=== PATIENT | female | born 1935 | race Caucasian/White ===

== ENCOUNTER 2017-07-19 12:58 | Outpatient (CLI) | payer MEDICARE, OTHER ==
[~2017-07-19 12:58] MED LIST: Iopamidol 370 76% 100 ML VIAL ONE
== END 2017-07-19 12:59 | disposition home or self-care (01) ==
LOC: BICCT 12:58
PROVIDERS: ATTEND Obstetrics & Gynecology
DX: R10.31 Right lower quadrant pain (principal)
CPT/HCPCS: 74177

== ENCOUNTER 2017-07-27 02:14 | Emergency (ER) | payer MEDICARE, OTHER ==
[2017-07-27 03:37] LABS: #Lymphocytes 0.8 thou/uL (1.20-3.40); #Monocytes 0.5 thou/uL (0.11-0.59); #Neutrophils 4.1 thou/uL (1.40-6.50); %Basophils 0.2 % (0.0-1.0); %Eosinophils 0.8 % (0.0-10.0); %Monocytes 9.5 % (0.0-10.0); Hematocrit 37.6 % (36.0-47.0); Mean Platelet Volume 6.9 fL (7.4-10.4); Red Blood Cell (RBC) Count 3.86 mill/uL (4.20-5.40); White Blood Cell (WBC) Count 5.5 thou/uL (4.8-10.8)
[2017-07-27 03:51] LABS: PTT 26.6 SEC (22.9-36.1); Prothrombin Time 12.8 SEC (12.0-14.7)
[2017-07-27 03:52] LABS: ALT (SGPT) 15 U/L (8-55); AST (SGOT) 19 U/L (5-34); Alkaline Phosphatase 65 U/L (40-150); Anion Gap 11 mmol/L (10-20); BUN (Urea Nitrogen) 13 mg/dL (9.8-20.1); Bilirubin, Total 0.3 mg/dL (0.2-1.2); Calc. Creatinine Clearance 0 mL/min (70-130); Calcium 10.4 mg/dL (7.8-10.44); Carbon Dioxide 28 mmol/L (23-31); Chloride 105 mmol/L (98-107); Estimated GFR-MDRD 63; Globulin 3.2 g/dL (2.4-3.5); Protein, Total 7.2 g/dL (6.0-8.3)
== END 2017-07-27 04:55 | disposition home or self-care (01) ==
LOC: ERS 02:14
DX: R23.3 Spontaneous ecchymoses (principal); E03.9 Hypothyroidism, unspecified; Z79.899 Other long term (current) drug therapy
CPT/HCPCS: 36415; 80053; 85025; 85610; 85652; 85730; 86140; 99283

== ENCOUNTER 2017-09-02 12:32 | Outpatient (CLI) | payer MEDICARE, OTHER ==
--- NOTE | 2017-09-02 21:48 | MRI ---
THORACIC SPINE MRI NONCONTRAST 09/02/17 INDICATION: Radicular pain, right sided. FINDINGS: No evidence of acute compression fracture or subluxation within the thoracic spine. No acute disc spa ce inflammation. The thoracic spinal cord maintains appropriate contour and caliber. No definite intr insic cord signal abnormality is identified. There are no significant disc bulges of the thoracic spi ne. No high grade central canal or neural foraminal stenosis. IMPRESSION: No significant cord compromise of the thoracic spine is demonstrated. POS: [facility]
--- NOTE | 2017-09-02 23:38 | MRI ---
LUMBAR SPINE MRI WITHOUT CONTRAST 09/02/17 CLINICAL HISTORY: Radicular pain. FINDINGS: There is mild multilevel end plate degenerative change at the lumbar spine including multiple Schmorl 's node formation without evidence of acute compression deformity. There is mild retrolisthesis of L2 on 3 and slight spondylosis of L4 on 5. There is a small right renal cyst. L5-S1: There is a left subarticular through foraminal disc protrusion which produces mild narrowing o f the left subarticular zone and mild narrowing of the left aspect of the thecal sac. No high grade f oraminal stenosis. L4-5: Disc bulge is present with mild narrowing of the central canal. No high grade foraminal stenosi s. L3-4: There is mild central canal stenosis on the basis of broad based disc bulge. There is mild narr owing of each neural foramen. L2-3: Mild central canal stenosis. There is moderate narrowing in the right subarticular zone on the basis of disc osteophyte complex and superimposed disc protrusion. Moderate right and mild left neura l foraminal narrowing present. L1-2: No high grade central canal or neural foraminal stenosis. 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 The conus medullaris is appropriate in morphology, terminating at L1. IMPRESSION: Multilevel degenerative change throughout the lumbar spine as outlined above. POS: [facility]
== END 2017-09-02 12:33 | disposition home or self-care (01) ==
LOC: MRI 12:32
PROVIDERS: ATTEND Specialist
DX: M54.10 Radiculopathy, site unspecified (principal); M47.896 Other spondylosis, lumbar region
CPT/HCPCS: 72146; 72148

== ENCOUNTER 2017-11-19 19:07 | Emergency (ER) | payer MEDICARE ==
[2017-11-19 19:38] LABS: Mean Corpuscular HGB CONC 34.6 g/dL (32.0-36.0); Mean Corpuscular Hemoglobin 32.7 pg (27.0-31.0); Mean Corpuscular Volume 94.6 fl (81.0-99.0); Mean Platelet Volume 6.6 fL (7.4-10.4); Platelet Count 275 thou/uL (130-400); RBC Distribution Width 12.1 % (11.5-14.5); Red Blood Cell (RBC) Count 3.97 mill/uL (4.20-5.40); White Blood Cell (WBC) Count 4.4 thou/uL (4.8-10.8)
[2017-11-19 19:53] LABS: Band 11 % (5-11); Eosinophils 2 % (0-10); Lymphocytes 22 % (21-51); MDiff Complete? YES; Monocytes 14 % (0-10); Neutrophil 45 % (42-75); Ovalocytes SLIGHT = 2-5 cells (100X) (0-1/hpf); PLT Morphology Comment Appears Adequate; Polychromasia SLIGHT = 2-3 cells (100X) (0-2/hpf); Reactive Lymphocytes 6 % (0-10)
[2017-11-19 20:00] LABS: ALT (SGPT) 13 U/L (8-55); AST (SGOT) 20 U/L (5-34); Alkaline Phosphatase 66 U/L (40-150); Anion Gap 14 mmol/L (10-20); BUN (Urea Nitrogen) 10 mg/dL (9.8-20.1); Bilirubin, Total 0.3 mg/dL (0.2-1.2); Calc. Creatinine Clearance 0 mL/min (70-130); Calcium 9.9 mg/dL (7.8-10.44); Carbon Dioxide 25 mmol/L (23-31); Chloride 102 mmol/L (98-107); Estimated GFR-MDRD 52; Globulin 3.1 g/dL (2.4-3.5); Glucose 106 mg/dL (83-110); Potassium 3.9 mmol/L (3.5-5.1); Protein, Total 7.1 g/dL (6.0-8.3); Sodium 137 mmol/L (136-145)
[2017-11-19 20:02] LABS: Bilirubin Negative (Negative); Blood, Urine Negative (Negative); Clarity CLEAR (Clear); Glucose, Urine (Dipstick) Negative (Negative); Leukocyte Negative (Negative); Nitrite Negative (Negative); Protein, Urine (Dipstick) Negative (Neg-Trace); Specific Gravity, Urine 1.005 (1.002-1.036); Urobilinogen 0.2 mg/dL (0.2-1.0); pH, Urine 7.5 (5.0-9.0)
[2017-11-19] MEDS ORDERED: Ketorolac Tromethamine 30 MG/ML VIAL ONE (20:48)
--- NOTE | 2017-11-19 23:27 | CT ---
CT ABDOMEN AND PELVIS WITH IV CONTRAST 11/19/17 HISTORY: Right lower quadrant abdominal pain. COMPARISON: None available. FINDINGS: There are mild chronic interstitial lung changes at each lung base. There is a hiatal hernia noted. Vascular calcifications are seen in the abdominal aorta and involving the iliac arteries. The liver, spleen, pancreas, bilateral adrenal glands, left kidney and distended urinary bladder demo nstrate a normal CT appearance. A subcentimeter too small to characterize hypodense lesion is seen in the right kidney. There is evidence of hysterectomy. There is colonic diverticulosis without CT evidence of diverticuli tis. The appendix is visualized and normal in caliber. No periappendiceal inflammatory changes are se en and there is no cecal apical thickening. The opacified bowel is normal in caliber There is no free fluid, fluid collection, or lymphadenopathy seen in the abdomen or pelvis. IMPRESSION: 1. No acute findings are seen in the abdomen or pelvis. There are no CT findings to suggest appe ndicitis. 2. Hysterectomy. 3. Atherosclerotic vascular calcifications. 4. Colonic diverticulosis. 5. Subcentimeter to small to characterize hypodense lesion right kidney. 6. Small hiatal hernia with contrast in distal esophagus probably related to gastroesophageal re flux. POS: [facility]
== END 2017-11-19 23:53 | disposition home or self-care (01) ==
LOC: ERS 19:07
DX: R10.31 Right lower quadrant pain (principal); E03.9 Hypothyroidism, unspecified; I10 Essential (primary) hypertension; Z79.899 Other long term (current) drug therapy; Z79.82 Long term (current) use of aspirin
CPT/HCPCS: 36415; 74177; 80053; 81003; 85025; 96361; 96374; J1885

== ENCOUNTER 2017-12-16 20:03 | Emergency (ER) | payer MEDICARE ==
[2017-12-16] MEDS ORDERED: Morphine 5 MG/ML SYRINGE ONE (20:44)
[2017-12-16 20:50] LABS: #Basophils 0.1 thou/uL (0.0-0.2); #Eosinphils 0.1 thou/uL (0.0-0.7); #Lymphocytes 1.7 thou/uL (1.20-3.40); #Monocytes 0.7 thou/uL (0.11-0.59); #Neutrophils 1.9 thou/uL (1.40-6.50); %Basophils 1.5 % (0.0-1.0); %Eosinophils 2.6 % (0.0-10.0); %Lymphocytes 38.1 % (21.0-51.0); %Monocytes 14.5 % (0.0-10.0); %Neutrophils 43.4 % (42.0-75.0); Hemoglobin 14.1 g/dL (12.0-16.0); Mean Corpuscular HGB CONC 35.3 g/dL (32.0-36.0); Mean Corpuscular Hemoglobin 32.4 pg (27.0-31.0); Mean Corpuscular Volume 91.8 fl (81.0-99.0); Mean Platelet Volume 7.5 fL (7.4-10.4); Platelet Count 259 thou/uL (130-400); Red Blood Cell (RBC) Count 4.36 mill/uL (4.20-5.40); White Blood Cell (WBC) Count 4.5 thou/uL (4.8-10.8)
[2017-12-16 20:53] LABS: Bilirubin Negative (Negative); Blood, Urine Negative (Negative); Glucose, Urine (Dipstick) Negative (Negative); Leukocyte Moderate (Negative); Nitrite Negative (Negative); Protein, Urine (Dipstick) Negative (Neg-Trace); Urobilinogen 0.2 mg/dL (0.2-1.0); pH, Urine 8.5 (5.0-9.0)
[2017-12-16 20:54] LABS: Clarity Hazy (Clear)
[2017-12-16 21:00] LABS: ALT (SGPT) 14 U/L (8-55); AST (SGOT) 23 U/L (5-34); Albumin 4.3 g/dL (3.4-4.8); Alkaline Phosphatase 71 U/L (40-150); Anion Gap 17 mmol/L (10-20); BUN (Urea Nitrogen) 9 mg/dL (9.8-20.1); Bilirubin, Total 0.4 mg/dL (0.2-1.2); Calc. Creatinine Clearance 0 mL/min (70-130); Calcium 10.3 mg/dL (7.8-10.44); Carbon Dioxide 23 mmol/L (23-31); Chloride 105 mmol/L (98-107); Estimated GFR-MDRD 58; Globulin 3.6 g/dL (2.4-3.5); Glucose 86 mg/dL (83-110); Lipase 90 U/L (8-78); Potassium 3.9 mmol/L (3.5-5.1); Protein, Total 7.9 g/dL (6.0-8.3); Sodium 141 mmol/L (136-145)
[2017-12-16 21:01] LABS: Bacteria/HPF 2+ HPF (None Seen); RBC/HPF None Seen HPF (0-3)
--- NOTE | 2017-12-16 21:46 | CT ---
CT OF THE ABDOMEN AND PELVIS 12/16/17 COMPARISON: 11/19/17 HISTORY: Right lower quadrant pain. TECHNIQUE: Serial axial CT imaging is obtained at 5 mm intervals from lung bases through pubic symphysis with IV contrast. Coronal reformatted imaging obtained. FINDINGS: The lack of oral contrast limits assessment of the bowel. Coarse stable peripheral linear interstitia l density noted in both lung bases. There is a stable small sliding hiatal hernia. No free intraperitoneal air or fluid is evident. The liver, spleen, gallbladder, pancreas, adrenal glands, and kidneys are unremarkable. There is no evidence for bowel inflammatory change or obstruction. The appendix is unremarkable. Ther e is moderate distention of the urinary bladder. There is atherosclerotic calcification of the abdominal aorta and its pelvic branches. No pelvic, ret roperitoneal or mesenteric lymphadenopathy. The osseous structures demonstrate degenerative scoliotic curvature of the lumbar spine with apex to the left. There is bilateral hip degenerative change and degenerative change at the level of the pubi c symphysis, bilateral sacroiliac joints, and the facet joints of the lower lumbar spine. IMPRESSION: No evidence for bowel inflammatory change or obstruction. Numerous incidental findings as described a joy. Appendix appears normal. POS: [facility]
== END 2017-12-16 22:02 | disposition home or self-care (01) ==
LOC: SCSER 20:03
DX: R10.31 Right lower quadrant pain (principal); I10 Essential (primary) hypertension; E03.9 Hypothyroidism, unspecified; Z85.3 Personal history of malignant neoplasm of breast; Z79.82 Long term (current) use of aspirin; Z79.899 Other long term (current) drug therapy
CPT/HCPCS: 74177; 80053; 81003; 81015; 83690; 85025; 87086; 96374; J2270

== ENCOUNTER 2018-01-07 20:47 | Emergency (ER) | payer MEDICARE ==
[2018-01-07] MEDS ORDERED: Fentanyl 100 MCG/2 ML VIAL ONE (22:43)
== END 2018-01-07 23:06 | disposition home or self-care (01) ==
LOC: ERS 20:47
DX: R10.31 Right lower quadrant pain (principal); I10 Essential (primary) hypertension
CPT/HCPCS: 96372; J3010

== ENCOUNTER 2018-04-06 20:00 | Emergency (ER) | payer MEDICARE ==
--- NOTE | 2018-04-06 21:11 | RAD ---
RIGHT HIP TWO VIEWS: 04/06/18 HISTORY: Chronic pain. COMPARISON: None. FINDINGS: Contour of the femoral head is maintained. Hip joint space is mildly narrowed. No fracture. IMPRESSION: Mild degenerative change. POS: [facility]
[2018-04-06] MEDS ORDERED: Dexamethasone 4 mg/ml Vial ONE (21:15)
== END 2018-04-06 21:43 | disposition home or self-care (01) ==
LOC: ERS 20:00
DX: G89.29 Other chronic pain (principal); M25.551 Pain in right hip; I10 Essential (primary) hypertension; E03.9 Hypothyroidism, unspecified; Z79.899 Other long term (current) drug therapy; Z79.82 Long term (current) use of aspirin
CPT/HCPCS: 96372; J1100

== ENCOUNTER 2018-05-27 18:57 | Emergency (ER) | payer MEDICARE ==
[2018-05-27] MEDS ORDERED: Dexamethasone 10 MG/ML VIAL ONE (22:35)
== END 2018-05-27 23:00 | disposition home or self-care (01) ==
LOC: ERS 18:57
DX: G89.29 Other chronic pain (principal); M25.551 Pain in right hip; E03.9 Hypothyroidism, unspecified; I10 Essential (primary) hypertension; F41.9 Anxiety disorder, unspecified
CPT/HCPCS: J1100; J2270

== ENCOUNTER 2018-05-29 19:24 | Inpatient (IN) | payer MEDICARE ==
[2018-05-29 20:05] LABS: Hemoglobin 12.1 g/dL (12.0-16.0); Mean Corpuscular HGB CONC 34.1 g/dL (32.0-36.0); Mean Corpuscular Hemoglobin 32.3 pg (27.0-31.0); Mean Corpuscular Volume 94.9 fL (78.0-98.0); Mean Platelet Volume 7.2 fL (7.4-10.4); Platelet Count 303 thou/uL (130-400); RBC Distribution Width 12.3 % (11.5-14.5); Red Blood Cell (RBC) Count 3.73 mill/uL (4.20-5.40); White Blood Cell (WBC) Count 4.2 thou/uL (4.8-10.8)
[2018-05-29 20:22] LABS: Bilirubin Negative (Negative); Blood, Urine Negative (Negative); Clarity CLEAR (Clear); Glucose, Urine (Dipstick) Negative (Negative); Leukocyte Small (Negative); Nitrite Positive (Negative); Protein, Urine (Dipstick) Negative (Neg-Trace); Specific Gravity, Urine 1.009 (1.002-1.036); Urobilinogen 0.2 mg/dL (0.2-1.0)
[2018-05-29 20:24] LABS: Bacteria/HPF 4+ HPF (None Seen); Hyaline Casts/LPF 0-3 HYALINE CAST LPF (0-3 Hyaline); RBC/HPF 0-3 HPF (0-3); Squamous Epithelial None Seen HPF (0-3); WBC/HPF 0-3 HPF (0-3)
[2018-05-29 20:24] LABS: Band 5 % (5-11); Elliptocytes SLIGHT = 2-5 cells (100X) (0-1/hpf); Lymphocytes 39 % (21-51); MDiff Complete? YES; Monocytes 5 % (0-10); Neutrophil 51 % (42-75); PLT Morphology Comment Appears Adequate
[2018-05-29 20:25] LABS: ALT (SGPT) 12 U/L (8-55); AST (SGOT) 21 U/L (5-34); Albumin 4.1 g/dL (3.4-4.8); Alkaline Phosphatase 64 U/L (40-150); Anion Gap 14 mmol/L (10-20); BUN (Urea Nitrogen) 14 mg/dL (9.8-20.1); Bilirubin, Total 0.6 mg/dL (0.2-1.2); CK (CPK) 31 U/L (29-168); Calc. Creatinine Clearance 0 mL/min (70-130); Calcium 10.6 mg/dL (7.8-10.44); Carbon Dioxide 21 mmol/L (23-31); Chloride 95 mmol/L (98-107); Estimated GFR-MDRD 62; Globulin 2.9 g/dL (2.4-3.5); Glucose 94 mg/dL (83-110); Potassium 3.8 mmol/L (3.5-5.1); Sodium 126 mmol/L (136-145)
[2018-05-29 20:29] LABS: CKMB 1.1 ng/mL (0-6.6); Troponin I Less than 0.010 ng/mL (< 0.028)
--- NOTE | 2018-05-29 21:21 | RAD ---
PORTABLE CHEST: History: Weakness. Right sided pain. Comparison: 12-05-16 FINDINGS: Heart size appears slightly enlarged. Chronic lung changes are seen. There are atherosclerotic change s of the aorta. Surgical clips are seen in the left axilla and over the left breast. IMPRESSION: Cardiomegaly with chronic lung change. Stable exam. POS: [facility]
[2018-05-30 00:21] VITALS: BMI 19.5
[2018-05-30] MEDS ORDERED: Ondansetron ODT 4 MG TAB SL PRN (00:24)
[2018-05-30] MEDS ORDERED: Ondansetron HCl/PF 4 MG/2 ML Vial IVP PRN (00:24)
[2018-05-30] MEDS ORDERED: Sodium Chloride 0.9% 1,000 ML IV SCH (00:24)
[2018-05-30] MEDS ORDERED: cefTRIAXone\\ROCEPHIN 1 GM in Sodium Chloride 0.9% 100 ML IVPB SCH (01:00)
--- NOTE | 2018-05-30 08:43 | HP ---
CHIEF COMPLAINT: Extreme fatigue, anorexia and right flank pain associated with UTI. HISTORY OF PRESENT ILLNESS: The patient is an 82-year-old female who states that at the beginning of September she lost her appetite. She began to have right-sided flank pain that would go from around the front all the way back to her spine. She denies the appearance of any rash or skin sensitivity. She has been to the ER as recently as last week for this pain. X-rays were taken with no diagnosis made. She continues to get weaker and weaker. She has no appetite. She is now unable to get out of bed, so she came to the emergency room for further evaluation. In the ER, she was noted to be hypon atremic and to have a urinary tract infection such that she has been put in the hospital for further evaluation. PAST MEDICAL HISTORY: Significant for hypertension, hypothyroidism. PAST SURGICAL HISTORY: Hysterectomy, lumpectomy on the left breast in 2013, rectocele repair in 2005 with pelvic mesh patient. PSYCHIATRIC HISTORY: Includes depression. SOCIAL HISTORY: Denies alcohol use, smoking or illicit drug use. ALLERGIES: She has an unknown reaction to BENADRYL, IODIDES AND SULFIDES react with her as well. MEDICATIONS: On admission include: 1. Lisinopril/hydrochlorothiazide 10/12.5 one p.o. q.a.m. 2. Celecoxib 200 mg daily. 3. Levothyroxine 75 mcg every day. REVIEW OF SYSTEMS: GENERAL: The patient reports extreme fatigue and weakness, but denies fever or chills. HEENT: Denies drainage from her eyes or sores in ears, nose or throat as well as any pain or voice c hanges. CHEST: Denies shortness of breath or coughing. CARDIOVASCULAR: Denies palpitations or chest pain. ABDOMEN: Denies nausea, vomiting, diarrhea. : Denies painful urination or blood in urine or stool. MUSCULOSKELETAL: States that she has chronic right-sided back pain, now radiating around to her fron t pelvis, but she denies any fall or injury. She has arthritic inflammations of her joints as well. SKIN: No acute rashes or lesions. NEUROLOGIC: She has dizziness and weakness, but denies any paralysis or headaches. HEME/LYMPHATIC: Denies any abnormal bruising, blood clotting or swelling. PHYSICAL EXAMINATION: At the time of admission: VITAL SIGNS: Blood pressure 123/65, pulse 78, respirations 24. Pain scale 0/10. O2 sat 100% on cesia m air. GENERAL: This is an elderly female, alert, oriented, and cooperative. HEENT: Normocephalic and atraumatic. Pupils equal, round, and reactive to light. TMs, nares, and p harynx are clear. NECK: Supple, trachea midline. CHEST: Clear to auscultation. BREAST: Deferred. HEART: Regular rate and rhythm, no murmur. ABDOMEN: Scaphoid without hepatosplenomegaly. Nontender. : Deferred. EXTREMITIES: With symmetrical muscular wasting in upper and lower extremities with normal range of m otion. SKIN: Without acute rashes or lesions with poor turgor. NEUROLOGIC: Cranial nerves are intact. Mental status is clear. Gait and cerebellar function untest ed. Sensory exam is grossly intact. LABORATORY: The lab work thus far shows WBC 4.2, hemoglobin 12.1, hematocrit is 35.4, platelets at 3 03. Sodium is 126, potassium 3.8, CO2 95, BUN 14, creatinine 0.8, calcium 10.6. Liver functions nor mal. Cardiac enzymes negative. BNP slightly elevated at 121.0, TSH, indicating overmedication at 0. 1551. Urinalysis significant for positive nitrites, small leukocyte esterase. ASSESSMENT: 1. Hyponatremia. 2. Urinary tract infection. 3. 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 4. Back pain with radiation to the front in a radicular L2 type pattern. PLAN: 1. The plan will be bone scan to look for occult vertebral fracture as well as any metastatic proces s and inflammation. 2. Pulmonary function tests to assess for any occult chronic obstructive pulmonary disease. 3. Echocardiogram to see if this is a cardiac cachexia. 4. Appetite stimulant with Megace and serial reevaluation, pending results. 5. We will also replace her sodium and begin her on antibiotics for her urinary tract infection. Th e culture is pending.
[2018-05-30 09:24] LABS: Anion Gap 9 mmol/L (10-20); BUN (Urea Nitrogen) 11 mg/dL (9.8-20.1); Calc. Creatinine Clearance 47 mL/min (70-130); Calcium 9.5 mg/dL (7.8-10.44); Carbon Dioxide 21 mmol/L (23-31); Chloride 103 mmol/L (98-107); Estimated GFR-MDRD 75; Glucose 94 mg/dL (83-110); Potassium 3.5 mmol/L (3.5-5.1); Sodium 129 mmol/L (136-145)
[2018-05-30] MEDS: Acetaminophen 325 MG TAB PO SCH ×2 (11:37→18:00)
[2018-05-30] MEDS: Sodium Chloride 0.9% 1,000 ML IV SCH (11:39)
--- NOTE | 2018-05-30 15:16 | NM ---
BONE SCAN: HISTORY: An 82-year-old with a history of breast cancer in 2010, abdominal pain. DOSE: 31.2 mCi of Technetium 99m-MDP. FINDINGS: Anterior and posterior whole body delayed images obtained. Images demonstrate some mild levoscoliosis centered at the L1-2 level. There is an area of increased activity in the right L1-2 vertebral region, possibly involving the lateral aspect of the vertebral bodies on the right articulating facets. These may represent degenerative changes; however, I cannot exclude the possibility of lumbar spine metastatic disease. Correlation with pre- and postcontrast- enhanced MRI images may be of use. No other obvious bony lesion seen. No evidence of other osseous lesion is seen to suggest metastatic disease. IMPRESSION: Right L1-2 aspect area of increased vertebral activity. This may represent degenerative change, alth ough metastatic disease could not be excluded. POS: [facility]
[2018-05-30] MEDS: Megestrol Acetate 800 MG/20 ML UDCUP PO SCH (20:04)
[2018-05-31] MEDS: cefTRIAXone\\ROCEPHIN 1 GM in Sodium Chloride 0.9% 100 ML IVPB SCH (00:16)
[2018-05-31] MEDS: Acetaminophen 325 MG TAB PO SCH ×5 (00:16→23:25)
[2018-05-31 05:31] LABS: Anion Gap 10 mmol/L (10-20); BUN (Urea Nitrogen) 7 mg/dL (9.8-20.1); Calc. Creatinine Clearance 51 mL/min (70-130); Calcium 9.9 mg/dL (7.8-10.44); Carbon Dioxide 20 mmol/L (23-31); Chloride 104 mmol/L (98-107); Estimated GFR-MDRD 83; Glucose 101 mg/dL (83-110); Potassium 3.6 mmol/L (3.5-5.1); Sodium 130 mmol/L (136-145)
[2018-05-31] MEDS: Levothyroxine Sodium 50 MCG TAB PO SCH (05:31)
[2018-05-31] MEDS: Megestrol Acetate 800 MG/20 ML UDCUP PO SCH ×2 (09:52→19:53)
[2018-05-31] MEDS: Losartan 25 MG TAB PO SCH (09:52)
--- NOTE | 2018-05-31 11:09 | MRI ---
MRI LUMBAR SPINE WITH AND WITHOUT CONTRAST: COMPARISON: 09/02/2017 CORRELATION: CT abdomen and pelvis from 12/16/2017. Bone scan from 05/30/2018. TECHNIQUE: MRI lumbar spine is performed with and without intravenous Gadolinium administration. Multisequentia l, multiplanar imaging is performed. FINDINGS: Overall, there is appropriate T1 marrow signal intensity of the lumbar vertebrae. There is T1 marrow signal hypointensity with associated T2 and STIR hyperintensity, as well as enhancement involving th e inferior endplate of L2 and the superior endplate of L3, predominantly along the right aspect of th e endplate. Correlate made with CT from December 2017 demonstrates degenerative change secondary to leftw fernandez scoliosis centered at the L2-L3 level. There is no MR evidence of a metastatic lesion. No signi ficant edema involving the left or right pedicles at L2 or L3. Appropriate signal intensity of the psoas muscles. Redemonstration of a T2 hyperintensity in the rig ht renal cortex, measuring 1 cm. The conus medullaris terminates at the mid to lower aspect of L1. On the post contrast images, no pathologic enhancement of the vertebral bodies. There is enhancement associated with the endplate changes at L2-L3. There is no abnormal enhancement in the thecal sac, including the cauda equina and the conus medullaris. There is abnormal fluid in the right facet joint, at L3-L4 and at L4-L5. There is enhancement involv ing the inferior right facet at L3. A small amount of enhancement in the right L3-L4 and L4-L5 facet joints. Additionally, there is mild enhancement involving the right facet joint at L2-L3. Enhancem ent is felt to be due to facet arthropathy. There is 3.5 mm of retrolisthesis of L2 upon L3. The conus medullaris terminates at the upper aspect of L1. T12-L1: Adequate disk hydration. No significant central canal stenosis or foraminal narrowing. L1-L2: Adequate disk hydration. No significant central canal stenosis. Mild right and left foramin al narrowing. L2-L3: Desiccation with mild loss of disk space height. Broad-based disk bulge, ligamentum flavum t hickening, and facet hypertrophy result in mild central canal stenosis. Narrowing of the right subar ticular zone with disk material abutting but not obscuring the traversing right L3 nerve root. The o verall degree of central canal stenosis has progressed when compared to the prior examination. Sever e right and moderate to severe left foraminal narrowing. The degree of foraminal stenosis has also p rogressed since the previous examination. L3-L4: Desiccation with mild loss of disk space height. Generalized disk bulge, ligamentum flavum t hickening, and facet hypertrophy result in mild central canal stenosis. There is progression in the overall degree of central canal stenosis. Disk material abuts but does not obscure the traversing le ft L3 nerve root. Moderate right and left foraminal narrowing. L4-L5: Desiccation without significant loss of disk space height. No significant central canal sten osis. Mild right and moderate left foraminal narrowing. L5-S1: Desiccation with mild loss of disk space height. There is a central/left subarticular disk p rotrusion. The degree of mass effect upon the traversing left S1 nerve root has not significantly ch anged. There is no significant central canal stenosis. Mild bilateral foraminal narrowing. Stable Tarlov cysts in the sacrum. IMPRESSION: 1. Worsening degenerative changes involving the L2-L3 level. There is endplate irregularity, edema, and enhancement along the right aspect of the disk space, involving the adjacent endplates. Finding s are presumed to be due to degenerative change. There is no magnetic resonance evidence of intraoss eous metastasis. 2. Fluid and abnormal enhancement involving the right facet joints, from L2-L3 through L4-L5. Enhan cement and fluid are presumed to be due to arthropathy. 3. Worsening degenerative changes at L2-L3. POS: [facility]
[2018-05-31] MEDS ORDERED: Gadobenate Dimeglumine 529 MG/1 ML (20ML VIAL) ONE (16:02)
[2018-06-01] MEDS: cefTRIAXone\\ROCEPHIN 1 GM in Sodium Chloride 0.9% 100 ML IVPB SCH (00:58)
[2018-06-01 04:43] LABS: Anion Gap 11 mmol/L (10-20); BUN (Urea Nitrogen) 13 mg/dL (9.8-20.1); Calc. Creatinine Clearance 48 mL/min (70-130); Carbon Dioxide 20 mmol/L (23-31); Chloride 106 mmol/L (98-107); Estimated GFR-MDRD 76; Glucose 105 mg/dL (83-110); Potassium 3.9 mmol/L (3.5-5.1); Sodium 133 mmol/L (136-145)
[2018-06-01] MEDS: Acetaminophen 325 MG TAB PO SCH ×4 (04:59→23:29)
[2018-06-01] MEDS: Levothyroxine Sodium 50 MCG TAB PO SCH (04:59)
[2018-06-01] MEDS: Sodium Chloride 0.9% 1,000 ML IV SCH (06:34)
[2018-06-01] MEDS: CeleCOXIB 100 MG CAP PO SCH (08:05)
[2018-06-01] MEDS: Losartan 25 MG TAB PO SCH (08:06)
[2018-06-01] MEDS: Megestrol Acetate 800 MG/20 ML UDCUP PO SCH ×2 (08:08→19:45)
[2018-06-02] MEDS: cefTRIAXone\\ROCEPHIN 1 GM in Sodium Chloride 0.9% 100 ML IVPB SCH (00:03)
[2018-06-02 04:26] LABS: Anion Gap 7 mmol/L (10-20); BUN (Urea Nitrogen) 9 mg/dL (9.8-20.1); Calc. Creatinine Clearance 48 mL/min (70-130); Calcium 9.9 mg/dL (7.8-10.44); Carbon Dioxide 22 mmol/L (23-31); Chloride 108 mmol/L (98-107); Estimated GFR-MDRD 76; Glucose 98 mg/dL (83-110); Potassium 4.3 mmol/L (3.5-5.1); Sodium 133 mmol/L (136-145)
[2018-06-02] MEDS: Levothyroxine Sodium 50 MCG TAB PO SCH (05:55)
[2018-06-02] MEDS: Acetaminophen 325 MG TAB PO SCH (05:55)
[2018-06-02 08:10] VITALS: BP 130/70; TEMP 97.4
[2018-06-02] MEDS: CeleCOXIB 100 MG CAP PO SCH (08:10)
[2018-06-02] MEDS: Losartan 25 MG TAB PO SCH (08:11)
[2018-06-02] MEDS: Megestrol Acetate 800 MG/20 ML UDCUP PO SCH (08:12)
--- NOTE | 2018-06-02 10:00 | PRG ---
DATE OF SERVICE: 06/02/2018 This is a 30 minutes initial hospital visit note in which 30 minutes were spent in review of the imag ing record, evaluation and examination of the patient, and formulation of a plan. Greater than 50% o f the time was spent in counseling on Mr. Maggy Kathleen. CHIEF COMPLAINT: Low back pain with multilevel lumbar spondylosis. HISTORY OF PRESENT ILLNESS: Ms. Kathleen is an 82-year-old woman. She takes aspirin and has been admi tted for generalized weakness. She endorses abdominal pain as well. On laboratory evaluation, she w as found to have no leukocytosis, but was hyponatremic and had evidence of urinary tract infection. She has been put on Rocephin. She endorses again low back pain that her daughter states has worsened over the last 6 months. Review of an MRI of the lumbar spine demonstrates multilevel spondylitic ch anges. The patient does endorse on occasion which appears to be right flank pain and perhaps it goes into the right hip. She denies any radicular pain into the lower extremities, otherwise. She does have right L2-L3 severe stenosis related to facet arthropathy and osteophytic disk at L2-L3 eccentric to the right. As such, this may be compressing the traversing right L3 nerve root; however, again i t is difficult to know. Her daughter tells me that she has undergone injections with Dr. Cisneros, it is unclear to me what segments were targeted or if these were general facetogenic injections versus epidural steroid. PHYSICAL EXAMINATION: GENERAL: She is alert. She is in no distress. As I discussed with her, she states she overall just feels weak. EXTREMITIES: She moves her lower extremities to command with no apparent deficits. IMPRESSION AND PLAN: I would recommend on this patient obviously continued metabolic improvements re garding her hyponatremia and treatment of urinary tract infection. I think that having the pain serv ice see the patient for focused right L3 transforaminal epidural steroid injection to see if that hel ps the pain that she describes into her flank, which may be going into her right hip. If that provid es benefit, that may indicate an active radiculopathy at the right L3 segment and that may be amenabl e to surgical decompression via a right L2-L3 hemilaminotomy, foraminotomy, and possible diskectomy. The problem is the patient really just endorses back pain, weakness, and again abdominal pain which obviously the back pain would be triggered by her multilevel spondylitic changes given her age. Ther e is certainly nothing that would warrant emergent neurosurgical intervention and again I am not conv inced that pain management has been maximized here frankly. I would recommend inpatient pain consult for targeted right L3 transforaminal epidural steroid injection. If this provides no relief to the patient, then again I do not think it would be beneficial to discuss any surgical intervention. DIAGNOSES: 1. Low back pain. 2. Generalized weakness. 3. Hyponatremia. 4. Urinary tract infection.
== END 2018-06-02 10:57 | disposition home or self-care (01) | DRG 644 ==
LOC: ERS 19:24 → T4-A 20:45
PROVIDERS: ADMIT Specialist; ATTEND Specialist
DX: E22.2 Syndrome of inappropriate secretion of antidiuretic hormone (principal); N39.0 Urinary tract infection, site not specified; M48.061 Spinal stenosis, lumbar region without neurogenic claudication; I10 Essential (primary) hypertension; E03.9 Hypothyroidism, unspecified; Z88.2 Allergy status to sulfonamides; R53.82 Chronic fatigue, unspecified; M47.9 Spondylosis, unspecified; Z79.82 Long term (current) use of aspirin; R63.0 Anorexia; M51.26 Other intervertebral disc displacement, lumbar region
CPT/HCPCS: 36415; 36416; 71045; 72158; 78306; 80048; 80053; 81003; 81015; 82553; 83880; 84443; 84484; 85025; 85652; 87086; 93005; 93306; 94010; 94727; 96372; A9503; A9579; J0696; J1100; J2270; J7050

== ENCOUNTER 2018-06-06 22:54 | Emergency (ER) | payer MEDICARE ==
[2018-06-07] MEDS ORDERED: Lidocaine 5% Patch TD SCH (00:15)
[2018-06-07] MEDS ORDERED: Acetaminophen 500 MG TAB ONE (00:25)
--- NOTE | 2018-06-07 08:58 | RAD ---
TWO VIEWS RIGHT HIP: History: Right hip pain. Date: 06-07-18 FINDINGS: AP and frogleg views of the right hip demonstrate no evidence of right hip fractures, subluxation, or bony lesions. No acute or chronic bony abnormalities seen. IMPRESSION: Normal two views right hip. POS: [facility]
--- NOTE | 2018-06-07 09:05 | RAD ---
LUMBAR SPINE 3 VIEWS: Date: 06/07/18 HISTORY: 82-year-old female with history of low back pain and right-sided hip pain. FINDINGS: Moderate levoscoliosis with disc osteophytosis and facet arthrosis, and some heterogeneous bony demin eralization. No evidence for acute compression fracture. IMPRESSION: Levoscoliosis with fairly extensive spondylosis, with marked narrowing, particularly at L2-L3 without acute fracture. POS: [facility]
== END 2018-06-07 01:50 | disposition home or self-care (01) ==
LOC: ERS 22:54
DX: M54.16 Radiculopathy, lumbar region (principal); E03.9 Hypothyroidism, unspecified; F32.9 Major depressive disorder, single episode, unspecified; I10 Essential (primary) hypertension; W19.XXXA Unspecified fall, initial encounter
CPT/HCPCS: 72100

== ENCOUNTER 2018-07-07 21:21 | Observation (INO) | payer MEDICARE ==
[~2018-07-07 21:21] MED LIST changes: +ISOVUE-370 76%-LOCM 1 ML ONE; -Iopamidol 370 76% 100 ML VIAL ONE; +Iopamidol 370 76% 50 ML VIAL FS ONE
[2018-07-07 22:05] LABS: Hemoglobin 12.7 g/dL (12.0-16.0); Mean Corpuscular HGB CONC 32.9 g/dL (32.0-36.0); Mean Corpuscular Hemoglobin 32.7 pg (27.0-31.0); Mean Corpuscular Volume 99.3 fL (78.0-98.0); Mean Platelet Volume 6.7 fL (7.4-10.4); Platelet Count 336 thou/uL (130-400); RBC Distribution Width 14.3 % (11.5-14.5); Red Blood Cell (RBC) Count 3.89 mill/uL (4.20-5.40); White Blood Cell (WBC) Count 3.9 thou/uL (4.8-10.8)
[2018-07-07] MEDS ORDERED: diphenhydrAMINE 50 MG/ML VIAL ONE ×2 (22:13→23:21)
[2018-07-07] MEDS ORDERED: Famotidine/PF 20 mg/2ml Vial ONE ×2 (22:13→23:21)
[2018-07-07] MEDS ORDERED: Water For Inject, Bacteriostat 0 ML ONE (22:13)
[2018-07-07] MEDS ORDERED: methylPREDNISolone Sod Succ/PF 125 MG/2 ML VIAL ONE ×2 (22:13→23:21)
[2018-07-07 22:19] LABS: ALT (SGPT) 12 U/L (8-55); AST (SGOT) 22 U/L (5-34); Alkaline Phosphatase 75 U/L (40-150); Anion Gap 14 mmol/L (10-20); BUN (Urea Nitrogen) 17 mg/dL (9.8-20.1); Bilirubin, Total 0.6 mg/dL (0.2-1.2); Calc. Creatinine Clearance 0 mL/min (70-130); Calcium 10.5 mg/dL (7.8-10.44); Carbon Dioxide 20 mmol/L (23-31); Chloride 106 mmol/L (98-107); Estimated GFR-MDRD 61; Globulin 3.1 g/dL (2.4-3.5); Glucose 107 mg/dL (83-110); Lipase 128 U/L (8-78); Magnesium 2.8 mg/dL (1.6-2.6); Protein, Total 7.1 g/dL (6.0-8.3); Sodium 135 mmol/L (136-145)
[2018-07-07 22:22] LABS: Band 1 % (5-11); Lymphocytes 22 % (21-51); MDiff Complete? YES; Monocytes 14 % (0-10); Neutrophil 61 % (42-75); Reactive Lymphocytes 2 % (0-10)
[2018-07-07] MEDS ORDERED: Water For Inject, Bacteriostat 30 ML ONE (23:21)
[2018-07-07 23:39] LABS: Bilirubin Negative (Negative); Blood, Urine Trace (Negative); Clarity CLOUDY (Clear); Glucose, Urine (Dipstick) Negative (Negative); Leukocyte Trace (Negative); Nitrite Negative (Negative); Protein, Urine (Dipstick) Negative (Neg-Trace); Specific Gravity, Urine 1.006 (1.002-1.036)
[2018-07-07 23:40] LABS: Bacteria/HPF None Seen HPF (None Seen); Squamous Epithelial None Seen HPF (0-3); WBC/HPF None Seen HPF (0-3)
[2018-07-07 23:41] LABS: Yeast-AUWi Flag 37.6 (0-25.0)
[2018-07-07 23:47] LABS: Hyaline Casts/LPF NONE SEEN LPF (0-3 Hyaline); RBC/HPF 0-3 HPF (0-3)
[2018-07-07 23:48] LABS: Crystals/HPF 1+ AMORPH PHOS HPF (Negative); Yeast-All Forms None Seen HPF (None Seen)
[2018-07-08] MEDS ORDERED: Acetaminophen 1,000 MG in Premix Bag 1 BAG IVPB SCH (01:15)
[2018-07-08] MEDS ORDERED: Acetaminophen 325 MG TAB PO PRN (03:59)
[2018-07-08] MEDS ORDERED: Ondansetron ODT 4 MG TAB SL PRN (03:59)
[2018-07-08] MEDS ORDERED: Ondansetron PF 4 MG/2 ML Vial IVP PRN (03:59)
[2018-07-08] MEDS ORDERED: Sodium Chloride 0.45% 1,000 ML IV SCH (04:00)
[2018-07-08 04:37] VITALS: BMI 18.8
--- NOTE | 2018-07-08 07:22 | CT ---
ABDOMEN CT WITH CONTRAST EPLVIC CT WITH CONTRAST: HISTORY: Abdominal pain. Rectal pain. Fecal impaction. COMPARISON: 12/16/2017. FINDINGS: ABDOMEN CT: Dependent atelectatic changes and chronic changes in the visualized lung parenchyma. Patchy ground-g lass opacities may be due to edema. Heart is enlarged. No significant pericardial fluid. Descending thoracic aorta and the abdominal aorta have a normal caliber. No periaortic fat stranding. Portal vein is patent. Liver, spleen, pancreas, and adrenal glands have appropriate enhancement. Symmetric enhancement of the kidneys. No obstructive uropathy. A 6 mm hypodensity in the right kidn ey is too small to characterize. Nose is made of a hiatal hernia. Gastric mucosa, duodenum, and multiple normal-caliber small bowel l oops are noted. Ileocecal junction is normal. Normal-caliber appendix. Cecum, ascending colon, tra nsverse colon, and the proximal and mid descending colon are unremarkable. The distal descending col on, sigmoid colon, and rectum have a copious amount of fecal material. There is thinning of the dist al sigmoid colon and rectal wall with peripheral fat stranding and fluid. There is also stranding an d fluid I the presacral space. There appears to be soft issue fullness at the level of the rectum. PELVIC CT: The urinary bladder is unremarkable. No pelvic mass, lymphadenopathy, free air, or free fluid. No lytic or blastic lesions in the osseous structures. IMPRESSION: 1. Copious amount of fecal material in the left hemicolon, with worrisome for fecal impaction/consti pation. There is soft tissue prominence of the rectum, incompletely evaluated. Physical examination is recommended. 2. Thinning of the wall and adjacent fat stranding involving the sigmoid colon and rectum, worrisome for stercoral colitis. Results of the study discussed with nurse practitioner Igor 07/07/2018 at 12:08 a.m. CODE CR POS: [facility]
[2018-07-08] MEDS ORDERED: Ondansetron PF 4 MG/2 ML Vial SLOW IVP PRN (10:55)
[2018-07-08] MEDS: Sodium Chloride 0.45% 1,000 ML IV SCH ×3 (11:15→20:51)
[2018-07-08] MEDS ORDERED: cloNIDine 0.1mg/24 Hour PATCH TD SCH (11:30)
[2018-07-08] MEDS: Ketorolac Tromethamine 30 MG/ML VIAL IVP SCH ×2 (12:21→17:56)
[2018-07-08] MEDS: Fleet Enema 133 ML BOT PR SCH ×2 (12:22→12:55)
--- NOTE | 2018-07-08 13:39 | HP ---
DATE OF ADMISSION: 07/08/2018 CHIEF COMPLAINT ON ADMISSION: Abdominal pain with fecal impaction and possible stroke, stercoral colitis. HISTORY OF PRESENT ILLNESS: The patient is an 82-year-old female who has been having right lower quadrant pain for quite some time. It was felt to be due to nerve impingement coming from her back. While we are waiting to get that dealt with, she has been on pain medication to help her deal with this pain has been mainly Tylenol No. 3. In the last several days, she has developed severe constipation. Dr. Cope's office was called on the day prior to ER arrival requesting suggestions as to what can be done and several suggestions such as Dulcolax suppositories, Fleet's enemas and ultimately a bottle of magnesium citrate were recommended. The patient apparently has tried all of these things prior to coming to the emergency room with abdominal pain. She actually had seen a GI specialist on the day prior to arrival as well and she was told that she had a fecal impaction, but despite use of these outpatient over the counter therapy, she is not able to get relief and comes in severe pain to the ER. During her workup, a CAT scan was performed and confirmed with a severe fecal impaction to such a degree that it will require propofol sedation and disimpaction in the operating room. She had such an impaction back in 2009 when she was battling breast cancer and required pain medicine for them as well. She denies any fever, nausea, vomiting. She has had significant weight loss that she has been dealing with this chronic pain dropping from 120 to 107 and now recently, she is up to 110 due of beginning of megestrol to stimulate her appetite. In the ER, she rates her pain at 10/10. PAST MEDICAL HISTORY: As mentioned above, a history of breast cancer, hypertension, hypothyroidism, radicular back pain with right lower quadrant pain , anorexia due to chronic pain, arthritis, vitamin D deficiency, depression. PAST SURGICAL HISTORY: Includes hysterectomy, lumpectomy on the left breast in 2013, rectocele 2005 with pelvic mesh placement. PAST PSYCHIATRIC HISTORY: Includes the aforementioned depression. SOCIAL HISTORY: Denies alcohol use, smoking or illicit drug use. ALLERGIES: She is allergic reactions to BENADRYL, IODINE, SULFA. MEDICATIONS: On admission include Zoloft 50 mg daily, Tylenol No. 3 q.4 hours p.r.n. pain, aspirin 81 mg daily, celecoxib 200 mg daily, vitamin E 1000 international units every day, megestrol 400 mg b.i.d., losartan 50 mg daily and levothyroxine 50 mcg daily. REVIEW OF SYSTEMS: At the time of admission reports weakness, chills with severe rectal pain, fatigue and anorexia. HEENT: Denies any sores or drainage from her eyes, ears, nose or throat. Chest: Negative for cough or shortness of breath. Cardiovascular: Negative for palpitations or chest pain. Abdomen: Significant for chronic right lower quadrant pain which is now also proceeded by left lower abdominal pain and constipation. Musculoskeletal: Has back pain and mild arthritis, but no acute erythema or heat in the joints or muscles. Skin: She has recently fallen and has residual bruising to the right side of her face, but that is improved. Neurologic: Denies any headaches or confusion , although there are notable memory lapses at this time. Endocrine: Denies being cold or swelling or fatigue. Psychiatrist: Significant for chronic ongoing depression and then of course, the other review of systems are positive in the history of present illness. PHYSICAL EXAMINATION: At the time of admission, VITAL SIGNS: Blood pressure 138/75, pulse is 74, temperature 99, respiratory rate at 18, O2 sat 96%. She weighs 110 pounds 1 ounce. GENERAL: This is an elderly, alert, responsive, but mildly confused female. HEENT: Normocephalic, evidence of trauma with bruising to the right cheek that is resolving. Pupils are equal, round, and reactive to light, diminished reactivity overall, at 2-3 mm. Arcus senilis bilaterally. TMs, nares, pharynx are clear. NECK: Supple, trachea midline, no bruits bilaterally. CHEST: Clear to auscultation. BREAST: Deferred. HEART: Regular rate and rhythm. ABDOMEN: Mildly tender periumbilically. No hepatosplenomegaly, no guarding or rebound. GENITOURINARY: Deferred. EXTREMITIES: Without clubbing, cyanosis, or edema. SKIN: Without rashes or lesions. NEUROLOGICAL: Cranial nerves are intact. Sensory exam is grossly intact. Mental status Significant for memory loss. She is not able to recognize the examiner or where she is. so she is oriented x1. Gait and cerebellar function untested. LABORATORY WORK ON ADMISSION: WBCs are 3.9, hemoglobin 12.7, hematocrit 38.7 with platelets of 336. Sodium 135, potassium 5.0, chloride 106, CO2 is 20, BUN 17, creatinine 0.88, glucose 107, calcium 10.5, magnesium elevated at 2.8. Liver functions normal. Lipase mildly elevated at 128. UA unremarkable. IMAGING: CT of the abdomen is significant; in that, it reveals copious amount of fecal material in the left hemicolon significant for fecal impaction, soft tissue prominence of the rectum. Thinning of the wall with fat stranding in the sigmoid and rectal area, worrisome for stercoral colitis. ASSESSMENT: 1. Severe fecal impaction/constipation as cause of abdominal pain. 2. Possible stercoral colitis. PLAN: 1. GI consultation and hopefully disimpaction. 2. Pain management. 3. Maintenance fluids, continuing of maintenance IV fluids rather and serial reevaluation. MTDD
--- NOTE | 2018-07-08 18:06 | CON ---
DATE OF CONSULTATION: 07/08/2018 REASON FOR CONSULTATION: Fecal impaction, abdominal pain. CONSULTING PHYSICIAN: Sanket Baker DO HISTORY OF PRESENT ILLNESS: The patient is an 82-year-old female with a past medical history of jeanine st cancer, hypertension, hypothyroidism, osteoarthritis, vitamin D deficiency, depression, and anorex ia due to chronic pain, presenting with complaints of abdominal pain and constipation. Upon speaking with the patient during the course of the interview, the patient was a poor historian and could not remember specific dates of colonoscopy or hospital admissions, whether or not she had a fecal impacti on before, or her medications that were being used as an outpatient, with a lot of the information ob tained via chart review. Per the patient and chart review, she had been struggling with chronic lowe r back pain for quite some time, for which she was prescribed Tylenol 3 and developed increased const ipation while on this regimen. She adds that she had been constipated all her life, but had worsenin g of this constipation while on the medication; however, she could not recall how frequent she was rodriguez ving bowel movements, nor could she remember the stool consistency when she did actually have a bowel movement or any special procedures that she would do (example straining, pressure to the abdomen, or manual disimpaction) in order to facilitate defecation. However, per chart review, she was seen by Dr. Cope' office and given recommendations for Dulcolax suppositories, Fleet enemas, and ultimately a bottle of magnesium citrate, which she states did not help with her abdominal pain nor her constip ation issues. With lack of relief in her abdominal pain, it ultimately prompted her to come to the E R for further evaluation. While in the ER, she had a CAT scan, which showed a large amount of fecal material, especially within the left colon, as well as colonic wall thickening in the rectum and sigm oid colon concerning for stercoral colitis. At the time of my interview, when the patient was tod yusuf admitted to the hospital, she was currently sitting on the bedside commode having a large soft s olid bowel movement that did require some increased straining in order to facilitate defecation. How ever, she states that her abdominal pain had gotten better since admission to the hospital, and she h ad now been able to have a bowel movement helping with this pain as well. While in the ER, she did n ot have any interventions performed including manual disimpaction, Fleet enemas, or administration of oral laxatives. Currently, she denies any nausea, vomiting, fevers, chills, abdominal pain, odynoph agia, dysphagia, weight loss, diarrhea, or GI bleeding. Upon reviewing the chart, there was some mention that she had a fecal impaction back in 2009 when she was battling breast cancer that required increased narcotic administration at that time. It ultimat kyara required her to be admitted to the hospital, where she underwent propofol sedation and disimpacti on within the operating room. REVIEW OF SYSTEMS: A 10-category review of systems was obtained with all the responses negative exce pt for the pertinent positives as listed in HPI. PAST MEDICAL HISTORY: As per HPI. PAST SURGICAL HISTORY: Hysterectomy, lumpectomy of the left breast, rectocele repair in 2005. FAMILY HISTORY: Denies any GI malignancies. SOCIAL HISTORY: Denies any alcohol, tobacco, or illicit drug use. OUTPATIENT MEDICATIONS: Reviewed. ALLERGIES: BENADRYL, IODINE, and SULFA. PHYSICAL EXAMINATION: VITAL SIGNS: Temperature 97.3, pulse 73, blood pressure 153/77, respiratory rate 16, saturating 98% on room air. GENERAL: The patient was sitting at the bedside commode in no acute distress. Alert and oriented x4 , albeit a poor historian. NECK: Supple. No JVD noted. CARDIOVASCULAR: Regular rate and rhythm with no discernible murmurs, gallops, or rubs. RESPIRATORY: Clear to auscultation bilaterally with no discernible wheezes or rales. ABDOMEN: Hypoactive bowel sounds. Soft, nondistended. Mild tenderness to palpation in the suprapub ic and right lower quadrants. EXTREMITIES: No cyanosis, clubbing, or edema. LABORATORY DATA: CBC with a white blood cell count of 3.9, hemoglobin 12.7, hematocrit 38.7, platele ts 336. Chemistry with a sodium of 135, potassium 5, chloride 106, CO2 of 20, BUN 17, creatinine 0.8 8, glucose 107, AST 22, ALT 12, alkaline phosphatase 75, total bilirubin 0.6, lipase 128. IMAGING DATA: CT of the abdomen and pelvis was obtained on 07/07/2018, which showed normal caliber/d iameter of the stomach, duodenum, and small bowel. The cecum, ascending colon, transverse colon, and the proximal mid descending colon were unremarkable; however, the distal descending colon, sigmoid c olon, and rectum did have a large amount of fecal material with thinning of the distal sigmoid colon and rectal wall with peripheral fat stranding and fluid concerning for stercoral colitis. ASSESSMENT AND PLAN: The patient is an 82-year-old female with a past medical history of breast canc er, hypertension, hypothyroidism, chronic lower back pain, anorexia due to her chronic pain syndrome, osteoarthritis, vitamin D deficiency and depression presenting with constipation and resolving impac tion. 1. Constipation. The patient is presenting with a history of constipation that has been present "al l my life." More recently, she was having increased chronic lower back pain for which she was ultima tely prescribed Tylenol #3 and worsening of her constipation afterwards. She could not quantify nor qualify her stool habits, but did have some straining associated with defecation. With her increased constipation, it generated increased abdominal pain that ultimately prompted her to seek healthcare assistance at the [facility] ER. While in the ER, she was noted to have a CT scan showing a signif icant amount of fecal material within the left colon as well as inflammatory stranding in the rectum and sigmoid colon concerning for stercoral colitis. However, upon admission to the hospital, she has now had a bowel movement upon direct observation by myself, and has been having improvement of her a bdominal pain with passage of stool. With the patient now having adequate bowel movement, she may st ill need some assistance, especially given recent administration of narcotic medications. So, I woul d recommend enemas and oral laxatives in order to facilitate softening her stool to eliminate the lar ge stool burden within the left colon that may be contributing to increased inflammation due to press ure on the colonic mucosa resulting in stercoral colitis. RECOMMENDATIONS: 1. I would administer 2 Fleet enemas today with instructions given to the patient to hold onto the f luid as long as possible in order to soften the fecal material within the left colon. 2. I would start the patient on MiraLax 17 grams b.i.d. in order to provide a laxative effect from a joy her fecal impaction. 3. Manual disimpaction is not indicated at this time, but I will continue to monitor the patient and would do so under anesthesia support if deemed appropriate. 4. We would continue clear liquid diet for now given her significant constipation and advance diet a s tolerated with increasing frequency of bowel movements. We will continue to follow. Please call with any questions.
[2018-07-08] MEDS: Polyethylene Glycol 3350 17 GM Packet PO SCH (21:00)
[2018-07-09] MEDS: Sodium Chloride 0.45% 1,000 ML IV SCH ×2 (01:22→12:04)
[2018-07-09] MEDS: Ketorolac Tromethamine 30 MG/ML VIAL IVP SCH ×3 (01:23→12:04)
[2018-07-09 05:26] LABS: Anion Gap 11 mmol/L (10-20); BUN (Urea Nitrogen) 15 mg/dL (9.8-20.1); Calc. Creatinine Clearance 43 mL/min (70-130); Calcium 9.9 mg/dL (7.8-10.44); Carbon Dioxide 21 mmol/L (23-31); Chloride 107 mmol/L (98-107); Estimated GFR-MDRD 70; Glucose 90 mg/dL (83-110); Lipase 32 U/L (8-78); Potassium 3.9 mmol/L (3.5-5.1); Sodium 135 mmol/L (136-145)
[2018-07-09 06:11] LABS: Band 3 % (5-11); Hemoglobin 11.3 g/dL (12.0-16.0); Lymphocytes 23 % (21-51); MDiff Complete? YES; Mean Corpuscular Hemoglobin 33.2 pg (27.0-31.0); Mean Corpuscular Volume 97.9 fL (78.0-98.0); Monocytes 19 % (0-10); Neutrophil 52 % (42-75); PLT Morphology Comment Appears Adequate; Platelet Count 306 thou/uL (130-400); Reactive Lymphocytes 3 % (0-10); White Blood Cell (WBC) Count 3.4 thou/uL (4.8-10.8)
[2018-07-09] MEDS: Polyethylene Glycol 3350 17 GM Packet PO SCH (09:21)
[2018-07-09 11:56] VITALS: BP 129/67; TEMP 98.1
== END 2018-07-09 14:40 | disposition home or self-care (01) ==
LOC: ERS 21:21 → T4-A 07-08 00:45
PROVIDERS: ADMIT Specialist; ATTEND Specialist
DX: K59.00 Constipation, unspecified (principal); E03.9 Hypothyroidism, unspecified; E55.9 Vitamin D deficiency, unspecified; F32.9 Major depressive disorder, single episode, unspecified; I10 Essential (primary) hypertension; M19.90 Unspecified osteoarthritis, unspecified site; G89.29 Other chronic pain; M54.5 Low back pain; R63.0 Anorexia; Z68.1 Body mass index [BMI] 19.9 or less, adult; Z79.82 Long term (current) use of aspirin; Z79.899 Other long term (current) drug therapy; Z88.8 Allergy status to other drugs, medicaments and biological substances; Z91.041 Radiographic dye allergy status
CPT/HCPCS: 74177; 80048; 80053; 83690 ×2; 83735; 85025 ×2; 90662; 96361 ×3; 96365; 96375 ×2; 96376; 99285; G0008; G0378 ×2; 36415; 81003; 81015; 90471; J0131; J1200; J1885; J2930; S0028

== ENCOUNTER 2018-08-04 11:24 | Inpatient (IN) | payer MEDICARE ==
[2018-08-03 12:15] VITALS: BMI 23.8
--- NOTE | 2018-08-04 09:47 | HP ---
HISTORY OF PRESENT ILLNESS: Ms. Kathleen is an 82-year-old woman, who since October had been severe right lower extremity L2 pain that has significantly limited her activity level and appetite, and she started to lose weight precipitously from that point. She has an MRI from [place] that reveals severe right-sided foraminal stenosis at L2 that matches her symptoms well. She has attempted chiropractic therapy and injections with little to no relief. She is here to seek additional options. PAST MEDICAL HISTORY: Significant for chronic pain syndrome, kidney disease, cataracts, hypothyroidism, hypertension, seasonal allergies, anxiety, breast cancer, and depression. PAST SURGICAL HISTORY: Total hysterectomy, mastectomy, and rectocele repair. CURRENT MEDICATIONS: 1. Celebrex. 2. Megestrol. 3. Aspirin. 4. Losartan. 5. Potassium. 6. Sertraline. 7. Levothyroxine. PHYSICAL EXAMINATION: GENERAL: The patient is alert and oriented x3. EXTREMITIES: Gait is severely slowed and antalgic. She has a negative Se test bilaterally. Positive femoral stretch. ASSESSMENT: Lumbar radiculopathy. PLAN: Dr. Jackson met with the patient, reviewed imaging, advocated for right L2 decompression. He explained to the patient the risks, benefits, and alternatives to the procedure. The patient expressed understanding and elected to move forward with surgery as discussed. I do believe that the patient is mentally competent and capable of making medical decisions for herself and we will move forward with the surgery as planned. Job ID: [id number]
[2018-08-04 12:49] LABS: Hemoglobin 12.5 g/dL (12.0-16.0); Mean Corpuscular HGB CONC 33.3 g/dL (32.0-36.0); Mean Corpuscular Hemoglobin 33.2 pg (27.0-31.0); Mean Corpuscular Volume 99.7 fL (78.0-98.0); Mean Platelet Volume 6.1 fL (7.4-10.4); Platelet Count 334 thou/uL (130-400); RBC Distribution Width 14.8 % (11.5-14.5); Red Blood Cell (RBC) Count 3.76 mill/uL (4.20-5.40)
[2018-08-04 12:52] LABS: PTT 26.8 SEC (22.9-36.1); Prothrombin Time 13.6 SEC (12.0-14.7)
[2018-08-04 13:05] LABS: Anion Gap 14 mmol/L (10-20); BUN (Urea Nitrogen) 18 mg/dL (9.8-20.1); Calc. Creatinine Clearance 40 mL/min (70-130); Calcium 10.7 mg/dL (7.8-10.44); Carbon Dioxide 21 mmol/L (23-31); Chloride 109 mmol/L (98-107); Estimated GFR-MDRD 53; Glucose 90 mg/dL (83-110); Potassium 3.9 mmol/L (3.5-5.1); Sodium 140 mmol/L (136-145)
[2018-08-04] MEDS ORDERED: CEFAZOLIN 2 GM/50 ML BAG ONE (13:44)
[2018-08-04 13:45] LABS: Anisocytosis SLIGHT = 6-15 cells (100X) (0-5/hpf); Band 1 % (5-11); Lymphocytes 1 % (21-51); MDiff Complete? YES; Monocytes 3 % (0-10); Neutrophil 95 % (42-75); Ovalocytes SLIGHT = 2-5 cells (100X) (0-1/hpf); PLT Morphology Comment Appears Adequate
[2018-08-04] MEDS ORDERED: Bupivacaine HCl 0.5%/Epinephrine 1:200,000/PF 30 ml Vial ONE (13:51)
[2018-08-04] MEDS ORDERED: Thrombin 5000 UNITS/5 ML VIAL ONE (13:51)
[2018-08-04] MEDS ORDERED: Fentanyl 100 MCG/2 ML VIAL ONE (14:10)
[2018-08-04] MEDS ORDERED: Morphine 4 MG/ML VIAL SLOW IVP PRN ×2 (16:09→16:33)
[2018-08-04] MEDS ORDERED: Ondansetron PF 4 MG/2 ML Vial IVP PRN ×2 (16:09→16:34)
[2018-08-04] MEDS ORDERED: Mag-Al 1200 mg/1200 mg/30 ML UDCUP PO PRN (16:09)
[2018-08-04] MEDS ORDERED: tiZANidine HCl 4 MG TAB PO PRN (16:09)
[2018-08-04] MEDS ORDERED: Bisacodyl 10 MG SUPP PR PRN (16:09)
[2018-08-04] MEDS ORDERED: PROPOFOL 200 MG/20 ML VIAL ONE (16:33)
[2018-08-04] MEDS ORDERED: Lidocaine 1% PF 5 ML VIAL ONE (16:33)
[2018-08-04] MEDS ORDERED: Ondansetron PF 4 MG/2 ML Vial ONE (16:33)
[2018-08-04] MEDS ORDERED: Acetaminophen 650 MG Suppository PR PRN (16:33)
--- NOTE | 2018-08-04 17:45 | OP ---
DATE OF PROCEDURE: 08/04/2018 POWER ELECTRONICS ENGINEER: Tremaine Rodriguez PA-C INDICATION: Pain. DIAGNOSIS: Lumbar radiculopathy. PROCEDURE: Right L2 facetectomy. ANESTHESIA: General. DESCRIPTION OF PROCEDURE: The patient was brought into the operating room and placed under general anesthesia. She was flipped from the supine to prone position on the operating room table. A linear incision was planned over the L2 segment. After prepping and draping and after preoperative pause, an incision was created. The soft tissues were swept away from midline. A self-retaining retractor was placed in the wound for optimal exposure. After confirming the appropriate level with C-arm fluoroscopy, high-speed cutting drill bit as well as 2, 3, and 4 mm Kerrisons were used to perform a hemilaminectomy and medial facetectomy at the L2-L3 segment on the right. The purpose of this was to decompress the exiting L2 nerve root. The L3 and L2 pedicles could be palpated. At the completion of the procedure, the foramen through which the L2 nerve root passed was found to be decompressed. The wound was irrigated. Hemostasis was maintained throughout. The wound was then closed in anatomic layers and a pressure dressing was applied. There were no known procedural complications. Job ID: [id number]
[2018-08-04] MEDS: Sodium Chloride 0.9% 1,000 ML IV SCH (20:39)
[2018-08-04] MEDS: Megestrol Acetate 800 MG/20 ML UDCUP PO SCH (20:47)
[2018-08-04] MEDS: Acetaminophen 325 MG TAB PO PRN (20:48)
[2018-08-04] MEDS: Polyethylene Glycol 3350 17 GM Packet PO SCH (20:49)
[2018-08-04] MEDS: Losartan 25 MG TAB PO SCH (20:49)
[2018-08-04] MEDS: CEFAZOLIN 2 GM/50 ML BAG IVPB SCH (22:21)
[2018-08-05] MEDS: tiZANidine HCl 4 MG TAB PO PRN ×3 (01:05→21:15)
[2018-08-05] MEDS: Levothyroxine Sodium 50 MCG TAB PO SCH (05:42)
[2018-08-05] MEDS: CEFAZOLIN 2 GM/50 ML BAG IVPB SCH (05:44)
[2018-08-05] MEDS: Sodium Chloride 0.9% 1,000 ML IV SCH ×2 (06:07→20:00)
[2018-08-05] MEDS: Acetaminophen/Codeine 30-300mg Tablet PO PRN ×2 (08:33→18:33)
[2018-08-05] MEDS: Megestrol Acetate 800 MG/20 ML UDCUP PO SCH ×3 (08:33→21:15)
[2018-08-05] MEDS: Acetaminophen 500 MG TAB PO SCH ×2 (08:34→19:37)
--- NOTE | 2018-08-05 08:56 | RAD ---
INTRAOPERATIVE FLUOROSCOPY: EXPOSURE: 6.04 mGy. TIME: 14 seconds. FINDINGS: Three fluoroscopic views demonstrate surgical hardware projecting over the lumbar spine at approximat kyara the L3 level. IMPRESSION: Intraoperative fluoroscopy as above. POS: WALE
[2018-08-05] MEDS: Polyethylene Glycol 3350 17 GM Packet PO SCH ×2 (10:56→21:17)
[2018-08-05] MEDS: Dexamethasone 4 MG TAB PO ONE (14:31)
[2018-08-05] MEDS: Losartan 25 MG TAB PO SCH (21:16)
[2018-08-05] MEDS: Acetaminophen 325 MG TAB PO PRN (21:16)
[2018-08-06] MEDS: Acetaminophen 325 MG TAB PO PRN ×2 (05:34→20:03)
[2018-08-06] MEDS: Levothyroxine Sodium 50 MCG TAB PO SCH (05:34)
[2018-08-06] MEDS: tiZANidine HCl 4 MG TAB PO PRN ×2 (05:34→20:03)
[2018-08-06] MEDS: Sodium Chloride 0.9% 1,000 ML IV SCH ×2 (07:25→20:17)
[2018-08-06] MEDS: Acetaminophen 500 MG TAB PO SCH ×2 (09:38→11:15)
--- NOTE | 2018-08-06 10:58 | PRG ---
DATE OF SERVICE: 08/06/2018 Ms. Kathleen is now postoperative day 2 following lumbar decompression. Her pains have continued to improve. She has done well out of the bed yesterday from a pain perspective, but unfortunately had a significantly unsteady gait even with the use of a walker according to the nursing staff. The family has decision and would like to pursue inpatient rehab, so we will queue up all consultations and continue down that pathway. Job ID: [id number]
[2018-08-06] MEDS: Dexamethasone 4 MG TAB PO ONE (11:13)
[2018-08-06] MEDS: Megestrol Acetate 800 MG/20 ML UDCUP PO SCH ×2 (11:15→20:04)
[2018-08-06] MEDS: Polyethylene Glycol 3350 17 GM Packet PO SCH ×2 (11:16→20:04)
--- NOTE | 2018-08-06 12:24 | PRG ---
DATE OF SERVICE: 08/06/2018 Ms. Kathleen is an 82-year-old female, who underwent facetectomy two days ago. She is recovering as expected, in her room. She is extremely deconditioned and has not been mobilizing much for the past couple of months. She will need inpatient rehab. We are awaiting final word from insurance as well as Physical Therapy. If she is approved, she can be transferred to the inpatient rehab setting at anytime. Job ID: [id number]
[2018-08-06] MEDS: Losartan 25 MG TAB PO SCH (20:03)
[2018-08-07] MEDS: Acetaminophen/Codeine 30-300mg Tablet PO PRN (00:41)
[2018-08-07] MEDS: Levothyroxine Sodium 50 MCG TAB PO SCH (05:37)
[2018-08-07] MEDS: tiZANidine HCl 4 MG TAB PO PRN ×2 (05:37→22:48)
[2018-08-07] MEDS: Acetaminophen 500 MG TAB PO SCH ×2 (08:10→17:39)
[2018-08-07] MEDS: Megestrol Acetate 800 MG/20 ML UDCUP PO SCH ×2 (08:10→20:12)
[2018-08-07] MEDS: Polyethylene Glycol 3350 17 GM Packet PO SCH ×2 (08:12→20:19)
--- NOTE | 2018-08-07 09:58 | ULT ---
BETO JAIN LOWER EXTREMITY VENOUS DOPPLER ULTRASOUND: Date: 08/07/18 HISTORY: Immobility. TECHNIQUE: Ogden scale ultrasound with color flow and spectral Doppler imaging of the deep venous systems of the lower extremities was performed bilaterally. FINDINGS: There is good flow, compression, and augmentation noted in the common femoral, femoral, deep femoral, popliteal, posterior tibial, and greater saphenous veins on the left. There is absence of compression and flow in the right peroneal vein due to intraluminal thrombus. The remainder of the deep venous system of the right lower extremity is otherwise patent. IMPRESSION: Deep venous thrombosis in the right peroneal vein. The patient's nurse, Valeria Potter, was notified of the findings by the fluid jet cutter operator at the time of the ex amination. CODE CR. POS: SJSamir
--- NOTE | 2018-08-07 11:35 | PRG ---
DATE OF SERVICE: 08/07/2018 Ms. Kathleen is postop day 3 following lumbar decompression. We are still awaiting approval for the rehab or SNF. From a pain perspective, she continues to improve and she ambulated somewhat better yesterday. that was performed this morning shows a small clot in the right peroneal vein. We will consult the Hospitalist Service for medical management and we will defer to their recommendations in terms of anticoagulation. Job ID: [id number]
--- NOTE | 2018-08-07 12:09 | PRG ---
DATE OF SERVICE: 08/07/2018 Ms. Kathleen seems to have recovered from lumbar spine surgery. We are awaiting disposition towards inpatient rehab. I did perform a lower extremity ultrasound, as she has been relatively immobile at home for the past few months. It does reveal presence of DVT. We will have our Hospitalist Service evaluate her for appropriate management. In the meanwhile, we will continue to have her work with Physical Therapy and work towards final disposition and planning. She reports some little pain today as compared to yesterday. Job ID: [id number]
--- NOTE | 2018-08-07 13:37 | PDOC.EVN ---
Event Note - Event Note Event Note: Internal Medicine consultation dictated #[id number] eliquis 5mg po BID for DVT hold all BP meds if SBP < 120mmHg
--- NOTE | 2018-08-07 14:41 | CON ---
DATE OF CONSULTATION: REASON FOR CONSULTATION: DVT. CHIEF COMPLAINT: This is a patient status post surgery. HISTORY OF PRESENT ILLNESS: This is an 82-year-old female, who is currently being seen by the Internal Medicine Team found a DVT on venogram in the right peroneal vein. The patient had a right-sided L2 facetectomy, diagnosed with lumbar radiculopathy. The patient currently is postop day 3 and had a venogram done yesterday and was noted to have found a DVT in the right peroneal vein. The patient currently is oriented, however, not fully able to provide proper history. History obtained through chart review. PAST MEDICAL HISTORY: Per past medical history, the patient has pertinent positive for hypertension, hypothyroidism, mild depression as well as vitamin deficiency. ALLERGIES: TO IODINE, SULFA, AND DIPHENHYDRAMINE. PAST SURGICAL HISTORY: Unavailable. FAMILY HISTORY: Unremarkable. SOCIAL HISTORY: Denies any smoking or drinking. REVIEW OF SYSTEMS: 12-point review of systems was performed. Pertinent positives in HPI, otherwise negative. MEDICATIONS: See MAR. PHYSICAL EXAMINATION: VITAL SIGNS: Blood pressure 112/65, heart rate of 71, saturations 95 on room air, respiratory rate of 18, temperature of 98.6. HEENT: Normocephalic and atraumatic. Surgical site is clean, dry, and intact. Oral cavity moist and pink. Extraocular muscles intact. Pupils are equal, round, and reactive to light and accommodation. NECK: Supple, mobile. Nontender thyroid noted. LUNGS: Clear to auscultation bilaterally. No respiratory distress. CARDIOVASCULAR: Regular rate and rhythm. S1 and S2. No murmurs, rubs, or gallops appreciated. ABDOMEN: Positive bowel sounds. Soft and nontender. EXTREMITIES: 2+ peripheral pulses noted. Trace edema in bilateral lower extremities noted. NEUROLOGIC: Cranial nerves 2 through 12 intact. Answering all questions. Following all commands. LABORATORY DATA: CBC within normal limits. Basic metabolic panel within normal limits. Venogram shows right peroneal DVT. ASSESSMENT: 1. Deep venous thrombosis. 2. Hypothyroidism. 3. Hypertension. 4. Status post spinal surgery. PLAN: At this point in time, we will start the patient on Eliquis 5 mg p.o. daily, to be taken for at least 6 months. likely provoked DVT secondary to surgery, very commonly occurring in postsurgical patients and difficult to prevent. The patient will need to do hypercoagulable workup as outpatient upon discharge. Currently, can continue Eliquis p.o. b.i.d. for now. Continue all home medications for blood pressure management as well as hypothyroidism with target blood pressure of systolic [address] MD to nurse evaluation to hold all blood pressure medications as the systolic blood pressure is less than 120. At this point in time, the patient otherwise is being appropriately managed by the Primary Care Team. We will continue to follow along closely with you. Case and plan discussed with the patient at length. She understands and agrees with this plan. Job ID: [id number]
[2018-08-07] MEDS: Sodium Chloride 0.9% 1,000 ML IV SCH (17:39)
[2018-08-07] MEDS: Apixaban 5 MG TAB PO SCH (20:11)
[2018-08-07] MEDS: Acetaminophen 325 MG TAB PO PRN (20:11)
[2018-08-07] MEDS: Losartan 25 MG TAB PO SCH (20:25)
[2018-08-07] MEDS: traMADol HCl 50 MG TAB PO PRN (22:28)
[2018-08-08] MEDS: Sodium Chloride 0.9% 1,000 ML IV SCH ×2 (01:19→15:05)
[2018-08-08] MEDS: Levothyroxine Sodium 50 MCG TAB PO SCH (06:07)
[2018-08-08] MEDS: Acetaminophen 500 MG TAB PO SCH ×2 (08:31→11:52)
[2018-08-08] MEDS: Apixaban 5 MG TAB PO SCH ×2 (08:31→21:50)
[2018-08-08] MEDS: Megestrol Acetate 800 MG/20 ML UDCUP PO SCH ×2 (08:32→21:49)
[2018-08-08] MEDS: Polyethylene Glycol 3350 17 GM Packet PO SCH ×2 (08:32→22:00)
[2018-08-08] MEDS: Acetaminophen 325 MG TAB PO PRN (11:51)
--- NOTE | 2018-08-08 11:57 | PRG ---
DATE OF SERVICE: 08/08/2018 SUBJECTIVE: Ms. Kathleen continues to recover from her lumbar spine surgery. We are awaiting on a word for disposition to inpatient rehab as to whether her insurance company will approve it. In the meanwhile, I would like to keep her mobilizing as much as possible using a four point rolling walker. She reports dramatic overall improvement in her pain today as compared to the last few days even as compared to her preoperative state. Should the family decide to take her home instead of rehab, we can arrange home health and/or outpatient physical therapy. Job ID: [id number]
--- NOTE | 2018-08-08 12:47 | PDOC.PN ---
- Subjective Encounter Start Date: 08/08/18 Encounter Start Time: 12:46 Patient lying in bed, she reports doing well today. Pain well controlled. She denies any events over night. Denies chest pain, shortness of breath or abdominal pain. She continues on Eliquis for DVT, no signs of bleeding. - Objective MAR Reviewed: Yes Vital Signs & Weight: Vital Signs (12 hours) Temp Pulse Resp BP Pulse Ox 08/08/18 07:48 98 F 72 20 128/67 95 08/08/18 04:41 98.4 F 67 20 128/68 94 L Weight Weight 130 lb 1.164 oz I&O: 08/07/18 08/08/18 08/09/18 06:59 06:59 06:59 Intake Total 1460 1030 Balance 1460 1030 Result Diagrams: 08/04/18 12:40 08/04/18 12:40 Radiology Reviewed by me: Yes Phys Exam - Physical Examination Constitutional: NAD HEENT: PERRLA, moist MMs, oral pharynx no lesions, 2+ tonsils Neck: no nodes, no JVD, supple Respiratory: no wheezing, no rales, no rhonchi, clear to auscultation bilateral Cardiovascular: RRR, no significant murmur, no rub Gastrointestinal: soft, non-tender, no distention, positive bowel sounds Musculoskeletal: no edema, pulses present Neurological: non-focal, normal sensation, moves all 4 limbs Lymphatic: no nodes Psychiatric: normal affect, A&O x 3 Skin: no rash, normal turgor, cap refill <2 seconds Dx/Plan (1) DVT (deep venous thrombosis) Code(s): I82.409 - ACUTE EMBOLISM AND THOMBOS UNSP DEEP VN UNSP LOWER EXTREMITY Status: Acute (2) Hypothyroidism Code(s): E03.9 - HYPOTHYROIDISM, UNSPECIFIED Status: Acute (3) S/P lumbar laminectomy Code(s): Z98.890 - OTHER SPECIFIED POSTPROCEDURAL STATES Status: Acute - Plan cont current plan of care, PT/OT * Continue on eliquis for anticoagulation for tx of DVT * Continue PT/OT * Await placement for rehab * Continue other home medications
[2018-08-08 13:09] LABS: Anion Gap 10 mmol/L (10-20); BUN (Urea Nitrogen) 21 mg/dL (9.8-20.1); Calc. Creatinine Clearance 47 mL/min (70-130); Calcium 10.1 mg/dL (7.8-10.44); Carbon Dioxide 24 mmol/L (23-31); Chloride 105 mmol/L (98-107); Estimated GFR-MDRD 65; Glucose 97 mg/dL (83-110); Potassium 4.1 mmol/L (3.5-5.1); Sodium 135 mmol/L (136-145)
[2018-08-08 13:23] LABS: Anisocytosis SLIGHT = 6-15 cells (100X) (0-5/hpf); Band 4 % (5-11); Elliptocytes SLIGHT = 2-5 cells (100X) (0-1/hpf); Hemoglobin 10.5 g/dL (12.0-16.0); Lymphocytes 15 % (21-51); MDiff Complete? YES; Mean Corpuscular HGB CONC 33.1 g/dL (32.0-36.0); Mean Corpuscular Hemoglobin 33.3 pg (27.0-31.0); Mean Platelet Volume 6.4 fL (7.4-10.4); Monocytes 5 % (0-10); Neutrophil 76 % (42-75); PLT Morphology Comment Appears Adequate; Platelet Count 248 thou/uL (130-400); RBC Distribution Width 14.7 % (11.5-14.5); Red Blood Cell (RBC) Count 3.15 mill/uL (4.20-5.40); White Blood Cell (WBC) Count 3.7 thou/uL (4.8-10.8)
--- NOTE | 2018-08-08 13:47 | PRG ---
DATE OF SERVICE: 08/08/2018 Ms. Kathleen is now postop day 4 following the facetectomy and for the first time appears to actually have significant improvement in her pain symptoms since her admission. She would like to see her, at least get up in the chair today and walker. She is open to this. As her pain is improved, her mobility improved, I think it is entirely possible that she may be able to tolerate going home as opposed to rehab, but will still continue to work towards placement. Job ID: [id number]
[2018-08-08] MEDS: Losartan 25 MG TAB PO SCH (21:49)
[2018-08-08] MEDS: Acetaminophen/Codeine 30-300mg Tablet PO PRN (21:49)
[2018-08-09] MEDS: Sodium Chloride 0.9% 1,000 ML IV SCH ×2 (01:16→19:21)
[2018-08-09] MEDS: Levothyroxine Sodium 50 MCG TAB PO SCH (04:49)
[2018-08-09] MEDS: Acetaminophen/Codeine 30-300mg Tablet PO PRN (04:49)
[2018-08-09 06:08] LABS: Anion Gap 11 mmol/L (10-20); BUN (Urea Nitrogen) 20 mg/dL (9.8-20.1); Calc. Creatinine Clearance 49 mL/min (70-130); Calcium 10.1 mg/dL (7.8-10.44); Carbon Dioxide 22 mmol/L (23-31); Chloride 106 mmol/L (98-107); Estimated GFR-MDRD 69; Glucose 91 mg/dL (83-110); Potassium 4.2 mmol/L (3.5-5.1); Sodium 135 mmol/L (136-145)
[2018-08-09 06:21] LABS: Band 7 % (5-11); Eosinophils 3 % (0-10); Hemoglobin 10.8 g/dL (12.0-16.0); Lymphocytes 39 % (21-51); MDiff Complete? YES; Mean Corpuscular Hemoglobin 34.1 pg (27.0-31.0); Mean Platelet Volume 6.5 fL (7.4-10.4); Monocytes 3 % (0-10); Neutrophil 48 % (42-75); Platelet Count 265 thou/uL (130-400); RBC Distribution Width 14.7 % (11.5-14.5); Red Blood Cell (RBC) Count 3.17 mill/uL (4.20-5.40); White Blood Cell (WBC) Count 3.8 thou/uL (4.8-10.8)
--- NOTE | 2018-08-09 07:18 | PRG ---
DATE OF SERVICE: 08/09/2018 SUBJECTIVE: Ms. Kathleen this morning is resting well in bed. She just had some pain medication and is somewhat drowsy. She was up with Therapy yesterday and was up with a nursing staff in addition. She could tolerate this fairly well, though she was, according to the physical therapist, still unsteady and did not take verbal cues to improve her posture or gait very well. She will need aggressive physical therapy and ambulation again today to help push her as she continues to be deconditioned. Job ID: [id number]
[2018-08-09] MEDS: Apixaban 5 MG TAB PO SCH ×2 (08:46→20:49)
[2018-08-09] MEDS: Megestrol Acetate 800 MG/20 ML UDCUP PO SCH ×2 (08:46→20:50)
[2018-08-09] MEDS: Polyethylene Glycol 3350 17 GM Packet PO SCH ×2 (08:46→20:55)
[2018-08-09] MEDS: Acetaminophen 500 MG TAB PO SCH ×2 (08:46→11:49)
--- NOTE | 2018-08-09 14:55 | PDOC.PN ---
- Subjective Encounter Start Date: 08/09/18 Encounter Start Time: 14:54 Patient lying in bed with at bedside. She denies any events over night. Reports pain is improved today. Worked with therapy yesterday and tolerated well. She denies chest pain, shortness of breath or abdominal pain. - Objective MAR Reviewed: Yes Vital Signs & Weight: Vital Signs (12 hours) Temp Pulse Resp BP BP Pulse Ox 08/09/18 12:02 98.8 F 81 14 119/66 95 08/09/18 08:16 98.6 F 72 16 114/73 94 L 08/09/18 03:40 98.9 F 70 12 109/70 97 Weight Weight 130 lb 1.164 oz I&O: 08/08/18 08/09/18 08/10/18 06:59 06:59 06:59 Intake Total 1030 1150 Balance 1030 1150 Result Diagrams: 08/09/18 05:23 08/09/18 05:23 Radiology Reviewed by me: Yes Phys Exam - Physical Examination Constitutional: NAD HEENT: PERRLA, moist MMs, oral pharynx no lesions Neck: no nodes, no JVD, supple Respiratory: no wheezing, no rhonchi, clear to auscultation bilateral Cardiovascular: RRR, no significant murmur, no rub Gastrointestinal: soft, non-tender, positive bowel sounds Musculoskeletal: pulses present 1+ nonpitting edema right LE Neurological: non-focal, normal sensation, moves all 4 limbs Lymphatic: no nodes Psychiatric: normal affect, A&O x 3 Skin: no rash, normal turgor, cap refill <2 seconds Dx/Plan (1) DVT (deep venous thrombosis) Code(s): I82.409 - ACUTE EMBOLISM AND THOMBOS UNSP DEEP VN UNSP LOWER EXTREMITY Status: Acute (2) Hypothyroidism Code(s): E03.9 - HYPOTHYROIDISM, UNSPECIFIED Status: Acute (3) S/P lumbar laminectomy Code(s): Z98.890 - OTHER SPECIFIED POSTPROCEDURAL STATES Status: Acute - Plan cont current plan of care, plan discussed w/ family, PT/OT * Continue eliquis for DVT * PT/OT * hopeful for d/c to rehab once bed available. * Continue home medications
[2018-08-09] MEDS: Losartan 25 MG TAB PO SCH (20:49)
[2018-08-09] MEDS: Acetaminophen 325 MG TAB PO PRN (20:50)
[2018-08-09] MEDS: tiZANidine HCl 4 MG TAB PO PRN (22:06)
[2018-08-09] MEDS: traMADol HCl 50 MG TAB PO PRN (22:35)
[2018-08-10] MEDS: Levothyroxine Sodium 50 MCG TAB PO SCH (05:05)
[2018-08-10] MEDS: Sodium Chloride 0.9% 1,000 ML IV SCH ×2 (05:05→19:47)
[2018-08-10] MEDS: Polyethylene Glycol 3350 17 GM Packet PO SCH ×2 (07:58→21:29)
[2018-08-10] MEDS: Acetaminophen 500 MG TAB PO SCH ×2 (07:59→11:51)
[2018-08-10] MEDS: Megestrol Acetate 800 MG/20 ML UDCUP PO SCH ×2 (08:00→21:29)
[2018-08-10] MEDS: Apixaban 5 MG TAB PO SCH ×2 (08:00→21:31)
--- NOTE | 2018-08-10 10:38 | PRG ---
DATE OF SERVICE: 08/10/2018 SUBJECTIVE: Ms. Kathleen is postop day 6 following lumbar facetectomy and her pain although continues to improve. She mobilized minimally yesterday. I spoke with the nurse this morning and I would like to see her up in the chair and ambulating the halls frequently today as we work to try to determine where best disposition her. We will also need case management's help in getting her prepared for discharge, particularly if she is still going to get a rehab. Job ID: [id number]
[2018-08-10] MEDS: Acetaminophen 325 MG TAB PO PRN ×2 (11:47→11:50)
[2018-08-10] MEDS: Acetaminophen/Codeine 30-300mg Tablet PO PRN (17:40)
[2018-08-10] MEDS: Losartan 25 MG TAB PO SCH (21:28)
--- NOTE | 2018-08-10 22:16 | PDOC.PN ---
- Subjective Encounter Start Date: 08/10/18 Encounter Start Time: 10:30 Subjective: pt up in chair no complains - Objective Vital Signs & Weight: Vital Signs (12 hours) Temp Pulse Resp BP Pulse Ox 08/10/18 20:15 97.7 F 74 18 109/67 96 08/10/18 15:10 98.7 F 76 16 106/70 93 L 08/10/18 10:33 98.3 F 66 14 102/66 97 Weight Weight 130 lb 1.164 oz I&O: 08/09/18 08/10/18 08/11/18 06:59 06:59 06:59 Intake Total 1150 1675 550 Output Total 500 Balance 1150 1175 550 Result Diagrams: 08/09/18 05:23 08/09/18 05:23 Phys Exam - Physical Examination Neck: no nodes, no JVD, supple, full ROM Respiratory: no wheezing, no rales, no rhonchi, wheezing present, clear to auscultation bilateral Cardiovascular: RRR, no significant murmur, no rub, gallop, irregular Gastrointestinal: soft, non-tender, no distention, positive bowel sounds Dx/Plan (1) DVT (deep venous thrombosis) Code(s): I82.409 - ACUTE EMBOLISM AND THOMBOS UNSP DEEP VN UNSP LOWER EXTREMITY Status: Acute (2) S/P lumbar laminectomy Code(s): Z98.890 - OTHER SPECIFIED POSTPROCEDURAL STATES Status: Acute (3) Hypothyroidism Code(s): E03.9 - HYPOTHYROIDISM, UNSPECIFIED Status: Acute - Plan pt started on eliquis for dvt -: awaiting rehab admission -: pt's pcp is Dr Cope, [facility] secretary called and will transfer pt to -: Dr Cope service. * . Review of Systems - Review of Systems Respiratory: negative: Cough, Dry, Shortness of Breath, Hemoptysis, SOB with Excertion, Pleuritic Pain, Sputum, Wheezing Cardiovascular: negative: chest pain, palpitations, orthopnea, paroxysmal nocturnal dyspnea, edema, light headedness, other Gastrointestinal: negative: Nausea, Vomiting, Abdominal Pain, Diarrhea, Constipation, Melena, Hematochezia, Other Genitourinary: negative: Dysuria, Frequency, Incontinence, Hematuria, Retention , Other - Medications/Allergies Allergies/Adverse Reactions: Allergies Allergy/AdvReac Type Severity Reaction Status Date / Time Iodine and Iodide Containing Allergy Verified 08/03/18 12:10 Produc Sulfa (Sulfonamide Allergy Verified 08/03/18 12:10 Antibiotics) diphenhydramine AdvReac Verified 08/03/18 12:10 [From Benadryl] Medications: Current Medications Acetaminophen (Tylenol) 1,000 mg PO 0800,1200 [facility] Last Admin: 08/10/18 11:51 Dose: 1,000 mg Acetaminophen (Tylenol) 650 mg PO Q4H PRN PRN Reason: Headache/Fever or Pain(1-3) Last Admin: 08/09/18 20:50 Dose: 650 mg Acetaminophen (Tylenol) 650 mg ND Q4H PRN PRN Reason: Headache/Fever or Pain(1-3) Acetaminophen/Codeine Phosphate (Tylenol #3) 1 tab PO Q3H PRN PRN Reason: PAIN (1-3) Last Admin: 08/08/18 21:49 Dose: 1 tab Acetaminophen/Codeine Phosphate (Tylenol #3) 2 tab PO Q3H PRN PRN Reason: PAIN (4-6) Last Admin: 08/10/18 17:40 Dose: 2 tab Al Hydroxide/Mg Hydroxide (Maalox) 30 ml PO Q4H PRN PRN Reason: Indigestion Apixaban (Eliquis) 5 mg PO BID [facility] Last Admin: 08/10/18 21:31 Dose: 5 mg Bisacodyl (Dulcolax) 10 mg ND Q12H PRN PRN Reason: Constipation Cholecalciferol (Vitamin D3) 1,000 units PO [facility] Last Admin: 08/10/18 21:28 Dose: 1,000 units Sodium Chloride (Normal Saline 0.9%) 1,000 mls @ 75 mls/hr IV .[id number] [facility] Last Admin: 08/10/18 19:47 Dose: Not Given Levothyroxine Sodium (Synthroid) 50 mcg PO 0600 [facility] Last Admin: 08/10/18 05:05 Dose: 50 mcg Losartan Potassium (Cozaar) 50 mg PO HS [facility] Last Admin: 08/10/18 21:28 Dose: 50 mg Megestrol Acetate (Megace) 400 mg PO BID [facility] Last Admin: 08/10/18 21:29 Dose: 400 mg Morphine Sulfate (Morphine) 1 mg SLOW IVP Q1H PRN PRN Reason: Moderate Breakthrough Pain Last Admin: 08/05/18 01:05 Dose: 1 mg Morphine Sulfate (Morphine) 2 mg SLOW IVP Q1H PRN PRN Reason: Moderate Breakthrough Pain Morphine Sulfate (Morphine) 4 mg SLOW IVP Q1H PRN PRN Reason: SEVERE BREAKTHROUGH PAIN Ondansetron HCl (Zofran) 4 mg IVP Q6H PRN PRN Reason: Nausea/Vomiting Ondansetron HCl (Zofran) 4 mg IVP Q6H PRN PRN Reason: Nausea/Vomiting Polyethylene Glycol (Miralax) 17 gm PO BID [facility] Last Admin: 08/10/18 21:29 Dose: Not Given Sertraline HCl (Zoloft) 50 mg PO [facility] Last Admin: 08/10/18 21:28 Dose: 50 mg Sodium Chloride (Flush - Normal Saline) 10 ml IVF PRN PRN PRN Reason: Saline Flush Tizanidine HCl (Zanaflex) 2 mg PO Q6H PRN PRN Reason: Muscle Spasm Last Admin: 08/09/18 22:06 Dose: 2 mg Tramadol HCl (Ultram) 50 mg PO Q6H PRN PRN Reason: Mild Pain (1-3) Last Admin: 08/09/18 22:35 Dose: 50 mg Vitamin E (Vitamin E) 1,000 units PO [facility] Last Admin: 08/10/18 21:29 Dose: 1,000 units
[2018-08-11] MEDS: Acetaminophen/Codeine 30-300mg Tablet PO PRN ×2 (02:42→20:26)
[2018-08-11] MEDS: tiZANidine HCl 4 MG TAB PO PRN ×2 (04:05→20:25)
[2018-08-11] MEDS: Levothyroxine Sodium 50 MCG TAB PO SCH (05:18)
--- NOTE | 2018-08-11 07:46 | CON ---
DATE OF CONSULTATION: 08/10/2018 CHIEF COMPLAINT: Laminectomy and now with right peroneal DVT. HISTORY OF PRESENT ILLNESS: The patient is an 82-year-old female, who has been suffering from severe calf back pain with radiculopathy radiating around to the front groin since [facility]. It has been very debilitating, preventing her from any type of exercise, her significant life without pain. She finally has had a laminectomy, but in the postop course of that has developed a DVT in her right peroneal vein. She has also become severely deconditioned and is awaiting insurance acceptance, so that she may go [facility] and undergo outpatient physical therapy and rehabilitation. PAST MEDICAL HISTORY: Significant for the aforementioned back pain, kidney disease, cataracts, hypothyroidism, hypertension, allergies, anxiety, breast cancer, depression, and vitamin D deficiency. PAST SURGICAL HISTORY: Includes hysterectomy, mastectomy, rectocele repair, and now most recently laminectomy to her back. CURRENT MEDICATIONS: Her current medications include; 1. Celebrex 200 per day. 2. Megestrol suspension 1 teaspoon b.i.d. 3. Aspirin 81 mg b.i.d. 4. Losartan 50 mg daily. 5. Levothyroxine 50 mcg p.o. daily. 6. Zoloft 50 mg daily. 7. Regular stool softeners. 8. Zanaflex 2 mg q.6 hours p.r.n. muscle spasm. 9. Tramadol every 6 hours p.r.n. mild pain. 10. She has most recently been started on Eliquis 5 mg p.o. b.i.d. and she also takes vitamin D supplementation. PHYSICAL EXAMINATION: VITAL SIGNS: Temperature 98.6, pulse 60, respirations 20, O2 saturation 96% on room air, and blood pressure 125/72. GENERAL: This is a weak, mildly-cachectic female, lying in bed with diminished responsiveness, but is appropriately responsive to questions. Her mentation seems slow and depressed. HEENT: Normocephalic, atraumatic. Pupils with diminished reactivity to light. Arcus senilis bilaterally. TMs, nares, and pharynx clear. NECK: Supple. Trachea midline. CHEST: Clear to auscultation. BREASTS: Deferred. HEART: Regular rate and rhythm without murmur. ABDOMEN: Soft and nontender without organomegaly. : Deferred. EXTREMITIES: Without clubbing, cyanosis, or edema, other than slight swelling to the right lower extremity is slightly more cool to touch. Negative Homans' sign. LABORATORY DATA: The most recent lab work shows WBCs 3.8, hemoglobin 10.8, hematocrit 31.7 with platelets at 265. Sodium 135, potassium 4.2, chloride 106, CO2 of 22, BUN is 10, creatinine is 0.79 with a GFR of 69, and calcium of 10.1. The venogram showed peroneal DVT. ASSESSMENT/PRIMARY DIAGNOSES: 1. Right peroneal deep vein thrombosis. 2. Status post laminectomy, postoperative day #7. 3. Generalized anxiety. 4. Hypothyroidism. 5. Postoperative deconditioning. PLAN: Awaiting insurance approval for rehabilitation and transfer to [facility], which is already accepted and is awaiting insurance approval. She will require significant rehabilitation to alleviate the deconditioning brought on by the prolonged back pain. She will continue her Eliquis for 6 months. She will follow up with Dr. Cope when she is discharged in his office. Job ID: [id number]
[2018-08-11] MEDS: Acetaminophen 500 MG TAB PO SCH ×2 (08:20→14:01)
[2018-08-11] MEDS: Sodium Chloride 0.9% 1,000 ML IV SCH ×2 (08:20→23:07)
[2018-08-11] MEDS: Apixaban 5 MG TAB PO SCH ×2 (08:20→20:27)
[2018-08-11] MEDS: Polyethylene Glycol 3350 17 GM Packet PO SCH ×2 (08:20→23:06)
[2018-08-11] MEDS: Megestrol Acetate 800 MG/20 ML UDCUP PO SCH ×2 (08:20→20:27)
[2018-08-11] MEDS: Acetaminophen 325 MG TAB PO PRN (16:13)
[2018-08-11] MEDS: Losartan 25 MG TAB PO SCH (20:26)
[2018-08-11] MEDS: traMADol HCl 50 MG TAB PO PRN (23:09)
[2018-08-12] MEDS: Levothyroxine Sodium 50 MCG TAB PO SCH (05:28)
[2018-08-12] MEDS: Polyethylene Glycol 3350 17 GM Packet PO SCH (09:43)
[2018-08-12] MEDS: Sodium Chloride 0.9% 1,000 ML IV SCH (09:43)
[2018-08-12] MEDS: Acetaminophen 500 MG TAB PO SCH (10:07)
[2018-08-12] MEDS: Apixaban 5 MG TAB PO SCH (10:07)
[2018-08-12] MEDS: Megestrol Acetate 800 MG/20 ML UDCUP PO SCH (10:07)
--- NOTE | 2018-08-12 10:07 | PRG ---
DATE OF SERVICE: 08/12/2018 Ms. Kathleen is an 83-year-old female, status post facetectomy. She has been in the hospital over the past week awaiting disposition ideally toward rehab. This was not approved by insurance, but they have approved placement toward prison facility. We are now waiting on final determination for placement for prison facility. Ms. Kathleen is extremity deconditioned and has not been mobile for a few months. That is the reason for her need for an advanced level of care beyond her home. She also has a small DVT, which is being treated and managed by the hospitalist service. From a neurosurgical perspective, she is safe to discharge from the hospital once the SNF facility has been determined. We will make appropriate outpatient followup arrangements for her. Job ID: [id number]
--- NOTE | 2018-08-12 10:36 | PRG ---
DATE OF SERVICE: 08/12/2018 SUBJECTIVE: Ms. Kathleen is now postop day 8 following a medical session. We have been awaiting approval for disposition. She initially was for inpatient rehab, but was approved [facility] yesterday. Everything was submitted by Case Management to go to there today. She is resting comfortably in the room this morning, I did not disturb her. It seems that her symptoms of back pain and leg pain had been improving and her ambulation has improved ever since slightly. She is still rather unsteady and certainly very well deconditioned, so she will need time to continue to recuperate. We will follow up in the outpatient setting. Job ID: [id number]
[2018-08-12 12:06] VITALS: BP 123/72; TEMP 98.1
== END 2018-08-12 15:13 | DRG 989 ==
LOC: SDC 11:24 → OBSVTOIN 16:09 → SJJU 16:09
PROVIDERS: ADMIT Neurological Surgery; ATTEND Neurological Surgery
PROC: 01NB0ZZ Release Lumbar Nerve, Open Approach (ICD-10-PCS; principal; 2018-08-04)
DX: I82.491 Acute embolism and thrombosis of other specified deep vein of right lower extremity (principal); M54.16 Radiculopathy, lumbar region; G89.4 Chronic pain syndrome; E03.9 Hypothyroidism, unspecified; I10 Essential (primary) hypertension; F41.9 Anxiety disorder, unspecified; F32.9 Major depressive disorder, single episode, unspecified; E55.9 Vitamin D deficiency, unspecified; Z90.10 Acquired absence of unspecified breast and nipple; Z79.82 Long term (current) use of aspirin; Z88.2 Allergy status to sulfonamides; Z85.3 Personal history of malignant neoplasm of breast
CPT/HCPCS: 36415; 76001; 80048; 85025; 85610; 85730; 93005; 93010; 93970; G8978-GP-CL; G8979-GP-CJ; G8987-GO-CL; G8988-GO-CJ; J0670; J2001; J2270; J2405; J2704; J3010; J8540

== ENCOUNTER 2018-08-13 13:30 | Emergency (ER) | payer MEDICARE, OTHER ==
[2018-08-13] MEDS ORDERED: Bisacodyl 10 MG SUPP ONE (14:20)
[2018-08-13 15:47] LABS: ALT (SGPT) 8 U/L (8-55); AST (SGOT) 13 U/L (5-34); Albumin 3.4 g/dL (3.4-4.8); Alkaline Phosphatase 64 U/L (40-150); Anion Gap 10 mmol/L (10-20); BUN (Urea Nitrogen) 18 mg/dL (9.8-20.1); Bilirubin, Total 0.7 mg/dL (0.2-1.2); Calc. Creatinine Clearance 0 mL/min (70-130); Calcium 10.3 mg/dL (7.8-10.44); Carbon Dioxide 23 mmol/L (23-31); Chloride 103 mmol/L (98-107); Estimated GFR-MDRD 59; Globulin 2.7 g/dL (2.4-3.5); Glucose 92 mg/dL (83-110); Potassium 4.4 mmol/L (3.5-5.1); Protein, Total 6.1 g/dL (6.0-8.3); Sodium 132 mmol/L (136-145)
== END 2018-08-13 15:37 ==
LOC: ERS 13:30
DX: K59.00 Constipation, unspecified (principal); E03.9 Hypothyroidism, unspecified; F32.9 Major depressive disorder, single episode, unspecified; I10 Essential (primary) hypertension; Z79.899 Other long term (current) drug therapy; Z87.891 Personal history of nicotine dependence; Z79.82 Long term (current) use of aspirin
CPT/HCPCS: 36415; 80053; 99283

== ENCOUNTER 2018-08-14 02:10 | Emergency (ER) | payer MEDICARE, OTHER ==
[2018-08-14] MEDS ORDERED: Fleet Enema 133 ML BOT FS SCH (03:45)
== END 2018-08-14 04:43 | disposition home or self-care (01) ==
LOC: ERS 02:10
DX: K59.00 Constipation, unspecified (principal); E03.9 Hypothyroidism, unspecified; F32.9 Major depressive disorder, single episode, unspecified; I10 Essential (primary) hypertension; Z79.891 Long term (current) use of opiate analgesic; Z79.899 Other long term (current) drug therapy; Z79.82 Long term (current) use of aspirin
CPT/HCPCS: 99284

== ENCOUNTER 2018-08-15 04:59 | Emergency (ER) | payer MEDICARE, OTHER ==
--- NOTE | 2018-08-15 09:10 | CT ---
PRELIMINARY REPORT/[facility]/EMERGENTY AFTER-HOURS PROCEDURE CT Head Without Contrast EXAM DATE/TIME: 08/15/2018 5:18 AM CLINICAL HISTORY: 83 years old, female; Injury or trauma; Fall; Initial encounter; Abrasion; Forehead; Patient HX: Fall while trying to go to restroom. Hematoma to left forehead TECHNIQUE: Axial computed tomography images of the head/brain without contrast. COMPARISON: No relevant prior studies available. FINDINGS: Brain: There are confluent areas of hypoattenuation within the periventricular and subcortical white matter compatible with moderate chronic microvascular ischemic change. Ventricles: Normal. No ventriculomegaly. Bones/joints: Normal. No acute fracture. Sinuses: Normal as visualized. No acute sinusitis. Mastoid air cells: Normal as visualized. No mastoid effusion. Soft tissues: There is a LEFT forehead 4 x 1 cm scalp hematoma. IMPRESSION: 1. No acute intracranial hemorrhage. 2. There is a LEFT forehead 4 x 1 cm scalp hematoma. Thank you for allowing us to participate in the care of your patient. Dictated and Authenticated by: Rui Joyce MD 08/15/2018 5:46 AM Central Time ([place] & [place]) FINAL REPORT HEAD CT WITHOUT CONTRAST: HISTORY: The patient fell while trying to go into the rest room. Forehead hematoma. FINDINGS: This report is in agreement with the preliminary report by [facility]. There is a left frontal scalp hemato ma. No intracranial posttraumatic sequelae. POS: [facility]
--- NOTE | 2018-08-15 09:12 | CT ---
PRELIMINARY REPORT/[facility]/EMERGENTY AFTER-HOURS PROCEDURE CT Cervical Spine Without Contrast EXAM DATE/TIME: 08/15/2018 5:16 AM CLINICAL HISTORY: 83 years old, female; Injury or trauma; Fall; Initial encounter; Abrasion; Patient HX: Fall while try ing to go to restroom. Hematoma to left forehead TECHNIQUE: Axial computed tomography images of the cervical spine without intravenous contrast. Coronal and sagi ttal reformatted images were created and reviewed. COMPARISON: No relevant prior studies available. FINDINGS: Vertebrae: The facet joints demonstrate moderate degenerative narrowing and sclerosis. No acute cervi bisi spine fracture is demonstrated. The vertebral foramen are grossly intact. Discs/Spinal canal/Neural foramina: There is multilevel cervical spine disc space narrowing and spond ylosis resulting in multilevel posterior osteophytosis causing mild spinal canal stenosis. Soft tissues: Unremarkable. Lungs: Lung apices are normal. IMPRESSION: No acute cervical spine fracture is demonstrated. Thank you for allowing us to participate in the care of your patient. Dictated and Authenticated by: Rui Joyce MD 08/15/2018 5:43 AM Central Time ([place] & [place]) FINAL REPORT CT CERVICAL SPINE WITHOUT CONTRAST: HISTORY: The patient fell. Posttraumatic pain and hematoma. COMPARISON: None. FINDINGS: This report is in agreement with the preliminary report by [facility]. No acute cervical spine fracture. T here is multilevel degenerative change of the cervical spine as described in the preliminary report nikunj [facility]. POS: [facility]
== END 2018-08-15 06:27 | disposition home or self-care (01) ==
LOC: ERS 04:59
DX: S00.03XA Contusion of scalp, initial encounter (principal); S80.212A Abrasion, left knee, initial encounter; I10 Essential (primary) hypertension; E03.9 Hypothyroidism, unspecified; F32.9 Major depressive disorder, single episode, unspecified; W19.XXXA Unspecified fall, initial encounter
CPT/HCPCS: 70450; 72125

== ENCOUNTER 2018-09-13 16:24 | Inpatient (IN) | payer MEDICARE, OTHER ==
[2018-09-13 17:10] LABS: #Lymphocytes 0.9 thou/uL (1.20-3.40); #Monocytes 0.5 thou/uL (0.11-0.59); #Neutrophils 2.4 thou/uL (1.40-6.50); %Eosinophils 0.6 % (0.0-10.0); %Lymphocytes 23.9 % (21.0-51.0); %Monocytes 12.8 % (0.0-10.0); %Neutrophils 62.6 % (42.0-75.0); Hemoglobin 4.7 g/dL (12.0-16.0); Mean Corpuscular HGB CONC 30.5 g/dL (32.0-36.0); Mean Corpuscular Hemoglobin 30.4 pg (27.0-31.0); Mean Corpuscular Volume 99.6 fL (78.0-98.0); Mean Platelet Volume 7.4 fL (7.4-10.4); Platelet Count 344 thou/uL (130-400); RBC Distribution Width 16.4 % (11.5-14.5); Red Blood Cell (RBC) Count 1.53 mill/uL (4.20-5.40); White Blood Cell (WBC) Count 3.9 thou/uL (4.8-10.8)
[2018-09-13 17:30] LABS: ALT (SGPT) 14 U/L (8-55); AST (SGOT) 12 U/L (5-34); Albumin 4.1 g/dL (3.4-4.8); Alkaline Phosphatase 49 U/L (40-150); Anion Gap 11 mmol/L (10-20); BUN (Urea Nitrogen) 30 mg/dL (9.8-20.1); Bilirubin, Total 0.4 mg/dL (0.2-1.2); CK (CPK) 20 U/L (29-168); Calc. Creatinine Clearance 0 mL/min (70-130); Calcium 10.1 mg/dL (7.8-10.44); Carbon Dioxide 19 mmol/L (23-31); Chloride 114 mmol/L (98-107); Estimated GFR-MDRD 38; Globulin 2.8 g/dL (2.4-3.5); Glucose 112 mg/dL (83-110); Lipase 106 U/L (8-78); Protein, Total 6.9 g/dL (6.0-8.3); Sodium 140 mmol/L (136-145)
[2018-09-13 17:41] LABS: Bilirubin Negative (Negative); Blood, Urine Negative (Negative); Clarity CLOUDY (Clear); Glucose, Urine (Dipstick) Negative (Negative); Leukocyte Moderate (Negative); Nitrite Negative (Negative); Protein, Urine (Dipstick) Negative (Neg-Trace); Specific Gravity, Urine 1.016 (1.002-1.036); pH, Urine 6.5 (5.0-9.0)
[2018-09-13 17:47] LABS: Bacteria/HPF Rare-Few HPF (None Seen); Hyaline Casts/LPF 0-3 HYALINE CAST LPF (0-3 Hyaline); RBC/HPF None Seen HPF (0-3); Squamous Epithelial None Seen HPF (0-3); WBC/HPF 21-50 HPF (0-3)
[2018-09-13] MEDS ORDERED: Pantoprazole 40 MG VIAL ONE (18:59)
[2018-09-13] MEDS ORDERED: cefTRIAXone\\ROCEPHIN 1 GM VIAL ONE (19:25)
--- NOTE | 2018-09-13 19:36 | CT ---
HEAD CT WITHOUT CONTRAST: Date: 09/13/18 COMPARISON: 08/15/18. HISTORY: Altered mental status. Lethargy. Weakness. FINDINGS: No parenchymal hemorrhage. No extra-axial hematoma. No midline shift. Basilar cisterns are patent. Ag e-appropriate atrophy. Cortical maravilla-white matter differentiation preserved. No evidence of hydrocephalus Stable white matter hypodensities due to chronic small vessel ischemic c hange. Calvarium is intact. Expected evolutionary changes with overall decrease in size of a left scalp nanette barbie. Adequate aeration of the sinuses and mastoid air cells. IMPRESSION: No intracranial post-traumatic sequelae. POS: [facility]
--- NOTE | 2018-09-13 19:50 | RAD ---
FRONTAL VIEW CHEST: Date: 09/13/18 INDICATION: Altered mental status. COMPARISON: 05/29/18. FINDINGS: There is stable linear density at the lateral left mid chest. Interstitial prominence of each lung is seen. The cardiac silhouette is stable. There is prominence of the pulmonary vasculature. IMPRESSION: 1. Stable chest. 2. There remains density of the lateral left mid lung adjacent to the left heart border. 3. Findings indicate CHF. POS: [facility]
[2018-09-13 20:20] VITALS: BMI 21.2
[2018-09-13] MEDS ORDERED: Acetaminophen 325 MG TAB PO PRN (21:12)
[2018-09-13] MEDS ORDERED: Ondansetron ODT 4 MG TAB SL PRN (21:12)
[2018-09-13] MEDS ORDERED: Ondansetron PF 4 MG/2 ML Vial IVP PRN (21:12)
[2018-09-13 21:14] LABS: Lactic Acid 1.8 mmol/L (0.5-2.2)
[2018-09-13] MEDS ORDERED: Sodium Chloride 0.9% 1,000 ML IV SCH (21:15)
[2018-09-13] MEDS: Sodium Chloride 0.9% 1,000 ML IV SCH (22:48)
[2018-09-14 04:04] LABS: #Lymphocytes 0.8 thou/uL (1.20-3.40); #Monocytes 0.5 thou/uL (0.11-0.59); #Neutrophils 1.9 thou/uL (1.40-6.50); %Basophils 1.3 % (0.0-1.0); %Eosinophils 1.1 % (0.0-10.0); %Lymphocytes 23.6 % (21.0-51.0); %Monocytes 14.3 % (0.0-10.0); %Neutrophils 59.7 % (42.0-75.0); Hemoglobin 6.8 g/dL (12.0-16.0); Mean Corpuscular HGB CONC 32.9 g/dL (32.0-36.0); Mean Corpuscular Hemoglobin 30.3 pg (27.0-31.0); Mean Corpuscular Volume 92.2 fL (78.0-98.0); Mean Platelet Volume 7.3 fL (7.4-10.4); Platelet Count 202 thou/uL (130-400); RBC Distribution Width 15.5 % (11.5-14.5); Red Blood Cell (RBC) Count 2.24 mill/uL (4.20-5.40); White Blood Cell (WBC) Count 3.3 thou/uL (4.8-10.8)
--- NOTE | 2018-09-14 04:11 | HP ---
CHIEF COMPLAINT ON ADMISSION: GI bleed with anemia and UTI. HISTORY OF PRESENT ILLNESS: The patient is an 83-year-old jail patient who has been recovering from a DVT she obtained after having surgery at [facility]. Over the last several days, her family has noted that she has had increasing lethargy and weakness has progressed to the point where her responsiveness now is minimal such that they took her to the emergency room for further evaluation. In the ER, her hemoglobin was noted to be 4 and her hematocrit 15.3. Rectal exam at that time was grossly positive for blood. The patient has been on Eliquis for treatment of her DVT. PAST MEDICAL HISTORY: Significant for hypothyroidism, aforementioned DVT, an old NC, breast cancer, anxiety, hypertension, kidney disease, severe back pain. She has also had depression and vitamin D deficiency. PAST SURGICAL HISTORY: Includes hysterectomy, mastectomy, rectocele repair, and most recently laminectomy on her back by Dr. Jackson in July. CURRENT MEDICATIONS: Include, 1. Celebrex 200 daily. 2. Megestrol suspension 1 teaspoon b.i.d. 3. Aspirin 81 mg daily. 4. Losartan 50 mg daily. 5. Levothyroxine 50 mcg daily. 6. Zoloft 50 mg daily. 7. Stool softeners. 8. Zanaflex 2 mg q.6 p.r.n. muscle spasms. 9. Tramadol q.6 p.r.n. pain. 10. Eliquis 5 mg b.i.d., I think her ongoing dosage is just 2.5 mg b.i.d. ALLERGIES: SHE HAS ALLERGIES TO BENADRYL, IODINE, AND SULFA. REVIEW OF SYSTEMS: Not obtainable from the patient. From her ; GENERAL: She has been weak and lethargic. Denies fever. HEENT: She has evidence of trauma on both sides of her face from previous falls where she has fallen repeatedly since hospitalization. Apparently, she gets up without waiting for help and she is too weak to stand on her own. HEENT: Also negative for drainage or sores. CHEST: Denies shortness of breath or coughing. CARDIOVASCULAR: Negative for chest pain or palpitations. GI: Negative for nausea, vomiting, or diarrhea. : Negative for painful urination. They have not noticed any blood in urine or stool, but apparently, there has been a history per the family of black tarry stools. SKIN: With diffuse bruising from multiple falls. Musculoskeletal: Wasting in all major muscle groups and arthritic pain in the major joints. NEUROLOGICAL: She has altered mental status with decreased responsiveness and confusion. PHYSICAL EXAMINATION: VITAL SIGNS: Blood pressure 124/82, respirations 20, temperature 97.3. GENERAL: She denies any pain at this time. HEENT: Normocephalic, but evidence of repeated falls and trauma to the head with blackened eyes, old and new on both sides. TMs, nares are clear. Pupils are equal, round, and reactive to light with arcus senilis bilaterally. Pharynx is dry. NECK: Nontender. No masses. CHEST: Clear to auscultation. BREASTS: Deferred. HEART: Regular rate and rhythm. ABDOMEN: Soft without hepatosplenomegaly. Scaphoid. : Not examined at this time. RECTAL: Per ER physician, rectal exam reveals melenic stool. EXTREMITIES: With muscular wasting in upper and lower extremities. Normal range of motion is present. SKIN: Tenting diffusely with poor turgor and evidence of bruising, old and new in upper and lower extremities. NEUROLOGIC: Mental status is confused, but responsive at this time. Pupils with diminished reactivity to light at 1 to 2 mm bilaterally. Cranial nerves grossly intact. Sensory exam grossly intact, unable to test gait and cerebellar function at this time. LABORATORY DATA: On admission, WBCs 3.9, hemoglobin 4.7, hematocrit 15.3 with platelets at 344. Sodium 140, potassium 4.0, chloride 114, BUN 30, CO2 is 19, creatinine 1.32, glucose 112. UA shows moderate leukocyte esterase with 21 to 50 wbcs, Hemoccult positive. Chest x-ray shows a density in the lateral left mid lung field adjacent to the left heart border, findings indicate CHF. CT of the head reveals no intracranial posttraumatic sequela. ASSESSMENT: 1. Gastrointestinal bleed. 2. Severe anemia secondary to gastrointestinal bleed. 3. Urinary tract infection. 4. Recent deep venous thrombosis. 5. Recent laminectomy. 6. Failure to thrive. 7. Dementia. PLAN: Clear liquids. GI consultation, probable endoscopy. We will hold her Eliquis and serially re-evaluate her. She will also be hydrated with normal saline at a maintenance rate. Job ID: [id number]
[2018-09-14 04:17] LABS: Anion Gap 12 mmol/L (10-20); BUN (Urea Nitrogen) 29 mg/dL (9.8-20.1); Calc. Creatinine Clearance 35 mL/min (70-130); Calcium 8.7 mg/dL (7.8-10.44); Carbon Dioxide 15 mmol/L (23-31); Chloride 117 mmol/L (98-107); Estimated GFR-MDRD 49; Glucose 119 mg/dL (83-110); Sodium 140 mmol/L (136-145)
[2018-09-14] MEDS: Sodium Chloride 0.9% 1,000 ML IV SCH ×3 (05:50→20:37)
[2018-09-14] MEDS: Pantoprazole 40 MG VIAL IVP SCH ×2 (10:15→20:36)
--- NOTE | 2018-09-14 17:14 | CON ---
DATE OF CONSULTATION: 09/14/2018 REASON FOR CONSULTATION: Symptomatic anemia. HISTORY: Ms. Kathleen is an 83-year-old female, who is well known to me. She had a recent laminectomy in July and subsequently developed a DVT and was placed on Eliquis. She went to [facility] and subsequently to home; however, she has been off the Eliquis since mid August. During that time, the daughter has noted intermittent black tarry stool. She denies having abdominal pain or discomfort. There is no nausea or vomiting. Her appetite has improved with Megace, however, over the last several weeks, she was noted to have more weakness and lethargy and unable to get out of bed. She was brought to the ER, where she was noted to have a hemoglobin of 4. Since then, she has blood transfusion with appropriate rise in her blood count. CT of the brain did not show any acute findings. Last week, she was seen in my office for a history of constipation and fecal impaction. In September of 2017, she did have an outpatient colonoscopy that showed two benign polyps that were removed. Otherwise, no other significant findings were seen. PAST MEDICAL HISTORY: 1. Recent DVT. 2. History of breast cancer. 3. Hypertension. 4. Chronic kidney disease. 5. Hypothyroidism. 6. Status post recent laminectomy a month ago. 7. Status post hysterectomy. 8. Mastectomy. 9. Rectocele repair. ALLERGIES: INCLUDE BENADRYL, IODINE, AND SULFA. MEDICATIONS: At home include; 1. Sertraline 50 mg daily. 2. Melatonin 5 mg at bedtime. 3. Megestrol 400 mg b.i.d. 4. Losartan 50 mg daily. 5. Synthroid 50 mcg daily. 6. Celebrex 200 mg daily. 7. Aspirin 81 mg daily. 8. Eliquis 5 mg p.o. b.i.d., which she has been off for the last two weeks. SOCIAL HISTORY: She is cared for by her daughter at home. No tobacco or alcohol usage. FAMILY HISTORY: Negative for any known GI problem, liver disease, or GI malignancy. PHYSICAL EXAMINATION: VITAL SIGNS: Temperature is 98.2, blood pressure 108/63, pulse of 74. GENERAL: She is alert and conversant. No distress. HEENT: Shows anicteric sclerae. There is ecchymosis around her left eye. NECK: Supple. CV: Shows normal S1 and S2. Regular rate and rhythm. CHEST: Shows normal breath sound. ABDOMEN: Soft. No tenderness. No distention. She has active bowel sounds. No organomegaly. EXTREMITIES: Show no edema. LABORATORY DATA: Initial hemoglobin yesterday was 12.7, this morning was 6.8 after 2 units of RBC. WBCs 3.3, platelet count of 202. Electrolytes within normal range. Creatinine 1.06. Lipase 106. LFTs are normal. ASSESSMENT: 1. Acute normocytic anemia, likely from recent GI blood loss. She has evidence of perhaps upper GI bleeding with reported black tarry stool at home. Of note, she did have a negative colonoscopy one year ago with two benign polyps removed. 2. Recent deep venous thrombosis following her laminectomy on Eliquis, not on medication for the last two weeks. 3. Other medical problems stable. RECOMMENDATIONS: 1. Diagnostic upper endoscopy tomorrow, no need for colonoscopy as she had it last year that did not show any remarkable findings. 2. Continue pantoprazole 40 mg q.12 for now. 3. Further recommendations to follow depending on above findings. Job ID: [id number]
[2018-09-14] MEDS: cefTRIAXone\\ROCEPHIN 1 GM in Sodium Chloride 0.9% 100 ML IVPB SCH (21:36)
[2018-09-14] MEDS: Acetaminophen 325 MG TAB PO PRN (21:41)
[2018-09-15] MEDS ORDERED: Zolpidem Tartrate 5 MG TAB PO PRN (00:01)
[2018-09-15 07:13] LABS: Hemoglobin 6.9 g/dL (12.0-16.0); Mean Corpuscular HGB CONC 32.4 g/dL (32.0-36.0); Mean Corpuscular Hemoglobin 30.4 pg (27.0-31.0); Mean Corpuscular Volume 93.8 fL (78.0-98.0); Mean Platelet Volume 7.2 fL (7.4-10.4); Platelet Count 216 thou/uL (130-400); RBC Distribution Width 15.7 % (11.5-14.5); Red Blood Cell (RBC) Count 2.26 mill/uL (4.20-5.40); White Blood Cell (WBC) Count 3.1 thou/uL (4.8-10.8)
[2018-09-15 07:25] LABS: Anion Gap 12 mmol/L (10-20); BUN (Urea Nitrogen) 17 mg/dL (9.8-20.1); Calc. Creatinine Clearance 44 mL/min (70-130); Calcium 8.5 mg/dL (7.8-10.44); Carbon Dioxide 15 mmol/L (23-31); Chloride 118 mmol/L (98-107); Estimated GFR-MDRD 65; Glucose 89 mg/dL (83-110); Potassium 3.7 mmol/L (3.5-5.1); Sodium 141 mmol/L (136-145)
[2018-09-15] MEDS: Pantoprazole 40 MG VIAL IVP SCH ×2 (09:09→20:11)
[2018-09-15 09:49] LABS: Band 6 % (5-11); Burr Cells SLIGHT = 2-5 cells (100X) (0-1/hpf); Eosinophils 1 % (0-10); Lymphocytes 32 % (21-51); MDiff Complete? YES; Monocytes 10 % (0-10); Neutrophil 51 % (42-75); Platelet Morphology Comment Appears Adequate; Polychromasia MODERATE = 3-4 cells (100X) (0-2/hpf)
--- NOTE | 2018-09-15 13:05 | PQF ---
Date: 09-15-18 ATTN: DR. SAMANTHA CORNELL Please exercise your independent, professional judgment in responding to the clarification form. Clinical indicators are provided on the bottom of this form for your review Please check appropriate box(s): [ x ] Protein Calorie Malnutrition: [ ] Mild [ x ] Moderate [ ] Severe [ ] Other Malnutrition (please specify) __ [ ] Cachexia [ ] Other diagnosis [ ] Unable to determine In addition, please specify: Present on Admission (POA): [ x ] Yes [ ] No [ ] Unable to determine CLINICAL INDICATORS - SIGNS / SYMPTOMS / LABS BMI of 21.2 PROCESS ARTIST CONSULT 09-14-18: BLANCHABLE REDNESS @[facility], Patient caregivers report of poor PO intake and weight loss and current clear liquid diet order. severe abdominal pains and poor appetite H&P: INCREASING LETHARGY AND WEAKNESS, TRAUMA TO HER FACE FROM PREVIOUS FALLS SHE GETS UP W/O WAITING FOR HELP AND SHE IS TO WEAK TO STAND ON HER OWN, WASTING IN ALL MAJOR MUSCLE GROUPS, WITH MUSCULAR WASTING IN UPPER AND LOWER EXTREMITIES, TENTING DIFFUSELY WITH POOR TURGOR, FAILURE TO THRIVE CONSULT DR. PRATHER 09-14-18: HER APPETITE HAS IMPROVED WITH MEGACE, HOWEVER, OVER THE LAST SEVERAL WEEKS, SHE WAS NOTED TO HAVE MORE WEAKNESS AND LETHARGY AND UNABLE TO GET OUT OF BED RISK FACTORS: PROCESS ARTIST CONSULT 09-14-18: BLANCHABLE REDNESS @[facility], Patient caregivers report of poor PO intake and weight loss and current TREATMENT: PROCESS ARTIST CONSULT 09-14-18: 1.) Recommend continuation of clear liquid diet pending colonoscopy. 2.) Recommend Ensure Clear TID while on clear liquid diet. 3.) ADAT when medically advisable to a heart healthy diet to best meet her needs and prevent further weight loss. 4.) Monitor PO intake and kidney function. 5.) Bowel regimen PRN. Moderate Malnutrition (in acute illness) Energy Intake: <75% of estimated energy requirement for > 7 days Weight Loss: 1-2%/1 week; 5%/ 1 month; 7.5%/3 months Other: mild body fat loss; mild muscle mass loss; mild fluid accumulation; Severe Malnutrition (in acute illness) Energy Intake: < 50% of estimated energy requirement for > 5 days Weight Loss: >1-2%/1 week; >5%/1 month; >7.5%/3 months Other: moderate body fat loss; moderate muscle mass loss; moderate- severe fluid accumulation; measurably reduced material cutter strength Moderate Malnutrition (in chronic illness) Energy Intake: <75% of estimated energy requirement for >1 month Weight Loss: 5%/1 month; 7.5%/3 months; 10%/6 months; 20%/1 year Other: mild body fat loss; mild muscle mass loss; mild fluid accumulation Severe Malnutrition (in chronic illness) Energy Intake: <75% of estimated energy requirement for >1 month Weight Loss: >5%/1 month; >7.5%/3 months; >10%/6 months; >20%/1 year Other: severe body fat loss; severe muscle mass loss; severe fluid accumulation ; measurably reduced material cutter strength (This form is maintained as a part of the permanent medical record) 2014 [employer] All Rights Reserved [email or web address] [email or web address] Office: [phone] [facility]
--- NOTE | 2018-09-15 13:49 | PQF ---
DATE: 09-15-18 ATTN: DR. ELVA CORNELL Please exercise your independent, professional judgment in responding to the clarification form. Clinical indicators are provided on the bottom of this form for your review Please check appropriate box(s): [ ] Acute Renal Failure (ARF) / Acute Kidney Injury (LEX) [ x ] Acute on Chronic Renal Failure please specify Stage of CKD __II (see below) [ ] CKD without ARF/LEX please specify Stage of CKD [ ] Other diagnosis [ ] Unable to determine In addition, please specify: Present on Admission (POA): [ ] Yes [ ] No [ ] Unable to determine National Kidney Foundation Guidelines for CKD Staging Stage I Kidney damage with normal or increased GFR GFR > 90 Stage II Kidney damage with mildly decreased GFR GFR 60-89 Stage III Kidney damage with moderately decreased GFR GFR 30-59 Stage IV Kidney damage with severely decreased GFR GFR 16-29 Stage V Kidney failure GFR<15 ESRD End Stage Renal Disease On dialysis Acute Renal Failure/Acute Kidney Failure defined as: Increases in SCr by (>) 0.3 mg/dl within 48 hours OR- Increases in SCr by (>) 1.5 times baseline, known or presumed to have occurred within the prior 7 days OR- Urine volume < 0.5 ml/kg/hour for 6 hours (KDIGO supplement 2012 for RIFLE/RUDY criteria) For continuity of documentation, please document condition throughout progress notes and discharge summary. Thank You. CLINICAL INDICATORS - SIGNS / SYMPTOMS / LABS GFR: 09-13-18: 38 09-14-18: 49 09-15-18: 65 CREATININE: 09-13-18: 1.32 09-14-18: 1.06 09-15-18: 0.84 BUN: 09-13-18: 30 09-14-18: 29 09-15-18: 17 H&P: HX: OLD ID, KIDNEY DISEASE, HTN RISK FACTORS: H&P: HOME MEDS: CELEBREX, ASA, ZANAFLEX, MEGESTROL, TRAMADOL , ELIQUIS H&P: HX: OLD ID, KIDNEY DISEASE, HTN TREATMENTS: MAR: IVF ER: NS IVF (This form is maintained as a part of the permanent medical record) 2014 [employer]. All Rights Reserved [email or web address] [email or web address] Office: [phone] [facility]
--- NOTE | 2018-09-15 14:11 | PQF ---
DATE: 09-15-2018 ATTN: DR. ELVA CORNELL Please exercise your independent, professional judgment in responding to the clarification form. Clinical indicators are provided on the bottom of this form for your review Please check appropriate box(s): [ ] Encephalopathy: Type: [ ] Acute [ ] Subacute [ ] Chronic Etiology: [ ] Metabolic [ ] Toxic [ ] Other (please specify) [ ] Transient Alteration of Awareness [ x ] Other diagnosis ___dementia [ ] Unable to determine In addition, please specify: Present on Admission (POA): [ ] Yes [ ] No [ ] Unable to determine For continuity of documentation, please document condition throughout progress notes and discharge summary. Thank You. CLINICAL INDICATORS - SIGNS / SYMPTOMS / LABS ER: EVAL FOR LETHARGY AND WEAKNESS, PT IS LESS RESPONSIVE THAN USUAL. PT IS BEDRIDDEN, BUT TALKS REGULARLY, PT IS NOT TALKING TO THEM. H&P: WEAK AND LETHARGIC, EVIDENCE OF TRAUMA FROM PREVIOUS FALLS WHERE SHE HAS FALLEN REPEATEDLY SINCE HOSPITALIZATION. APPARENTLY SHE GETS UP W/O WAITING FOR HELP AND SHE IS TOO WEAK TO STAND ON HER OWN H&P: SHE HAS ALTERED MENTAL STATUS WITH DECREASED RESPONSIVENESS AND CONFUSION RISK FACTORS: H&P: GI BLEED, UTI, FTT, DEMENTIA TREATMENTS: ER/PRESENT: CEFTRIAXONE IV, NS IVF (This form is maintained as a part of the permanent medical record) 2014 [employer]. All Rights Reserved [email or web address] [email or web address] Office: [phone] [facility]
[2018-09-15] MEDS ORDERED: Promethazine HCl 25 MG/ML VIAL IM PRN (15:45)
[2018-09-15] MEDS ORDERED: Promethazine HCl 25 MG/ML VIAL SLOW IVP PRN (15:45)
[2018-09-15] MEDS ORDERED: Ondansetron HCl/PF 4 MG/2 ML Vial IVP PRN (15:45)
--- NOTE | 2018-09-15 16:05 | PRG ---
DATE OF SERVICE: 09/15/2018 SUBJECTIVE: Ms. Kathleen recently had endoscopy. There was a small erosion in her stomach. It is unclear if this accounts for her abrupt drop in hemoglobin from 10.8 on 08/09 to 4.7 on 09/13 as well as one small erosion in the stomach. Concerning is the fact that she recently had a DVT, diagnosed on 08/07 in the right leg after a surgery. RECOMMENDATIONS: I think that She is going to need anticoagulation sooner or later; although, she has a significant risk. It is unclear what actually bled. She does have a small erosion in the stomach, which in the phase of Eliquis or the blood thinners may have bled more than it appears. She is on PPI now. One option would be to place her back on Eliquis now and if she bled, then stop it, transfuse, place a filter more urgent. She needs some protection from pulmonary embolus DVT and she is not moving around much. Job ID: [id number]
[2018-09-15] MEDS: Sodium Chloride 0.9% 1,000 ML IV SCH (16:49)
[2018-09-15] MEDS ORDERED: Lidocaine 1% PF 5 ML VIAL ONE (17:10)
[2018-09-15] MEDS ORDERED: PROPOFOL 200 MG/20 ML VIAL ONE (17:10)
[2018-09-15] MEDS ORDERED: Promethazine 25 MG TAB PO SCH (20:00)
[2018-09-15] MEDS: cefTRIAXone\\ROCEPHIN 1 GM in Sodium Chloride 0.9% 100 ML IVPB SCH (20:11)
[2018-09-15] MEDS ORDERED: Promethazine 25 MG TAB PO PRN (22:28)
[2018-09-16] MEDS ORDERED: Lorazepam 2 MG/ML VIAL SLOW IVP SCH (02:00)
[2018-09-16] MEDS: Sodium Chloride 0.9% 1,000 ML IV SCH ×2 (06:30→08:10)
[2018-09-16] MEDS ORDERED: Lorazepam 2 MG/ML VIAL SLOW IVP PRN (08:01)
[2018-09-16] MEDS: Pantoprazole 40 MG VIAL IVP SCH (08:05)
[2018-09-16 08:28] LABS: Hemoglobin 7.8 g/dL (12.0-16.0); Mean Corpuscular HGB CONC 31.2 g/dL (32.0-36.0); Mean Corpuscular Hemoglobin 29.4 pg (27.0-31.0); Mean Corpuscular Volume 94.1 fL (78.0-98.0); Mean Platelet Volume 7.9 fL (7.4-10.4); Platelet Count 229 thou/uL (130-400); RBC Distribution Width 16.2 % (11.5-14.5); Red Blood Cell (RBC) Count 2.64 mill/uL (4.20-5.40); White Blood Cell (WBC) Count 2.8 thou/uL (4.8-10.8)
--- NOTE | 2018-09-16 09:20 | OP ---
DATE OF PROCEDURE: 09/15/2018 PROCEDURE PERFORMED: EGD. PREPROCEDURE DIAGNOSES: 1. Anemia. 2. History of black stool. 3. Heme positive. POSTPROCEDURE DIAGNOSES: 1. Small erosion of the linear antrum with slight fresh blood on it. This was cauterized with [place] heater probe. 2. Otherwise normal EGD. 3. Rectal examination reveals some dark greenish to brown stool but no marilou melena. RECOMMENDATIONS: 1. Proton pump inhibitor. 2. If there is further drop in hemoglobin, consider colonoscopy to evaluate for possible lower GI source of bleeding. ANESTHESIA: TIVA. PROCEDURE IN DETAIL: The patient was informed of the risks, benefits, and possible complications of endoscopy including perforation, reaction to medication and aspiration. Informed consent was obtained. The patient was brought to the Endoscopy Suite where she was sedated in a gradual fashion. Once she was comfortable, a bite block was placed into her oropharynx. The endoscope was advanced to the esophagus, stomach, and the second and third portion of the duodenum and slowly removed. There was good visualized of the mucosa. The esophagus was normal. The stomach in the proximal aspect in forward and retroflexed views normal. In the antrum, there was a little bit of blood noted. Once we distended the stomach, there was a small linear ulcer may be 0.3 mm wide and a cm to a cm half long. There was little blood here, but no large amounts, no clot, no large visible vessel. We tried to irrigate that away, it would not move and we went ahead and cauterized . There seemed to be a small visible vessel there, but there was no active bleeding at the time and there was no bleeding after the procedure was concluded. The incisura was inspected closely and negative. The duodenal bulb and pyloric channel were inspected multiple times as well as the duodenum and third portion. No other lesions were seen. Ultimately, the scope was removed. Rectal examination was performed while the patient was asleep and there was no gross melena. It was more dark greenish stool. It was not hemoccult, but again this had been done on the floor already. RECOMMENDATIONS: Avoid NSAIDs. Continue PPI. We will talk with family about issues with colonoscopy as this was not a good definitive study by any means. In terms of findings that would account for all her anemia, other considerations still need to include bone marrow dysfunction if she has a component of leukopenia dating back several years as well. Job ID: [id number]
[2018-09-16 09:39] LABS: Band 3 % (5-11); Eosinophils 1 % (0-10); Hypochromia SLIGHT = 6-15 cells (100X) (0-5/hpf); Lymphocytes 27 % (21-51); MDiff Complete? YES; Monocytes 12 % (0-10); Neutrophil 57 % (42-75); Ovalocytes SLIGHT = 2-5 cells (100X) (0-1/hpf); Platelet Morphology Comment Appears Adequate; Polychromasia SLIGHT = 2-3 cells (100X) (0-2/hpf)
--- NOTE | 2018-09-16 12:41 | ULT ---
VENOUS DUPLEX SONOGRAM BILATERAL LOWER EXTREMITY: HISTORY: Bilateral leg pain and edema. FINDINGS: Each common femoral vein and greater saphenous junction were evaluated along with each femoral, deep femoral, popliteal, and posterior tibial vein. There is good color and spectral Doppler flow, compre ssion, and augmentation. Lobular fluid collection at the popliteal fossa measures up to 4.3 cm lengt h. IMPRESSION: 1. No sonographic evidence of deep vein thrombosis within either lower extremity. 2. Miranda's cyst left popliteal fossa. POS: [facility]
--- NOTE | 2018-09-16 12:43 | CON ---
DATE OF CONSULTATION: 09/16/2018 CHIEF COMPLAINT: Bloody stool, lethargy, and anemia. HISTORY OF PRESENT ILLNESS: The patient is an 83-year-old woman, who underwent right L2 facetectomy shortly before [place] this past year, while I was not able to find direct documentation about it. An ultrasound done perioperatively nominally due to the patient's immobility showed thrombus in the right peroneal vein 3 days later. She was started on Eliquis and she has been convalescing in a [facility] since discharge. She was admitted through the emergency room on September 13 with lethargy, bloody stools, and had a hemoglobin of 4.7. Her Eliquis was stopped. She was transfused and EGD yesterday demonstrated an antral erosion with adherent blood. I was consulted about the possibility of placement of a vena cava filter. PAST MEDICAL HISTORY: The patient's past medical history significant for hypothyroidism, coronary artery disease, hypertension, and a distant history of breast cancer. MEDICATIONS: Her home medications include; 1. Celebrex. 2. Megace. 3. Baby aspirin. 4. Losartan. 5. Synthroid. 6. Zoloft. 7. Zanaflex. 8. Tramadol. 9. Eliquis 5 mg b.i.d. ALLERGIES: SHE IS LISTED BEING ALLERGIC TO BENADRYL, IODINE, AND SULFA. REVIEW OF SYSTEMS: Review of systems is unobtainable except what her was able to detail about having too much agitation and anxiety during the night in order to be able to sleep and being thoroughly sedated since receiving a mg of IV Ativan about 2 o'clock this morning. PHYSICAL EXAMINATION: GENERAL: She is quite lethargic. VITAL SIGNS: Heart rate 78, blood pressure 161/74, and room air saturations were 97%. EXTREMITIES: She had no lower extremity swelling or tenderness. LABORATORY DATA: Laboratory exam showed a hemoglobin of 4.7 on admission to 7.8 today. BUN was 30 and creatinine 1.32 and on admission yesterday morning, they were 17 and 0.84 respectively. Review of her venous Doppler from July showed only thrombus in the right peroneal vein and review of the chart and the x-rays suggests at least that there has never been any suspicion that she might have had a pulmonary embolism. Venous Doppler that I ordered for today shows no obvious evidence of DVT. IMPRESSION AND RECOMMENDATIONS: I would simply stop this lady's anticoagulation, which has already been done. Rather than placing a filter to guard against pulmonary embolism, should she redevelop a DVT. She clearly has contraindications to anticoagulation at least at the Eliquis dosage that she apparently was receiving, but she does not have a clear indication for vena cava filter placement. Job ID: [id number]
--- NOTE | 2018-09-16 17:40 | PRG ---
DATE OF SERVICE: 09/16/2018 SUBJECTIVE: Ms. Kathleen feels well. She has been sleeping today. She has been eating okay. She ate regular food. OBJECTIVE: VITAL SIGNS: Temperature 97, pulse 73, blood pressure 117/72. ABDOMEN: Soft and nontender. LABORATORY DATA: White count 2.8, hemoglobin 7.8, platelet count 229. BUN and creatinine are 17 and 0.8. IMAGING DATA: She had venogram today with regard to questionable DVT in the past. There is no evidence of DVT on either leg at this time. PLAN: Continue PPI therapy. At this time, there are no signs of acute GI bleeding. She did present with symptomatic anemia. She had a normal colonoscopy one year ago. She was on Eliquis recently, but she is not on this now. RECOMMENDATIONS: Continue Protonix orally. I think if she has no signs of bleeding in the next 24 hours, she can be discharged home. She is not going to be on anticoagulant as she has no DVT. If I can be of any further assistance in this patient's care, please do not hesitate to contact me. I will be available over the weekend. Job ID: [id number]
[2018-09-16] MEDS: Ondansetron ODT 4 MG TAB PO PRN (20:54)
[2018-09-16] MEDS: cefTRIAXone\\ROCEPHIN 1 GM in Sodium Chloride 0.9% 100 ML IVPB SCH (20:55)
[2018-09-16] MEDS ORDERED: Promethazine 25 MG TAB PO PRN (22:00)
[2018-09-17] MEDS: Ziprasidone 20 MG CAP PO SCH ×2 (00:17→20:31)
[2018-09-17] MEDS: Sodium Chloride 0.9% 1,000 ML IV SCH ×2 (03:19→17:14)
[2018-09-17 08:23] LABS: Anisocytosis SLIGHT = 6-15 cells (100X) (0-5/hpf); Band 5 % (5-11); Eosinophils 2 % (0-10); Hemoglobin 6.7 g/dL (12.0-16.0); Lymphocytes 37 % (21-51); MDiff Complete? YES; Mean Corpuscular HGB CONC 32.3 g/dL (32.0-36.0); Mean Corpuscular Hemoglobin 30.4 pg (27.0-31.0); Mean Corpuscular Volume 94.1 fL (78.0-98.0); Mean Platelet Volume 7.5 fL (7.4-10.4); Metamyelocyte 2 % (0-0); Monocytes 5 % (0-10); Neutrophil 49 % (42-75); Platelet Count 226 thou/uL (130-400); Polychromasia SLIGHT = 2-3 cells (100X) (0-2/hpf); RBC Distribution Width 16.3 % (11.5-14.5); Red Blood Cell (RBC) Count 2.21 mill/uL (4.20-5.40); White Blood Cell (WBC) Count 2.6 thou/uL (4.8-10.8)
[2018-09-17] MEDS ORDERED: Lorazepam 2 MG/ML VIAL SLOW IVP PRN (09:00)
[2018-09-17] MEDS ORDERED: Ziprasidone 20 MG CAP PO SCH (20:00)
[2018-09-18] MEDS ORDERED: rOPINIRole HCl 0.5 MG TAB PO SCH (20:00)
[2018-09-18] MEDS ORDERED: Ziprasidone 20 MG CAP PO SCH (20:00)
[2018-09-18] MEDS ORDERED: Ziprasidone 60 MG CAP PO SCH (20:00)
[2018-09-18] MEDS: Lorazepam 1 MG TAB PO SCH (21:28)
[2018-09-19] MEDS: Acetaminophen 325 MG TAB PO PRN (01:02)
[2018-09-19 07:16] LABS: Hemoglobin 6.9 g/dL (12.0-16.0); Mean Corpuscular HGB CONC 32.6 g/dL (32.0-36.0); Platelet Count 220 thou/uL (130-400); RBC Distribution Width 16.1 % (11.5-14.5); Red Blood Cell (RBC) Count 2.21 mill/uL (4.20-5.40); White Blood Cell (WBC) Count 2.9 thou/uL (4.8-10.8)
[2018-09-19 08:20] LABS: Band 5 % (5-11); Eosinophils 3 % (0-10); Hypochromia SLIGHT = 6-15 cells (100X) (0-5/hpf); Lymphocytes 32 % (21-51); MDiff Complete? YES; Monocytes 9 % (0-10); Neutrophil 51 % (42-75); Platelet Morphology Comment Appears Adequate; Polychromasia MODERATE = 3-4 cells (100X) (0-2/hpf)
[2018-09-19] MEDS: rOPINIRole HCl 1 MG TAB PO SCH (20:38)
[2018-09-19] MEDS: Lorazepam 1 MG TAB PO SCH (21:20)
[2018-09-20 06:41] LABS: #Eosinphils 0.1 thou/uL (0.0-0.7); #Lymphocytes 1.2 thou/uL (1.20-3.40); #Monocytes 0.5 thou/uL (0.11-0.59); #Neutrophils 1.8 thou/uL (1.40-6.50); %Basophils 0.2 % (0.0-1.0); %Eosinophils 1.6 % (0.0-10.0); %Lymphocytes 33.8 % (21.0-51.0); %Monocytes 13.7 % (0.0-10.0); %Neutrophils 50.6 % (42.0-75.0); Mean Corpuscular HGB CONC 31.5 g/dL (32.0-36.0); Mean Corpuscular Hemoglobin 29.8 pg (27.0-31.0); Mean Corpuscular Volume 94.6 fL (78.0-98.0); Mean Platelet Volume 7.2 fL (7.4-10.4); Platelet Count 232 thou/uL (130-400); RBC Distribution Width 15.8 % (11.5-14.5); Red Blood Cell (RBC) Count 2.33 mill/uL (4.20-5.40); White Blood Cell (WBC) Count 3.6 thou/uL (4.8-10.8)
[2018-09-20] MEDS ORDERED: Lorazepam 2 MG/ML VIAL SLOW IVP PRN (09:18)
[2018-09-20] MEDS: Ondansetron ODT 4 MG TAB PO PRN (15:21)
[2018-09-20] MEDS: rOPINIRole HCl 1 MG TAB PO SCH (20:11)
[2018-09-20] MEDS: Acetaminophen 325 MG TAB PO PRN (20:12)
[2018-09-20] MEDS: Lorazepam 1 MG TAB PO SCH (21:20)
[2018-09-21 07:30] LABS: Hemoglobin 6.9 g/dL (12.0-16.0); Mean Corpuscular HGB CONC 31.3 g/dL (32.0-36.0); Mean Corpuscular Hemoglobin 29.4 pg (27.0-31.0); Mean Corpuscular Volume 93.8 fL (78.0-98.0); Mean Platelet Volume 7.4 fL (7.4-10.4); Platelet Count 238 thou/uL (130-400); RBC Distribution Width 15.8 % (11.5-14.5); Red Blood Cell (RBC) Count 2.36 mill/uL (4.20-5.40); White Blood Cell (WBC) Count 3.7 thou/uL (4.8-10.8)
[2018-09-21 08:15] LABS: Band 4 % (5-11); Hypochromia SLIGHT = 6-15 cells (100X) (0-5/hpf); Lymphocytes 31 % (21-51); MDiff Complete? YES; Monocytes 14 % (0-10); Neutrophil 51 % (42-75); Ovalocytes SLIGHT = 2-5 cells (100X) (0-1/hpf); Platelet Morphology Comment Appears Adequate; Polychromasia SLIGHT = 2-3 cells (100X) (0-2/hpf)
--- NOTE | 2018-09-21 13:55 | PQF ---
DATE: 09-21-18 ATTN: DR. ELVA CORNELL Please exercise your independent, professional judgment in responding to the clarification form. Clinical indicators are provided on the bottom of this form for your review Please check appropriate box(s): [ ] Acute blood loss anemia [ ] Post-op anemia related to acute blood loss [ ] Anemia: [ ] Aplastic [ ] Nutritional [ ] Drug induced (specify) ___ [ ] Hemolytic [ ] Hereditary [ ] Acquired [ ] Autoimmune [ ] Non-autoimmune [ ] Enzyme disorder [ x ] Chronic Anemia: [ x ] Blood loss [ ] Hemolytic [ ] Simple [ ] Due to Vitamin B12 Deficiency [ ] Other [ ] Anemia of Chronic Disease (please specify) [ ] Other diagnosis [ ] Unable to determine In addition, please specify: Present on Admission (POA): [ x ] Yes [ ] No [ ] Unable to determine For continuity of documentation, please document condition throughout progress notes and discharge summary. Thank You. CLINICAL INDICATORS - SIGNS / SYMPTOMS / LABS H&P: SEVERE ANEMIA SECONDARY TO GI 09-14 ([place]): Acute normocytic anemia, likely from recent GI bld loss. She has evidence of perhaps upper GI bleeding w/ reported black tarry stool at home. Recent DVT following laminectomy on Eliquis, not on medication for last two weeks. 09-15 ([place]) Op note: small erosion of linear antrum w/ slight fresh blood on it. This was cauterized w/ heater probe. 09-15 ([place]) PN: small erosion in her stomach. It is unclear if this accounts for her abrupt drop in hemoglobin from 10.8 on 08/09 to 4.7 on 09/13 as well as one small erosion in the stomach. HEMOGLOBIN: 09-13-18: 4.7 09-14-18: 6.8 09-15-18: 6.9 09-21-18: 6.9 RISK FACTORS: 09-15 ([place]) Op note: small erosion of linear antrum w/ slight fresh blood on it. This was cauterized w/ heater probe. TREATMENTS: TRANSFUSED 2 UNITS LEUK-REDUCED RBC 09-13-18 (This form is maintained as a part of the permanent medical record) 2014 [employer]. All Rights Reserved [email or web address] Office: [phone] [facility]
[2018-09-21] MEDS: Acetaminophen 325 MG TAB PO PRN (20:58)
[2018-09-21] MEDS ORDERED: Lorazepam 1 MG TAB PO SCH (21:00)
[2018-09-22 06:18] LABS: Band 3 % (5-11); Eosinophils 2 % (0-10); Hemoglobin 6.3 g/dL (12.0-16.0); Lymphocytes 34 % (21-51); MDiff Complete? YES; Mean Corpuscular HGB CONC 31.3 g/dL (32.0-36.0); Mean Corpuscular Hemoglobin 29.9 pg (27.0-31.0); Mean Corpuscular Volume 95.5 fL (78.0-98.0); Mean Platelet Volume 7.2 fL (7.4-10.4); Monocytes 15 % (0-10); Neutrophil 46 % (42-75); Platelet Count 241 thou/uL (130-400); RBC Distribution Width 15.9 % (11.5-14.5); Red Blood Cell (RBC) Count 2.09 mill/uL (4.20-5.40); White Blood Cell (WBC) Count 3.7 thou/uL (4.8-10.8)
[2018-09-22 16:18] VITALS: BP 131/71; TEMP 98.8
--- NOTE | 2018-09-24 15:11 | EKG ---
Test Reason : Blood Pressure : / mmHG Vent. Rate : 082 BPM Atrial Rate : 082 BPM P-R Int : 144 ms QRS Dur : 082 ms QT Int : 350 ms P-R-T Axes : 044 -08 039 degrees QTc Int : 408 ms Normal sinus rhythm Cannot rule out Anterior infarct , age undetermined Abnormal ECG Confirmed by DANI FENTON, DAVID Shannon ([id number]), scientific publications editor VJ HEALY ([id number]) on 09/24/2018 3:11:34 PM Referred By: Confirmed By:DAVID LOUISE MD
== END 2018-09-22 16:44 | DRG 378 ==
LOC: ERS 16:24 → T4-A 20:13
PROVIDERS: ADMIT Specialist; ATTEND Specialist
PROC: 30233N1 Transfusion of Nonautologous Red Blood Cells into Peripheral Vein, Percutaneous Approach (ICD-10-PCS; 2018-09-13)
PROC: 0W3P8ZZ Control Bleeding in Gastrointestinal Tract, Via Natural or Artificial Opening Endoscopic (ICD-10-PCS; principal; 2018-09-15)
DX: K25.4 Chronic or unspecified gastric ulcer with hemorrhage (principal); N39.0 Urinary tract infection, site not specified; I82.409 Acute embolism and thrombosis of unspecified deep veins of unspecified lower extremity; E44.0 Moderate protein-calorie malnutrition; N17.9 Acute kidney failure, unspecified; E03.9 Hypothyroidism, unspecified; F41.9 Anxiety disorder, unspecified; N28.9 Disorder of kidney and ureter, unspecified; M54.9 Dorsalgia, unspecified; F32.9 Major depressive disorder, single episode, unspecified; E55.9 Vitamin D deficiency, unspecified; F03.90 Unspecified dementia, unspecified severity, without behavioral disturbance, psychotic disturbance, mood disturbance, and anxiety; R62.7 Adult failure to thrive; Z68.21 Body mass index [BMI] 21.0-21.9, adult; I12.9 Hypertensive chronic kidney disease with stage 1 through stage 4 chronic kidney disease, or unspecified chronic kidney disease; N18.2 Chronic kidney disease, stage 2 (mild); D50.0 Iron deficiency anemia secondary to blood loss (chronic); Z79.82 Long term (current) use of aspirin; Z88.2 Allergy status to sulfonamides; I25.2 Old myocardial infarction; Z85.3 Personal history of malignant neoplasm of breast; Z90.10 Acquired absence of unspecified breast and nipple
CPT/HCPCS: 36415; 36430; 51701; 70450; 71045; 80048; 80053; 81003; 81015; 82274; 82550; 83605; 83690; 84484; 85025; 86850; 86900; 86901; 93005; 93970; 94760; 96361; 96365; 96374; A4353; C9113; J0696; J2001; J2060; J2704; J7050; P9016; Q0162; Q0169

== ENCOUNTER 2018-09-26 14:57 | Inpatient (IN) | payer MEDICARE ==
[2018-09-26 15:51] LABS: #Lymphocytes 0.7 thou/uL (1.20-3.40); #Monocytes 0.6 thou/uL (0.11-0.59); #Neutrophils 3.6 thou/uL (1.40-6.50); %Basophils 0.1 % (0.0-1.0); %Eosinophils 0.4 % (0.0-10.0); %Lymphocytes 14.3 % (21.0-51.0); %Monocytes 11.6 % (0.0-10.0); %Neutrophils 73.5 % (42.0-75.0); Hemoglobin 5.6 g/dL (12.0-16.0); Mean Corpuscular HGB CONC 31.4 g/dL (32.0-36.0); Mean Corpuscular Hemoglobin 28.9 pg (27.0-31.0); Mean Corpuscular Volume 91.8 fL (78.0-98.0); Platelet Count 287 thou/uL (130-400); RBC Distribution Width 15.9 % (11.5-14.5); Red Blood Cell (RBC) Count 1.93 mill/uL (4.20-5.40); White Blood Cell (WBC) Count 4.8 thou/uL (4.8-10.8)
[2018-09-26 16:10] LABS: ALT (SGPT) 14 U/L (8-55); AST (SGOT) 19 U/L (5-34); Albumin 3.6 g/dL (3.4-4.8); Alkaline Phosphatase 64 U/L (40-150); Anion Gap 13 mmol/L (10-20); BUN (Urea Nitrogen) 21 mg/dL (9.8-20.1); Bilirubin, Total 0.2 mg/dL (0.2-1.2); Calc. Creatinine Clearance 0 mL/min (70-130); Carbon Dioxide 18 mmol/L (23-31); Chloride 109 mmol/L (98-107); Estimated GFR-MDRD 46; Globulin 2.6 g/dL (2.4-3.5); Glucose 108 mg/dL (83-110); Lipase 77 U/L (8-78); Potassium 3.8 mmol/L (3.5-5.1); Protein, Total 6.2 g/dL (6.0-8.3); Sodium 136 mmol/L (136-145)
[2018-09-26 16:56] LABS: Bilirubin Negative (Negative); Blood, Urine Negative (Negative); Clarity CLEAR (Clear); Glucose, Urine (Dipstick) Negative (Negative); Leukocyte Negative (Negative); Nitrite Negative (Negative); Protein, Urine (Dipstick) Negative (Neg-Trace); Specific Gravity, Urine 1.016 (1.002-1.036); Urobilinogen 0.2 mg/dL (0.2-1.0)
--- NOTE | 2018-09-26 17:00 | RAD ---
AP VIEW CHEST: 09/26/2018 HISTORY: Chest pain. FINDINGS: AP view chest demonstrates EKG leads seen over the chest. Left axillary surgical dissection clips ar e seen. Calcification of the aorta is seen. No evidence of effusions, pneumonia, or pneumothorax is seen. Some areas of scarring are seen in the lingula. IMPRESSION: Stable anterior-posterior view chest. POS: [facility]
[2018-09-26] MEDS ORDERED: cefTRIAXone\\ROCEPHIN 1 GM VIAL ONE (17:21)
[2018-09-26] MEDS ORDERED: Acetaminophen 325 MG TAB ONE (17:21)
[2018-09-26] MEDS ORDERED: Sodium Chloride 0.9% 100 ML ONE (17:21)
[2018-09-26] MEDS ORDERED: Pantoprazole 40 MG VIAL ONE (17:22)
[2018-09-26 21:37] LABS: Lactic Acid 1.3 mmol/L (0.5-2.2)
[2018-09-27] MEDS: Sodium Chloride 0.45% 1,000 ML IV SCH ×3 (00:42→23:27)
--- NOTE | 2018-09-27 00:58 | CON ---
DATE OF CONSULTATION: HISTORY OF PRESENT ILLNESS: The patient is an 83-year-old female, in her normal state of health until few days prior to admission when she developed weakness and cough. The patient underwent a lower back surgery in July and currently discharged 8 days later and was noted to have a DVT. She was started on Eliquis and subsequently came in with GI bleeding. She was seen by Dr. Scruggs on 09/14/2018. At that time, it was felt that she had acute anemia secondary to GI blood loss. Her DVT was re-imaged and apparently had resolved and so her anticoagulation was discontinued. The patient underwent upper endoscopy by Dr. Meza on 09/15/2018, which showed a small erosion in the antrum which had a fresh blood clot on it. This was cauterized with a seven-[place]eg[place] heater probe. Apparently, the patient underwent a colonoscopy approximately a year so ago, which showed some polyps and diverticula. No other abnormalities were noted. Date of the pathology was 10/07/2017, and the polyp was a tubular adenoma and hyperplastic polyp. PAST MEDICAL HISTORY: Significant for deep venous thrombosis, on Eliquis, but this has subsequently been discontinued; breast cancer; hypertension; chronic renal insufficiency; hypothyroidism; lower back disease; had fecal impactions. PAST SURGICAL HISTORY: Includes lower back surgery, mastectomy, hysterectomy, rectocele repair. MEDICATIONS: From last discharge show; 1. Lorazepam 2 mg p.o. at bedtime. 2. Pantoprazole 40 mg p.o. daily. 3. Geodon 80 mg p.o. daily. 4. Megestrol 400 mg p.o. b.i.d. 5. Synthroid 50 mcg p.o. daily. 6. Zoloft 50 mg p.o. daily. ALLERGIES: IODINE, SULFA, AND BENADRYL. SOCIAL HISTORY: She does not smoke. Does not drink alcohol. FAMILY HISTORY: Negative. REVIEW OF SYSTEMS: CONSTITUTIONAL: Positive for fever and chills. Positive for weight loss. EYES: No blurred vision or double vision. ENT: No sore throat or earache. CARDIOVASCULAR: No chest pain or palpitations. PULMONARY: No shortness of breath. Positive for cough. Negative for wheezes. GASTROINTESTINAL: See above. GENITOURINARY: No hematuria or dysuria. MUSCULOSKELETAL: No joint pain or muscle weakness. SKIN: No rashes. NEUROLOGIC: No numbness or seizure activity. PHYSICAL EXAMINATION: GENERAL: Shows a pale white female, in no acute distress. VITAL SIGNS: Stable. She is afebrile. HEENT: Shows pale mucous membranes. NECK: Supple. CHEST: Clear. CARDIOVASCULAR: Regular rate and rhythm. ABDOMEN: Soft, nontender without organomegaly or masses. Bowel sounds are present, normoactive. RECTAL: Deferred. EXTREMITIES: Normal. NEUROLOGIC: Nonfocal. LABORATORY DATA: Shows a white blood cell count of 4.8, hemoglobin 5.6, hematocrit 17.7. Chemistry shows show TSH of 41.82, lactic acid 2.4, BUN 21, creatinine 1.12, CO2 of 18. Chest x-ray shows stable anterior-posterior view of the chest. ASSESSMENT: 1. Recurrent symptomatic anemia-the patient had upper endoscopy in the recent past with a small blood clot on a ulcer that was subsequently cauterized. She could be bleeding from this particular place or could be bleeding from the effects of the cautery. Other possibilities include anemia of chronic disease or GI blood loss from other source. Although she has had no hematochezia, I think a lower GI bleed is unlikely, in fact that she has had a colonoscopy in the not too distant past. 2. History of deep venous thrombosis-this has subsequently resolved and the patient is off anticoagulation. 3. Fever. 4. History of breast cancer. 5. Lower back surgery in the recent past. RECOMMENDATIONS: 1. Upper endoscopy tomorrow. 2. N.p.o. 3. PPI. 4. Serial H and H. 5. Agree with transfusion. Job ID: [id number]
--- NOTE | 2018-09-27 02:33 | HP ---
CHIEF COMPLAINT: She has black tarry stools for last one week with low-grade fever. HISTORY OF PRESENT ILLNESS: She is an 83-year-old woman with a history of hypothyroidism, gastric ulcer, GI bleed in the past, endoscopy done weeks ago, ulcer was cauterized one week ago. She presented with melena for one week in the ER and hemoglobin 5.0, acute GI bleed, started on Protonix drip and GI consulted. PAST MEDICAL HISTORY: Hypothyroidism and gastric ulcer. PERSONAL HISTORY: Denies alcohol, smoking, or drug use. FAMILY HISTORY: Noncontributory. MEDICATIONS: Medicines she taking at home; 1. Geodon 80 mg daily. 2. Zoloft 50 mg daily. 3. Protonix 40 mg daily. 4. Megestrol 400 mg b.i.d. 5. Ativan 2 mg at bedtime. 6. Levothyroxine 50 mcg daily. 7. Acetaminophen. REVIEW OF SYSTEMS: CONSTITUTIONAL: Low-grade fever. No malaise. Feeling weakness, dizziness. EYES: No blurry vision or discharge from eyes. ENT: No epistaxis. CARDIOVASCULAR: No chest pain. No PND. No orthopnea. RESPIRATORY: No cough. No shortness of breath. No wheezing. GASTROINTESTINAL: No nausea, no vomiting. Does have some melena. No hematemesis. MUSCULOSKELETAL: No joint pain. HEME/LYMPHATIC: No bruising. No easy clotting problem. SKIN: No rash. All review of systems negative except in the HPI. LABORATORY DATA: Labs show hemoglobin 5.6, MCV 91.8, WBC 4.8, hematocrit 17.7. Chemistry; sodium 136, potassium 3.8, chloride 109, carbon dioxide 18, BUN 21, creatinine 1.12. Lactate 2.4, came to 1.3, TSH lipase 77, AST 19, ALT 14. Serum total protein 6.2, albumin 3.6. Urine negative. Chest x-ray, no pneumonia, no cardiopulmonary disease. ASSESSMENT: 1. Upper gastrointestinal bleed. 2. Acute blood loss anemia. 3. Abnormal TSH, hypothyroidism. PLAN: NPO, IV blood transfusion 3 units, IV Protonix drip, GI senior solutions consultant. Etiology of peptic ulcer disease, AV malformation. Abnormal TSH, as she is n.p.o., we will give IV Synthroid 50 mcg daily. DVT prophylaxis, SCDs. Full code. Job ID: [id number] [facility]
[2018-09-27] MEDS: Pantoprazole 80 MG, Admixture Fee 1 EACH in Sodium Chloride 0.9% 100 ML IVPB SCH ×2 (05:03→22:30)
[2018-09-27] MEDS ORDERED: Levothyroxine 100 MCG SDV IVP SCH (06:00)
[2018-09-27 09:06] LABS: #Lymphocytes 1.1 thou/uL (1.20-3.40); #Monocytes 0.4 thou/uL (0.11-0.59); #Neutrophils 3.3 thou/uL (1.40-6.50); %Basophils 0.3 % (0.0-1.0); %Eosinophils 0.5 % (0.0-10.0); %Lymphocytes 22.8 % (21.0-51.0); %Monocytes 8.8 % (0.0-10.0); %Neutrophils 67.5 % (42.0-75.0); Hemoglobin 10.3 g/dL (12.0-16.0); Mean Corpuscular HGB CONC 32.8 g/dL (32.0-36.0); Mean Corpuscular Hemoglobin 28.6 pg (27.0-31.0); Mean Corpuscular Volume 87.2 fL (78.0-98.0); Platelet Count 204 thou/uL (130-400); RBC Distribution Width 15.5 % (11.5-14.5); Red Blood Cell (RBC) Count 3.61 mill/uL (4.20-5.40); White Blood Cell (WBC) Count 4.9 thou/uL (4.8-10.8)
--- NOTE | 2018-09-27 10:12 | CON ---
DATE OF CONSULTATION: 09/27/2018 REASON FOR CONSULTATION: IMCU care. Following encompasses 50 minutes time, of that time, greater than 50% spent with the patient and/or the patient's unit in the hospital. HISTORY OF PRESENT ILLNESS: This is an 83-year-old female, who was brought in with weakness and cough. She recently was found to have a DVT back in July. She was started on Eliquis. She came in with GI bleeding around 1:30. She had an EGD that showed an erosion in her antrum with a clot in it. She was not sent home on any anticoagulation after the last discharge as she was reimaged and apparently did not have evidence of DVT in either leg at that time. She came back in yesterday with melena. She is pending endoscopy this morning. PAST MEDICAL HISTORY: 1. Hypothyroidism. 2. Gastric ulcer. 3. Also, seems demented. 4. Previous DVT. 5. Breast cancer. 6. Hypertension. 7. Chronic renal insufficiency. 8. Low back pain. PAST SURGICAL HISTORY: 1. Low back surgery. 2. Mastectomy. 3. Hysterectomy. 4. Rectocele repair. MEDICATIONS: Prior to admission; lorazepam, Protonix, Geodon, Megace, Synthroid, and Zoloft. ALLERGIES: IODINE, SULFA, AND BENADRYL. SOCIAL HISTORY: Nonsmoker. Does not consume alcohol. She says she lives at home with her . FAMILY MEDICAL HISTORY: Unremarkable. REVIEW OF SYSTEMS: Cannot be obtained as the patient is uncooperative with the exam. PHYSICAL EXAMINATION: VITAL SIGNS: Temperature 98.2, pulse 95, respirations 15, O2 saturation 97%, and blood pressure 137/76. GENERAL: She is awake, alert, combative, saying she wants to go home. HEENT: Unremarkable. NECK: No JVD. LUNGS: Clear anteriorly. CARDIAC: S1 and S2, regular, without murmur. ABDOMEN: Soft. Nontender to palpation. EXTREMITIES: No clubbing, cyanosis, or edema. NEUROLOGIC: She moves all 4 extremities. IMAGING STUDIES: Chest x-ray shows cardiomegaly without evidence of mass, effusion, or infiltrate. LABORATORY DATA: Sodium 136, potassium 3.8, BUN 21, creatinine 1.1, and glucose 108. TSH 41. White blood cell count 4.8, hematocrit 17.7, and platelet count 287. Pending recheck this morning. ASSESSMENT: 1. Upper gastrointestinal bleeding. 2. Anemia due to blood loss. 3. Severe hypothyroidism. PLAN: Agree with plans for endoscopy. The patient is on Protonix drip. She is currently not being anticoagulated. Nothing to add from Pulmonary Critical Care perspective at this point, but we will follow while she is in the intermediate care unit. Job ID: [id number]
[2018-09-27] MEDS ORDERED: Lidocaine 1% PF 5 ML VIAL ONE (10:48)
[2018-09-27] MEDS ORDERED: PROPOFOL 200 MG/20 ML VIAL ONE (10:48)
--- NOTE | 2018-09-27 15:10 | OP ---
DATE OF PROCEDURE: 09/27/2018 PROCEDURE PERFORMED: Esophagogastroduodenoscopy (diagnostic). INDICATION FOR PROCEDURE: Melena, anemia. DESCRIPTION OF PROCEDURE: After the risks and benefits of the procedure were explained to the patient's surrogate including risks of bleeding, infection, perforation, reactions to anesthesia, aspiration, and/or pain, informed consent was obtained. The patient was then taken to the endoscopy suite, where deep sedation was administered via propofol and anesthesia support. Once adequate sedation was achieved, the standard gastroscope was introduced into the mouth with intubation of the esophagus, stomach, and the proximal small intestine with the findings listed below. The patient tolerated the procedure well with no immediate perioperative complications. At the conclusion of the procedure, all equipment was removed from the patient, and she was taken to PACU in satisfactory condition. FINDINGS: Esophagus: Normal-appearing mucosa was seen in the proximal, mid, and distal esophagus. There was no evidence of erosions, ulcerations, mass, lesions, or active/recent bleeding. The diaphragmatic pinch was seen at 40 cm while the GE junction was well seen at 37 cm denoting a 3 cm hiatal hernia. Stomach: Normal-appearing mucosa was seen in the gastric cardia and fundus; however, multiple polyps measuring 3 to 4 mm in size were seen in the gastric body and the junction between the body and antrum. All these polyps were turcios color in appearance and did not exhibit any evidence of active/recent bleeding or ulceration that could potentially lead to bleeding. Biopsies were not taken of these lesions given her recent history of possible GI bleed and wanting to avoid confounding the diagnosis with intervention; however, a large 1.5 cm triangular shaped ulceration was seen in the gastric antrum in the prepyloric region. The ulcer itself was clean based, cratered, but did not exhibit any high-risk stigmata of active or recent bleeding. There was some mild increased erythema and swelling surrounding the ulceration, but again no evidence of high-risk stigmata bleeding. Otherwise, there was no evidence of erosions or mass lesions within the stomach. Duodenum: Normal-appearing mucosa was seen both the duodenal bulb and second portion of the duodenum. There was no evidence of erosions, ulcerations, mass, lesions, or active/recent bleeding. IMPRESSION: 1. 1.5 triangular-shaped clean based ulceration in the gastric antrum without high-risk stigmata of bleeding (although probable source of recent melena). 2. Multiple 3 to 4 mm gastric polyps consistent with fundic gland polyposis. 3. 3 cm hiatal hernia without evidence of Silverio erosions. RECOMMENDATIONS: 1. Would continue to trend hemoglobin and hematocrit and transfuse as necessary to maintain a hemoglobin and hematocrit of 7/21. 2. Continue to monitor clinically for signs of active GI bleeding. 3. Would continue the patient on PPI, but can be transferred to 40 mg b.i.d. 4. The patient will probably need repeat EGD in approximately 8 to 12 weeks to confirm healing of this gastric ulceration. We will continue to follow. Please call with any questions. Job ID: [id number]
--- NOTE | 2018-09-27 17:34 | PDOC.PN ---
- Subjective Encounter Start Date: 09/27/18 Encounter Start Time: 17:32 Ms. Kathleen was seen today in follow-up of GI Bleed. She is confused, and can not voice her concerns. She appears comfortable, and asks " when she is going home". - Objective Resuscitation Status - Order Detail: 09/26/18 23:26 Resuscitation Status Routine Resuscitation Status: FULL: Full Resuscitation Discussed with: patient MAR Reviewed: Yes Vital Signs & Weight: Vital Signs (12 hours) Temp Pulse Ox 09/27/18 16:00 99.8 F H 09/27/18 11:20 99.2 F 09/27/18 08:00 98 09/27/18 07:13 97.8 F Weight Admit Weight 110 lb 3.2 oz Weight 110 lb 3.2 oz Most Recent Monitor Data Heart Rate from ECG 86 NIBP 121/59 NIBP BP-Mean 79 Respiration from ECG 13 SpO2 92 I&O: 09/26/18 09/27/18 09/28/18 06:59 06:59 06:59 Intake Total 750 Balance 750 Result Diagrams: 09/27/18 08:51 09/26/18 15:19 Phys Exam - Physical Examination HEENT: PERRLA Respiratory: no wheezing, no rales, no rhonchi, clear to auscultation bilateral Cardiovascular: RRR, no significant murmur, no rub Gastrointestinal: soft, non-tender, no distention, positive bowel sounds Musculoskeletal: no edema Dx/Plan (1) Gastric ulcer Code(s): K25.9 - GASTRIC ULCER, UNSP ACUTE OR CHRONIC, W/O HEMOR OR PERF Status: Acute (2) Acute blood loss anemia Code(s): D62 - ACUTE POSTHEMORRHAGIC ANEMIA Status: Acute (3) Hypothyroidism Code(s): E03.9 - HYPOTHYROIDISM, UNSPECIFIED Status: Acute - Plan * Gastric Ulcer with acute blood loss anemia- repeat EGD results were noted. There was no area with stigmata of recent bleed. * Acute blood loss anemia- she is s/p transfusion of 3 units * Will continue PPI, and monitor her H&H * Hypothyroidism- she appears to be under replaced- will increase Levothyroxine to 75 mcg * ? Dementia- continue goedon
[2018-09-27] MEDS: Lorazepam 1 MG TAB PO SCH (20:53)
[2018-09-27] MEDS: Megestrol Acetate 800 MG/20 ML UDCUP PO SCH (20:55)
[2018-09-28] MEDS: Levothyroxine Sodium 75 MCG TAB PO SCH (05:23)
[2018-09-28] MEDS ORDERED: Levothyroxine Sodium 50 MCG TAB PO SCH (06:00)
[2018-09-28 06:02] LABS: Hemoglobin 12.2 g/dL (12.0-16.0); Platelet Count 179 thou/uL (130-400)
--- NOTE | 2018-09-28 08:48 | PRG ---
DATE OF SERVICE: 09/28/2018 SUBJECTIVE: The patient is sleeping, does not appear to be in any distress. OBJECTIVE: VITAL SIGNS: Temperature 98, pulse 81, blood pressure 139/74, O2 saturation 95%. HEENT: Unremarkable. CHEST: Clear. CARDIAC: S1, S2. Regular. ABDOMEN: Soft. EXTREMITIES: No edema. LABORATORY DATA: Hematocrit is 38, platelet count 179. ASSESSMENT: Gastric ulcer, status post upper gastrointestinal bleed. PLAN: From a critical care standpoint, she is ready for transfer out to the floor. Continue treatment for ulcer. No further Pulmonary recommendations. We will sign off. Job ID: [id number]
--- NOTE | 2018-09-28 09:09 | PDOC.PN ---
- Subjective Encounter Start Date: 09/28/18 Encounter Start Time: 09:07 Ms. Kathleen was seen today in follow-up of GI- Bleed. She is still confused. She appears comfortable. Patient was noted to develop AFIB with RVR and Atrial flutter overnight. - Objective Resuscitation Status - Order Detail: 09/26/18 23:26 Resuscitation Status Routine Resuscitation Status: FULL: Full Resuscitation Discussed with: patient MAR Reviewed: Yes Vital Signs & Weight: Vital Signs (12 hours) Temp Pulse Ox 09/28/18 08:00 97 09/28/18 06:05 97 09/28/18 04:26 98.0 F 09/28/18 04:06 99 09/28/18 00:52 99.4 F Weight Admit Weight 110 lb 3.2 oz Weight 110 lb 3.2 oz Most Recent Monitor Data Heart Rate from ECG 87 NIBP 126/78 NIBP BP-Mean 94 Respiration from ECG 15 SpO2 98 I&O: 09/27/18 09/28/18 09/29/18 06:59 06:59 06:59 Intake Total 750 Balance 750 Result Diagrams: 09/28/18 04:56 09/26/18 15:19 Phys Exam - Physical Examination HEENT: PERRLA Respiratory: no wheezing, no rales, no rhonchi, clear to auscultation bilateral Cardiovascular: RRR, no significant murmur, no rub Gastrointestinal: soft, non-tender, positive bowel sounds Musculoskeletal: no edema, pulses present Dx/Plan (1) Gastric ulcer Code(s): K25.9 - GASTRIC ULCER, UNSP ACUTE OR CHRONIC, W/O HEMOR OR PERF Status: Acute (2) Acute blood loss anemia Code(s): D62 - ACUTE POSTHEMORRHAGIC ANEMIA Status: Acute (3) Hypothyroidism Code(s): E03.9 - HYPOTHYROIDISM, UNSPECIFIED Status: Acute - Plan * GI- bleed- her H&H has been stable, and actually increased overnight * Continue PPI * Atrial flutter/ AFIB- her heart rate is controlled, and Cardiology has been consulted. She is high risk for bleeding - therfore will not start anticoagulation * Hypothyroidism- continue Levothyroxine * dementia- stable * Agree with transfer out of the ICU
--- NOTE | 2018-09-28 10:04 | CON ---
DATE OF CONSULTATION: 09/28/2018 REASON FOR CONSULTATION: Atrial fibrillation. HISTORY OF PRESENT ILLNESS: Ms. Maggy Kathleen is a delightful 83-year-old woman. She was admitted to the hospital with severe gastrointestinal bleeding. The patient previously had history of deep venous thrombosis and was on Eliquis for some time. However, the patient was not on Eliquis at the time of this current GI bleed. The patient has been found to have peptic ulcer disease as a source of the bleeding. The patient otherwise has been doing well from a cardiac standpoint. She is sleeping now. Does not report any chest pain or pressure according to the notes. She is very drowsy right now. No difficulty breathing. REVIEW OF SYSTEMS: CONSTITUTIONAL: No significant weight gain or loss. VISION: No changes. HEARING: No changes. PULMONARY: No cough or wheezing. GASTROINTESTINAL: No nausea, vomiting, diarrhea. SKIN: No rashes. NEUROLOGIC: No unilateral weakness or numbness. PSYCHIATRIC: No unusual depression or anxiety. PAST MEDICAL HISTORY: 1. Hypothyroidism. 2. Deep venous thrombosis in the past. 3. Hypertension. 4. Chronic renal insufficiency. PAST SURGICAL HISTORY: Low back surgery, mastectomy, hysterectomy. ALLERGIES: ALLERGY TO IODINE, SULFA, AND BENADRYL. SOCIAL HISTORY: Nonsmoker. She lives at home with her . PHYSICAL EXAMINATION: GENERAL: This is a pleasant patient in no distress. VITAL SIGNS: Blood pressure 137/66, pulse 90, it is currently regular. HEENT: Eyes, sclerae nonicteric. Mouth, mucous membranes moist. NECK: Supple. No lymphadenopathy. LUNGS: Show scattered rhonchi. CARDIAC: Normal S1, normal S2. There is no murmur, rub, or gallop. ABDOMEN: Soft and nontender. EXTREMITIES: No clubbing or cyanosis. There is no edema. Reviewing the records, the patient does have paroxysmal atrial fibrillation with a rapid rate. I do not see any evidence of atrial flutter. ASSESSMENT: 1. Paroxysmal atrial fibrillation with a rapid rate. 2. Gastrointestinal bleeding. 3. History of deep venous thrombosis, not currently on anticoagulation. PLAN: Add low-dose diltiazem. No further recommendations at the present time. The patient can follow up with me as an outpatient for an outpatient echocardiogram. Job ID: [id number]
[2018-09-28] MEDS: Megestrol Acetate 800 MG/20 ML UDCUP PO SCH ×2 (10:51→21:48)
[2018-09-28] MEDS: Sodium Chloride 0.45% 1,000 ML IV SCH (10:51)
[2018-09-28] MEDS: Pantoprazole 80 MG, Admixture Fee 1 EACH in Sodium Chloride 0.9% 100 ML IVPB SCH (19:57)
[2018-09-28] MEDS: Lorazepam 1 MG TAB PO SCH (21:47)
--- NOTE | 2018-09-28 22:21 | PRG ---
DATE OF SERVICE: 09/28/2018 REASON FOR CONSULTATION: Melena, anemia. SUBJECTIVE: Overnight, the patient complained of increased insomnia and/or mild agitation and was given Ativan for sleep support. However, during the day today, the patient exhibited increased somnolence and spent most of the day sleeping. Per nursing staff, the patient has not had any further episodes of melena or evidence of GI bleeding nor does she describe any increased abdominal pain at the current time. Denies nausea, vomiting, fevers, chills, abdominal pain, or GI bleeding. OBJECTIVE: VITAL SIGNS: Temperature 99.4, pulse 84, blood pressure 121/63, respiratory rate 13, saturating 99% on room air. GENERAL: The patient is lying in bed, in no acute distress. Alert and oriented x1. CARDIOVASCULAR: Regular rate and rhythm. RESPIRATORY: Clear to auscultation bilaterally. ABDOMEN: Normoactive bowel sounds. Soft, nontender, nondistended. EXTREMITIES: No cyanosis, clubbing, or edema. LABORATORY DATA: CBC: Hemoglobin of 12.2, hematocrit 38. Chemistry, not available for review today. IMAGING DATA: No current GI imaging is available for review. ASSESSMENT AND PLAN: The patient is an 83-year-old female with past medical history of DVT, on Eliquis; history of breast cancer, hypertension, chronic renal insufficiency, hypothyroidism, chronic lower back pain, and chronic constipation, presenting with melena and resultant anemia. Melena. The patient was admitted to the hospital in August 2018 with complaints of possible upper GI bleed. She subsequently underwent EGD, which noted a small linear erosion within the gastric antrum that was intervened upon with bipolar cauterization. She had no further episodes of GI bleeding and was ultimately discharged back to residential. However, per chart review and interview with the patient's family, she had been taking ibuprofen as an outpatient for chronic pain with unclear amount ingested at residential. Now presenting on this admission with complaints of decreased H and H and melena on admission. She subsequently underwent an EGD on 09/27/2018, which showed a 1.5 cm triangular shaped ulceration within the gastric antrum that was clean based and did not show any evidence of high-risk stigmata bleeding. Given her recently decreased H and H and melenic type stools, this is the most likely reason for her bleeding at this time. Given the appearance of the ulceration on the upper endoscopy, the risk of rebleeding from the site is less than 5%. RECOMMENDATIONS: 1. We will continue to trend H and H and transfuse as necessary to maintain an H and H of 7/21. 2. Continue to monitor clinically for signs of active GI bleeding. 3. Would avoid administration of any NSAIDs as this could potentially cause the ulceration. 4. The patient can resume anticoagulation within the next 24 hours given the decreased risk of rebleeding from this particular type of ulceration. 5. If the patient continues to have a downtrending H and H or evidence of GI bleeding, will strongly consider colonoscopy for further evaluation. 6. Can transfer the patient from PPI drip to pantoprazole 40 mg b.i.d. and will continue on this regimen for the next 8-12 weeks. 7. Would consider repeat upper endoscopy in 8-12 weeks to evaluate for healing of this gastric ulceration. 8. Given the lack of further melenic type stools, up trending H and H with blood transfusions, and no further evidence of GI bleeding, and low risk of GI bleeding based on the ulcer characteristics; we will sign off at this time. Please call with any additional questions. Job ID: [id number]
[2018-09-29] MEDS: Sodium Chloride 0.45% 1,000 ML IV SCH ×2 (02:17→13:22)
[2018-09-29] MEDS: Levothyroxine Sodium 75 MCG TAB PO SCH (05:26)
[2018-09-29] MEDS: Pantoprazole 80 MG, Admixture Fee 1 EACH in Sodium Chloride 0.9% 100 ML IVPB SCH ×2 (07:20→19:20)
[2018-09-29] MEDS: Megestrol Acetate 800 MG/20 ML UDCUP PO SCH ×2 (08:56→20:37)
--- NOTE | 2018-09-29 09:20 | PRG ---
DATE OF SERVICE: 09/29/2018 SUBJECTIVE: Ms. Kathleen is much more awake and alert today. She feels well. No chest pain or shortness of breath. OBJECTIVE: VITAL SIGNS: Her blood pressure 135/72, pulse 82 and it is regular. LUNGS: Clear. CARDIAC: Normal S1, normal S2. ABDOMEN: Soft and nontender. EXTREMITIES: There is no edema. The patient did have some atrial fibrillation last night. She is in sinus rhythm today. ASSESSMENT: 1. Paroxysmal atrial fibrillation, maintaining sinus rhythm currently. 2. Gastrointestinal bleeding cannot be anticoagulated. PLAN: She is on oral diltiazem. Continue the same. No other recommendations. We will be available if needed, but I would like to see the patient in the office in 4 to 6 weeks to see Eda Killian, our nurse practitioner. Job ID: [id number]
[2018-09-29 09:36] LABS: Hemoglobin 9.5 g/dL (12.0-16.0); Platelet Count 221 thou/uL (130-400)
--- NOTE | 2018-09-29 10:06 | PDOC.PN ---
- Subjective Encounter Start Date: 09/29/18 Encounter Start Time: 10:03 Ms. Kathleen was see today in follow-up of GI Bleed. She does not have any complaints. She is asking to go home. She is now back in sinus rhythm. - Objective Resuscitation Status - Order Detail: 09/26/18 23:26 Resuscitation Status Routine Resuscitation Status: DNAR: NO Resuscitation Discussed with: patient, RN has verified OOH DNR MAR Reviewed: Yes Vital Signs & Weight: Vital Signs (12 hours) Temp Pulse Pulse Ox 09/29/18 08:56 82 09/29/18 07:23 99.1 F 09/29/18 05:26 98.8 F 09/28/18 23:47 98.8 F 99 09/28/18 22:42 97.6 F 99 Weight Admit Weight 110 lb 3.2 oz Weight 110 lb 3.2 oz Most Recent Monitor Data Heart Rate from ECG 95 NIBP 135/72 NIBP BP-Mean 93 Respiration from ECG 18 SpO2 98 Result Diagrams: 09/29/18 09:19 09/26/18 15:19 Phys Exam - Physical Examination HEENT: PERRLA Respiratory: wheezing present + scattered wheezing, no rales Cardiovascular: RRR, no significant murmur, no rub, gallop Gastrointestinal: soft, non-tender, positive bowel sounds Musculoskeletal: no edema, pulses present Dx/Plan (1) Gastric ulcer Code(s): K25.9 - GASTRIC ULCER, UNSP ACUTE OR CHRONIC, W/O HEMOR OR PERF Status: Acute (2) Acute blood loss anemia Code(s): D62 - ACUTE POSTHEMORRHAGIC ANEMIA Status: Acute (3) Hypothyroidism Code(s): E03.9 - HYPOTHYROIDISM, UNSPECIFIED Status: Acute - Plan * GI - Bleed- the patient's H&H has remained stable * AFIB- she is now back in sinus rhythm, and her heart rate is stable * She has been cleared by Gastroenteroogy to resume anticoagulation * She is stable for transfer back to the [facility].
[2018-09-29 17:59] LABS: Iron 13 ug/dL (50-170); Iron Binding Capacity, Total 221 mcg/dL (265-497)
[2018-09-29] MEDS: Lorazepam 1 MG TAB PO SCH (20:37)
[2018-09-30] MEDS: Sodium Chloride 0.45% 1,000 ML IV SCH ×2 (01:34→20:33)
--- NOTE | 2018-09-30 07:15 | PDOC.EVN ---
Event Note - Event Note Event Note: The discharge for Ms. Kathleen was held due to her daughter's concern that she has not been able to walk since she fell a month back following a lumbar spinal surgery. She says it was originally thought to be due to the severe anemia, but since this has been corrected she would like Neurosurgery to re-evaluate her.
[2018-09-30] MEDS: Levothyroxine Sodium 75 MCG TAB PO SCH (07:54)
[2018-09-30 08:23] LABS: Hemoglobin 9.3 g/dL (12.0-16.0); Platelet Count 226 thou/uL (130-400)
--- NOTE | 2018-09-30 14:29 | PDOC.PN ---
- Subjective Encounter Start Date: 09/30/18 Encounter Start Time: 09:10 Ms. Kathleen was seen today in follow-up of GI - Bleed. She was very drowsy when I came to see her this morning. I am told she was given Ativan 2mg last night, which is a scheduled home medication. - Objective Resuscitation Status - Order Detail: 09/26/18 23:26 Resuscitation Status Routine Resuscitation Status: DNAR: NO Resuscitation Discussed with: patient, RN has verified OOH DNR MAR Reviewed: Yes Vital Signs & Weight: Vital Signs (12 hours) Temp Pulse Ox 09/30/18 08:00 99.2 F 98 09/30/18 04:07 99.2 F Weight Admit Weight 110 lb 3.2 oz Weight 108 lb Most Recent Monitor Data Heart Rate from ECG 73 NIBP 142/67 NIBP BP-Mean 92 Respiration from ECG 14 SpO2 98 I&O: 09/29/18 09/30/18 10/01/18 06:59 06:59 06:59 Intake Total 2270 Balance 2270 Result Diagrams: 09/30/18 08:06 09/26/18 15:19 Phys Exam - Physical Examination HEENT: PERRLA Respiratory: no wheezing, no rales, no rhonchi, clear to auscultation bilateral Cardiovascular: RRR, no significant murmur, no rub Gastrointestinal: soft, non-tender, no distention, positive bowel sounds Musculoskeletal: no edema, pulses present Dx/Plan (1) Gastric ulcer Code(s): K25.9 - GASTRIC ULCER, UNSP ACUTE OR CHRONIC, W/O HEMOR OR PERF Status: Acute (2) Acute blood loss anemia Code(s): D62 - ACUTE POSTHEMORRHAGIC ANEMIA Status: Acute (3) Hypothyroidism Code(s): E03.9 - HYPOTHYROIDISM, UNSPECIFIED Status: Acute - Plan * GI - Bleed, and gastric ulcer- her H&H has been stable * Will continue PPI * AFIB- her heart rate is stable- will continue to hold Eliquis for now * Anemia- due to acute blood loss- iron studies are consistent with iron deficiency anemia, and she did have an occult blood positive stool * Hypothyroidism- continue Levothyroxine at the current dose, and she will need to re-check thyroid function in a few weeks * Lower extremity weakness- Discussed with Neurosurgery.
[2018-09-30] MEDS: Megestrol Acetate 800 MG/20 ML UDCUP PO SCH ×2 (15:49→21:32)
[2018-09-30] MEDS ORDERED: Lorazepam 1 MG TAB PO PRN (16:30)
--- NOTE | 2018-09-30 19:13 | RAD ---
LUMBAR SPINE 09/30/18 HISTORY: Low back pain. FINDINGS/IMPRESSION: Comparison is made with the exam of 06/07/18. Degenerative changes are again seen with mild levoscoliosis. There is minimal anterolisthesis of L4 o charito L5 vertebral bodies. No compression fracture is seen. POS: [facility]
[2018-09-30] MEDS ORDERED: Sodium Chloride 0.9% (PF) 10 ML VIAL FS PRN (22:02)
[2018-09-30] MEDS ORDERED: Pantoprazole 40 MG VIAL IVP SCH (22:15)
[2018-10-01] MEDS: Levothyroxine Sodium 75 MCG TAB PO SCH (05:40)
[2018-10-01 07:56] LABS: Hemoglobin 10.2 g/dL (12.0-16.0); Platelet Count 219 thou/uL (130-400)
[2018-10-01] MEDS: Megestrol Acetate 800 MG/20 ML UDCUP PO SCH ×2 (09:31→21:10)
--- NOTE | 2018-10-01 16:10 | PDOC.PN ---
- Subjective Encounter Start Date: 10/01/18 Encounter Start Time: 09:30 Ms. Kathleen was seen today in follow-up. She was again sleepy when I came to assess her. Her nurse informs me she was more alert earlier this morning. - Objective Resuscitation Status - Order Detail: 09/26/18 23:26 Resuscitation Status Routine Resuscitation Status: DNAR: NO Resuscitation Discussed with: patient, RN has verified OOH DNR MAR Reviewed: Yes Vital Signs & Weight: Vital Signs (12 hours) Temp Pulse Pulse Pulse BP BP BP 10/01/18 15:41 98.2 F 10/01/18 11:31 98.9 F 10/01/18 09:32 76 128/69 10/01/18 09:30 89 90 132/68 136/68 10/01/18 07:56 10/01/18 07:22 98.7 F Pulse Ox 10/01/18 15:41 10/01/18 11:31 10/01/18 09:32 10/01/18 09:30 10/01/18 07:56 98 10/01/18 07:22 Weight Admit Weight 110 lb 3.2 oz Weight 107 lb 2 oz Most Recent Monitor Data Heart Rate from ECG 68 NIBP 137/76 NIBP BP-Mean 96 Respiration from ECG 13 SpO2 98 I&O: 09/30/18 10/01/18 10/02/18 06:59 06:59 06:59 Intake Total 2270 660 Balance 2270 660 Result Diagrams: 10/01/18 07:44 09/26/18 15:19 Phys Exam - Physical Examination HEENT: PERRLA Respiratory: no rales, no rhonchi, wheezing present occasional wheeze Cardiovascular: RRR, no significant murmur, no rub Gastrointestinal: soft, non-tender, no distention, positive bowel sounds Musculoskeletal: no edema Dx/Plan (1) Gastric ulcer Code(s): K25.9 - GASTRIC ULCER, UNSP ACUTE OR CHRONIC, W/O HEMOR OR PERF Status: Acute (2) Acute blood loss anemia Code(s): D62 - ACUTE POSTHEMORRHAGIC ANEMIA Status: Acute (3) Hypothyroidism Code(s): E03.9 - HYPOTHYROIDISM, UNSPECIFIED Status: Acute - Plan * GI- bleed- her H&H has been stable, will continue Protonix BID * AFIB - her heart rate is stable. ELiquis is on hold due to recent GI- bleed- this can be re-started in a few days * Lumbar Radiculopathy- discussed with Dr. Jackson yesterday. He recommended an X- ray of the L-spine to rule out fracture. This demonstrated some degenerative changes which was expected, but no fractures. She is cleared from a surgical standpoint for discharge back to long term * Hopefully she can receive PT/OT there, as her main problem with regard to her inability to walk is severe deconditioning. * Hypothyroidism- continue her on the adjusted dose of Levothroxine
[2018-10-01] MEDS: Ziprasidone 20 MG CAP PO SCH (16:16)
[2018-10-02] MEDS: Levothyroxine Sodium 75 MCG TAB PO SCH (06:21)
--- NOTE | 2018-10-02 08:24 | PDOC.PN ---
- Subjective Encounter Start Date: 10/02/18 Encounter Start Time: 08:21 Ms. Kathleen was seen today in follow-up of GI- bleed. She is much more alert this morning. She does not have any complaints. - Objective Resuscitation Status - Order Detail: 09/26/18 23:26 Resuscitation Status Routine Resuscitation Status: DNAR: NO Resuscitation Discussed with: patient, RN has verified OOH DNR MAR Reviewed: Yes Vital Signs & Weight: Vital Signs (12 hours) Temp Pulse Ox 10/02/18 08:15 98.3 F 10/02/18 08:00 99 10/02/18 03:56 99.0 F 10/02/18 00:00 98.7 F 97 10/01/18 21:15 97 Weight Admit Weight 110 lb 3.2 oz Weight 106 lb 4 oz Most Recent Monitor Data Heart Rate from ECG 74 NIBP 126/65 NIBP BP-Mean 85 Respiration from ECG 14 SpO2 98 I&O: 10/01/18 10/02/18 10/03/18 06:59 06:59 06:59 Intake Total 660 240 Balance 660 240 Result Diagrams: 10/01/18 07:44 09/26/18 15:19 Phys Exam - Physical Examination HEENT: PERRLA Respiratory: no wheezing, no rales, no rhonchi, clear to auscultation bilateral Cardiovascular: RRR, no significant murmur, no rub Gastrointestinal: soft, non-tender, no distention, positive bowel sounds Musculoskeletal: no edema Dx/Plan (1) Gastric ulcer Code(s): K25.9 - GASTRIC ULCER, UNSP ACUTE OR CHRONIC, W/O HEMOR OR PERF Status: Acute (2) Acute blood loss anemia Code(s): D62 - ACUTE POSTHEMORRHAGIC ANEMIA Status: Acute (3) Hypothyroidism Code(s): E03.9 - HYPOTHYROIDISM, UNSPECIFIED Status: Acute (4) S/P lumbar laminectomy Code(s): Z98.890 - OTHER SPECIFIED POSTPROCEDURAL STATES Status: Acute - Plan * GI- Bleed- her H&H has been stable * Continue Protonix * AFIB- her heart rate has been stable- will restart Eliquis in a few days * HTN - blood pressure is stable. * Hypothyroidism- continue Levothyroxine * Lumbar Radiculopathy- post Lumbar Radiculopathy- she is severely deconditioned and will need PT/OT- awaiting return to correction
[2018-10-02] MEDS: Megestrol Acetate 800 MG/20 ML UDCUP PO SCH ×2 (09:58→20:34)
[2018-10-02] MEDS: Ziprasidone 20 MG CAP PO SCH (15:03)
[2018-10-03] MEDS: Levothyroxine Sodium 75 MCG TAB PO SCH (06:22)
[2018-10-03] MEDS: Megestrol Acetate 800 MG/20 ML UDCUP PO SCH ×3 (09:35→21:14)
[2018-10-03] MEDS: Ziprasidone 20 MG CAP PO SCH (14:53)
--- NOTE | 2018-10-03 15:33 | PDOC.PN ---
- Subjective Encounter Start Date: 10/03/18 Encounter Start Time: 09:45 Ms. Kathleen was seen today in follow-up of GI- Bleed. She is drowsy this morning. No problems reported by staff. She is reported to have been awake earlier, sat up and ate breakfast. - Objective Resuscitation Status - Order Detail: 09/26/18 23:26 Resuscitation Status Routine Resuscitation Status: DNAR: NO Resuscitation Discussed with: patient, RN has verified OOH DNR MAR Reviewed: Yes Vital Signs & Weight: Vital Signs (12 hours) Temp Pulse BP Pulse Ox 10/03/18 14:52 76 123/73 10/03/18 08:00 98.4 F 10/03/18 07:59 96 10/03/18 06:35 98.6 F 96 10/03/18 04:00 98.9 F 97 Weight Admit Weight 110 lb 3.2 oz Weight 107 lb 9.6 oz Most Recent Monitor Data Heart Rate from ECG 72 NIBP 150/72 NIBP BP-Mean 98 Respiration from ECG 15 SpO2 98 I&O: 10/02/18 10/03/18 10/04/18 06:59 06:59 06:59 Intake Total 240 450 Balance 240 450 Result Diagrams: 10/01/18 07:44 09/26/18 15:19 Phys Exam - Physical Examination HEENT: PERRLA Respiratory: no wheezing, no rales, no rhonchi, clear to auscultation bilateral Cardiovascular: RRR, no significant murmur, no rub Gastrointestinal: soft, non-tender, no distention, positive bowel sounds Musculoskeletal: no edema, pulses present Dx/Plan (1) Gastric ulcer Code(s): K25.9 - GASTRIC ULCER, UNSP ACUTE OR CHRONIC, W/O HEMOR OR PERF Status: Acute (2) Acute blood loss anemia Code(s): D62 - ACUTE POSTHEMORRHAGIC ANEMIA Status: Acute (3) Hypothyroidism Code(s): E03.9 - HYPOTHYROIDISM, UNSPECIFIED Status: Acute (4) S/P lumbar laminectomy Code(s): Z98.890 - OTHER SPECIFIED POSTPROCEDURAL STATES Status: Acute - Plan * Gastric Ulcer with GI bleed- her H&H has been stable * Hypothyroidism- continue the higher dose of Levothyroxine * S/P Lumbar Laminectomy- continue PT/OT * Awaiting placement at [facility] for PT/OT.
--- NOTE | 2018-10-03 17:09 | DIS ---
DATE OF ADMISSION: 09/26/2018 DATE OF DISCHARGE: 10/03/2018 PRIMARY CARE PHYSICIAN: Reggie Cope MD DISCHARGE DISPOSITION: [facility]. DISCHARGE DIAGNOSES: 1. Gastric ulcer with acute on chronic blood loss anemia. 2. Lumbar spinal stenosis, status post laminectomy. 3. Hypothyroidism. 4. Severe deconditioning. 5. Early dementia. DISCHARGE MEDICATIONS: Please note that the patient was taken off Geodon as well as Ativan due to severe lethargy. She is to continue; 1. Protonix 40 mg twice daily. 2. Levothyroxine dose was increased to 75 mcg daily. 3. Tylenol 650 mg q.4 as needed. 4. Zoloft 50 mg daily. 5. MiraLAX 17 g daily. 6. Megace 400 mg twice a day. The patient is to restart Eliquis 2.5 mg on 10/05/2018. Her dose had been lowered by Dr. Cope on a previous admission of the Eliquis. PROCEDURES DONE DURING ADMISSION: The patient had an upper endoscopy, in which there was a 1.5 triangular-shaped, clean based ulcer in the gastric antrum. There was no evidence of any high-risk stigmata for bleeding. There was multiple 3 to 4 mm gastric polyps consisted with gastric gland polyposis. There was a 3 cm hiatal hernia with evidence of Silverio erosions. The patient had an echocardiogram showing an ejection fraction, which was estimated at 55% to 60%. There was some annular calcifications of the mitral valve. There was no aortic stenosis. The patient also had an x-ray of the lumbar spine showing some degenerative changes and some minimal anterolisthesis of L4 over L5 vertebral bodies. There was no compression noted. CODE STATUS: DNAR. ALLERGIES: ALLERGIES ARE TO IODINE AND IODINE-CONTAINING PRODUCTS WELL SULFA AND BENADRYL. HOSPITAL COURSE: Ms. Kathleen is a pleasant 83-year-old female, who was recently hospitalized due to a GI bleed. The patient had an upper endoscopy and was found to have a gastric ulcer, which was cauterized. She was stabilized and sent back to the nursing facility. The patient had a random hemoglobin checked at the nursing facility and it was found that her hemoglobin was 6.0. This concerned the staff and she was sent back to the hospital. She was admitted on this admission due to the low hemoglobin 9. Please note that her hemoglobin was only 6.3 at the time of her discharge on her previous admission. GI was consulted once again. She underwent a repeat upper endoscopy. At this time, it was noted that she had the gastric antral ulcer. However, there was no stigmata of recent bleed or high risk of a rebleed. At this time, she was on a Protonix drip and it was recommended that she continue the Protonix drip another couple of days and monitor her H and H. Her hemoglobin did remain stable during the hospital stay and it is unlikely that she actually re-bled while she was in the alf. I suspect that this was merely equilibration of her hemoglobin. It is also noted that after only receiving 2 units of packed RBCs, her hemoglobin went from 5.6 up to 10. Also during her hospital stay, her daughter brought it to my attention that the patient had a recent surgery, lumbar laminectomy, and they were concerned that she has not been ambulatory after she had the lumbar laminectomy. Apparently following surgery, the patient experienced a fall and they were concerned that some injury could have happened as a result of the fall and the recent surgery. They are requesting that she be re-evaluated by Neurosurgery during this hospital stay. I called the neurosurgeon and his physician campus administrative assistant came and assessed the patient. He felt it was unlikely that there was any significant injury to the previous surgery. It was noted that the patient's major complaint was pain control with regard to the lumbar radiculopathy. It was felt that her nonambulatory status was mostly as a result of severe deconditioning. He recommended getting an x-ray of her lumbar spine to rule out compression fracture and if this was negative, then she would need aggressive physical therapy in order to improve her ambulatory status. It was not felt that she required a repeat MRI. The x-ray of the lumbar spine showed degenerative changes as was expected. Therefore, she will be transitioned back to the [facility] facility, hopefully to receive aggressive physical therapy with the aim that she will be more ambulatory. Also with regard to Eliquis, the patient had been placed on a lower dose at 2.5 by her primary care physician, Dr. Cope, on a previous hospital stay. She was cleared by Gastroenterology to restart anticoagulation at her previous dose and this can be done in the next couple of days. We anticipate to restart the Eliquis on 10/05/2018. Job ID: [id number]
[2018-10-04 00:39] LABS: Anion Gap 13 mmol/L (10-20); BUN (Urea Nitrogen) 13 mg/dL (9.8-20.1); Calc. Creatinine Clearance 33 mL/min (70-130); Calcium 9.5 mg/dL (7.8-10.44); Carbon Dioxide 20 mmol/L (23-31); Chloride 110 mmol/L (98-107); Estimated GFR-MDRD 55; Glucose 86 mg/dL (83-110); Magnesium 1.8 mg/dL (1.6-2.6); Potassium 3.2 mmol/L (3.5-5.1); Sodium 140 mmol/L (136-145)
[2018-10-04] MEDS: Levothyroxine Sodium 75 MCG TAB PO SCH (06:26)
[2018-10-04] MEDS: Megestrol Acetate 800 MG/20 ML UDCUP PO SCH ×2 (08:55→21:15)
--- NOTE | 2018-10-04 11:56 | PDOC.PN ---
- Subjective Encounter Start Date: 10/04/18 Encounter Start Time: 08:00 -: old records requested/rev Patient seen and examined. No new complaints. No overnight events - Objective Resuscitation Status - Order Detail: 09/26/18 23:26 Resuscitation Status Routine Resuscitation Status: DNAR: NO Resuscitation Discussed with: patient, RN has verified OOH DNR MAR Reviewed: Yes Vital Signs & Weight: Vital Signs (12 hours) Temp Pulse BP Pulse Ox 10/04/18 08:52 85 128/66 10/04/18 08:00 98.0 F 97 10/04/18 04:00 97 10/04/18 03:42 98.0 F 10/03/18 23:55 97.8 F Weight Admit Weight 110 lb 3.2 oz Weight 108 lb Most Recent Monitor Data Heart Rate from ECG 87 NIBP 135/76 NIBP BP-Mean 95 Respiration from ECG 17 SpO2 98 I&O: 10/03/18 10/04/18 10/05/18 06:59 06:59 06:59 Intake Total 450 400 Balance 450 400 Result Diagrams: 10/01/18 07:44 10/04/18 00:10 Dx/Plan (1) Acute blood loss anemia Code(s): D62 - ACUTE POSTHEMORRHAGIC ANEMIA Status: Acute (2) Gastric ulcer Code(s): K25.9 - GASTRIC ULCER, UNSP ACUTE OR CHRONIC, W/O HEMOR OR PERF Status: Acute (3) DVT (deep venous thrombosis) Code(s): I82.409 - ACUTE EMBOLISM AND THOMBOS UNSP DEEP VN UNSP LOWER EXTREMITY Status: Acute (4) Hypothyroidism Code(s): E03.9 - HYPOTHYROIDISM, UNSPECIFIED Status: Acute (5) S/P lumbar laminectomy Code(s): Z98.890 - OTHER SPECIFIED POSTPROCEDURAL STATES Status: Chronic - Plan cont current plan of care, case management social worker * medication reviewed as below * symptomatic treatment * family wanted to change skilled nursing * telephonic nurse case manager is working on that * otherwise stable. Review of Systems - Review of Systems ENT: negative: Ear Pain, Ear Discharge, Nose Pain, Nose Discharge, Nose Congestion, Mouth Pain, Mouth Swelling, Throat Pain, Throat Swelling, Other Respiratory: negative: Cough, Dry, Shortness of Breath, Hemoptysis, SOB with Excertion, Pleuritic Pain, Sputum, Wheezing Cardiovascular: negative: chest pain, palpitations, orthopnea, paroxysmal nocturnal dyspnea, edema, light headedness, other Gastrointestinal: negative: Nausea, Vomiting, Abdominal Pain, Diarrhea, Constipation, Melena, Hematochezia, Other Genitourinary: negative: Dysuria, Frequency, Incontinence, Hematuria, Retention , Other Musculoskeletal: negative: Neck Pain, Shoulder Pain, Arm Pain, Back Pain, Hand Pain, Leg Pain, Foot Pain, Other - Medications/Allergies Allergies/Adverse Reactions: Allergies Allergy/AdvReac Type Severity Reaction Status Date / Time Iodine and Iodide Containing Allergy Verified 09/13/18 22:30 Produc Sulfa (Sulfonamide Allergy Verified 09/13/18 22:30 Antibiotics) diphenhydramine AdvReac Verified 09/13/18 22:30 [From Benadryl] Medications: Current Medications Albuterol/Ipratropium (Duoneb) 3 ml NEB Q4H PRN PRN Reason: SOB &/or Wheezing Diltiazem HCl (Cardizem Cd) 120 mg PO DAILY [facility] Last Admin: 10/04/18 08:52 Dose: 120 mg Levothyroxine Sodium (Synthroid) 75 mcg PO 0600 [facility] Last Admin: 10/04/18 06:26 Dose: 75 mcg Lorazepam (Ativan) 2 mg PO HS PRN PRN Reason: Anxiety/Agitation Last Admin: 10/02/18 22:50 Dose: 2 mg Megestrol Acetate (Megace) 400 mg PO BID [facility] Last Admin: 10/04/18 08:55 Dose: 400 mg Pantoprazole Sodium (Protonix) 40 mg PO BID [facility] Last Admin: 10/04/18 08:55 Dose: 40 mg Sertraline HCl (Zoloft) 50 mg PO DAILY [facility] Last Admin: 10/04/18 08:55 Dose: 50 mg Sodium Chloride (Flush - Normal Saline) 10 ml IVF Q12HR [facility] Last Admin: 10/04/18 08:56 Dose: Not Given Sodium Chloride (Flush - Normal Saline) 10 ml IVF PRN PRN PRN Reason: Saline Flush Last Admin: 09/30/18 22:10 Dose: 10 ml Ziprasidone (Geodon) 20 mg PO 1500 [facility] Last Admin: 10/03/18 14:53 Dose: Not Given
[2018-10-04] MEDS ORDERED: Zolpidem Tartrate 5 MG TAB PO PRN (14:12)
[2018-10-04] MEDS ORDERED: Diabetic Tussin 200 MG/10 ML UDCUP PO PRN (14:12)
[2018-10-04] MEDS ORDERED: Sodium Chloride 0.65% Nasal 44 ML BOT EA NARE PRN (14:12)
[2018-10-04] MEDS ORDERED: Loperamide HCl 2 MG CAP PO PRN (14:12)
[2018-10-04] MEDS ORDERED: Ondansetron PF 4 MG/2 ML Vial IVP PRN (14:12)
[2018-10-04] MEDS ORDERED: Loratadine 10 MG TAB PO PRN (14:12)
[2018-10-04] MEDS ORDERED: Artificial Tears 18 DROP/0.9 ML EA EYE PRN (14:12)
[2018-10-04] MEDS ORDERED: hydrALAZINE 20 MG/ML VIAL SLOW IVP PRN (14:12)
[2018-10-04] MEDS ORDERED: Ondansetron ODT 4 MG TAB PO PRN (14:12)
[2018-10-04] MEDS ORDERED: Cepastat Lozenges 1 LOZ PO PRN (14:12)
[2018-10-04] MEDS ORDERED: Eucerin (Mineral Oil/Petrolatum,White) 30 gm Jar TOP PRN (14:12)
[2018-10-04] MEDS ORDERED: Bisacodyl 5 MG TAB PO PRN (14:12)
[2018-10-04] MEDS ORDERED: Calcium Carbonate 500 MG ChewTAB PO PRN (14:12)
--- NOTE | 2018-10-04 14:30 | PDOC.PN ---
- Subjective Encounter Start Date: 10/04/18 Encounter Start Time: 14:28 -: old records requested/rev Patient seen and examined. No new complaints. No overnight events - Objective Resuscitation Status - Order Detail: 09/26/18 23:26 Resuscitation Status Routine Resuscitation Status: DNAR: NO Resuscitation Discussed with: patient, RN has verified OOH DNR MAR Reviewed: Yes Vital Signs & Weight: Vital Signs (12 hours) Temp Pulse Pulse Pulse BP BP BP 10/04/18 12:00 98.0 F 10/04/18 09:12 97 77 140/74 121/61 10/04/18 08:52 85 128/66 10/04/18 08:00 98.0 F 10/04/18 04:00 10/04/18 03:42 98.0 F Pulse Ox Pulse Ox Pulse Ox 10/04/18 12:00 10/04/18 09:12 96 96 10/04/18 08:52 10/04/18 08:00 97 10/04/18 04:00 97 10/04/18 03:42 Weight Admit Weight 110 lb 3.2 oz Weight 108 lb Most Recent Monitor Data Heart Rate from ECG 76 NIBP 112/69 NIBP BP-Mean 83 Respiration from ECG 13 SpO2 98 I&O: 10/03/18 10/04/18 10/05/18 06:59 06:59 06:59 Intake Total 450 400 Balance 450 400 Result Diagrams: 10/01/18 07:44 10/04/18 00:10 Phys Exam - Physical Examination Constitutional: NAD HEENT: PERRLA, moist MMs, sclera anicteric Neck: no JVD, supple Respiratory: no wheezing, no rales, no rhonchi Cardiovascular: RRR, no significant murmur, no rub Gastrointestinal: soft, non-tender, no distention, positive bowel sounds Musculoskeletal: no edema, pulses present Neurological: non-focal, normal sensation Lymphatic: no nodes Psychiatric: normal affect Skin: no rash, normal turgor Dx/Plan (1) Acute blood loss anemia Code(s): D62 - ACUTE POSTHEMORRHAGIC ANEMIA Status: Acute (2) Gastric ulcer Code(s): K25.9 - GASTRIC ULCER, UNSP ACUTE OR CHRONIC, W/O HEMOR OR PERF Status: Acute (3) DVT (deep venous thrombosis) Code(s): I82.409 - ACUTE EMBOLISM AND THOMBOS UNSP DEEP VN UNSP LOWER EXTREMITY Status: Acute (4) Hypothyroidism Code(s): E03.9 - HYPOTHYROIDISM, UNSPECIFIED Status: Acute (5) S/P lumbar laminectomy Code(s): Z98.890 - OTHER SPECIFIED POSTPROCEDURAL STATES Status: Chronic - Plan cont current plan of care * medication reviewed as below * symptomatic treatment * pt's family want another [place] [facility] facility * [employer]case sewer is working on that * she is medically stable * will transfer to medical. Review of Systems - Review of Systems ENT: negative: Ear Pain, Ear Discharge, Nose Pain, Nose Discharge, Nose Congestion, Mouth Pain, Mouth Swelling, Throat Pain, Throat Swelling, Other Respiratory: negative: Cough, Dry, Shortness of Breath, Hemoptysis, SOB with Excertion, Pleuritic Pain, Sputum, Wheezing Cardiovascular: negative: chest pain, palpitations, orthopnea, paroxysmal nocturnal dyspnea, edema, light headedness, other Gastrointestinal: negative: Nausea, Vomiting, Abdominal Pain, Diarrhea, Constipation, Melena, Hematochezia, Other Genitourinary: negative: Dysuria, Frequency, Incontinence, Hematuria, Retention , Other Musculoskeletal: negative: Neck Pain, Shoulder Pain, Arm Pain, Back Pain, Hand Pain, Leg Pain, Foot Pain, Other Skin: negative: Rash, Lesions, Juan Manuel, Bruising, Other - Medications/Allergies Allergies/Adverse Reactions: Allergies Allergy/AdvReac Type Severity Reaction Status Date / Time Iodine and Iodide Containing Allergy Verified 09/13/18 22:30 Produc Sulfa (Sulfonamide Allergy Verified 09/13/18 22:30 Antibiotics) diphenhydramine AdvReac Verified 09/13/18 22:30 [From Benadryl] Medications: Current Medications Acetaminophen (Tylenol) 650 mg PO Q4HR PRN PRN Reason: Pain Albuterol/Ipratropium (Duoneb) 3 ml NEB Q4H PRN PRN Reason: SOB &/or Wheezing Artificial Tears (Tears Naturale) 2 drop EA EYE PRN PRN PRN Reason: Dry Eyes Bisacodyl (Dulcolax) 10 mg PO DAILYPRN PRN PRN Reason: Constipation Calcium Carbonate (Tums) 1,000 mg PO Q4H PRN PRN Reason: Heartburn or Indigestion Diltiazem HCl (Cardizem Cd) 120 mg PO DAILY [facility] Last Admin: 10/04/18 08:52 Dose: 120 mg Guaifenesin (Robitussin Sf) 200 mg PO Q4H PRN PRN Reason: Cough Hydralazine HCl (Apresoline) 10 mg SLOW IVP Q4H PRN PRN Reason: SBP > 180 and HR < 70 Levothyroxine Sodium (Synthroid) 75 mcg PO 0600 [facility] Last Admin: 10/04/18 06:26 Dose: 75 mcg Loperamide HCl (Imodium) 2 mg PO PRN PRN PRN Reason: Diarrhea/Loose Stools Loratadine (Claritin) 10 mg PO DAILYPRN PRN PRN Reason: Sinus Symptoms Lorazepam (Ativan) 2 mg PO HS PRN PRN Reason: Anxiety/Agitation Last Admin: 10/02/18 22:50 Dose: 2 mg Megestrol Acetate (Megace) 400 mg PO BID [facility] Last Admin: 10/04/18 08:55 Dose: 400 mg Mineral Oil/White Petrolatum (Eucerin Cream) 0 gm TOP BIDPRN PRN PRN Reason: Dry Skin Ondansetron HCl (Zofran Odt) 4 mg PO Q6H PRN PRN Reason: Nausea/Vomiting Ondansetron HCl (Zofran) 4 mg IVP Q6H PRN PRN Reason: Nausea/Vomiting Pantoprazole Sodium (Protonix) 40 mg PO BID [facility] Last Admin: 10/04/18 08:55 Dose: 40 mg Senna/Docusate Sodium (Senokot S) 2 tab PO BID PRN PRN Reason: Constipation Sertraline HCl (Zoloft) 50 mg PO DAILY [facility] Last Admin: 10/04/18 08:55 Dose: 50 mg Sodium Chloride (Flush - Normal Saline) 10 ml IVF Q12HR [facility] Last Admin: 10/04/18 08:56 Dose: Not Given Sodium Chloride (Flush - Normal Saline) 10 ml IVF PRN PRN PRN Reason: Saline Flush Last Admin: 09/30/18 22:10 Dose: 10 ml Sodium Chloride ([place] Nasal [place] 0.65%) 0 ml EA NARE QIDPRN PRN PRN Reason: Nasal Congestion Throat Lozenges (Cepastat Lozenges) 1 baldev PO Q2H PRN PRN Reason: Sore Throat Ziprasidone (Geodon) 20 mg PO 1500 [facility] Last Admin: 10/03/18 14:53 Dose: Not Given Zolpidem Tartrate (Ambien) 5 mg PO HSPRN PRN PRN Reason: Insomnia
[2018-10-04] MEDS: Ziprasidone 20 MG CAP PO SCH (15:46)
[2018-10-05] MEDS: Levothyroxine Sodium 75 MCG TAB PO SCH (06:02)
[2018-10-05] MEDS: Megestrol Acetate 800 MG/20 ML UDCUP PO SCH ×2 (09:14→20:32)
--- NOTE | 2018-10-05 11:18 | PDOC.PN ---
- Subjective Encounter Start Date: 10/05/18 Encounter Start Time: 07:00 Patient seen and examined. No new complaints. No overnight events - Objective Resuscitation Status - Order Detail: 09/26/18 23:26 Resuscitation Status Routine Resuscitation Status: DNAR: NO Resuscitation Discussed with: patient, RN has verified OOH DNR MAR Reviewed: Yes Vital Signs & Weight: Vital Signs (12 hours) Temp Pulse BP Pulse Ox 10/05/18 10:00 98 10/05/18 09:13 87 160/88 H 10/05/18 08:05 99.2 F 10/05/18 08:00 98 10/05/18 04:15 99.0 F 10/05/18 00:13 98.2 F Weight Admit Weight 110 lb 3.2 oz Weight 108 lb Most Recent Monitor Data Heart Rate from ECG 85 NIBP 140/67 NIBP BP-Mean 91 Respiration from ECG 14 SpO2 98 I&O: 10/04/18 10/05/18 10/06/18 06:59 06:59 06:59 Intake Total 400 240 Balance 400 240 Result Diagrams: 10/01/18 07:44 10/04/18 00:10 EKG Reviewed by me: Yes Phys Exam - Physical Examination Constitutional: NAD HEENT: PERRLA, moist MMs, sclera anicteric Neck: no JVD, supple Respiratory: no wheezing, no rales, no rhonchi Cardiovascular: RRR, no significant murmur, no rub Gastrointestinal: soft, non-tender, no distention, positive bowel sounds Musculoskeletal: no edema, pulses present Neurological: non-focal, normal sensation Lymphatic: no nodes Psychiatric: normal affect Skin: no rash, normal turgor Dx/Plan (1) Acute blood loss anemia Code(s): D62 - ACUTE POSTHEMORRHAGIC ANEMIA Status: Acute (2) Gastric ulcer Code(s): K25.9 - GASTRIC ULCER, UNSP ACUTE OR CHRONIC, W/O HEMOR OR PERF Status: Acute (3) DVT (deep venous thrombosis) Code(s): I82.409 - ACUTE EMBOLISM AND THOMBOS UNSP DEEP VN UNSP LOWER EXTREMITY Status: Acute (4) Hypothyroidism Code(s): E03.9 - HYPOTHYROIDISM, UNSPECIFIED Status: Acute (5) S/P lumbar laminectomy Code(s): Z98.890 - OTHER SPECIFIED POSTPROCEDURAL STATES Status: Chronic - Plan cont 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 Review of Systems - Review of Systems ENT: negative: Ear Pain, Ear Discharge, Nose Pain, Nose Discharge, Nose Congestion, Mouth Pain, Mouth Swelling, Throat Pain, Throat Swelling, Other Respiratory: negative: Cough, Dry, Shortness of Breath, Hemoptysis, SOB with Excertion, Pleuritic Pain, Sputum, Wheezing Cardiovascular: negative: chest pain, palpitations, orthopnea, paroxysmal nocturnal dyspnea, edema, light headedness, other Gastrointestinal: negative: Nausea, Vomiting, Abdominal Pain, Diarrhea, Constipation, Melena, Hematochezia, Other Genitourinary: negative: Dysuria, Frequency, Incontinence, Hematuria, Retention , Other Musculoskeletal: negative: Neck Pain, Shoulder Pain, Arm Pain, Back Pain, Hand Pain, Leg Pain, Foot Pain, Other - Medications/Allergies Allergies/Adverse Reactions: Allergies Allergy/AdvReac Type Severity Reaction Status Date / Time Iodine and Iodide Containing Allergy Verified 09/13/18 22:30 Produc Sulfa (Sulfonamide Allergy Verified 09/13/18 22:30 Antibiotics) diphenhydramine AdvReac Verified 09/13/18 22:30 [From Benadryl] Medications: Current Medications Acetaminophen (Tylenol) 650 mg PO Q4HR PRN PRN Reason: Pain Albuterol/Ipratropium (Duoneb) 3 ml NEB Q4H PRN PRN Reason: SOB &/or Wheezing Artificial Tears (Tears Naturale) 2 drop EA EYE PRN PRN PRN Reason: Dry Eyes Bisacodyl (Dulcolax) 10 mg PO DAILYPRN PRN PRN Reason: Constipation Calcium Carbonate (Tums) 1,000 mg PO Q4H PRN PRN Reason: Heartburn or Indigestion Diltiazem HCl (Cardizem Cd) 120 mg PO DAILY [facility] Last Admin: 10/05/18 09:13 Dose: 120 mg Guaifenesin (Robitussin Sf) 200 mg PO Q4H PRN PRN Reason: Cough Hydralazine HCl (Apresoline) 10 mg SLOW IVP Q4H PRN PRN Reason: SBP > 180 and HR < 70 Levothyroxine Sodium (Synthroid) 75 mcg PO 0600 [facility] Last Admin: 10/05/18 06:02 Dose: 75 mcg Loperamide HCl (Imodium) 2 mg PO PRN PRN PRN Reason: Diarrhea/Loose Stools Loratadine (Claritin) 10 mg PO DAILYPRN PRN PRN Reason: Sinus Symptoms Lorazepam (Ativan) 2 mg PO HS PRN PRN Reason: Anxiety/Agitation Last Admin: 10/02/18 22:50 Dose: 2 mg Megestrol Acetate (Megace) 400 mg PO BID [facility] Last Admin: 10/05/18 09:14 Dose: 400 mg Mineral Oil/White Petrolatum (Eucerin Cream) 0 gm TOP BIDPRN PRN PRN Reason: Dry Skin Ondansetron HCl (Zofran Odt) 4 mg PO Q6H PRN PRN Reason: Nausea/Vomiting Ondansetron HCl (Zofran) 4 mg IVP Q6H PRN PRN Reason: Nausea/Vomiting Pantoprazole Sodium (Protonix) 40 mg PO BID [facility] Last Admin: 10/05/18 09:14 Dose: 40 mg Senna/Docusate Sodium (Senokot S) 2 tab PO BID PRN PRN Reason: Constipation Sertraline HCl (Zoloft) 50 mg PO DAILY [facility] Last Admin: 10/05/18 09:14 Dose: 50 mg Sodium Chloride (Flush - Normal Saline) 10 ml IVF Q12HR [facility] Last Admin: 10/05/18 09:14 Dose: Not Given Sodium Chloride (Flush - Normal Saline) 10 ml IVF PRN PRN PRN Reason: Saline Flush Last Admin: 09/30/18 22:10 Dose: 10 ml Sodium Chloride ([place] Nasal [place] 0.65%) 0 ml EA NARE QIDPRN PRN PRN Reason: Nasal Congestion Throat Lozenges (Cepastat Lozenges) 1 baldev PO Q2H PRN PRN Reason: Sore Throat Ziprasidone (Geodon) 20 mg PO 1500 [facility] Last Admin: 10/04/18 15:46 Dose: Not Given Zolpidem Tartrate (Ambien) 5 mg PO HSPRN PRN PRN Reason: Insomnia
[2018-10-05 13:24] VITALS: BMI 18.5
[2018-10-05] MEDS: Ziprasidone 20 MG CAP PO SCH (15:01)
[2018-10-05] MEDS: Acetaminophen 325 MG TAB PO PRN (18:01)
[2018-10-06] MEDS: Levothyroxine Sodium 75 MCG TAB PO SCH (05:50)
[2018-10-06] MEDS: Megestrol Acetate 800 MG/20 ML UDCUP PO SCH ×2 (08:50→20:14)
--- NOTE | 2018-10-06 12:22 | PDOC.PN ---
- Subjective Encounter Start Date: 10/06/18 Encounter Start Time: 08:00 Patient seen and examined. No new complaints. No overnight events - Objective Resuscitation Status - Order Detail: 09/26/18 23:26 Resuscitation Status Routine Resuscitation Status: DNAR: NO Resuscitation Discussed with: patient, RN has verified OOH DNR MAR Reviewed: Yes Vital Signs & Weight: Vital Signs (12 hours) Temp Pulse Resp BP BP BP Pulse Ox 10/06/18 11:47 98.1 F 83 14 123/69 98 10/06/18 08:50 84 150/75 H 10/06/18 08:00 97.7 F 84 14 150/75 H 98 10/06/18 04:00 98.0 F 63 20 116/67 92 L Weight Admit Weight 110 lb 3.2 oz Weight 108 lb Most Recent Monitor Data Heart Rate from ECG 81 NIBP 129/70 NIBP BP-Mean 89 Respiration from ECG 15 SpO2 98 I&O: 10/05/18 10/06/18 10/07/18 06:59 06:59 06:59 Intake Total 240 600 Balance 240 600 Result Diagrams: 10/01/18 07:44 10/04/18 00:10 Phys Exam - Physical Examination Constitutional: NAD HEENT: PERRLA, moist MMs, sclera anicteric Neck: no JVD, supple Respiratory: no wheezing, no rales, no rhonchi Cardiovascular: RRR, no significant murmur, no rub Gastrointestinal: soft, non-tender, no distention, positive bowel sounds Musculoskeletal: no edema, pulses present Neurological: non-focal Lymphatic: no nodes Psychiatric: normal affect Skin: no rash, normal turgor Dx/Plan (1) Acute blood loss anemia Code(s): D62 - ACUTE POSTHEMORRHAGIC ANEMIA Status: Acute (2) Gastric ulcer Code(s): K25.9 - GASTRIC ULCER, UNSP ACUTE OR CHRONIC, W/O HEMOR OR PERF Status: Acute (3) DVT (deep venous thrombosis) Code(s): I82.409 - ACUTE EMBOLISM AND THOMBOS UNSP DEEP VN UNSP LOWER EXTREMITY Status: Acute (4) Hypothyroidism Code(s): E03.9 - HYPOTHYROIDISM, UNSPECIFIED Status: Acute (5) S/P lumbar laminectomy Code(s): Z98.890 - OTHER SPECIFIED POSTPROCEDURAL STATES Status: Chronic - 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 Review of Systems - Review of Systems ENT: negative: Ear Pain, Ear Discharge, Nose Pain, Nose Discharge, Nose Congestion, Mouth Pain, Mouth Swelling, Throat Pain, Throat Swelling, Other Respiratory: negative: Cough, Dry, Shortness of Breath, Hemoptysis, SOB with Excertion, Pleuritic Pain, Sputum, Wheezing Cardiovascular: negative: chest pain, palpitations, orthopnea, paroxysmal nocturnal dyspnea, edema, light headedness, other Gastrointestinal: negative: Nausea, Vomiting, Abdominal Pain, Diarrhea, Constipation, Melena, Hematochezia, Other Genitourinary: negative: Dysuria, Frequency, Incontinence, Hematuria, Retention , Other Musculoskeletal: negative: Neck Pain, Shoulder Pain, Arm Pain, Back Pain, Hand Pain, Leg Pain, Foot Pain, Other - Medications/Allergies Allergies/Adverse Reactions: Allergies Allergy/AdvReac Type Severity Reaction Status Date / Time Iodine and Iodide Containing Allergy Verified 09/13/18 22:30 Produc Sulfa (Sulfonamide Allergy Verified 09/13/18 22:30 Antibiotics) diphenhydramine AdvReac Verified 09/13/18 22:30 [From Benadryl] Medications: Current Medications Acetaminophen (Tylenol) 650 mg PO Q4HR PRN PRN Reason: Pain Last Admin: 10/05/18 18:01 Dose: 650 mg Albuterol/Ipratropium (Duoneb) 3 ml NEB Q4H PRN PRN Reason: SOB &/or Wheezing Artificial Tears (Tears Naturale) 2 drop EA EYE PRN PRN PRN Reason: Dry Eyes Bisacodyl (Dulcolax) 10 mg PO DAILYPRN PRN PRN Reason: Constipation Calcium Carbonate (Tums) 1,000 mg PO Q4H PRN PRN Reason: Heartburn or Indigestion Diltiazem HCl (Cardizem Cd) 120 mg PO DAILY [facility] Last Admin: 10/06/18 08:50 Dose: 120 mg Guaifenesin (Robitussin Sf) 200 mg PO Q4H PRN PRN Reason: Cough Hydralazine HCl (Apresoline) 10 mg SLOW IVP Q4H PRN PRN Reason: SBP > 180 and HR < 70 Levothyroxine Sodium (Synthroid) 75 mcg PO 0600 [facility] Last Admin: 10/06/18 05:50 Dose: 75 mcg Loperamide HCl (Imodium) 2 mg PO PRN PRN PRN Reason: Diarrhea/Loose Stools Loratadine (Claritin) 10 mg PO DAILYPRN PRN PRN Reason: Sinus Symptoms Lorazepam (Ativan) 2 mg PO HS PRN PRN Reason: Anxiety/Agitation Last Admin: 10/02/18 22:50 Dose: 2 mg Megestrol Acetate (Megace) 400 mg PO BID [facility] Last Admin: 10/06/18 08:50 Dose: 400 mg Mineral Oil/White Petrolatum (Eucerin Cream) 0 gm TOP BIDPRN PRN PRN Reason: Dry Skin Ondansetron HCl (Zofran Odt) 4 mg PO Q6H PRN PRN Reason: Nausea/Vomiting Ondansetron HCl (Zofran) 4 mg IVP Q6H PRN PRN Reason: Nausea/Vomiting Pantoprazole Sodium (Protonix) 40 mg PO BID [facility] Last Admin: 10/06/18 08:50 Dose: 40 mg Senna/Docusate Sodium (Senokot S) 2 tab PO BID PRN PRN Reason: Constipation Sertraline HCl (Zoloft) 50 mg PO DAILY [facility] Last Admin: 10/06/18 08:50 Dose: 50 mg Sodium Chloride (Flush - Normal Saline) 10 ml IVF Q12HR [facility] Last Admin: 10/06/18 08:46 Dose: Not Given Sodium Chloride (Flush - Normal Saline) 10 ml IVF PRN PRN PRN Reason: Saline Flush Last Admin: 09/30/18 22:10 Dose: 10 ml Sodium Chloride ([place] Nasal [place] 0.65%) 0 ml EA NARE QIDPRN PRN PRN Reason: Nasal Congestion Throat Lozenges (Cepastat Lozenges) 1 baldev PO Q2H PRN PRN Reason: Sore Throat Ziprasidone (Geodon) 20 mg PO 1500 [facility] Last Admin: 10/05/18 15:01 Dose: Not Given Zolpidem Tartrate (Ambien) 5 mg PO HSPRN PRN PRN Reason: Insomnia
[2018-10-06] MEDS: Ziprasidone 20 MG CAP PO SCH (15:10)
[2018-10-07] MEDS: Levothyroxine Sodium 75 MCG TAB PO SCH (05:25)
[2018-10-07] MEDS: Acetaminophen 325 MG TAB PO PRN ×2 (06:24→14:34)
--- NOTE | 2018-10-07 07:55 | PQF ---
MARLENE OCAMPO SALIM NOORJIBHAI MD [id number] -A- [id number] CLINICAL DOCUMENTATION IMPROVEMENT CLARIFICATION FORM: ICD-10 Updated PLEASE DO AN ADDENDUM TO THE PROGRESS NOTE WITH ANY DOCUMENTATION UPDATES OR ADDITIONS AND CARRY THROUGH TO DC SUMMARY. THANK YOU. DATE: 10/07 ATTN: DR. HERO OSORIO Please exercise your independent, professional judgment in responding to the clarification form. Clinical indicators are provided on the bottom of this form for your review. Please check appropriate box(s): [ x ] Encephalopathy: Type: [ ] Acute [ ] Subacute Etiology: [x ] Metabolic D/T GI bleed [ ] in the setting of underlying dementia [ ] Other (please specify) [ ] Other diagnosis [ ] Unable to determine In addition, please specify: Present on Admission (POA): [x ] Yes [ ] No [ ] Unable to determine For continuity of documentation, please document condition throughout progress notes and discharge summary. Thank You. CLINICAL INDICATORS - SIGNS / SYMPTOMS / LABS ER PHYSICIAN DOCUMENTATION 09/26: PT A/O X2 PER BASELINE PER EMS PN 09/27 (JEANE): SHE IS CONFUSED & CANNOT VOICE HER CONCERNS - ? DEMENTIA - CONTINUE [place]ODON PN 09/27 (MARLEE): REVIEW OF SYSTEMS CAN'T BE OBTAINED - PT UNCOOPERATIVE W/ EXAM - COMBATIVE PN 09/28 (JOEL): A/O X1 PN 09/28 (JEANE): SHE IS STILL CONFUSED; GASTRIC ULCER; ACUTE BLOOD LOSS ANEMIA ; DEMENTIA - STABLE PN 09/28 (JOEL): EGD ON 09/27 SHOWED GASTRIC ULCER, ...GIVEN HER RECENTLY DECREASED H/H & MELENIC TYPE STOOLS, THIS IS THE MOST LIKELY REASON FOR HER BLEEDING AT THIS TIME PN 10/01 (JEANE): NURSE INFORMS SHE WAS MORE ALERT EARLIER THIS MORNING PN 10/02 (JEANE): SHE IS MUCH MORE ALERT THIS MORNING PN 10/03 (JEANE): GASTRIC ULCER W/GI BLEED - HER H/H HAS BEEN STABLE DC SUMMARY 10/03 (JEANE): GASTRIC ULCER W/ACUTE ON CHRONIC BLOOD LOSS ANEMIA - EARLY DEMENTIA H/H: 5.6/17.7 (ON ADMIT, 09/26) RISK FACTORS: ACUTE BLOOD LOSS ANEMIA EARLY DEMENTIA TREATMENT: TRANSFUSION 3U PRBC'S (09/26) IVF (08/17 NS 09/26) THANK YOU! Penelope (This form is maintained as a part of the permanent medical record) 2015 [employer]. All Rights Reserved Penelope Flores RN, BSN [email or web address] Office: [phone] [facility]
[2018-10-07 08:50] LABS: Hemoglobin 8.2 g/dL (12.0-16.0); Mean Corpuscular HGB CONC 31.7 g/dL (32.0-36.0); Mean Corpuscular Hemoglobin 28.3 pg (27.0-31.0); Mean Corpuscular Volume 89.3 fL (78.0-98.0); Mean Platelet Volume 6.6 fL (7.4-10.4); Platelet Count 400 thou/uL (130-400); RBC Distribution Width 16.2 % (11.5-14.5); Red Blood Cell (RBC) Count 2.88 mill/uL (4.20-5.40); White Blood Cell (WBC) Count 3.4 thou/uL (4.8-10.8)
[2018-10-07] MEDS: Megestrol Acetate 800 MG/20 ML UDCUP PO SCH ×2 (08:51→20:04)
[2018-10-07 09:12] LABS: ALT (SGPT) 11 U/L (8-55); AST (SGOT) 15 U/L (5-34); Albumin 3.1 g/dL (3.4-4.8); Alkaline Phosphatase 51 U/L (40-150); Anion Gap 12 mmol/L (10-20); BUN (Urea Nitrogen) 15 mg/dL (9.8-20.1); Bilirubin, Total 0.4 mg/dL (0.2-1.2); Calc. Creatinine Clearance 36 mL/min (70-130); Calcium 9.4 mg/dL (7.8-10.44); Carbon Dioxide 19 mmol/L (23-31); Chloride 108 mmol/L (98-107); Estimated GFR-MDRD 60; Globulin 2.7 g/dL (2.4-3.5); Glucose 141 mg/dL (83-110); Potassium 3.5 mmol/L (3.5-5.1); Protein, Total 5.8 g/dL (6.0-8.3); Sodium 135 mmol/L (136-145)
[2018-10-07 10:22] LABS: Band 7 % (5-11); Eosinophils 6 % (0-10); Lymphocytes 28 % (21-51); MDiff Complete? YES; Monocytes 7 % (0-10); Myelocyte 1 % (0-0); Neutrophil 50 % (42-75); Platelet Morphology Comment Appears Adequate; Polychromasia SLIGHT = 2-3 cells (100X) (0-2/hpf); Reactive Lymphocytes 1 % (0-10)
--- NOTE | 2018-10-07 10:37 | PDOC.PN ---
- Subjective Encounter Start Date: 10/07/18 Encounter Start Time: 09:45 Patient seen and examined. No new complaints. No overnight events - Objective Resuscitation Status - Order Detail: 09/26/18 23:26 Resuscitation Status Routine Resuscitation Status: DNAR: NO Resuscitation Discussed with: patient, RN has verified OOH DNR MAR Reviewed: Yes Vital Signs & Weight: Vital Signs (12 hours) Temp Pulse Resp BP BP Pulse Ox 10/07/18 08:50 81 150/72 H 10/07/18 07:12 98.4 F 81 20 150/72 H 93 L Weight Admit Weight 110 lb 3.2 oz Weight 108 lb Most Recent Monitor Data Heart Rate from ECG 81 NIBP 129/70 NIBP BP-Mean 89 Respiration from ECG 15 SpO2 98 I&O: 10/06/18 10/07/18 10/08/18 06:59 06:59 06:59 Intake Total 600 300 Balance 600 300 Result Diagrams: 10/07/18 08:26 10/07/18 08:26 Phys Exam - Physical Examination Constitutional: NAD HEENT: PERRLA, moist MMs, sclera anicteric Neck: no JVD, supple Respiratory: no wheezing, no rales, no rhonchi Cardiovascular: RRR, no significant murmur, no rub Gastrointestinal: soft, non-tender, no distention, positive bowel sounds Musculoskeletal: no edema, pulses present Neurological: non-focal Lymphatic: no nodes Psychiatric: normal affect Skin: no rash, normal turgor Dx/Plan (1) Acute blood loss anemia Code(s): D62 - ACUTE POSTHEMORRHAGIC ANEMIA Status: Acute (2) Gastric ulcer Code(s): K25.9 - GASTRIC ULCER, UNSP ACUTE OR CHRONIC, W/O HEMOR OR PERF Status: Acute (3) DVT (deep venous thrombosis) Code(s): I82.409 - ACUTE EMBOLISM AND THOMBOS UNSP DEEP VN UNSP LOWER EXTREMITY Status: Acute (4) Hypothyroidism Code(s): E03.9 - HYPOTHYROIDISM, UNSPECIFIED Status: Acute (5) S/P lumbar laminectomy Code(s): Z98.890 - OTHER SPECIFIED POSTPROCEDURAL STATES Status: Chronic - Plan cont current plan of care, plan discussed w/ family, health care social worker * as her H & H dropped, I will give one dose of venofer * still await placement * medication reviewed as below * symptomatic treatment * discussed with daughter bedside. Review of Systems - Review of Systems Other: not reliable with pt due to her cognitive deficit - Medications/Allergies Allergies/Adverse Reactions: Allergies Allergy/AdvReac Type Severity Reaction Status Date / Time Iodine and Iodide Containing Allergy Verified 09/13/18 22:30 Produc Sulfa (Sulfonamide Allergy Verified 09/13/18 22:30 Antibiotics) diphenhydramine AdvReac Verified 09/13/18 22:30 [From Benadryl] Medications: Current Medications Acetaminophen (Tylenol) 650 mg PO Q4HR PRN PRN Reason: Pain Last Admin: 10/07/18 06:24 Dose: 650 mg Albuterol/Ipratropium (Duoneb) 3 ml NEB Q4H PRN PRN Reason: SOB &/or Wheezing Artificial Tears (Tears Naturale) 2 drop EA EYE PRN PRN PRN Reason: Dry Eyes Bisacodyl (Dulcolax) 10 mg PO DAILYPRN PRN PRN Reason: Constipation Calcium Carbonate (Tums) 1,000 mg PO Q4H PRN PRN Reason: Heartburn or Indigestion Diltiazem HCl (Cardizem Cd) 120 mg PO DAILY [facility] Last Admin: 10/07/18 08:50 Dose: 120 mg Guaifenesin (Robitussin Sf) 200 mg PO Q4H PRN PRN Reason: Cough Hydralazine HCl (Apresoline) 10 mg SLOW IVP Q4H PRN PRN Reason: SBP > 180 and HR < 70 Ferric Sodium Gluconate Complex 250 mg/ Sodium Chloride 270 mls @ 129.808 mls/ hr IVPB ONE [facility] Stop: 10/07/18 14:00 Levothyroxine Sodium (Synthroid) 75 mcg PO 0600 [facility] Last Admin: 10/07/18 05:25 Dose: 75 mcg Loperamide HCl (Imodium) 2 mg PO PRN PRN PRN Reason: Diarrhea/Loose Stools Loratadine (Claritin) 10 mg PO DAILYPRN PRN PRN Reason: Sinus Symptoms Lorazepam (Ativan) 2 mg PO HS PRN PRN Reason: Anxiety/Agitation Last Admin: 10/02/18 22:50 Dose: 2 mg Megestrol Acetate (Megace) 400 mg PO BID [facility] Last Admin: 10/07/18 08:51 Dose: 400 mg Mineral Oil/White Petrolatum (Eucerin Cream) 0 gm TOP BIDPRN PRN PRN Reason: Dry Skin Ondansetron HCl (Zofran Odt) 4 mg PO Q6H PRN PRN Reason: Nausea/Vomiting Ondansetron HCl (Zofran) 4 mg IVP Q6H PRN PRN Reason: Nausea/Vomiting Pantoprazole Sodium (Protonix) 40 mg PO BID [facility] Last Admin: 10/07/18 08:51 Dose: 40 mg Senna/Docusate Sodium (Senokot S) 2 tab PO BID PRN PRN Reason: Constipation Sertraline HCl (Zoloft) 50 mg PO DAILY [facility] Last Admin: 10/07/18 08:51 Dose: 50 mg Sodium Chloride (Flush - Normal Saline) 10 ml IVF Q12HR [facility] Last Admin: 10/07/18 08:51 Dose: Not Given Sodium Chloride (Flush - Normal Saline) 10 ml IVF PRN PRN PRN Reason: Saline Flush Last Admin: 09/30/18 22:10 Dose: 10 ml Sodium Chloride ([place] Nasal [place] 0.65%) 0 ml EA NARE QIDPRN PRN PRN Reason: Nasal Congestion Throat Lozenges (Cepastat Lozenges) 1 baldev PO Q2H PRN PRN Reason: Sore Throat Ziprasidone (Geodon) 20 mg PO 1500 [facility] Last Admin: 10/06/18 15:10 Dose: Not Given Zolpidem Tartrate (Ambien) 5 mg PO HSPRN PRN PRN Reason: Insomnia
[2018-10-07] MEDS ORDERED: Iron, Sodium Ferric Gluconate 250 MG in Sodium Chloride 0.9% 250 ML 250 ML IVPB SCH (10:45)
[2018-10-07] MEDS ORDERED: Iron Sucrose Complex 200 MG in Sodium Chloride 0.9% 250 ML 250 ML IVPB SCH (10:45)
[2018-10-07] MEDS: Ziprasidone 20 MG CAP PO SCH ×2 (16:52→20:07)
[2018-10-07] MEDS: Senokot S 8.6-50 MG TAB PO PRN (20:07)
[2018-10-08] MEDS: Levothyroxine Sodium 75 MCG TAB PO SCH (05:20)
[2018-10-08] MEDS ORDERED: Iron Sucrose Complex 200 MG in Sodium Chloride 0.9% 250 ML 250 ML IVPB SCH (08:00)
[2018-10-08] MEDS ORDERED: Iron, Sodium Ferric Gluconate 250 MG in Sodium Chloride 0.9% 250 ML 250 ML IVPB SCH (08:15)
--- NOTE | 2018-10-08 09:50 | PDOC.PN ---
- Subjective Encounter Start Date: 10/08/18 Encounter Start Time: 07:10 pt was sleepy this morning, has poor po intake - Objective Resuscitation Status - Order Detail: 09/26/18 23:26 Resuscitation Status Routine Resuscitation Status: DNAR: NO Resuscitation Discussed with: patient, RN has verified OOH DNR MAR Reviewed: Yes Vital Signs & Weight: Vital Signs (12 hours) Temp Pulse Resp BP Pulse Ox 10/08/18 07:42 98.3 F 69 16 116/75 96 10/08/18 00:29 98.5 F 74 14 115/69 96 Weight Admit Weight 110 lb 3.2 oz Weight 108 lb Most Recent Monitor Data Heart Rate from ECG 81 NIBP 129/70 NIBP BP-Mean 89 Respiration from ECG 15 SpO2 98 I&O: 10/07/18 10/08/18 10/09/18 06:59 06:59 06:59 Intake Total 300 200 Balance 300 200 Result Diagrams: 10/07/18 08:26 10/07/18 08:26 Phys Exam - Physical Examination Constitutional: NAD HEENT: PERRLA, moist MMs, sclera anicteric Neck: no JVD, supple Respiratory: no wheezing, no rales, no rhonchi Cardiovascular: RRR, no significant murmur, no rub Gastrointestinal: soft, non-tender, no distention, positive bowel sounds Musculoskeletal: no edema, pulses present Lymphatic: no nodes Psychiatric: normal affect Skin: no rash, normal turgor Dx/Plan (1) Acute blood loss anemia Code(s): D62 - ACUTE POSTHEMORRHAGIC ANEMIA Status: Acute (2) Gastric ulcer Code(s): K25.9 - GASTRIC ULCER, UNSP ACUTE OR CHRONIC, W/O HEMOR OR PERF Status: Acute (3) DVT (deep venous thrombosis) Code(s): I82.409 - ACUTE EMBOLISM AND THOMBOS UNSP DEEP VN UNSP LOWER EXTREMITY Status: Acute (4) Hypothyroidism Code(s): E03.9 - HYPOTHYROIDISM, UNSPECIFIED Status: Acute (5) S/P lumbar laminectomy Code(s): Z98.890 - OTHER SPECIFIED POSTPROCEDURAL STATES Status: Chronic - Plan cont current plan of care, plan discussed w/ family, PT/OT, social security benefits interviewer * will dc johnathan per daughter request * reduce ativan 0.5 mg as needed only * will give one more dose of venofer * repeat cbc, bmp tomorrow * medication reviewed as below * symptomatic treatment. Review of Systems - Review of Systems Other: unable to review due to dementia - Medications/Allergies Allergies/Adverse Reactions: Allergies Allergy/AdvReac Type Severity Reaction Status Date / Time Iodine and Iodide Containing Allergy Verified 09/13/18 22:30 Produc Sulfa (Sulfonamide Allergy Verified 09/13/18 22:30 Antibiotics) diphenhydramine AdvReac Verified 09/13/18 22:30 [From Benadryl] Medications: Current Medications Acetaminophen (Tylenol) 650 mg PO Q4HR PRN PRN Reason: Pain Last Admin: 10/07/18 14:34 Dose: 650 mg Albuterol/Ipratropium (Duoneb) 3 ml NEB Q4H PRN PRN Reason: SOB &/or Wheezing Artificial Tears (Tears Naturale) 2 drop EA EYE PRN PRN PRN Reason: Dry Eyes Bisacodyl (Dulcolax) 10 mg PO DAILYPRN PRN PRN Reason: Constipation Calcium Carbonate (Tums) 1,000 mg PO Q4H PRN PRN Reason: Heartburn or Indigestion Diltiazem HCl (Cardizem Cd) 120 mg PO DAILY [facility] Last Admin: 10/07/18 08:50 Dose: 120 mg Guaifenesin (Robitussin Sf) 200 mg PO Q4H PRN PRN Reason: Cough Hydralazine HCl (Apresoline) 10 mg SLOW IVP Q4H PRN PRN Reason: SBP > 180 and HR < 70 Ferric Sodium Gluconate Complex 250 mg/ Sodium Chloride 270 mls @ 129.808 mls/ hr IVPB ONE [facility] Stop: 10/08/18 12:00 Last Admin: 10/08/18 08:55 Dose: 270 mls Levothyroxine Sodium (Synthroid) 75 mcg PO 0600 [facility] Last Admin: 10/08/18 05:20 Dose: 75 mcg Loperamide HCl (Imodium) 2 mg PO PRN PRN PRN Reason: Diarrhea/Loose Stools Loratadine (Claritin) 10 mg PO DAILYPRN PRN PRN Reason: Sinus Symptoms Lorazepam (Ativan) 0.5 mg PO HSPRN PRN PRN Reason: Anxiety Megestrol Acetate (Megace) 400 mg PO BID [facility] Last Admin: 10/07/18 20:04 Dose: 400 mg Mineral Oil/White Petrolatum (Eucerin Cream) 0 gm TOP BIDPRN PRN PRN Reason: Dry Skin Ondansetron HCl (Zofran Odt) 4 mg PO Q6H PRN PRN Reason: Nausea/Vomiting Ondansetron HCl (Zofran) 4 mg IVP Q6H PRN PRN Reason: Nausea/Vomiting Pantoprazole Sodium (Protonix) 40 mg PO BID [facility] Last Admin: 10/07/18 20:04 Dose: 40 mg Senna/Docusate Sodium (Senokot S) 2 tab PO BID PRN PRN Reason: Constipation Last Admin: 10/07/18 20:07 Dose: 2 tab Sertraline HCl (Zoloft) 50 mg PO DAILY [facility] Last Admin: 10/07/18 08:51 Dose: 50 mg Sodium Chloride (Flush - Normal Saline) 10 ml IVF Q12HR [facility] Last Admin: 10/08/18 08:55 Dose: 10 ml Sodium Chloride (Flush - Normal Saline) 10 ml IVF PRN PRN PRN Reason: Saline Flush Last Admin: 09/30/18 22:10 Dose: 10 ml Sodium Chloride ([place] Nasal [place] 0.65%) 0 ml EA NARE QIDPRN PRN PRN Reason: Nasal Congestion Throat Lozenges (Cepastat Lozenges) 1 baldev PO Q2H PRN PRN Reason: Sore Throat
[2018-10-08] MEDS: Megestrol Acetate 800 MG/20 ML UDCUP PO SCH ×2 (10:26→20:22)
--- NOTE | 2018-10-08 14:05 | EKG ---
Test Reason : Blood Pressure : / mmHG Vent. Rate : 102 BPM Atrial Rate : 102 BPM P-R Int : 120 ms QRS Dur : 082 ms QT Int : 418 ms P-R-T Axes : 068 -06 122 degrees QTc Int : 544 ms Sinus tachycardia Abnormal ECG Confirmed by TAZ SALGADO M.D. ([id number]), manager editorial VJ HEALY ([id number] on 10/08/2018 2:04:43 PM Referred By: Confirmed By:TAZ SALGADO M.D.
[2018-10-08] MEDS: Acetaminophen 325 MG TAB PO PRN (20:24)
[2018-10-08] MEDS: Senokot S 8.6-50 MG TAB PO PRN (20:24)
[2018-10-08] MEDS: Lorazepam 0.5 MG TAB PO PRN (21:25)
[2018-10-09] MEDS: Acetaminophen 325 MG TAB PO PRN ×2 (02:08→19:43)
[2018-10-09] MEDS: Levothyroxine Sodium 75 MCG TAB PO SCH (05:05)
[2018-10-09 06:46] LABS: #Eosinphils 0.1 thou/uL (0.0-0.7); #Lymphocytes 1.2 thou/uL (1.20-3.40); #Monocytes 0.5 thou/uL (0.11-0.59); #Neutrophils 2.2 thou/uL (1.40-6.50); %Basophils 0.1 % (0.0-1.0); %Eosinophils 2.5 % (0.0-10.0); %Lymphocytes 30.9 % (21.0-51.0); %Monocytes 12.1 % (0.0-10.0); %Neutrophils 54.4 % (42.0-75.0); Hemoglobin 7.3 g/dL (12.0-16.0); Mean Corpuscular Hemoglobin 28.5 pg (27.0-31.0); Mean Corpuscular Volume 91.9 fL (78.0-98.0); Mean Platelet Volume 6.5 fL (7.4-10.4); Platelet Count 390 thou/uL (130-400); RBC Distribution Width 16.8 % (11.5-14.5); Red Blood Cell (RBC) Count 2.57 mill/uL (4.20-5.40)
[2018-10-09 07:23] LABS: Anion Gap 11 mmol/L (10-20); BUN (Urea Nitrogen) 16 mg/dL (9.8-20.1); Calc. Creatinine Clearance 38 mL/min (70-130); Calcium 9.7 mg/dL (7.8-10.44); Carbon Dioxide 21 mmol/L (23-31); Chloride 106 mmol/L (98-107); Estimated GFR-MDRD 64; Glucose 90 mg/dL (83-110); Potassium 3.7 mmol/L (3.5-5.1); Sodium 134 mmol/L (136-145)
[2018-10-09] MEDS ORDERED: Bisacodyl 10 MG SUPP PR SCH (07:45)
--- NOTE | 2018-10-09 09:16 | PDOC.PN ---
- Subjective Encounter Start Date: 10/09/18 Encounter Start Time: 08:00 Patient seen and examined. No new complaints. No overnight events - Objective Resuscitation Status - Order Detail: 09/26/18 23:26 Resuscitation Status Routine Resuscitation Status: DNAR: NO Resuscitation Discussed with: patient, RN has verified OOH DNR MAR Reviewed: Yes Vital Signs & Weight: Vital Signs (12 hours) Temp Pulse Resp BP Pulse Ox 10/09/18 08:00 98.2 F 84 16 138/79 95 Weight Admit Weight 110 lb 3.2 oz Weight 108 lb Most Recent Monitor Data Heart Rate from ECG 81 NIBP 129/70 NIBP BP-Mean 89 Respiration from ECG 15 SpO2 98 I&O: 10/08/18 10/09/18 10/10/18 06:59 06:59 06:59 Intake Total 200 1637 Balance 200 1637 Result Diagrams: 10/09/18 05:53 10/09/18 05:53 Phys Exam - Physical Examination Constitutional: NAD HEENT: PERRLA, moist MMs, sclera anicteric Neck: no JVD, supple Respiratory: no wheezing, no rales, no rhonchi Cardiovascular: RRR, no significant murmur, no rub Gastrointestinal: soft, no distention, positive bowel sounds Musculoskeletal: no edema, pulses present Neurological: moves all 4 limbs Lymphatic: no nodes Psychiatric: normal affect Skin: no rash, normal turgor Dx/Plan (1) Acute blood loss anemia Code(s): D62 - ACUTE POSTHEMORRHAGIC ANEMIA Status: Acute (2) Gastric ulcer Code(s): K25.9 - GASTRIC ULCER, UNSP ACUTE OR CHRONIC, W/O HEMOR OR PERF Status: Acute (3) DVT (deep venous thrombosis) Code(s): I82.409 - ACUTE EMBOLISM AND THOMBOS UNSP DEEP VN UNSP LOWER EXTREMITY Status: Acute (4) Hypothyroidism Code(s): E03.9 - HYPOTHYROIDISM, UNSPECIFIED Status: Acute (5) S/P lumbar laminectomy Code(s): Z98.890 - OTHER SPECIFIED POSTPROCEDURAL STATES Status: Chronic - Plan cont current plan of care, plan discussed w/ family, PT/OT, hospice social worker * will repeat labs tomorrow * her H & H is dropping, will let GI know if drops more tomorrow * medication reviewed as below * symptomatic treatment * await placement * discussed with daughter bedside. Review of Systems - Review of Systems Other: not reliable due to dementia - Medications/Allergies Allergies/Adverse Reactions: Allergies Allergy/AdvReac Type Severity Reaction Status Date / Time Iodine and Iodide Containing Allergy Verified 09/13/18 22:30 Produc Sulfa (Sulfonamide Allergy Verified 09/13/18 22:30 Antibiotics) diphenhydramine AdvReac Verified 09/13/18 22:30 [From Benadryl] Medications: Current Medications Acetaminophen (Tylenol) 650 mg PO Q4HR PRN PRN Reason: Pain Last Admin: 10/09/18 02:08 Dose: 650 mg Albuterol/Ipratropium (Duoneb) 3 ml NEB Q4H PRN PRN Reason: SOB &/or Wheezing Artificial Tears (Tears Naturale) 2 drop EA EYE PRN PRN PRN Reason: Dry Eyes Bisacodyl (Dulcolax) 10 mg PO DAILYPRN PRN PRN Reason: Constipation Last Admin: 10/08/18 16:59 Dose: 10 mg Bisacodyl (Dulcolax) 10 mg AL NOW [facility] Stop: 10/09/18 11:00 Calcium Carbonate (Tums) 1,000 mg PO Q4H PRN PRN Reason: Heartburn or Indigestion Diltiazem HCl (Cardizem Cd) 120 mg PO DAILY [facility] Last Admin: 10/08/18 14:13 Dose: 120 mg Guaifenesin (Robitussin Sf) 200 mg PO Q4H PRN PRN Reason: Cough Hydralazine HCl (Apresoline) 10 mg SLOW IVP Q4H PRN PRN Reason: SBP > 180 and HR < 70 Levothyroxine Sodium (Synthroid) 75 mcg PO 0600 [facility] Last Admin: 10/09/18 05:05 Dose: 75 mcg Loperamide HCl (Imodium) 2 mg PO PRN PRN PRN Reason: Diarrhea/Loose Stools Loratadine (Claritin) 10 mg PO DAILYPRN PRN PRN Reason: Sinus Symptoms Last Admin: 10/09/18 02:08 Dose: 10 mg Lorazepam (Ativan) 0.5 mg PO HSPRN PRN PRN Reason: Anxiety Last Admin: 10/08/18 21:25 Dose: 0.5 mg Megestrol Acetate (Megace) 400 mg PO BID [facility] Last Admin: 10/08/18 20:22 Dose: 400 mg Mineral Oil/White Petrolatum (Eucerin Cream) 0 gm TOP BIDPRN PRN PRN Reason: Dry Skin Ondansetron HCl (Zofran Odt) 4 mg PO Q6H PRN PRN Reason: Nausea/Vomiting Ondansetron HCl (Zofran) 4 mg IVP Q6H PRN PRN Reason: Nausea/Vomiting Pantoprazole Sodium (Protonix) 40 mg PO BID [facility] Last Admin: 10/08/18 20:24 Dose: 40 mg Senna/Docusate Sodium (Senokot S) 2 tab PO BID PRN PRN Reason: Constipation Last Admin: 10/08/18 20:24 Dose: 2 tab Sertraline HCl (Zoloft) 50 mg PO DAILY [facility] Last Admin: 10/08/18 14:13 Dose: 50 mg Sodium Chloride (Flush - Normal Saline) 10 ml IVF Q12HR [facility] Last Admin: 10/08/18 20:25 Dose: 10 ml Sodium Chloride (Flush - Normal Saline) 10 ml IVF PRN PRN PRN Reason: Saline Flush Last Admin: 09/30/18 22:10 Dose: 10 ml Sodium Chloride ([place] Nasal [place] 0.65%) 0 ml EA NARE QIDPRN PRN PRN Reason: Nasal Congestion Throat Lozenges (Cepastat Lozenges) 1 baldev PO Q2H PRN PRN Reason: Sore Throat
[2018-10-09] MEDS: Megestrol Acetate 800 MG/20 ML UDCUP PO SCH ×2 (09:26→19:54)
[2018-10-09] MEDS: Lorazepam 0.5 MG TAB PO PRN (19:42)
[2018-10-09] MEDS: Senokot S 8.6-50 MG TAB PO PRN (19:43)
[2018-10-10] MEDS: Levothyroxine Sodium 75 MCG TAB PO SCH (05:38)
[2018-10-10 06:45] LABS: #Lymphocytes 1.1 thou/uL (1.20-3.40); #Monocytes 0.5 thou/uL (0.11-0.59); #Neutrophils 1.8 thou/uL (1.40-6.50); %Basophils 0.4 % (0.0-1.0); %Eosinophils 1.4 % (0.0-10.0); %Monocytes 14.7 % (0.0-10.0); %Neutrophils 52.5 % (42.0-75.0); Hemoglobin 6.9 g/dL (12.0-16.0); Mean Corpuscular HGB CONC 31.5 g/dL (32.0-36.0); Mean Corpuscular Volume 92.1 fL (78.0-98.0); Mean Platelet Volume 6.7 fL (7.4-10.4); Platelet Count 398 thou/uL (130-400); Red Blood Cell (RBC) Count 2.38 mill/uL (4.20-5.40); White Blood Cell (WBC) Count 3.4 thou/uL (4.8-10.8)
[2018-10-10 07:07] LABS: Anion Gap 14 mmol/L (10-20); BUN (Urea Nitrogen) 17 mg/dL (9.8-20.1); Calc. Creatinine Clearance 34 mL/min (70-130); Calcium 10.1 mg/dL (7.8-10.44); Carbon Dioxide 19 mmol/L (23-31); Chloride 110 mmol/L (98-107); Estimated GFR-MDRD 55; Glucose 99 mg/dL (83-110); Potassium 4.5 mmol/L (3.5-5.1); Sodium 138 mmol/L (136-145)
--- NOTE | 2018-10-10 10:33 | PDOC.PN ---
- Subjective Encounter Start Date: 10/10/18 Encounter Start Time: 08:50 Patient seen and examined. No new complaints. No overnight events pt's hb dropping - Objective Resuscitation Status - Order Detail: 09/26/18 23:26 Resuscitation Status Routine Resuscitation Status: DNAR: NO Resuscitation Discussed with: patient, RN has verified OOH DNR MAR Reviewed: Yes Vital Signs & Weight: Vital Signs (12 hours) Temp Pulse Resp BP Pulse Ox 10/10/18 10:06 69 10/10/18 07:12 98.3 F 69 14 128/62 96 Weight Admit Weight 110 lb 3.2 oz Weight 108 lb Most Recent Monitor Data Heart Rate from ECG 81 NIBP 129/70 NIBP BP-Mean 89 Respiration from ECG 15 SpO2 98 I&O: 10/09/18 10/10/18 10/11/18 06:59 06:59 06:59 Intake Total 1637 1390 0 Balance 1637 1390 0 Result Diagrams: 10/10/18 05:21 10/10/18 05:21 Phys Exam - Physical Examination Constitutional: NAD HEENT: PERRLA, moist MMs, sclera anicteric Neck: no JVD, supple Respiratory: no wheezing, no rales, no rhonchi Cardiovascular: RRR, no significant murmur, no rub Gastrointestinal: soft, non-tender, no distention, positive bowel sounds Musculoskeletal: no edema, pulses present Neurological: non-focal, normal sensation Lymphatic: no nodes Psychiatric: normal affect Skin: no rash, normal turgor Dx/Plan (1) Acute blood loss anemia Code(s): D62 - ACUTE POSTHEMORRHAGIC ANEMIA Status: Acute (2) Gastric ulcer Code(s): K25.9 - GASTRIC ULCER, UNSP ACUTE OR CHRONIC, W/O HEMOR OR PERF Status: Acute (3) Hypothyroidism Code(s): E03.9 - HYPOTHYROIDISM, UNSPECIFIED Status: Chronic (4) [place] lesion, acute Code(s): K25.3 - ACUTE GASTRIC ULCER WITHOUT HEMORRHAGE OR PERFORATION Status : Acute (5) Hiatal hernia Code(s): K44.9 - DIAPHRAGMATIC HERNIA WITHOUT OBSTRUCTION OR GANGRENE Status: Chronic (6) Protein-calorie malnutrition, moderate Code(s): E44.0 - MODERATE PROTEIN-CALORIE MALNUTRITION Status: Chronic - Plan cont current plan of care, plan discussed w/ family, manager social responsibility * today transfuse 1 unit prbc * HOLD discharge for now * GI will be notified * medication reviewed as below * symptomatic treatment * discussed with daughter. Review of Systems - Review of Systems Other: not reliable due to dementia - Medications/Allergies Allergies/Adverse Reactions: Allergies Allergy/AdvReac Type Severity Reaction Status Date / Time Iodine and Iodide Containing Allergy Verified 09/13/18 22:30 Produc Sulfa (Sulfonamide Allergy Verified 09/13/18 22:30 Antibiotics) diphenhydramine AdvReac Verified 09/13/18 22:30 [From Benadryl] Medications: Current Medications Acetaminophen (Tylenol) 650 mg PO Q4HR PRN PRN Reason: Pain Last Admin: 10/09/18 19:43 Dose: 650 mg Albuterol/Ipratropium (Duoneb) 3 ml NEB Q4H PRN PRN Reason: SOB &/or Wheezing Artificial Tears (Tears Naturale) 2 drop EA EYE PRN PRN PRN Reason: Dry Eyes Bisacodyl (Dulcolax) 10 mg PO DAILYPRN PRN PRN Reason: Constipation Last Admin: 10/08/18 16:59 Dose: 10 mg Calcium Carbonate (Tums) 1,000 mg PO Q4H PRN PRN Reason: Heartburn or Indigestion Diltiazem HCl (Cardizem Cd) 120 mg PO DAILY [facility] Last Admin: 10/10/18 10:06 Dose: 120 mg Guaifenesin (Robitussin Sf) 200 mg PO Q4H PRN PRN Reason: Cough Hydralazine HCl (Apresoline) 10 mg SLOW IVP Q4H PRN PRN Reason: SBP > 180 and HR < 70 Levothyroxine Sodium (Synthroid) 75 mcg PO 0600 [facility] Last Admin: 10/10/18 05:38 Dose: 75 mcg Loperamide HCl (Imodium) 2 mg PO PRN PRN PRN Reason: Diarrhea/Loose Stools Loratadine (Claritin) 10 mg PO DAILYPRN PRN PRN Reason: Sinus Symptoms Last Admin: 10/09/18 02:08 Dose: 10 mg Lorazepam (Ativan) 0.5 mg PO HSPRN PRN PRN Reason: Anxiety Last Admin: 10/09/18 19:42 Dose: 0.5 mg Mineral Oil/White Petrolatum (Eucerin Cream) 0 gm TOP BIDPRN PRN PRN Reason: Dry Skin Ondansetron HCl (Zofran Odt) 4 mg PO Q6H PRN PRN Reason: Nausea/Vomiting Ondansetron HCl (Zofran) 4 mg IVP Q6H PRN PRN Reason: Nausea/Vomiting Pantoprazole Sodium (Protonix) 40 mg PO BID [facility] Last Admin: 10/10/18 10:06 Dose: 40 mg Senna/Docusate Sodium (Senokot S) 2 tab PO BID PRN PRN Reason: Constipation Last Admin: 10/09/18 19:43 Dose: 2 tab Sertraline HCl (Zoloft) 50 mg PO DAILY [facility] Last Admin: 10/10/18 10:06 Dose: 50 mg Sodium Chloride (Flush - Normal Saline) 10 ml IVF Q12HR [facility] Last Admin: 10/10/18 10:15 Dose: Not Given Sodium Chloride (Flush - Normal Saline) 10 ml IVF PRN PRN PRN Reason: Saline Flush Last Admin: 09/30/18 22:10 Dose: 10 ml Sodium Chloride ([place] Nasal [place] 0.65%) 0 ml EA NARE QIDPRN PRN PRN Reason: Nasal Congestion Throat Lozenges (Cepastat Lozenges) 1 baldev PO Q2H PRN PRN Reason: Sore Throat
[2018-10-10 16:09] LABS: Reticulocyte Count 4.5 % (0.5-1.5)
--- NOTE | 2018-10-10 18:01 | CON ---
DATE OF CONSULTATION: REASON FOR CONSULT: Anemia. HISTORY OF PRESENT ILLNESS: Ms. Kathleen is a pleasant 83-year-old female with a medical history of dementia, recent laminectomy, and DVT. She had her laminectomy surgery in July of 2018. She apparently had a DVT and was started on Eliquis. Approximately 30 days later, she presented to this facility with a hemoglobin of 4.7. Her Eliquis has been held since that time, and she was transfused and sent back to her facility. They performed a CBC on the and found it to be 5.1. She was once again admitted to this facility for a GI bleed. She has been transfused 3 units of packed RBCs on this admission. GI saw her and performed an EGD. There was a gastric ulceration seen in the antrum, but no bleeding. She was started on Protonix. Her hemoglobin improved, but over the past few days, has began to trend downward. She has received multiple doses of IV iron. We were asked to see regarding her poor response. The patient was seen at bedside with her daughter. She does answer some questions but is unable to provide much of a history. The patient has essentially been bed ridden since her prior surgery. She has had hospitalization for fecal impaction secondary to narcotics prior to surgery. She was recently started on Megestrol with improvement in her diet. She denies any melena, hematochezia, or hemoptysis. PAST MEDICAL HISTORY: 1. Left breast cancer, status post chemo radiation and surgery in 2010. 2. Hypothyroidism. 3. Lumbar spinal stenosis. 4. Early dementia. 5. Deconditioning. PAST SURGICAL HISTORY: Laminectomy. ALLERGIES: IODINE AND SULFA. HOME MEDICATIONS: 1. Ativan p.r.n. 2. Megestrol daily. 3. MiraLAX daily. 4. Zoloft daily. 5. Geodon daily. 6. Tylenol daily. 7. Synthroid daily. 8. Protonix p.o. daily. FAMILY HISTORY: Noncontributory. SOCIAL HISTORY: She is single, lives in a halfway. No alcohol, tobacco, or illicit drug use. REVIEW OF SYSTEMS: A 10-point review of systems is negative except for weakness. PHYSICAL EXAMINATION: VITAL SIGNS: Temperature is 98.3, pulse is 69, respiratory rate 14, BP is 128/62. She is 96% on room air. GENERAL: This is a frail female, in no acute distress. HEENT: Normocephalic and atraumatic. Pupils are equal and reactive to light. NECK: Supple. CV: Regular rate and rhythm. LUNGS: Clear. ABDOMEN: Soft and nontender. Bowel sounds are positive. EXTREMITIES: No clubbing, cyanosis, or edema. SKIN: No rash. LYMPH: There is no lymphadenopathy. BREASTS: No masses or nipple changes. NEUROLOGICAL: Nonfocal. LABORATORY DATA: Pertinent labs and x-rays: Current WBC is 3.4, hemoglobin 6.9, hematocrit 22.0, and platelet count 398,000. She has 52% neutrophils, 31% lymphocytes, and 14% monocytes. Sodium is 138, potassium is 4.5, chloride is 110, CO2 is 19, BUN is 17, creatinine 0.96, calcium is 10.1, bilirubin 0.4, AST is 15, ALT is 11, alkaline phosphatase is 51. Serum total protein is 5.8, albumin 3.1, globulin 2.7. Her iron several weeks ago was low at 13. ASSESSMENT: 1. Symptomatic anemia. 2. History of gastric ulcer. 3. Chronic leukopenia. 4. Deconditioning. 5. Postsurgical deep venous thrombosis. DISCUSSION: The patient's recent venogram shows no DVT. We would recommend no further anticoagulation. She has received two doses of IV iron. Would recommend oral iron with stool softener and laxative; however, the daughter does not want the patient to start this as she has a history of fecal impactions. We will check B12, folic acid, and retic count. She may need further endoscopy if she continues to drop as there is no evidence of hemolysis or myelodysplastic syndrome. We will follow her hospital course closely. Thank you for the consult. Job ID: [id number]
[2018-10-10] MEDS: Lorazepam 0.5 MG TAB PO PRN (20:46)
[2018-10-11] MEDS: Levothyroxine Sodium 75 MCG TAB PO SCH (05:32)
[2018-10-11 06:54] LABS: Hemoglobin 9.6 g/dL (12.0-16.0); Mean Corpuscular HGB CONC 31.8 g/dL (32.0-36.0); Mean Corpuscular Hemoglobin 29.9 pg (27.0-31.0); Mean Corpuscular Volume 93.8 fL (78.0-98.0); Mean Platelet Volume 6.5 fL (7.4-10.4); Platelet Count 378 thou/uL (130-400); RBC Distribution Width 16.3 % (11.5-14.5); Red Blood Cell (RBC) Count 3.22 mill/uL (4.20-5.40); White Blood Cell (WBC) Count 3.8 thou/uL (4.8-10.8)
[2018-10-11 06:56] LABS: Anion Gap 10 mmol/L (10-20); BUN (Urea Nitrogen) 20 mg/dL (9.8-20.1); Calc. Creatinine Clearance 40 mL/min (70-130); Calcium 10.2 mg/dL (7.8-10.44); Carbon Dioxide 21 mmol/L (23-31); Chloride 108 mmol/L (98-107); Estimated GFR-MDRD 68; Glucose 93 mg/dL (83-110); Sodium 135 mmol/L (136-145)
[2018-10-11 07:33] LABS: Folate (Folic Acid) 9.5 ng/mL (7.0-31.4)
--- NOTE | 2018-10-11 07:50 | PRG ---
DATE OF SERVICE: 10/10/2018 SUBJECTIVE: Ms. Kathleen is still in the hospital. We have been asked to re-evaluate with her hemoglobin drop from 8.2 on the , to 7.3 on the , and 6.9 today. The nurses note that she has had no overt bleeding. The family notes she has had no overt bleeding. Presently, she is sleepy. Daughter notes she is not really sure why. She does not think she got any sedatives last night, but she has been difficult to arouse. MEDICATIONS: Reviewed. She is on; 1. Tylenol. 2. Dulcolax p.r.n. 3. Calcium. 4. Diltiazem. 5. Guaifenesin. 6. Ipratropium. 7. Levothyroxine. 8. Loperamide p.r.n. 9. . 10. Ativan p.r.n. 11. Megace. 12. Zofran. 13. Protonix. 14. Sertraline. On reviewing her MAR, she did receive some Ativan at 0700 hours last night, 0.5 mg. OBJECTIVE: VITAL SIGNS: Temperature 98, pulse 69, blood pressure 128/62. HEENT: Conjunctiva is clear but pale. Oropharynx without lesions. NECK: Supple. ABDOMEN: Soft and nontender. RECTAL: Reveals a green stool. She has iron studies of 13 and 221, both low on 09/29. This suggests more of anemia of chronic disease. She has had some stool Hemoccult positive, other Hemoccult negative; most recent on 09/26 was positive; however on 09/13, it was negative. ASSESSMENT: Anemia. Suspect this is multifactorial and probably chronic disease and probably chronic disease is at play. She has had two upper endoscopies, one with a scant erosion in her stomach, which we did cauterize as she was on blood thinners at that time, but that has been stopped. Subsequently, there was a drop in hemoglobin and she was re-scoped by Dr. Silva on 09/27 that showed nothing, which showed nothing except for a bland white based ulcer. She is no longer on any blood thinners as all of that should be a bleeding source. RECOMMENDATIONS: Consider Hematology consult. Agree with transfusion. Monitor hemoglobin and hematocrit. At this time, we can always consider colonoscopy as she has had one in 2018, however, without overt GI bleeding, and with her level of consciousness being little bit diminished, I would not proceed with that at this time. Job ID: [id number]
[2018-10-11 08:48] LABS: Eosinophils 3 % (0-10); Hypochromia SLIGHT = 6-15 cells (100X) (0-5/hpf); Lymphocytes 40 % (21-51); MDiff Complete? YES; Monocytes 9 % (0-10); Myelocyte 4 % (0-0); Neutrophil 44 % (42-75); Platelet Morphology Comment Appears Adequate; Polychromasia MODERATE = 3-4 cells (100X) (0-2/hpf)
--- NOTE | 2018-10-11 12:10 | PDOC.PN ---
- Subjective Encounter Start Date: 10/11/18 Encounter Start Time: 09:30 Patient seen and examined. No new complaints. No overnight events - Objective Resuscitation Status - Order Detail: 09/26/18 23:26 Resuscitation Status Routine Resuscitation Status: DNAR: NO Resuscitation Discussed with: patient, RN has verified OOH DNR MAR Reviewed: Yes Vital Signs & Weight: Vital Signs (12 hours) Temp Pulse Resp BP BP Pulse Ox 10/11/18 08:24 73 123/70 10/11/18 07:32 98.1 F 73 19 123/70 99 10/11/18 05:03 97.3 F L 73 18 129/67 99 Weight Admit Weight 110 lb 3.2 oz Weight 108 lb Most Recent Monitor Data Heart Rate from ECG 81 NIBP 129/70 NIBP BP-Mean 89 Respiration from ECG 15 SpO2 98 I&O: 10/10/18 10/11/18 10/12/18 06:59 06:59 06:59 Intake Total 1390 740 Balance 1390 740 Result Diagrams: 10/11/18 05:44 10/11/18 05:44 Phys Exam - Physical Examination Constitutional: NAD HEENT: PERRLA, moist MMs, sclera anicteric Neck: no JVD, supple Respiratory: no wheezing, no rales, no rhonchi Cardiovascular: RRR, no significant murmur, no rub Gastrointestinal: soft, non-tender, no distention Musculoskeletal: no edema, pulses present Neurological: non-focal Lymphatic: no nodes Psychiatric: normal affect Skin: no rash, normal turgor Dx/Plan (1) Acute blood loss anemia Code(s): D62 - ACUTE POSTHEMORRHAGIC ANEMIA Status: Acute (2) Gastric ulcer Code(s): K25.9 - GASTRIC ULCER, UNSP ACUTE OR CHRONIC, W/O HEMOR OR PERF Status: Acute (3) Hypothyroidism Code(s): E03.9 - HYPOTHYROIDISM, UNSPECIFIED Status: Chronic (4) Silverio lesion, acute Code(s): K25.3 - ACUTE GASTRIC ULCER WITHOUT HEMORRHAGE OR PERFORATION Status : Acute (5) Hiatal hernia Code(s): K44.9 - DIAPHRAGMATIC HERNIA WITHOUT OBSTRUCTION OR GANGRENE Status: Chronic (6) Protein-calorie malnutrition, moderate Code(s): E44.0 - MODERATE PROTEIN-CALORIE MALNUTRITION Status: Chronic (7) Vitamin B12 deficiency Code(s): E53.8 - DEFICIENCY OF OTHER SPECIFIED B GROUP VITAMINS Status: Acute - Plan cont current plan of care, plan discussed w/ family, PT/OT, social service worker * continue vitamin B12 * medication reviewed as below * symptomatic treatment * expecting discharge to SN[facility] tomorrow as per daughter request. Review of Systems - Review of Systems Other: not reliable due to dementia - Medications/Allergies Allergies/Adverse Reactions: Allergies Allergy/AdvReac Type Severity Reaction Status Date / Time Iodine and Iodide Containing Allergy Verified 09/13/18 22:30 Produc Sulfa (Sulfonamide Allergy Verified 09/13/18 22:30 Antibiotics) diphenhydramine AdvReac Verified 09/13/18 22:30 [From Benadryl] Medications: Current Medications Acetaminophen (Tylenol) 650 mg PO Q4HR PRN PRN Reason: Pain Last Admin: 10/09/18 19:43 Dose: 650 mg Albuterol/Ipratropium (Duoneb) 3 ml NEB Q4H PRN PRN Reason: SOB &/or Wheezing Artificial Tears (Tears Naturale) 2 drop EA EYE PRN PRN PRN Reason: Dry Eyes Bisacodyl (Dulcolax) 10 mg PO DAILYPRN PRN PRN Reason: Constipation Last Admin: 10/08/18 16:59 Dose: 10 mg Calcium Carbonate (Tums) 1,000 mg PO Q4H PRN PRN Reason: Heartburn or Indigestion Cyanocobalamin (Vitamin B-12) 1,000 mcg IM DAILY [facility] Diltiazem HCl (Cardizem Cd) 120 mg PO DAILY [facility] Last Admin: 10/11/18 08:24 Dose: 120 mg Guaifenesin (Robitussin Sf) 200 mg PO Q4H PRN PRN Reason: Cough Hydralazine HCl (Apresoline) 10 mg SLOW IVP Q4H PRN PRN Reason: SBP > 180 and HR < 70 Levothyroxine Sodium (Synthroid) 75 mcg PO 0600 [facility] Last Admin: 10/11/18 05:32 Dose: 75 mcg Loperamide HCl (Imodium) 2 mg PO PRN PRN PRN Reason: Diarrhea/Loose Stools Loratadine (Claritin) 10 mg PO DAILYPRN PRN PRN Reason: Sinus Symptoms Last Admin: 10/09/18 02:08 Dose: 10 mg Lorazepam (Ativan) 0.5 mg PO HSPRN PRN PRN Reason: Anxiety Last Admin: 10/10/18 20:46 Dose: 0.5 mg Mineral Oil/White Petrolatum (Eucerin Cream) 0 gm TOP BIDPRN PRN PRN Reason: Dry Skin Ondansetron HCl (Zofran Odt) 4 mg PO Q6H PRN PRN Reason: Nausea/Vomiting Ondansetron HCl (Zofran) 4 mg IVP Q6H PRN PRN Reason: Nausea/Vomiting Pantoprazole Sodium (Protonix) 40 mg PO BID [facility] Last Admin: 10/11/18 08:25 Dose: 40 mg Senna/Docusate Sodium (Senokot S) 2 tab PO BID PRN PRN Reason: Constipation Last Admin: 10/09/18 19:43 Dose: 2 tab Sertraline HCl (Zoloft) 50 mg PO DAILY [facility] Last Admin: 10/11/18 08:25 Dose: 50 mg Sodium Chloride (Flush - Normal Saline) 10 ml IVF Q12HR [facility] Last Admin: 10/11/18 08:25 Dose: 10 ml Sodium Chloride (Flush - Normal Saline) 10 ml IVF PRN PRN PRN Reason: Saline Flush Last Admin: 09/30/18 22:10 Dose: 10 ml Sodium Chloride ([place] Nasal [place] 0.65%) 0 ml EA NARE QIDPRN PRN PRN Reason: Nasal Congestion Throat Lozenges (Cepastat Lozenges) 1 baldev PO Q2H PRN PRN Reason: Sore Throat
[2018-10-11] MEDS: Cyanocobalamin 1000 MCG/ML VIAL IM SCH (14:37)
[2018-10-11] MEDS: Senokot S 8.6-50 MG TAB PO PRN (20:05)
[2018-10-11] MEDS: Lorazepam 0.5 MG TAB PO PRN (20:05)
[2018-10-11] MEDS: Acetaminophen 325 MG TAB PO PRN (20:06)
[2018-10-12] MEDS: Levothyroxine Sodium 75 MCG TAB PO SCH (05:24)
[2018-10-12] MEDS: Cyanocobalamin 1000 MCG/ML VIAL IM SCH (10:00)
[2018-10-12] MEDS: Docusate 100 MG CAP PO SCH (22:23)
--- NOTE | 2018-10-12 23:28 | PRG ---
DATE OF SERVICE: 10/11/2018 HISTORY OF PRESENT ILLNESS: Ms. Kathleen is much more awake. She is without distress. No overt signs of bleeding. B12 discovered to be low and is being replaced with injections and replaced p.o. PHYSICAL EXAMINATION: VITAL SIGNS: Temperature is 98.1, pulse 73, blood pressure 123/70. GENERAL: She is frail, elderly. She is in no distress. She is awake. CONSULTATIONS: Since last visit, Hematology saw the patient. Gave the IV iron and checked B12 and folate. LABORATORY STUDIES: White count 3.4, hemoglobin 9.6 after 1 unit of blood has come up from 6.9, platelet count 378. Sodium 135, potassium 4. BUN and creatinine 20 and 0.8. B12 was 173. ASSESSMENT: Anemia. There has been no overt signs of bleeding. Colonoscopy was performed last year, 2 EGDs have been performed this year. She is Hemoccult positive. Discussed with the family the option of repeating colonoscopy, but again I think this would be difficult for her and they agreed and I am going to proceed with that. In light of her low B12, we will replace that. Her hemoglobin did increase from 6.9 to 9.6 with 1 unit of blood. We will see if this stays stable. We will continue to follow along with you. Job ID: [id number]
[2018-10-13] MEDS: Levothyroxine Sodium 75 MCG TAB PO SCH (06:45)
--- NOTE | 2018-10-13 07:11 | PDOC.PN ---
- Subjective Encounter Start Date: 10/12/18 Encounter Start Time: 16:00 - Objective Resuscitation Status - Order Detail: 09/26/18 23:26 Resuscitation Status Routine Resuscitation Status: DNAR: NO Resuscitation Discussed with: patient, RN has verified OOH DNR MAR Reviewed: Yes Vital Signs & Weight: Vital Signs (12 hours) Temp Pulse Resp BP Pulse Ox 10/12/18 20:00 99 10/12/18 19:59 98.3 F 76 16 131/67 99 Weight Admit Weight 110 lb 3.2 oz Weight 108 lb Most Recent Monitor Data Heart Rate from ECG 81 NIBP 129/70 NIBP BP-Mean 89 Respiration from ECG 15 SpO2 98 I&O: 10/12/18 10/13/18 10/14/18 06:59 06:59 06:59 Intake Total 1240 350 Balance 1240 350 Result Diagrams: 10/11/18 05:44 10/11/18 05:44 Dx/Plan (1) Acute blood loss anemia Code(s): D62 - ACUTE POSTHEMORRHAGIC ANEMIA Status: Acute (2) Silverio lesion, acute Code(s): K25.3 - ACUTE GASTRIC ULCER WITHOUT HEMORRHAGE OR PERFORATION Status : Acute (3) Gastric ulcer Code(s): K25.9 - GASTRIC ULCER, UNSP ACUTE OR CHRONIC, W/O HEMOR OR PERF Status: Acute (4) Vitamin B12 deficiency Code(s): E53.8 - DEFICIENCY OF OTHER SPECIFIED B GROUP VITAMINS Status: Acute (5) Hiatal hernia Code(s): K44.9 - DIAPHRAGMATIC HERNIA WITHOUT OBSTRUCTION OR GANGRENE Status: Chronic (6) Hypothyroidism Code(s): E03.9 - HYPOTHYROIDISM, UNSPECIFIED Status: Chronic (7) Protein-calorie malnutrition, moderate Code(s): E44.0 - MODERATE PROTEIN-CALORIE MALNUTRITION Status: Chronic - Plan cont current plan of care, plan discussed w/ family, DVT proph w/SCDs Cont PPI with Vit B12 supp -: Accepted at [facility] - Can take her in AM (not today) -: AM labs Review of Systems - Medications/Allergies Allergies/Adverse Reactions: Allergies Allergy/AdvReac Type Severity Reaction Status Date / Time Iodine and Iodide Containing Allergy Verified 09/13/18 22:30 Produc Sulfa (Sulfonamide Allergy Verified 09/13/18 22:30 Antibiotics) diphenhydramine AdvReac Verified 09/13/18 22:30 [From [place]] Medications: Current Medications Acetaminophen (Tylenol) 650 mg PO Q4HR PRN PRN Reason: Pain Last Admin: 10/11/18 20:06 Dose: 650 mg Albuterol/Ipratropium (Duoneb) 3 ml NEB Q4H PRN PRN Reason: SOB &/or Wheezing Artificial Tears (Tears Naturale) 2 drop EA EYE PRN PRN PRN Reason: Dry Eyes Bisacodyl (Dulcolax) 10 mg PO DAILYPRN PRN PRN Reason: Constipation Last Admin: 10/08/18 16:59 Dose: 10 mg Calcium Carbonate (Tums) 1,000 mg PO Q4H PRN PRN Reason: Heartburn or Indigestion Last Admin: 10/11/18 20:01 Dose: 1,000 mg Cyanocobalamin (Vitamin B-12) 1,000 mcg IM DAILY [facility] Last Admin: 10/12/18 10:00 Dose: 1,000 mcg Cyanocobalamin (Vitamin B-12) 1,000 mcg PO DAILY [facility] Diltiazem HCl (Cardizem Cd) 120 mg PO DAILY [facility] Last Admin: 10/12/18 10:00 Dose: 120 mg Docusate Sodium (Colace) 100 mg PO BID [facility] Last Admin: 10/12/18 22:23 Dose: 100 mg Guaifenesin (Robitussin Sf) 200 mg PO Q4H PRN PRN Reason: Cough Hydralazine HCl (Apresoline) 10 mg SLOW IVP Q4H PRN PRN Reason: SBP > 180 and HR < 70 Levothyroxine Sodium (Synthroid) 75 mcg PO 0600 [facility] Last Admin: 10/12/18 05:24 Dose: 75 mcg Loperamide HCl (Imodium) 2 mg PO PRN PRN PRN Reason: Diarrhea/Loose Stools Loratadine (Claritin) 10 mg PO DAILYPRN PRN PRN Reason: Sinus Symptoms Last Admin: 10/09/18 02:08 Dose: 10 mg Mineral Oil/White Petrolatum (Eucerin Cream) 0 gm TOP BIDPRN PRN PRN Reason: Dry Skin Ondansetron HCl (Zofran Odt) 4 mg PO Q6H PRN PRN Reason: Nausea/Vomiting Ondansetron HCl (Zofran) 4 mg IVP Q6H PRN PRN Reason: Nausea/Vomiting Pantoprazole Sodium (Protonix) 40 mg PO DAILY [facility] Senna/Docusate Sodium (Senokot S) 2 tab PO BID PRN PRN Reason: Constipation Last Admin: 10/11/18 20:05 Dose: 2 tab Sertraline HCl (Zoloft) 50 mg PO DAILY [facility] Last Admin: 10/12/18 10:00 Dose: 50 mg Sodium Chloride (Flush - Normal Saline) 10 ml IVF Q12HR [facility] Last Admin: 10/12/18 22:23 Dose: 10 ml Sodium Chloride (Flush - Normal Saline) 10 ml IVF PRN PRN PRN Reason: Saline Flush Last Admin: 09/30/18 22:10 Dose: 10 ml Sodium Chloride ([place] Nasal [place] 0.65%) 0 ml EA NARE QIDPRN PRN PRN Reason: Nasal Congestion Throat Lozenges (Cepastat Lozenges) 1 baldev PO Q2H PRN PRN Reason: Sore Throat
[2018-10-13 07:34] LABS: Hemoglobin 9.6 g/dL (12.0-16.0); Mean Corpuscular HGB CONC 33.6 g/dL (32.0-36.0); Mean Corpuscular Hemoglobin 30.3 pg (27.0-31.0); Mean Platelet Volume 6.3 fL (7.4-10.4); Platelet Count 359 thou/uL (130-400); RBC Distribution Width 17.7 % (11.5-14.5); Red Blood Cell (RBC) Count 3.18 mill/uL (4.20-5.40); White Blood Cell (WBC) Count 4.5 thou/uL (4.8-10.8)
[2018-10-13 07:38] LABS: Anion Gap 11 mmol/L (10-20); BUN (Urea Nitrogen) 27 mg/dL (9.8-20.1); Calc. Creatinine Clearance 39 mL/min (70-130); Calcium 10.2 mg/dL (7.8-10.44); Carbon Dioxide 20 mmol/L (23-31); Chloride 106 mmol/L (98-107); Estimated GFR-MDRD 65; Glucose 94 mg/dL (83-110); Potassium 4.1 mmol/L (3.5-5.1); Sodium 133 mmol/L (136-145)
[2018-10-13] MEDS ORDERED: Ferrous Sulfate 325 MG TAB PO SCH (08:00)
[2018-10-13] MEDS: Docusate 100 MG CAP PO SCH (08:49)
[2018-10-13] MEDS ORDERED: Cyanocobalamin (Vitamin B-12) 1,000 MCG TAB PO SCH (09:00)
[2018-10-13] MEDS: Cyanocobalamin 1000 MCG/ML VIAL IM SCH (09:04)
[2018-10-13 09:38] LABS: Bilirubin Negative (Negative); Blood, Urine Negative (Negative); Clarity CLOUDY (Clear); Glucose, Urine (Dipstick) Negative (Negative); Leukocyte Negative (Negative); Nitrite Negative (Negative); Protein, Urine (Dipstick) Negative (Neg-Trace); Specific Gravity, Urine 1.015 (1.002-1.036)
[2018-10-13 09:39] LABS: Bacteria/HPF Rare-Few HPF (None Seen); Hyaline Casts/LPF 0-3 HYALINE CAST LPF (0-3 Hyaline); Pathc Cast-AUWi Flag 0.14 (0-2.49); RBC/HPF 0-3 HPF (0-3); Squamous Epithelial None Seen HPF (0-3); WBC/HPF 0-3 HPF (0-3)
[2018-10-13 09:41] LABS: Urine Culture Reflex No No
[2018-10-13 10:17] LABS: Band 8 % (5-11); Eosinophils 3 % (0-10); Lymphocytes 31 % (21-51); MDiff Complete? YES; Metamyelocyte 1 % (0-0); Monocytes 17 % (0-10); Myelocyte 1 % (0-0); Neutrophil 39 % (42-75); Polychromasia SLIGHT = 2-3 cells (100X) (0-2/hpf)
--- NOTE | 2018-10-13 10:28 | PRG ---
DATE OF SERVICE: 10/12/2018 HISTORY OF PRESENT ILLNESS: The patient has been little bit sleepy but she is up and eating. PHYSICAL EXAMINATION: VITAL SIGNS: Temperature is 98, pulse 76, blood pressure 133/67. GENERAL: She is in no distress. ABDOMEN: Nontender. NEUROLOGIC: She is awake and oriented. LABORATORY STUDIES: Today, none. ASSESSMENT: 1. No signs of overt GI bleeding. 2. She is on oral iron. I think that with her recent 2 iron infusions that she probably does not need any oral iron as it could be very constipating for her and makes her not want to eat and we will hold that. 3. PPI can be dropped to once a day. 4. She received Ativan last night. I would go ahead and stop that. She is already very sleepy during the day. We will follow along with you. Job ID: [id number]
[2018-10-13 11:46] VITALS: BP 111/65; TEMP 98.3
--- NOTE | 2018-10-14 12:52 | DIS ---
DATE OF ADMISSION: 09/26/2018 DATE OF DISCHARGE: 10/13/2018 DISCHARGE DISPOSITION: To [facility]. DISCHARGE FOLLOWUP: The patient will follow up with primary care physician, Dr. Cope post discharge. The patient was advised to follow up with Gastroenterology, Dr. Silva and Dr. Meredith. CODE STATUS: Do not resuscitate. ALLERGIES: THE PATIENT IS ALLERGIC TO IODINE, SULFA, AND BENADRYL. THE PATIENT WAS SEEN AND EXAMINED ON THE DAY OF DISCHARGE. DENIES ANY NEW COMPLAINTS. NO CHEST PAIN, SHORTNESS OF BREATH, OR PALPITATIONS REPORTED. DISCHARGE MEDICATIONS: 1. Megace 400 mg twice a day. 2. MiraLAX 17 g daily as needed. 3. Zoloft 50 mg daily. 4. Tylenol as needed. 5. Vitamin B12 of 1000 mcg every monthly. 6. Cardizem CD 120 mg daily. 7. Colace 100 mg b.i.d. 8. Ferrous sulfate liquid daily. 9. Folic acid 1 mg daily. 10. Synthroid 75 mcg daily. 11. Multivitamin 1 tablet daily. 12. Protonix 40 mg daily. INPATIENT CONSULTANTS: Cardiology, Dr. Meredith; Gastroenterology, Dr. Silva; Oncology, Dr. Vila; Critical Care, Dr. Orosco. BRIEF HOSPITAL COURSE: The patient is an 83-year-old female with hypothyroidism, peptic ulcer disease, and GI bleeding in the past, presented to the hospital with black tarry stool of 1 week duration. Please refer to the history and physical for further details. The patient was admitted to the hospital with diagnosis of anemia secondary to upper GI bleed. The patient was evaluated by Gastroenterology Service. Then, EGD was performed that showed 1.5 cm triangular shaped clean based ulceration in the gastric antrum without high-risk stigmata of bleeding. There were also multiple 3 to 4 mm gastric polyps along with 3 cm hiatal hernia. She was started on IV PPI that was changed to oral. Her hemoglobin and hematocrit were closely monitored. Her hemoglobin on admission was 5.6. She received a total of 4 units of PRBC. Her blood counts have remained stable at 9.6 over the last 48 hours. She was also found to have vitamin B12 level of 173 with TSH of 41 and free T4 of 0.63. She has been started on levothyroxine as well as vitamin B12 supplementation. She was also evaluated by Oncology Service. Reticulocyte 4.5. Lactic acid 2.4 on admission. During this hospital stay, the patient developed atrial fibrillation with rapid ventricular response. She has been started on oral Cardizem. She is not a candidate for anticoagulation due to GI bleeding. An echocardiogram was performed that showed ejection fraction 55% to 60% with mild tricuspid regurgitation, mildly elevated pulmonary artery pressure. Please refer to the consultation notes for details. She also had episodes of delirium during this hospital stay. FINAL DIAGNOSES: 1. Gastrointestinal bleeding. 2. Acute blood loss anemia. 3. Gastric ulcer. Repeat esophagogastroduodenoscopy in 8 to 12 weeks is recommended. 4. Hypothyroidism. 5. Hiatal hernia. 6. Moderate protein-calorie malnutrition. 7. Vitamin B12 deficiency. 8. Lactic acidosis, on admission. 9. Leukopenia. TIME SPENT: Total time coordinating the discharge of this patient was 36 minutes. PLAN: Plan was discussed with the patient and the family at the bedside. They stated understanding. Job ID: [id number]
== END 2018-10-13 12:38 | DRG 377 ==
LOC: ERS 14:57 → IMCU/EMU 18:53 → T4-A 10-05 15:54
PROVIDERS: ADMIT Emergency Medicine; ATTEND Emergency Medicine
PROC: 30233N1 Transfusion of Nonautologous Red Blood Cells into Peripheral Vein, Percutaneous Approach (ICD-10-PCS; principal; 2018-10-10)
DX: K25.4 Chronic or unspecified gastric ulcer with hemorrhage (principal); G93.41 Metabolic encephalopathy; D62 Acute posthemorrhagic anemia; E44.0 Moderate protein-calorie malnutrition; Z68.1 Body mass index [BMI] 19.9 or less, adult; E87.2 Acidosis; I48.92 Unspecified atrial flutter; E03.9 Hypothyroidism, unspecified; Z79.890 Hormone replacement therapy; K44.9 Diaphragmatic hernia without obstruction or gangrene; K63.5 Polyp of colon; G30.0 Alzheimer's disease with early onset; F02.80 Dementia in other diseases classified elsewhere, unspecified severity, without behavioral disturbance, psychotic disturbance, mood disturbance, and anxiety; M54.16 Radiculopathy, lumbar region; Z88.2 Allergy status to sulfonamides; Z88.8 Allergy status to other drugs, medicaments and biological substances; E53.8 Deficiency of other specified B group vitamins; D72.819 Decreased white blood cell count, unspecified; Z85.3 Personal history of malignant neoplasm of breast; Z92.21 Personal history of antineoplastic chemotherapy; Z92.3 Personal history of irradiation; I48.0 Paroxysmal atrial fibrillation; Z86.718 Personal history of other venous thrombosis and embolism; Z66 Do not resuscitate; G47.00 Insomnia, unspecified; K59.04 Chronic idiopathic constipation
CPT/HCPCS: 36415; 36430; 51701; 71045; 72100; 80048; 80053; 81001; 81003; 82274; 82607; 82728; 82746; 83540; 83550; 83605; 83690; 83735; 84439; 84443; 85014; 85018; 85025; 85046; 85049; 86850; 86900; 86901; 93005; 93306; 96365; 96368; A4353; C9113; J0696; J2001; J2704; J2916; J3420; J7050; P9016

== ENCOUNTER 2018-10-28 16:33 | Inpatient (IN) | payer MEDICARE, OTHER ==
[2018-10-28 17:20] LABS: #Eosinphils 0.1 thou/uL (0.0-0.7); #Lymphocytes 1.2 thou/uL (1.20-3.40); #Neutrophils 4.4 thou/uL (1.40-6.50); %Basophils 0.2 % (0.0-1.0); %Eosinophils 1.3 % (0.0-10.0); %Lymphocytes 18.2 % (21.0-51.0); %Monocytes 14.5 % (0.0-10.0); %Neutrophils 65.8 % (42.0-75.0); Hemoglobin 7.6 g/dL (12.0-16.0); Mean Corpuscular HGB CONC 31.4 g/dL (32.0-36.0); Mean Corpuscular Hemoglobin 31.8 pg (27.0-31.0); Mean Platelet Volume 7.1 fL (7.4-10.4); Platelet Count 265 thou/uL (130-400); RBC Distribution Width 19.5 % (11.5-14.5); Red Blood Cell (RBC) Count 2.38 mill/uL (4.20-5.40); White Blood Cell (WBC) Count 6.8 thou/uL (4.8-10.8)
[2018-10-28 17:39] LABS: ALT (SGPT) 13 U/L (8-55); AST (SGOT) 26 U/L (5-34); Albumin 3.3 g/dL (3.4-4.8); Alkaline Phosphatase 47 U/L (40-150); Anion Gap 11 mmol/L (10-20); BUN (Urea Nitrogen) 34 mg/dL (9.8-20.1); Bilirubin, Total Less than 0.2 mg/dL (0.2-1.2); Calc. Creatinine Clearance 0 mL/min (70-130); Calcium 9.6 mg/dL (7.8-10.44); Carbon Dioxide 20 mmol/L (23-31); Chloride 108 mmol/L (98-107); Estimated GFR-MDRD 58; Globulin 2.9 g/dL (2.4-3.5); Glucose 98 mg/dL (83-110); Potassium 5.3 mmol/L (3.5-5.1); Protein, Total 6.2 g/dL (6.0-8.3); Sodium 134 mmol/L (136-145)
[2018-10-28] MEDS ORDERED: Pantoprazole 40 MG VIAL ONE (19:28)
[2018-10-28] MEDS ORDERED: Acetaminophen 325 MG TAB PO PRN (19:52)
[2018-10-28] MEDS ORDERED: Ondansetron ODT 4 MG TAB SL PRN (19:52)
[2018-10-28] MEDS ORDERED: Ondansetron PF 4 MG/2 ML Vial IVP PRN (19:52)
[2018-10-28] MEDS ORDERED: Dextrose 5 %-0.45 % NaCl 1,000 ML IV SCH (20:00)
--- NOTE | 2018-10-28 22:09 | HP ---
CHIEF COMPLAINT: Anemia with GI bleed. HISTORY OF PRESENT ILLNESS: The patient is an 83-year-old [facility] patient who on routine clinic evaluation was found to have a hemoglobin of 6.8, at which time she was sent from the retirement to the hospital for further evaluation. At the time of discharge from her previous hospitalization for such it was on 10/13, she had a hemoglobin of 9, so dropped over 2 points since discharge. She describes dull in nature, abdominal pain. The symptoms are gradual. There have been no acute episodes and there is nothing that relieves this so far. I refer to her previous hospitalizations discharge summary for details of all the latest evaluations that have been done including EGD showing a gastric ulcer. The plan was to get a capsule camera to evaluate the part of her gut that could not be seen with colonoscopy or with EGD. She was transfused 4 units at last hospitalization. PAST MEDICAL HISTORY: Significant for previous GI bleed as well as hypertension , long history of anemia, arrhythmias including atrial fibrillation, but she is not an anticoagulable candidate because of her history of GI bleed. She has had history of depression, hypothyroidism, GERD, anorexia, B12 deficiency. PAST SURGICAL HISTORY: Includes lumpectomy on the left breast in 2013, rectocele repair in 2005, pelvic mesh and back surgery in 2018. PRIOR PSYCHIATRIC HISTORY: Includes depression. SOCIAL HISTORY: Currently, she has been in rehab at [facility] due to severe deconditioning from a previous hospitalization. Prior to that, she lived at home with her spouse. ALLERGIES: SHE HAS ALLERGIES TO BENADRYL, IODIDES, AND SULFA. MEDICATIONS: On admission include; 1. Zoloft 50 mg daily. 2. Synthroid 75 mcg daily. 3. Protonix 40 mg daily. 4. Megace 1 teaspoon b.i.d. 5. Folic acid 1 mg daily. 6. Ferrous sulfate 325 mg daily. 7. Vitamin B12 1000 mcg injected weekly. 8. Colace 2 teaspoons daily. 9. Cardizem 125 mg daily. REVIEW OF SYSTEMS: CONSTITUTIONAL: Per the family, no new episodes of chills, fatigue, malaise. HEENT: No particular problems with headaches, blurred vision, pain in her mouth. CHEST: Denies shortness of breath or coughing. CARDIOVASCULAR: Denies palpitations or chest pain. ABDOMEN: Denies nausea, vomiting, or diarrhea. : Denies dysuria, blood in urine or stool that she is aware of. EXTREMITIES: Diffuse muscle wasting in all extremities. No clubbing, cyanosis , or edema. SKIN: With poor turgor. No acute lesions. NEUROLOGICAL: Significant for early dementia. Cranial nerves are intact. Gait and cerebellar function are untested. Sensory exam is generally intact. PHYSICAL EXAM: Vital Signs reviewed Pale, thin female who arouses aesily and is cooperative HEENT: Temporal wasting noted, diminished pupillary reactivity, 1-2 mm each, arcus senilus bilaterally, TM's/ Nares clear, Pharynx dry NECK: trachea midline, no masses, nl nodes CHEST: good BS bilaterally BREAST: deferred HEART: RRR , I/ EMMANUELLE murmur ABDOMEN: soft, nontender, no appreciable hepatosplenomegaly, no mass /PELVIC: deferred EXTREMITIES: symmetrical muscle loss/atrophy UE and LE bilaterally, no CCE SKIN: pale, turgor normal NEUROLOGICAL: CN intact, unable to test cerebellar or gait, DTR 1 KJ bilaterally , sensory grossly intact, Mental status slowed LABORATORY DATA: The tests thus far reveal WBC 6.8, hemoglobin 7.6, hematocrit 24.1 with a platelet count of 265. Sodium 134, potassium 5.3, chloride 105, CO2 of 20, BUN 34, creatinine 0.92 with a glucose of 98, bilirubin less than 0.2, albumin low at 3.3. UA is pending. ASSESSMENT: Anemia secondary to gastrointestinal bleed, history of gastric ulcer, hypothyroidism, hiatal hernia, moderate protein-calorie malnutrition, vitamin B12 deficiency. PLAN: Will be GI consultation for further evaluation, probable transfusion, serial re-evaluation. Job ID: [id number] [facility]
[2018-10-28 22:54] VITALS: BMI 17.8
[2018-10-29] MEDS ORDERED: Ondansetron PF 4 MG/2 ML Vial SLOW IVP PRN (07:20)
[2018-10-29] MEDS ORDERED: Sodium Chloride 0.9% (PF) 10 ML VIAL FS PRN (07:20)
[2018-10-29] MEDS: Dextrose 5 %-0.45 % NaCl 1,000 ML IV SCH ×2 (10:07→22:11)
[2018-10-29] MEDS: Pantoprazole 40 MG VIAL IVP SCH (10:08)
--- NOTE | 2018-10-29 14:40 | CON ---
DATE OF CONSULTATION: 10/29/2018 REASON FOR CONSULTATION: Anemia with possible GI bleed. HISTORY OF PRESENT ILLNESS: Maggy Kathleen is an 83-year-old woman, who lives at [facility]. She is a patient of my colleague, Dr. Stefan Scruggs. She has a history of chronic anemia with multiple recent presentations of worsening anemia and concern for GI bleeding. It looks like her last colonoscopy was in September 2017. She had some diverticulosis and a couple of small polyps removed at that time. She has had a couple of EGDs already this year due to worsening of anemia despite oral iron supplementation. In August, Dr. Meza saw a small erosion, which he cauterized. The patient presented again in September and Dr. Silva performed EGD and this demonstrated a 3 cm hiatal hernia with no Silverio erosion, but there was a 1.5 cm clean based ulcer in the antrum. This probably represented the cautery site from her prior EGD. The ulcer was clean based and nonbleeding. Since then, the patient has been on ferrous sulfate 325 mg daily, continued on Protonix 40 mg daily, but over the past month she has dropped her blood count again from 9.6 on hospital discharge a month ago, now down to 7.6. Bowel movements are described as generally dark, but note she is on oral iron. She is hemodynamically stable. She has not been transfused here. Note, her BUN is elevated more than normally and out of proportion to the creatinine with BUN 34 and creatinine 0.92. The prior plan had been to possibly arrange for capsule endoscopy to evaluate for obscure small bowel bleeding, but this has not been set up yet. PAST MEDICAL HISTORY: Hypertension, chronic anemia, atrial fibrillation and no longer on anticoagulation, vitamin B12 deficiency, anorexia, GERD, hypothyroidism, depression, left breast lumpectomy in 2013, rectocele repair in 2005, and pelvic mesh and back surgery in 2018. SOCIAL HISTORY: She is at [facility] due to severe deconditioning. ALLERGIES: BENADRYL, IODINE, AND SULFA. MEDICATIONS: 1. Zoloft. 2. Synthroid. 3. Protonix 40 mg daily. 4. Megace 1 teaspoon b.i.d. 5. Folic acid 1 mg daily. 6. Vitamin B12 of 1000 mcg injected weekly. 7. Ferrous sulfate 325 mg daily. 8. Colace 2 teaspoons daily. 9. Cardizem 125 mg daily. REVIEW OF SYSTEMS: Full review of systems including constitutional, head, eyes, ears, nose, throat, GI, , cardiovascular, respiratory, musculoskeletal, and neurologic systems are negative except as noted in the HPI. PHYSICAL EXAMINATION: VITAL SIGNS: Temperature 97.7, pulse 71, blood pressure 135/74, and 100% oxygen saturation on room air. GENERAL: Elderly, frail 83-year-old woman, lying in bed comfortably, in no distress. MENTAL: She is alert and oriented. She has a depressed affect. She is able to answer questions by nodding her head, but really is not verbalizing with me today. SKIN: Pale. No jaundice. No rashes were palpable. EYES: No scleral icterus. Extraocular movements intact. ENT: Mucous membranes moist. No oral lesions. LYMPH: No submandibular or supraclavicular lymphadenopathy. Thyroid nontender to palpation. HEART: Regular rate and rhythm. LUNGS: Clear to auscultation bilaterally. ABDOMEN: Bowel sounds present. Soft and nontender to palpation. EXTREMITIES: No peripheral edema. VESSELS: Radial pulses 2+ bilaterally. NEURO: Cranial nerves 2 through 12 intact bilaterally. No focal deficits. LABORATORY STUDIES: WBC 6.8, hemoglobin 7.6, MCV is 101.0, and platelets 265. Sodium 134, potassium 5.3, BUN 34, and creatinine 0.92. LFTs are all normal. Albumin 3.3. ASSESSMENT AND PLAN: 1. Acute on chronic anemia. 2. History of gastric antral ulcer, seen on last esophagogastroduodenoscopy in September 2018. This presentation is similar to her prior presentations over the past several months with worsening chronic anemia. She really has no overt gastrointestinal bleeding, at least none that anybody has really seen. The patient certainly may have some obscure small bowel bleeding source and I think the plan for capsule endoscopy is certainly reasonable. We cannot really perform that over the weekend here at the hospital, but it could be set up in the next few weeks on an outpatient basis. More acutely, I do note that her BUN is elevated out of proportion to the creatinine, and I am curious as to whether this gastric antral ulcer is healing or not, or whether it could actually be the source of ongoing bleeding over the past month. It would be reasonable to do an esophagogastroduodenoscopy tomorrow for further investigation. The patient can have a diet today, but we will have her n.p.o. after midnight for esophagogastroduodenoscopy tomorrow. In the meantime, I agree with trending the H and H, and agree with the IV Protonix. Thank you for the consultation. Please call at anytime with questions or concerns. Job ID: [id number]
[2018-10-29 18:35] LABS: Bilirubin Negative (Negative); Blood, Urine Negative (Negative); Glucose, Urine (Dipstick) Negative (Negative); Leukocyte Moderate (Negative); Nitrite Positive (Negative); Protein, Urine (Dipstick) Negative (Neg-Trace); Urobilinogen 0.2 mg/dL (0.2-1.0); pH, Urine 6.5 (5.0-9.0)
[2018-10-29 18:36] LABS: Clarity Cloudy (Clear)
[2018-10-29 18:48] LABS: Bacteria/HPF 4+ HPF (None Seen); RBC/HPF None Seen HPF (0-3); Squamous Epithelial None Seen HPF (0-3)
[2018-10-29 18:49] LABS: Hyaline Casts/LPF NONE SEEN LPF (0-3 Hyaline)
[2018-10-30] MEDS ORDERED: Ketamine 50 MG/ML (10ML VIAL) ONE (08:41)
[2018-10-30] MEDS ORDERED: Promethazine HCl 25 MG/ML VIAL SLOW IVP PRN (09:09)
[2018-10-30] MEDS ORDERED: Ondansetron HCl/PF 4 MG/2 ML Vial IVP PRN (09:09)
[2018-10-30] MEDS ORDERED: Promethazine HCl 25 MG/ML VIAL IM PRN (09:09)
[2018-10-30] MEDS: Pantoprazole 40 MG VIAL IVP SCH (09:55)
--- NOTE | 2018-10-30 10:52 | OP ---
DATE OF PROCEDURE: 10/30/2018 STORE DELI MANAGER SURGEON: None. PROCEDURE PERFORMED: EGD, diagnostic. INDICATIONS: 1. Acute on chronic anemia. 2. History of gastric ulcer. MEDICATIONS: See Anesthesia record. FINDINGS: After discussion of the risks, benefits, and alternatives of the procedure, informed consent was obtained and witnessed. Pre-endoscopic cardiopulmonary examination was satisfactory. Time-out was performed before sedation was achieved. Sedation was achieved with Anesthesia assistance in the endoscopy unit. A Pentax adult upper endoscope was placed into the oropharynx and passed through the cricopharyngeus under direct visualization. The esophageal mucosa appeared normal throughout with a normal-appearing Z-line. The endoscope was advanced into the stomach. Forward and retroflexed views of the entire gastric mucosa were obtained. There was a small sliding hiatal hernia with no evidence of any associated ulceration or erosion. Most of the gastric mucosa appears normal, but in the gastric antrum on the anterior wall, there is a small clean-based ulceration. This is in the same location as that described by Dr. Silva one month ago. The ulcer appears less than 1 cm in diameter. It is cratered, but clean based. There is some friability around the edges of the ulcer, but no active bleeding. The endoscope was advanced through the pylorus and into the first and second portions of the duodenum, which appeared normal. The upper endoscope was then completely withdrawn, and the patient allowed to recover. The patient tolerated the procedure well. There were no immediate postprocedure complications. IMPRESSION: 1. Single clean-based ulceration in the gastric antrum, with friable edges, but no active bleeding. 2. Small hiatal hernia. 3. Otherwise normal esophagogastroduodenoscopy. RECOMMENDATIONS: 1. Increase her proton pump inhibitor to twice daily dosing. 2. Continue iron replacement. 3. Follow up in clinic with Dr. Scruggs or his physician assistant plant controller in the next 1-2 weeks. GI will sign off. Please call back if needed. Job ID: [id number]
[2018-10-30 11:46] LABS: Anisocytosis MODERATE=16-30 cells (100X) (0-5/hpf); Band 10 % (5-11); Eosinophils 2 % (0-10); Hemoglobin 7.3 g/dL (12.0-16.0); Lymphocytes 21 % (21-51); MDiff Complete? YES; Mean Corpuscular HGB CONC 31.5 g/dL (32.0-36.0); Mean Corpuscular Hemoglobin 30.8 pg (27.0-31.0); Mean Corpuscular Volume 97.8 fL (78.0-98.0); Mean Platelet Volume 6.9 fL (7.4-10.4); Metamyelocyte 1 % (0-0); Monocytes 14 % (0-10); Neutrophil 52 % (42-75); Platelet Count 219 thou/uL (130-400); Polychromasia SLIGHT = 2-3 cells (100X) (0-2/hpf); Red Blood Cell (RBC) Count 2.35 mill/uL (4.20-5.40); White Blood Cell (WBC) Count 4.3 thou/uL (4.8-10.8)
[2018-10-30] MEDS: Dextrose 5 %-0.45 % NaCl 1,000 ML IV SCH (14:04)
[2018-10-30] MEDS ORDERED: Lidocaine 1% PF 5 ML VIAL ONE (14:28)
[2018-10-30] MEDS ORDERED: PROPOFOL 200 MG/20 ML VIAL ONE (14:28)
[2018-10-31] MEDS: Dextrose 5 %-0.45 % NaCl 1,000 ML IV SCH ×3 (03:32→21:46)
[2018-10-31] MEDS: Levothyroxine Sodium 75 MCG TAB PO SCH (08:44)
[2018-10-31] MEDS: Megestrol Acetate 800 MG/20 ML UDCUP PO SCH ×2 (08:45→20:11)
[2018-10-31 09:40] LABS: #Eosinphils 0.1 thou/uL (0.0-0.7); #Monocytes 0.6 thou/uL (0.11-0.59); #Neutrophils 3.5 thou/uL (1.40-6.50); %Basophils 0.3 % (0.0-1.0); %Eosinophils 1.7 % (0.0-10.0); %Lymphocytes 19.9 % (21.0-51.0); %Neutrophils 67.1 % (42.0-75.0); Mean Corpuscular HGB CONC 31.6 g/dL (32.0-36.0); Mean Corpuscular Volume 98.1 fL (78.0-98.0); Mean Platelet Volume 7.1 fL (7.4-10.4); Platelet Count 256 thou/uL (130-400); RBC Distribution Width 18.6 % (11.5-14.5); Red Blood Cell (RBC) Count 2.58 mill/uL (4.20-5.40); White Blood Cell (WBC) Count 5.2 thou/uL (4.8-10.8)
--- NOTE | 2018-10-31 09:46 | PQF ---
MARLENE OCAMPO VINAYA KUMAR MD [id number] T4-B- 4432 [id number] CLINICAL DOCUMENTATION IMPROVEMENT CLARIFICATION FORM: ICD-10 Updated PLEASE DO AN ADDENDUM TO THE PROGRESS NOTE WITH ANY DOCUMENTATION UPDATES OR ADDITIONS AND CARRY THROUGH TO DC SUMMARY. THANK YOU. DATE: 10/31/2018 ATTN: DR. OSEGUERA Please exercise your independent, professional judgment in responding to the clarification form. Clinical indicators are provided on the bottom of this form for your review Please check appropriate box(s): [ ] Acute on Chronic blood loss anemia [ ] Chronic blood loss [ x ] Other diagnosis _Please send this query to Dr.Michael Cope [ ] Unable to determine In addition, please specify: Present on Admission (POA): [ ] Yes [ ] No [ ] Unable to determine For continuity of documentation, please document condition throughout progress notes and discharge summary. Thank You. CLINICAL INDICATORS - SIGNS / SYMPTOMS / LABS: 10/29 GI CONSULT-Chauncey/small erosion that was cauterized. Sep/Clean based ulcer in the antrum. Hgb 9.6 on DC from sep, now 7.6. 10/28-ER: Dark stools and abd pain. Labs at [place] showed H&H of 6.8/19.7. 10/28-LABS ON ADMIT: @1701-7.6, @1108-7.3. 10/28-ER: BP 110/58 on presentation RISK FACTORS: Advanced Age: 83-y/o Moderate Protein Calorie Malnutrition Hx of Gastric ulcers and recent admit for GI bleed Dark stools present Vitamin B12 def TREATMENTS: EGD Increased PPI Iron supplement IVF (This form is maintained as a part of the permanent medical record) 2014 [employer]. All Rights Reserved Deana May RN, [email or web address] [phone] MTDD
[2018-10-31 09:59] LABS: Anion Gap 12 mmol/L (10-20); BUN (Urea Nitrogen) 22 mg/dL (9.8-20.1); Calc. Creatinine Clearance 34 mL/min (70-130); Calcium 9.3 mg/dL (7.8-10.44); Carbon Dioxide 18 mmol/L (23-31); Chloride 108 mmol/L (98-107); Estimated GFR-MDRD 59; Glucose 127 mg/dL (83-110); Potassium 3.7 mmol/L (3.5-5.1); Sodium 134 mmol/L (136-145)
[2018-11-01] MEDS: Levothyroxine Sodium 75 MCG TAB PO SCH (06:11)
[2018-11-01] MEDS: Megestrol Acetate 800 MG/20 ML UDCUP PO SCH ×2 (09:27→20:39)
[2018-11-01] MEDS: Nitrofurantoin Monohyd/M-Cryst 100 MG CAP PO SCH ×3 (09:27→20:41)
[2018-11-01] MEDS ORDERED: Nitrofurantoin Monohyd/M-Cryst 100 MG CAP PO ONE (10:00)
--- NOTE | 2018-11-01 10:00 | PQF ---
MARLENE OCAMPO MICHAEL MD [id number] T4-B- 4432 [id number] CLINICAL DOCUMENTATION IMPROVEMENT CLARIFICATION FORM: ICD-10 Updated PLEASE DO AN ADDENDUM TO THE PROGRESS NOTE WITH ANY DOCUMENTATION UPDATES OR ADDITIONS AND CARRY THROUGH TO DC SUMMARY. THANK YOU. DATE: 10/31/2018 ATTN: DR. SAMANTHA CORNELL Please exercise your independent, professional judgment in responding to the clarification form. Clinical indicators are provided on the bottom of this form for your review Please check appropriate box(s): [ ] Acute on Chronic blood loss anemia [ x ] Chronic blood loss [ x ] Other diagnosis __GI Bleed [ ] Unable to determine In addition, please specify: Present on Admission (POA): [ x ] Yes [ ] No [ ] Unable to determine For continuity of documentation, please document condition throughout progress notes and discharge summary. Thank You. CLINICAL INDICATORS - SIGNS / SYMPTOMS / LABS: 10/29 GI CONSULT-Aug/small erosion that was cauterized. Sep/Clean based ulcer in the antrum. Hgb 9.6 on DC from sep, now 7.6. 10/28-ER: Dark stools and abd pain. Labs at [place] showed H&H of 6.8/19.7. 10/28-LABS ON ADMIT: @1701-7.6, @1108-7.3. 10/28-ER: BP 110/58 on presentation RISK FACTORS: Advanced Age: 83-y/o Moderate Protein Calorie Malnutrition Hx of Gastric ulcers and recent admit for GI bleed Dark stools present Vitamin B12 def TREATMENTS: EGD Increased PPI Iron supplement IVF (This form is maintained as a part of the permanent medical record) 2014 [employer]. All Rights Reserved Deana May RN, [email or web address] [phone] MTDD
[2018-11-01] MEDS: Dextrose 5 %-0.45 % NaCl 1,000 ML IV SCH ×2 (14:48→20:42)
[2018-11-02] MEDS: Levothyroxine Sodium 75 MCG TAB PO SCH (05:45)
[2018-11-02] MEDS: Megestrol Acetate 800 MG/20 ML UDCUP PO SCH ×2 (08:35→21:09)
[2018-11-02] MEDS: Nitrofurantoin Monohyd/M-Cryst 100 MG CAP PO SCH ×2 (08:37→21:08)
[2018-11-02] MEDS: Dextrose 5 %-0.45 % NaCl 1,000 ML IV SCH (18:30)
[2018-11-02] MEDS ORDERED: ALPRAZolam 0.25 MG TAB PO SCH (21:00)
[2018-11-03] MEDS: Dextrose 5 %-0.45 % NaCl 1,000 ML IV SCH ×2 (05:40→20:06)
[2018-11-03] MEDS: Levothyroxine Sodium 75 MCG TAB PO SCH (05:40)
[2018-11-03] MEDS: Nitrofurantoin Monohyd/M-Cryst 100 MG CAP PO SCH ×2 (09:32→20:02)
[2018-11-03] MEDS: Megestrol Acetate 800 MG/20 ML UDCUP PO SCH ×2 (09:32→20:01)
[2018-11-03] MEDS ORDERED: ALPRAZolam 0.25 MG TAB PO SCH (21:00)
[2018-11-04] MEDS: Levothyroxine Sodium 75 MCG TAB PO SCH (05:32)
[2018-11-04] MEDS: Megestrol Acetate 800 MG/20 ML UDCUP PO SCH (09:30)
[2018-11-04] MEDS: Nitrofurantoin Monohyd/M-Cryst 100 MG CAP PO SCH (09:30)
[2018-11-04 12:01] VITALS: BP 119/69; TEMP 97.6
== END 2018-11-04 12:18 | DRG 378 ==
LOC: ERS 16:33 → T4-B 18:00
PROVIDERS: ADMIT Specialist; ATTEND Specialist
DX: K92.2 Gastrointestinal hemorrhage, unspecified (principal); E44.0 Moderate protein-calorie malnutrition; Z68.1 Body mass index [BMI] 19.9 or less, adult; I10 Essential (primary) hypertension; F32.9 Major depressive disorder, single episode, unspecified; E03.9 Hypothyroidism, unspecified; K21.9 Gastro-esophageal reflux disease without esophagitis; K44.9 Diaphragmatic hernia without obstruction or gangrene; E53.8 Deficiency of other specified B group vitamins; D64.9 Anemia, unspecified; I48.91 Unspecified atrial fibrillation
CPT/HCPCS: 36415; 80048; 80053; 81001; 82274; 82607; 84443; 85025; 86850; 86900; 86901; 87086; 87186; 93005; 96374; A4353; C9113; J2001; J2704

== ENCOUNTER 2018-11-10 17:01 | Inpatient (IN) | payer MEDICARE, OTHER ==
[2018-11-10 18:48] LABS: Hemoglobin 5.2 g/dL (12.0-16.0); Mean Corpuscular HGB CONC 30.7 g/dL (32.0-36.0); Mean Corpuscular Hemoglobin 28.9 pg (27.0-31.0); Mean Corpuscular Volume 94.3 fL (78.0-98.0); Mean Platelet Volume 6.9 fL (7.4-10.4); Platelet Count 331 thou/uL (130-400); RBC Distribution Width 18.9 % (11.5-14.5); Red Blood Cell (RBC) Count 1.81 mill/uL (4.20-5.40); White Blood Cell (WBC) Count 4.3 thou/uL (4.8-10.8)
[2018-11-10 18:51] LABS: INR-International Normal Ratio 1.1; Prothrombin Time 14.7 SEC (12.0-14.7)
[2018-11-10 19:08] LABS: #Eosinphils 0.1 thou/uL (0.0-0.7); #Monocytes 0.5 thou/uL (0.11-0.59); #Neutrophils 2.7 thou/uL (1.40-6.50); %Basophils 0.4 % (0.0-1.0); %Eosinophils 2.5 % (0.0-10.0); %Lymphocytes 22.6 % (21.0-51.0); %Monocytes 12.7 % (0.0-10.0); %Neutrophils 61.9 % (42.0-75.0); Anisocytosis SLIGHT = 6-15 cells (100X) (0-5/hpf); Elliptocytes SLIGHT = 2-5 cells (100X) (0-1/hpf); Hypochromia SLIGHT = 6-15 cells (100X) (0-5/hpf); MDiff Complete? YES; Platelet Morphology Comment Appears Adequate; Polychromasia SLIGHT = 2-3 cells (100X) (0-2/hpf)
[2018-11-10 19:14] LABS: ALT (SGPT) 13 U/L (8-55); AST (SGOT) 15 U/L (5-34); Albumin 3.3 g/dL (3.4-4.8); Alkaline Phosphatase 53 U/L (40-150); Anion Gap 13 mmol/L (10-20); BUN (Urea Nitrogen) 32 mg/dL (9.8-20.1); Bilirubin, Total 0.2 mg/dL (0.2-1.2); Calc. Creatinine Clearance 0 mL/min (70-130); Calcium 9.7 mg/dL (7.8-10.44); Carbon Dioxide 21 mmol/L (23-31); Chloride 107 mmol/L (98-107); Estimated GFR-MDRD 54; Globulin 2.9 g/dL (2.4-3.5); Glucose 100 mg/dL (83-110); Iron 17 ug/dL (50-170); Iron Binding Capacity, Total 299 mcg/dL (265-497); Potassium 4.6 mmol/L (3.5-5.1); Protein, Total 6.2 g/dL (6.0-8.3); Sodium 136 mmol/L (136-145)
--- NOTE | 2018-11-10 19:36 | RAD ---
CHEST ONE VIEW: 11/10/18 HISTORY: Weakness. Anemia. COMPARISON: 09/26/18. FINDINGS: The cardiac silhouette is magnified by projection. Scarring in the lingula is stable. No confluent ai r space consolidation or evidence of pneumothorax. Mediastinum is midline with aortic calcification. Postoperative changes left axilla. IMPRESSION: Chronic type findings are stable. No active cardiopulmonary abnormalities are demonstrated. POS: [facility]
[2018-11-10] MEDS ORDERED: Pantoprazole 80 MG, Admixture Fee 1 EACH in Sodium Chloride 0.9% 100 ML IVP SCH (20:00)
--- NOTE | 2018-11-10 21:13 | ULT ---
ULTRASOUND WITH DOPPLER DUPLEX VENOUS LOWER EXTREMITY LEFT: 11/10/18 at 7:48 p.m. HISTORY: 83-year-old female with left lower extremity edema and erythema. TECHNIQUE: Color flow Doppler, spectral waveform analysis of pulsed Doppler, and maravilla-scale imaging with delia mauricio and augmentation, were used to evaluate the left common femoral, femoral, popliteal, posterior t ibial, and superficial femoral, veins; and the proximal portions of the profunda femoral and greater saphenous, veins. FINDINGS: There is thrombus expanding the lumen and decreasing the blood flow, causing noncompressibility, of t he left common femoral, profunda femoral, femoral, popliteal, posterior and greater saphenous, veins. Dr. Sheikh notified Dr. Mckoy of the Emergency Department of the DVT at 7:59 p.m. on 11/10/18. IMPRESSION: Positive for acute, flow-limiting, deep venous thrombosis of the entire left lower extremity. Code CR JN R POS: [facility]
[2018-11-10 22:44] VITALS: BMI 19.5
[2018-11-10] MEDS ORDERED: Ondansetron ODT 4 MG TAB PO PRN (23:59)
[2018-11-10] MEDS ORDERED: Ondansetron PF 4 MG/2 ML Vial IVP PRN (23:59)
[2018-11-10] MEDS ORDERED: Acetaminophen 325 MG TAB PO PRN (23:59)
[2018-11-11] MEDS ORDERED: Pantoprazole 80 MG in Sodium Chloride 0.9% 100 ML IVP SCH (00:15)
--- NOTE | 2018-11-11 02:22 | HP ---
PRIMARY CARE PHYSICIAN: Dr. Vital. CODE STATUS: DNR. TIME OF EVALUATION: 8:30 p.m. CHIEF COMPLAINT: Generalized weakness and low hemoglobin. HISTORY OF PRESENT ILLNESS: This is an 83-year-old female patient with past medical history of multiple episodes of GI bleeding. The patient had multiple diagnostic procedures in the past including colonoscopy, endoscopy. No bleeding spots being found. The patient was scheduled to have a capsule endoscopy in the next coming days with Dr. Meza and Dr. Scruggs. The patient came to the hospital after having a very low hemoglobin and feeling very weak. No blood seen in the stools, no clear triggers, no alleviating factors. She was found to have hemoglobin of 5.2 and is being scheduled to receive blood transfusions. Also, the patient has left lower extremity swelling. The ultrasound was done and the patient was found to have lower extremity DVT. We are unable to give protein S. we have consulted vascular surgery for IVC filter placement. Family is agreeing to take the patient for procedure. REVIEW OF SYSTEMS: Unable to obtain. The patient has dementia, question being asked with the family and has been reported she has been very weak, left lower extremity swelling. No complaints of pain, no changes in urination. PAST MEDICAL HISTORY: Positive for hypertension, history of gastrointestinal hemorrhage, anemia, hypothyroidism. PAST SURGICAL HISTORY: The patient has a history of lumpectomy on the left breast in 2013, rectocele surgery in 2005, pelvic mesh, and back surgery. PSYCHIATRIC HISTORY: Depression. SOCIAL HISTORY: No alcohol. No drugs. No smoking history. The patient lives at home with the spouse. FAMILY HISTORY: Reviewed, noncontributory for current presentation. KNOWN ALLERGIES: To penicillin, iodine and sulfa. REPORTED MEDICATIONS: 1. Cardizem. 2. Colace. 3. Cyanocobalamin. 4. Ferrous sulfate. 5. Folic acid. 6. Megestrol. 7. Polyethylene glycol. 8. Protonix. 9. Synthroid. 10. Zoloft. PHYSICAL EXAMINATION: VITAL SIGNS: On presentation, blood pressure 110/49 with heart rate 79, respiratory rate was 10, temperature 98.4, pain 0/10, oxygen saturation was 99 on room air. GENERAL APPEARANCE: The patient is alert, oriented, not in acute distress. HEENT: Eyes, normal conjunctiva. The patient is very pale, anicteric, no JVD. RESPIRATORY: Bilateral air entry. No rales. No wheezes. Symmetric expansion. CARDIOVASCULAR: Normal rate, regular rhythm. No murmurs. No gallop. No edema. ABDOMEN: Soft, normal bowel sounds. MUSCULOSKELETAL: Baseline range of motion and strength. No tenderness. SKIN: Warm, intact. Very pale. No rash. No redness. Peripheral pulses are present. Capillary refill seems to be intact. NEUROLOGIC: No evidence of any new focal weakness. Baseline speech. Cranial nerves seems to be intact. PSYCHIATRIC: The patient is in good mood, underlying dementia. IMAGING STUDIES: EKG was reviewed. The patient has sinus rhythm with some premature supraventricular complex, ventricular rate 83, KS 142, QRS 78, and QT corrected 434. Chest x-ray was reviewed, the patient has chronic changes. No active cardiopulmonary abnormalities were seen. The vascular ultrasound, the patient has acute flow-limiting deep venous thrombosis of the entire left lower extremity. LABORATORY DATA: The labs are reviewed. The patient has a white count of 4.3, hemoglobin 5.2, hematocrit 17, MCV 94.3, platelet count 331. Coagulation; PT 14.7, INR 1.1, PTT 24. Chemistry; sodium 136, potassium 4.6, chloride 107, carbon dioxide 21, anion gap 13, BUN 32, creatinine 0.98, GFR 54, glucose 100, calcium 9.7, TIBC 299, ferritin 91, total bilirubin 0.2. LFTs were negative. Blood type A negative. Antibody screen negative. Cross match, see details. Stool was tested and was positive for occult blood. ASSESSMENT AND PLAN: The patient will be placed in the hospital with follow medical problems: 1. Severe acute blood loss anemia. The patient has acute on chronic blood loss, with positive GI bleeding, this is an ongoing problem for this patient. The patient has been seen by Dr. Meza and not defined in the past and she had multiple procedures that has not been successful to establish the source of bleeding. The patient had been offered capsule endoscopy and she was scheduled for. We will give blood transfusion. We will consult GI. We will follow recommendations for any further plan. We will monitor hemodynamics. 2. Hypothyroidism, reconcile home medications. 3. Acute left lower extremity deep venous thrombosis that is significantly large, the patient has contraindication for anticoagulation. This has been discussed with the family and they are willing to place an IVC filter. Cardiovascular Surgery is being consulted, follow recommendations. 4. History of hypertension, the patient presented with controlled blood pressure, we will monitor, we will not treat very aggressively due to underlying GI bleeding. 5. Deep venous thrombosis prophylaxis. We will place IVC filter as contraindication for SCDs. Job ID: [id number]
[2018-11-11] MEDS: Levothyroxine Sodium 75 MCG TAB PO SCH (05:14)
[2018-11-11 06:20] LABS: #Eosinphils 0.1 thou/uL (0.0-0.7); #Lymphocytes 1.2 thou/uL (1.20-3.40); #Monocytes 0.7 thou/uL (0.11-0.59); #Neutrophils 2.8 thou/uL (1.40-6.50); %Basophils 0.4 % (0.0-1.0); %Eosinophils 1.3 % (0.0-10.0); %Neutrophils 59.3 % (42.0-75.0); Hemoglobin 8.9 g/dL (12.0-16.0); Mean Corpuscular HGB CONC 32.2 g/dL (32.0-36.0); Mean Corpuscular Hemoglobin 29.9 pg (27.0-31.0); Mean Corpuscular Volume 92.8 fL (78.0-98.0); Mean Platelet Volume 7.9 fL (7.4-10.4); Platelet Count 155 thou/uL (130-400); RBC Distribution Width 16.6 % (11.5-14.5); Red Blood Cell (RBC) Count 2.96 mill/uL (4.20-5.40); White Blood Cell (WBC) Count 4.8 thou/uL (4.8-10.8)
[2018-11-11 06:27] LABS: Anion Gap 10 mmol/L (10-20); BUN (Urea Nitrogen) 30 mg/dL (9.8-20.1); Calc. Creatinine Clearance 40 mL/min (70-130); Calcium 9.3 mg/dL (7.8-10.44); Carbon Dioxide 19 mmol/L (23-31); Chloride 108 mmol/L (98-107); Estimated GFR-MDRD 65; Glucose 80 mg/dL (83-110); Sodium 133 mmol/L (136-145)
[2018-11-11] MEDS ORDERED: Polyethylene Glycol 3350 17 GM Packet PO PRN (08:10)
[2018-11-11] MEDS: Cyanocobalamin (Vitamin B-12) 1,000 MCG TAB PO SCH (08:37)
[2018-11-11] MEDS: Ferrous Sulfate 325 MG TAB PO SCH (08:37)
[2018-11-11] MEDS: Folic Acid 1 MG TAB PO SCH (08:37)
[2018-11-11] MEDS: Docusate 100 MG CAP PO SCH ×2 (08:37→21:10)
[2018-11-11] MEDS ORDERED: Prevnar 13-Val Conj/PF 0.5 ML SYRINGE IM ONE (09:00)
--- NOTE | 2018-11-11 09:27 | PDOC.PN ---
- Subjective Encounter Start Date: 11/11/18 Encounter Start Time: 08:30 Patient seen and examined. No new complaints. No overnight events - Objective Resuscitation Status - Order Detail: 11/10/18 23:59 Resuscitation Status Routine Resuscitation Status: DNAR: NO Resuscitation Discussed with: as discussed with and daughter JAYDA Reviewed: Yes Vital Signs & Weight: Vital Signs (12 hours) Temp Pulse Pulse Resp BP BP Pulse Ox 11/11/18 08:37 75 11/11/18 07:07 97.9 F 75 16 122/67 91 L 11/11/18 04:36 98 F 67 16 115/74 93 L 11/11/18 02:28 97.6 F 77 18 126/68 98 11/11/18 00:00 98.4 F 76 18 111/60 99 11/10/18 23:45 98.4 F 76 18 116/66 97 11/10/18 23:25 97.9 F 77 18 139/74 99 11/10/18 22:00 97.9 F 69 18 127/71 99 Weight Weight 110 lb 3 oz I&O: 11/10/18 11/11/18 11/12/18 06:59 06:59 06:59 Intake Total 435.7 Balance 435.7 Result Diagrams: 11/11/18 05:34 11/11/18 05:34 Phys Exam - Physical Examination Constitutional: NAD HEENT: PERRLA, moist MMs, sclera anicteric pallor+ Neck: no JVD, supple Respiratory: no wheezing, no rales, no rhonchi Cardiovascular: RRR, no significant murmur, no rub Gastrointestinal: soft, non-tender, no distention, positive bowel sounds Musculoskeletal: no edema, pulses present Neurological: non-focal, normal sensation Lymphatic: no nodes Psychiatric: normal affect Skin: no rash, normal turgor Dx/Plan (1) Acute blood loss anemia Code(s): D62 - ACUTE POSTHEMORRHAGIC ANEMIA Status: Acute (2) Deep vein thrombosis (DVT) of left lower extremity Code(s): I82.402 - ACUTE EMBOLISM AND THOMBOS UNSP DEEP VEINS OF L LOW EXTREM Status: Acute (3) Gastric ulcer Code(s): K25.9 - GASTRIC ULCER, UNSP ACUTE OR CHRONIC, W/O HEMOR OR PERF Status: Acute (4) Anxiety and depression Code(s): F41.9 - ANXIETY DISORDER, UNSPECIFIED; F32.9 - MAJOR DEPRESSIVE DISORDER, SINGLE EPISODE, UNSPECIFIED Status: Chronic (5) Hiatal hernia Code(s): K44.9 - DIAPHRAGMATIC HERNIA WITHOUT OBSTRUCTION OR GANGRENE Status: Chronic (6) Hypothyroidism Code(s): E03.9 - HYPOTHYROIDISM, UNSPECIFIED Status: Chronic (7) Protein-calorie malnutrition, moderate Code(s): E44.0 - MODERATE PROTEIN-CALORIE MALNUTRITION Status: Chronic (8) Vitamin B12 deficiency Code(s): E53.8 - DEFICIENCY OF OTHER SPECIFIED B GROUP VITAMINS Status: Chronic - Plan cont current plan of care * GI consulted * continue Protonix * H & H has improvement * pt is not a candidate for half-way anticoagulation, she will need IVC filter. CV surgery consulted * will update family * medication reviewed as below * symptomatic treatment * repeat labs tomorrow * home meds reconciled Review of Systems - Review of Systems ENT: negative: Ear Pain, Ear Discharge, Nose Pain, Nose Discharge, Nose Congestion, Mouth Pain, Mouth Swelling, Throat Pain, Throat Swelling, Other Respiratory: negative: Cough, Dry, Shortness of Breath, Hemoptysis, SOB with Excertion, Pleuritic Pain, Sputum, Wheezing Cardiovascular: negative: chest pain, palpitations, orthopnea, paroxysmal nocturnal dyspnea, edema, light headedness, other Gastrointestinal: negative: Nausea, Vomiting, Abdominal Pain, Diarrhea, Constipation, Melena, Hematochezia, Other Genitourinary: negative: Dysuria, Frequency, Incontinence, Hematuria, Retention , Other Musculoskeletal: negative: Neck Pain, Shoulder Pain, Arm Pain, Back Pain, Hand Pain, Leg Pain, Foot Pain, Other Other: not reliable due to her level of cognitive status - Medications/Allergies Allergies/Adverse Reactions: Allergies Allergy/AdvReac Type Severity Reaction Status Date / Time Iodine and Iodide Containing Allergy Verified 10/28/18 22:40 Produc Sulfa (Sulfonamide Allergy Verified 10/28/18 22:40 Antibiotics) diphenhydramine AdvReac Verified 10/28/18 22:40 [From Benadryl] Medications: Current Medications Acetaminophen (Tylenol) 650 mg PO Q4H PRN PRN Reason: Headache/Fever/Mild Pain (1-3) Cyanocobalamin (Vitamin B-12) 1,000 mcg PO DAILY RONNIE Last Admin: 11/11/18 08:37 Dose: Not Given Diltiazem HCl (Cardizem Cd) 120 mg PO DAILY [facility] Last Admin: 11/11/18 08:37 Dose: Not Given Docusate Sodium (Colace) 100 mg PO BID [facility] Last Admin: 11/11/18 08:37 Dose: Not Given Ferrous Sulfate (Feosol) 325 mg PO DAILY [facility] Last Admin: 11/11/18 08:37 Dose: Not Given Folic Acid (Folvite) 1 mg PO DAILY [facility] Last Admin: 11/11/18 08:37 Dose: Not Given Pantoprazole Sodium 80 mg/ (Sodium Chloride) 100 mls @ 10 mls/hr IVP INF [facility] Last Admin: 11/11/18 05:14 Dose: 100 mls Levothyroxine Sodium (Synthroid) 75 mcg PO 0600 [facility] Last Admin: 11/11/18 05:14 Dose: 75 mcg Ondansetron HCl (Zofran Odt) 4 mg PO Q6H PRN PRN Reason: Nausea/Vomiting Ondansetron HCl (Zofran) 4 mg IVP Q6H PRN PRN Reason: Nausea/Vomiting Polyethylene Glycol (Miralax) 17 gm PO DAILY PRN PRN Reason: Constipation Sertraline HCl (Zoloft) 50 mg PO DAILY [facility] Last Admin: 11/11/18 08:37 Dose: Not Given Sodium Chloride (Flush - Normal Saline) 10 ml IVF PRN PRN PRN Reason: Saline Flush
[2018-11-11] MEDS ORDERED: Fentanyl 100 MCG/2 ML VIAL ONE (10:04)
[2018-11-11] MEDS ORDERED: Midazolam HCl 2 mg/2 ml Vial ONE (10:04)
[2018-11-11] MEDS ORDERED: methylPREDNISolone Sod Succ/PF 125 MG/2 ML VIAL IVP SCH (10:15)
[2018-11-11] MEDS ORDERED: diphenhydrAMINE 50 MG/ML VIAL IVP SCH (10:15)
[2018-11-11] MEDS ORDERED: Famotidine/PF 20 mg/2ml Vial SLOW IVP SCH (10:15)
[2018-11-11] MEDS ORDERED: PROPOFOL 200 MG/20 ML VIAL ONE (10:34)
[2018-11-11] MEDS ORDERED: Lidocaine 1% PF 5 ML VIAL ONE (10:34)
[2018-11-11] MEDS ORDERED: Iopamidol 370 76% 50 ML VIAL FS ONE (11:23)
--- NOTE | 2018-11-11 13:46 | OP ---
DATE OF PROCEDURE: 11/11/2018 PROCEDURE PERFORMED: Esophagogastroduodenoscopy (diagnostic). INDICATION FOR PROCEDURE: Anemia, history of gastric ulceration. DESCRIPTION OF PROCEDURE: After the risks and benefits of the procedure were explained to the patient's surrogate (daughter) including risks of bleeding, infection, perforation, reactions to anesthesia, aspiration and/or pain, informed consent was obtained. The patient was then taken to the endoscopy suite, where deep sedation was administered via propofol and anesthesia support. Once adequately sedated, the standard gastroscope was introduced into the mouth with intubation of the esophagus, stomach, and the proximal small intestine with the findings listed below. The patient tolerated the procedure well with no immediate perioperative complications. Upon completion of the procedure, she was taken to PACU in satisfactory condition. FINDINGS: Esophagus: Normal-appearing mucosa was seen in the proximal, mid, and distal esophagus. A small hiatal hernia measuring 2 to 3 cm in length was seen in the distal esophagus. There was no evidence of erosions, ulcerations, mass, lesions, or active/recent bleeding. Stomach: Normal-appearing mucosa was seen in the gastric cardia, fundus, antrum, and incisura; however, at the junction between the fundus and the body, multiple turcios-colored gastric polyps were seen measuring approximately 2 to 5 mm in size. They did not exhibit any associated ulcerations or bleeding/blood clots. No biopsies were taken at this time. Otherwise, there was no evidence of erosions, ulcerations, mass, lesions, or active/recent bleeding. There was a small mucosal indention seen in the gastric antrum at the site of previously described gastric ulceration; however, there was no ulceration seen during examination today. Duodenum: Normal-appearing mucosa was seen in both the duodenal bulb and second portion of the duodenum. There was no evidence of erosions, ulcerations, mass, lesions, or active/recent bleeding. IMPRESSION: 1. Mucosal indention in the gastric antrum consistent with prior location of gastric ulceration, but now fully healed. 2. 2 to 3 cm hiatal hernia. 3. No etiology for her anemia was seen during this examination. RECOMMENDATIONS: 1. Would continue to trend hemoglobin and hematocrit and transfuse as necessary to maintain a hemoglobin and hematocrit of 7/21. 2. Continue to monitor clinically for signs of active GI bleeding. 3. We will consider a tagged red cell scan to further localize source of bleeding if she continues to decrease in her hemoglobin and hematocrit. 4. Would recommend capsule endoscopy as an outpatient for further evaluation of the GI tract. 5. Could consider colonoscopy in the future; however, given the negative study in 2018, the likelihood of pathology in that region is highly unlikely. We will continue to follow. Please call with any questions. Job ID: [id number]
--- NOTE | 2018-11-11 14:01 | CON ---
DATE OF CONSULTATION: 11/11/2018 REASON FOR CONSULTATION: Anemia with possible GI bleed. CONSULTING PHYSICIAN: NAIMA Lubin. HISTORY OF PRESENT ILLNESS: The patient is an 83-year-old female with past medical history of hypertension, atrial fibrillation, vitamin B12 deficiency, anorexia, GERD, hypothyroidism, depression, and chronic anemia, presenting with continued anemia. The patient was fairly somnolent and unresponsive this morning, so most information was obtained through chart review. Per chart review, the patient was in her state of health until she began feeling a lot more tired and weak when compared to previous. With this increased weakness and her prior histories of anemia, this prompted her to seek healthcare admission to the [facility] ER. While in the ER, she was noted to have a significantly decreased hemoglobin to approximately 5.2 and subsequently underwent transfusion to correct this particular problem; however, in the meantime, she has not exhibited any evidence of overt GI bleeding with no symptoms of hematemesis, melena, or hematochezia per nursing staff or chart review. Also, during this admission, she had an ultrasound done of her lower extremities, which showed a larger lower extremity DVT for which she is due to undergo an IVC filter placement later on today. Currently, she states that she is doing well other than feeling tired/fatigued. She currently denies any nausea, vomiting, fevers, chills, GI bleeding, diarrhea, or constipation. Of note, the patient has undergone multiple upper endoscopies in the recent past with the most recent one being on October 30, 2018. EGD at that time showed a clean based ulceration within the antrum, but no evidence of active or recent bleeding. There was also small hiatal hernia, but no evidence of Silverio erosions at that time. No intervention was taken at that time either with plans to have the patient follow up in the GI clinic for capsule endoscopy and evaluation of the small bowel. REVIEW OF SYSTEMS: Review of systems was difficult to obtain due to the patient's increased somnolence during examination today. PAST MEDICAL HISTORY: As per HPI. PAST SURGICAL HISTORY: Left breast lumpectomy, rectocele repair, pelvic mesh, and back surgery in 2018. FAMILY HISTORY: Denies any GI malignancies. SOCIAL HISTORY: Denies any tobacco, alcohol, or illicit drug use. She is currently residing in [facility]. OUTPATIENT MEDICATIONS: Reviewed. ALLERGIES: BENADRYL, IODINE, AND SULFA. PHYSICAL EXAMINATION: VITAL SIGNS: Temperature 97.9, pulse 75, blood pressure 122/67, respiratory rate 16, saturating 91% on room air. GENERAL: The patient is lying in bed, in no acute distress. Somnolent, but oriented x2. HEENT: Normocephalic and atraumatic. No evidence of JVD or scleral icterus. CARDIOVASCULAR: Regular rate and rhythm with no discernible murmurs, gallops, or rubs. RESPIRATORY: Clear to auscultation bilaterally with decreased inspiratory effort. No evidence of wheezes or rales. ABDOMEN: Normoactive bowel sounds. Soft, nontender, and nondistended. EXTREMITIES: No cyanosis, clubbing, or edema. LABORATORY DATA: CBC with a white blood cell count of 4.8, platelets 155. INR 1.1. Chemistry with a sodium of 133, potassium 4, chloride 108, CO2 of 19, BUN 30, creatinine 0.83, glucose 80, AST 15, ALT 13, alkaline phosphatase 53, and total bilirubin 0.2. IMAGING DATA: EGD performed on October 30, 2018, showed a single clean based ulceration in the antrum without any evidence of active/recent bleeding. A small hiatal hernia was seen during that examination as well. ASSESSMENT AND PLAN: The patient is an 83-year-old female with past medical history of hypertension, atrial fibrillation, B12 deficiency, anorexia, gastroesophageal reflux disease, hypothyroidism, depression, and chronic anemia, presenting with a repeat episode of significant anemia characterized by increased weakness and fatigue. Significant anemia/possible upper GI bleed. The patient has presented to the hospital on multiple occasions for increased fatigue and tiredness/weakness during the course of the last 2 to 3 months. She has undergone multiple upper endoscopies at that time, which showed the progression of a larger antral based ulceration, but no evidence of active/recent bleeding on each of examination. She did have a colonoscopy performed in 2018, which did not reveal any abnormalities that could be contributing to the current clinical situation. As such, she had been evaluated as an outpatient with plans for possible capsule endoscopy within the next few weeks; however, with her worsening anemia and worsening fatigue, she has been admitted to [facility] ER and has responded appropriately to infusion of PRBCs. At this time, it is still unclear as to where her anemia is being generated from without any overt evidence of GI bleeding; however, with the presence of the antral ulceration, this is the most likely source and could have started to bleed within the last two weeks since her prior examination, albeit unlikely. RECOMMENDATIONS: 1. Would continue to trend hemoglobin and hematocrit and transfuse as necessary to maintain a hemoglobin and hematocrit of 7/21. 2. Continue to monitor clinically for signs of active GI bleeding. 3. We will keep the patient n.p.o. in preparation for EGD and IVC filter placement later on today. 4. We will continue the patient on PPI drip given the possibility of a bleeding gastric ulcer. 5. Further recommendations to follow EGD. We will continue to follow. Please call with any questions. Job ID: [id number]
[2018-11-11 15:18] LABS: Hemoglobin 8.8 g/dL (12.0-16.0)
--- NOTE | 2018-11-11 15:29 | OP ---
DATE OF PROCEDURE: 11/11/2018 PROCEDURE PERFORMED: Cordis TRAPEASE inferior vena cava filter placement with ultrasonographic and fluoroscopic guidance via right common femoral vein. PREOPERATIVE DIAGNOSIS: Left lower extremity deep venous thrombosis with contraindication to anticoagulation. POSTOPERATIVE DIAGNOSIS: Left lower extremity deep venous thrombosis with contraindication to anticoagulation. ANESTHESIA: 1% lidocaine, local anesthesia. INDICATIONS: The patient is an 83-year-old woman with chronic issues of GI bleeding, who was admitted with weakness and found to have a hemoglobin in the 5. She was transfused to the upper 8s. Left lower extremity Doppler interrogation done to evaluate the swelling, demonstrated extensive deep venous thrombosis. Given her contraindication to anticoagulation, it is opted to proceed with vena cava filter placement. FINDINGS: Renal veins were identified at the midbody of L1. The device was positioned at the superior tip to cephalad margin of the body of L2. Total of 5 mL of Isovue contrast was used. Total fluoroscopy time was 5.2 minutes. NARRATIVE REPORT: After informed consent was obtained, the patient was placed on the [employer] table. Her groins were prepped and draped in sterile fashion. The skin and subcutaneous tissues just medial to the palpable right femoral pulse were infiltrated with lidocaine. Ultrasound was used to identify the common femoral artery and vein and to verify the compressibility of the vein and to guide percutaneous cannulation of it with a large-bore needle. After cannulating the vein, guidewire was placed and under fluoroscopy, intravenous positioning was confirmed. The skin was nicked and the tract dilated. Inferior vena cavography was performed through the sheath and dilator to facilitate identification of the renal veins. The left renal vein was identified, although it seemed to be higher than what the CT scan from last fall would suggested. The dilator was removed and sheath and Panfilo catheter were placed through the sheath and in that manner, the renal veins were probed first on the left and then on the right to identify their confluence with the vena cava at roughly the mid body of L1. The wire and catheter were removed and the filter device was advanced through the sheath with the tip of the device at the cephalad margin of L2. The sheath was withdrawn deploying the device. The sheath was then removed and hemostasis achieved with direct pressure. Job ID: [id number]
--- NOTE | 2018-11-11 15:46 | CON ---
DATE OF CONSULTATION: 11/11/2018 CHIEF COMPLAINT: Feeling weak. HISTORY OF PRESENT ILLNESS: The patient is an 83-year-old woman with a known history of chronic low-grade GI bleeds, who is in the midst of outpatient evaluation for that. She was brought to the hospital feeling profoundly weak and was found to have a hemoglobin in the 5s. She had no overt hematemesis or melena. Reports of left lower extremity swelling prompted Doppler interrogation, which showed the presence of extensive deep venous thrombosis, which is new compared to ultrasounds done as recently as September. PAST MEDICAL HISTORY: Significant for hypertension, hypothyroidism, and dementia. MEDICATIONS: Her home medications are listed as; 1. Cardizem CD 120 mg a day. 2. Synthroid 75 mcg a day. 3. Protonix 40 mg b.i.d. 4. Zoloft 50 mg a day. 5. Colace 100 mg b.i.d. 6. Folate 1 mg a day. 7. Ferrous sulfate 325 mg a day. 8. Multivitamin a day. 9. Oral B12 1000 mcg a day. 10. Macrobid 100 mg b.i.d. She reports she is recorded as having adverse reactions to iodine, sulfa, penicillin. REVIEW OF SYSTEMS: The patient is unable to give review of systems. PHYSICAL EXAMINATION: GENERAL: She is an elderly, noncommunicative woman, who with some prompting, is able to cooperate with an exam. LUNGS: She has clear breath sounds. HEART: Regular rate and rhythm. ABDOMEN: Soft and nontender. EXTREMITIES: She is able to move all extremities to command. She has no obvious flexion contractures. She has no obvious swelling of her lower extremities. VITAL SIGNS: Heart rate 75, blood pressure 122/67, temperature 97.9, height is 5 feet 3 inches. Weight is 110-1/4 pounds. DIAGNOSTIC DATA: Chest x-ray shows prominent pleural markings and cardiomegaly. There are surgical clips along the left chest wall and axilla consistent with stated history of a previous lumpectomy. Her vascular ultrasound describes extensive left lower extremity thrombus involving the left common femoral, profunda femoral, superficial femoral veins into the popliteal tibial and saphenous veins. CT scan of the abdomen and pelvis in last June shows some scoliosis with the right and left renal veins coming confluent with inferior vena cava at L1. Transverse diameter of the vena cava was roughly 20 mm at the level of the renal veins. LABORATORY DATA: On laboratory exam, the patient's white count is 4.3, hemoglobin 5.2, hematocrit 17.0, platelets 331,000, and MCV 94.3 on admission. She was transfused and her hemoglobin this morning is 8.9. On chemistries, her electrolytes are essentially normal. BUN is 30 and creatinine 0.83. INR was 1.1. PTT 24.0. IMPRESSION AND RECOMMENDATIONS: Extensive left lower extremity deep venous thrombosis in the patient with a clear contraindication to anticoagulation while this classic indications for vena cava filter placement, I think it is a reasonable consideration and will proceed. Job ID: [id number]
[2018-11-12] MEDS: Levothyroxine Sodium 75 MCG TAB PO SCH (05:35)
[2018-11-12] MEDS ORDERED: Artificial Tears 18 DROP/0.9 ML EA EYE PRN (07:58)
[2018-11-12] MEDS ORDERED: Sodium Chloride 0.65% Nasal 44 ML BOT EA NARE PRN (07:58)
[2018-11-12] MEDS ORDERED: Loratadine 10 MG TAB PO PRN (07:58)
[2018-11-12] MEDS ORDERED: Loperamide HCl 2 MG CAP PO PRN (07:58)
[2018-11-12] MEDS ORDERED: Acetaminophen 500 MG TAB PO PRN (07:58)
[2018-11-12] MEDS ORDERED: Eucerin (Mineral Oil/Petrolatum,White) 30 gm Jar TOP PRN (07:58)
[2018-11-12] MEDS ORDERED: hydrALAZINE 20 MG/ML VIAL SLOW IVP PRN (07:58)
[2018-11-12] MEDS ORDERED: Diabetic Tussin 200 MG/10 ML UDCUP PO PRN (07:58)
[2018-11-12] MEDS ORDERED: Zolpidem Tartrate 5 MG TAB PO PRN (07:58)
[2018-11-12] MEDS ORDERED: Bisacodyl 10 MG SUPP PR PRN (07:58)
[2018-11-12] MEDS ORDERED: Senokot S 8.6-50 MG TAB PO PRN (07:58)
[2018-11-12] MEDS ORDERED: Cepastat Lozenges 1 LOZ PO PRN (07:58)
[2018-11-12 08:43] LABS: #Basophils 0.1 thou/uL (0.0-0.2); #Lymphocytes 0.9 thou/uL (1.20-3.40); #Monocytes 0.6 thou/uL (0.11-0.59); #Neutrophils 3.2 thou/uL (1.40-6.50); %Basophils 1.4 % (0.0-1.0); %Eosinophils 0.5 % (0.0-10.0); %Lymphocytes 18.1 % (21.0-51.0); %Monocytes 11.8 % (0.0-10.0); %Neutrophils 68.3 % (42.0-75.0); Hemoglobin 7.9 g/dL (12.0-16.0); Mean Corpuscular HGB CONC 32.6 g/dL (32.0-36.0); Mean Corpuscular Hemoglobin 29.5 pg (27.0-31.0); Mean Corpuscular Volume 90.6 fL (78.0-98.0); Mean Platelet Volume 7.3 fL (7.4-10.4); Platelet Count 243 thou/uL (130-400); RBC Distribution Width 16.7 % (11.5-14.5); Red Blood Cell (RBC) Count 2.66 mill/uL (4.20-5.40); White Blood Cell (WBC) Count 4.7 thou/uL (4.8-10.8)
[2018-11-12 08:52] LABS: Anion Gap 11 mmol/L (10-20); BUN (Urea Nitrogen) 29 mg/dL (9.8-20.1); Calc. Creatinine Clearance 40 mL/min (70-130); Calcium 9.1 mg/dL (7.8-10.44); Carbon Dioxide 19 mmol/L (23-31); Chloride 109 mmol/L (98-107); Estimated GFR-MDRD 65; Glucose 118 mg/dL (83-110); Potassium 4.3 mmol/L (3.5-5.1); Sodium 135 mmol/L (136-145)
[2018-11-12] MEDS ORDERED: Iron Sucrose Complex 200 MG in Sodium Chloride 0.9% 250 ML 250 ML IVPB SCH (09:45)
[2018-11-12] MEDS: Docusate 100 MG CAP PO SCH ×2 (09:49→20:19)
[2018-11-12] MEDS: Cyanocobalamin (Vitamin B-12) 1,000 MCG TAB PO SCH (09:50)
[2018-11-12] MEDS: Folic Acid 1 MG TAB PO SCH (09:50)
[2018-11-12] MEDS: Ferrous Sulfate 325 MG TAB PO SCH (09:50)
[2018-11-12] MEDS ORDERED: Iron, Sodium Ferric Gluconate 250 MG in Sodium Chloride 0.9% 100 ML IVPB SCH (10:30)
--- NOTE | 2018-11-12 10:32 | PDOC.PN ---
- Subjective Encounter Start Date: 11/12/18 Encounter Start Time: 09:10 -: old records requested/rev Patient seen and examined. No new complaints. No overnight events today her H & H is dropped - Objective Resuscitation Status - Order Detail: 11/10/18 23:59 Resuscitation Status Routine Resuscitation Status: DNAR: NO Resuscitation Discussed with: as discussed with and daughter JAYDA Reviewed: Yes Vital Signs & Weight: Vital Signs (12 hours) Temp Pulse Resp BP BP BP Pulse Ox 11/12/18 09:55 98 11/12/18 09:50 70 127/74 11/12/18 07:14 98.9 F 70 18 127/74 98 11/12/18 04:04 98.7 F 80 16 117/77 98 11/12/18 00:47 97.4 F L 80 16 97/60 98 Weight Weight 110 lb 3 oz I&O: 11/11/18 11/12/18 11/13/18 06:59 06:59 06:59 Intake Total 435.7 240 Balance 435.7 240 Result Diagrams: 11/12/18 08:05 11/12/18 08:05 Phys Exam - Physical Examination Constitutional: NAD HEENT: PERRLA, moist MMs, sclera anicteric Neck: no JVD, supple Respiratory: no wheezing, no rales, no rhonchi Cardiovascular: RRR, no significant murmur, no rub Gastrointestinal: soft, non-tender, no distention, positive bowel sounds Musculoskeletal: no edema, pulses present Neurological: non-focal, normal sensation Lymphatic: no nodes Psychiatric: normal affect Skin: no rash, normal turgor Dx/Plan (1) Acute blood loss anemia Code(s): D62 - ACUTE POSTHEMORRHAGIC ANEMIA Status: Acute (2) Deep vein thrombosis (DVT) of left lower extremity Code(s): I82.402 - ACUTE EMBOLISM AND THOMBOS UNSP DEEP VEINS OF L LOW EXTREM Status: Acute (3) Gastric ulcer Code(s): K25.9 - GASTRIC ULCER, UNSP ACUTE OR CHRONIC, W/O HEMOR OR PERF Status: Acute (4) Anxiety and depression Code(s): F41.9 - ANXIETY DISORDER, UNSPECIFIED; F32.9 - MAJOR DEPRESSIVE DISORDER, SINGLE EPISODE, UNSPECIFIED Status: Chronic (5) Hiatal hernia Code(s): K44.9 - DIAPHRAGMATIC HERNIA WITHOUT OBSTRUCTION OR GANGRENE Status: Chronic (6) Hypothyroidism Code(s): E03.9 - HYPOTHYROIDISM, UNSPECIFIED Status: Chronic (7) Protein-calorie malnutrition, moderate Code(s): E44.0 - MODERATE PROTEIN-CALORIE MALNUTRITION Status: Chronic (8) Vitamin B12 deficiency Code(s): E53.8 - DEFICIENCY OF OTHER SPECIFIED B GROUP VITAMINS Status: Chronic - Plan cont current plan of care * s/p IVC filter * EGD showed improvement in previous ulcer * medication reviewed as below * symptomatic treatment * will repeat labs tomorrow * give venofer today. Review of Systems - Review of Systems ENT: negative: Ear Pain, Ear Discharge, Nose Pain, Nose Discharge, Nose Congestion, Mouth Pain, Mouth Swelling, Throat Pain, Throat Swelling, Other Respiratory: negative: Cough, Dry, Shortness of Breath, Hemoptysis, SOB with Excertion, Pleuritic Pain, Sputum, Wheezing Cardiovascular: negative: chest pain, palpitations, orthopnea, paroxysmal nocturnal dyspnea, edema, light headedness, other Gastrointestinal: negative: Nausea, Vomiting, Abdominal Pain, Diarrhea, Constipation, Melena, Hematochezia, Other Genitourinary: negative: Dysuria, Frequency, Incontinence, Hematuria, Retention , Other Musculoskeletal: negative: Neck Pain, Shoulder Pain, Arm Pain, Back Pain, Hand Pain, Leg Pain, Foot Pain, Other - Medications/Allergies Allergies/Adverse Reactions: Allergies Allergy/AdvReac Type Severity Reaction Status Date / Time Iodine and Iodide Containing Allergy Verified 10/28/18 22:40 Produc Sulfa (Sulfonamide Allergy Verified 10/28/18 22:40 Antibiotics) diphenhydramine AdvReac Verified 10/28/18 22:40 [From Benadryl] Medications: Current Medications Acetaminophen (Tylenol) 500 mg PO Q6H PRN PRN Reason: Mild Pain (1-3) Artificial Tears (Tears Naturale) 2 drop EA EYE PRN PRN PRN Reason: Dry Eyes Bisacodyl (Dulcolax) 10 mg [place] DAILYPRN PRN PRN Reason: Constipation Cyanocobalamin (Vitamin B-12) 1,000 mcg PO DAILY RONNIE Last Admin: 11/12/18 09:50 Dose: 1,000 mcg Diltiazem HCl (Cardizem Cd) 120 mg PO DAILY RONNIE Last Admin: 11/12/18 09:50 Dose: 120 mg Diphenhydramine HCl (Benadryl) 50 mg IVP [facility] Docusate Sodium (Colace) 100 mg PO BID [facility] Last Admin: 11/12/18 09:49 Dose: 100 mg Famotidine (Pepcid) 20 mg SLOW IVP [facility] Ferrous Sulfate (Feosol) 325 mg PO DAILY [facility] Last Admin: 11/12/18 09:50 Dose: 325 mg Folic Acid (Folvite) 1 mg PO DAILY [facility] Last Admin: 11/12/18 09:50 Dose: 1 mg Guaifenesin (Robitussin Sf) 200 mg PO Q4H PRN PRN Reason: Cough Hydralazine HCl (Apresoline) 10 mg SLOW IVP Q4H PRN PRN Reason: SBP > 180 and HR < 70 Ferric Sodium Gluconate Complex 250 mg/ Sodium Chloride 120 mls @ 60 mls/hr IVPB NOW [facility] Stop: 11/12/18 13:00 Levothyroxine Sodium (Synthroid) 75 mcg PO 0600 [facility] Last Admin: 11/12/18 05:35 Dose: 75 mcg Loperamide HCl (Imodium) 2 mg PO PRN PRN PRN Reason: Diarrhea/Loose Stools Loratadine (Claritin) 10 mg PO DAILYPRN PRN PRN Reason: Sinus Symptoms Methylprednisolone Sodium Succinate (Solu-Medrol) 125 mg IVP [facility] Mineral Oil/White Petrolatum (Eucerin Cream) 0 gm TOP BIDPRN PRN PRN Reason: Dry Skin Ondansetron HCl (Zofran Odt) 4 mg PO Q6H PRN PRN Reason: Nausea/Vomiting Ondansetron HCl (Zofran) 4 mg IVP Q6H PRN PRN Reason: Nausea/Vomiting Pantoprazole Sodium (Protonix) 40 mg PO DAILY [facility] Last Admin: 11/12/18 10:29 Dose: 40 mg Polyethylene Glycol (Miralax) 17 gm PO DAILY PRN PRN Reason: Constipation Senna/Docusate Sodium (Senokot S) 2 tab PO BIDPRN PRN PRN Reason: Constipation Sertraline HCl (Zoloft) 50 mg PO DAILY [facility] Last Admin: 11/12/18 09:50 Dose: 50 mg Sodium Chloride (Flush - Normal Saline) 10 ml IVF PRN PRN PRN Reason: Saline Flush Sodium Chloride ([place] Nasal [place] 0.65%) 0 ml EA NARE QIDPRN PRN PRN Reason: Nasal Congestion Throat Lozenges (Cepastat Lozenges) 1 baldev PO Q2H PRN PRN Reason: Sore Throat Zolpidem Tartrate (Ambien) 5 mg PO HSPRN PRN PRN Reason: Insomnia
--- NOTE | 2018-11-12 16:13 | PRG ---
DATE OF SERVICE: 11/12/2018 REASON FOR CONSULTATION: Anemia with possible GI bleed. SUBJECTIVE: The patient underwent a repeat EGD yesterday for evaluation of the previously described gastric ulcer in the antrum of the stomach. Upon evaluation, it was well healed with no evidence of further ulceration and no evidence of active/recent bleeding. Overnight, the patient did well with no acute events or problems. She denies any episodes of hematemesis, melena, or hematochezia. Currently, she also denies any nausea, vomiting, fevers, chills, abdominal pain, dysphagia, or odynophagia. OBJECTIVE: VITAL SIGNS: Temperature 98, pulse 77, blood pressure 119/69, respiratory rate 16, and saturating 96% on room air. GENERAL: The patient is lying in bed, in no acute distress. Somnolent, but oriented x3. CARDIOVASCULAR: Regular rate and rhythm. RESPIRATORY: Clear to auscultation bilaterally. ABDOMEN: Normoactive bowel sounds. Soft, nontender, nondistended. EXTREMITIES: No cyanosis, clubbing, or edema. LABORATORY DATA: CBC with a hemoglobin of 9, hematocrit 27.6. Chemistry with a sodium of 135, potassium 4.3, chloride 109, CO2 of 19, BUN 29, creatinine 0.83, glucose 118. However, repeat testing of her hemoglobin and hematocrit revealed a hemoglobin of 7.9 and hematocrit of 24.1. IMAGING DATA: EGD performed on November 11, 2018, showed no evidence of active/recent bleeding and healing of the previously described ulceration. ASSESSMENT AND PLAN: The patient is an 83-year-old female with past medical history of hypertension, atrial fibrillation, B12 deficiency, anorexia, gastroesophageal reflux disease, hypothyroidism, depression, and chronic anemia, presenting a repeat episode of significantly decreased anemia associated with increased weakness and fatigue. Anemia/possible upper gastrointestinal bleed: The patient has presented to the hospital on multiple occasions for increased fatigue, tiredness/weakness, and general malaise over the course of the last 2 to 3 months. She has undergone multiple upper endoscopies during this time period, which showed the presence of a large antral based ulceration that has not exhibited any high-risk stigmata of bleeding during this entire time. She underwent a repeat EGD on November 11, 2018, for confirmation of healing of this ulceration (given concern for nonhealing ulcer and/or presence of malignancy), but did not see any additional ulceration at this time nor any evidence of active/recent bleeding. She has a colonoscopy that was performed in 2018, which did not reveal any abnormalities that could be contributing to the current clinical situation as well. At this time, given the negative upper and lower endoscopies, the only source of possible GI bleeding at this point would be small bowel if present at all, given the fact that the patient has never exhibited any hematochezia, hematemesis, or melena throughout all these hospitalizations. At this time, it is still unclear as to where her anemia is being generated from. RECOMMENDATIONS: 1. We would continue to trend hemoglobin and hematocrit and transfuse as necessary to maintain hemoglobin and hematocrit of 7/21. 2. Continue to monitor clinically for signs of active GI bleeding. 3. We would continue the patient on PPI daily, given concern for GI bleeding. 4. If the patient continues to exhibit a decrease in her hemoglobin and hematocrit, I would consider a tagged red cell scan for localization of the bleeding to help guide further therapy. 5. If the patient's hemoglobin and hematocrit are stable, we would then consider discharge to long term and outpatient followup in the GI clinic for capsule endoscopy, which has already been scheduled for the next week. We will continue to follow. Please call with any questions. Job ID: [id number]
[2018-11-13] MEDS: Levothyroxine Sodium 75 MCG TAB PO SCH (05:22)
[2018-11-13 06:33] LABS: Anion Gap 9 mmol/L (10-20); BUN (Urea Nitrogen) 25 mg/dL (9.8-20.1); Calc. Creatinine Clearance 39 mL/min (70-130); Calcium 9.3 mg/dL (7.8-10.44); Carbon Dioxide 21 mmol/L (23-31); Chloride 109 mmol/L (98-107); Estimated GFR-MDRD 64; Glucose 86 mg/dL (83-110); Potassium 4.4 mmol/L (3.5-5.1); Sodium 135 mmol/L (136-145)
[2018-11-13 06:43] LABS: Hemoglobin 8.3 g/dL (12.0-16.0); Mean Corpuscular HGB CONC 31.4 g/dL (32.0-36.0); Mean Corpuscular Hemoglobin 28.9 pg (27.0-31.0); Mean Corpuscular Volume 91.8 fL (78.0-98.0); Mean Platelet Volume 7.1 fL (7.4-10.4); Platelet Count 257 thou/uL (130-400); RBC Distribution Width 16.8 % (11.5-14.5); Red Blood Cell (RBC) Count 2.86 mill/uL (4.20-5.40); White Blood Cell (WBC) Count 4.1 thou/uL (4.8-10.8)
[2018-11-13 06:44] LABS: Band 2 % (5-11); Lymphocytes 22 % (21-51); MDiff Complete? YES; Monocytes 10 % (0-10); Neutrophil 66 % (42-75)
[2018-11-13] MEDS: Cyanocobalamin (Vitamin B-12) 1,000 MCG TAB PO SCH (08:45)
[2018-11-13] MEDS: Docusate 100 MG CAP PO SCH ×2 (08:46→19:59)
[2018-11-13] MEDS: Folic Acid 1 MG TAB PO SCH (08:46)
[2018-11-13] MEDS: Ferrous Sulfate 325 MG TAB PO SCH (08:46)
--- NOTE | 2018-11-13 11:00 | PDOC.PN ---
- Subjective Encounter Start Date: 11/13/18 Encounter Start Time: 09:25 Patient seen and examined. No new complaints. No overnight events - Objective Resuscitation Status - Order Detail: 11/10/18 23:59 Resuscitation Status Routine Resuscitation Status: DNAR: NO Resuscitation Discussed with: as discussed with and daughter JAYDA Reviewed: Yes Vital Signs & Weight: Vital Signs (12 hours) Temp Pulse Resp BP BP Pulse Ox 11/13/18 08:55 99 11/13/18 08:46 62 124/75 11/13/18 07:18 99.0 F 62 16 124/75 99 Weight Weight 110 lb 3 oz I&O: 11/12/18 11/13/18 11/14/18 06:59 06:59 06:59 Intake Total 240 1410 Balance 240 1410 Result Diagrams: 11/13/18 05:45 11/13/18 05:45 Phys Exam - Physical Examination Constitutional: NAD HEENT: PERRLA, moist MMs, sclera anicteric Neck: no JVD, supple Respiratory: no wheezing, no rales, no rhonchi Cardiovascular: RRR, no significant murmur, no rub Gastrointestinal: soft, non-tender, no distention, positive bowel sounds Musculoskeletal: no edema, pulses present Neurological: non-focal, normal sensation, moves all 4 limbs Lymphatic: no nodes Psychiatric: normal affect Skin: no rash, normal turgor Dx/Plan (1) Acute blood loss anemia Code(s): D62 - ACUTE POSTHEMORRHAGIC ANEMIA Status: Acute (2) Deep vein thrombosis (DVT) of left lower extremity Code(s): I82.402 - ACUTE EMBOLISM AND THOMBOS UNSP DEEP VEINS OF L LOW EXTREM Status: Acute (3) Gastric ulcer Code(s): K25.9 - GASTRIC ULCER, UNSP ACUTE OR CHRONIC, W/O HEMOR OR PERF Status: Acute (4) Anxiety and depression Code(s): F41.9 - ANXIETY DISORDER, UNSPECIFIED; F32.9 - MAJOR DEPRESSIVE DISORDER, SINGLE EPISODE, UNSPECIFIED Status: Chronic (5) Hiatal hernia Code(s): K44.9 - DIAPHRAGMATIC HERNIA WITHOUT OBSTRUCTION OR GANGRENE Status: Chronic (6) Hypothyroidism Code(s): E03.9 - HYPOTHYROIDISM, UNSPECIFIED Status: Chronic (7) Protein-calorie malnutrition, moderate Code(s): E44.0 - MODERATE PROTEIN-CALORIE MALNUTRITION Status: Chronic (8) Vitamin B12 deficiency Code(s): E53.8 - DEFICIENCY OF OTHER SPECIFIED B GROUP VITAMINS Status: Chronic - Plan cont current plan of care, older adult social work specialist * medication reviewed as below * symptomatic treatment * see discharge marbin. Review of Systems - Review of Systems ENT: negative: Ear Pain, Ear Discharge, Nose Pain, Nose Discharge, Nose Congestion, Mouth Pain, Mouth Swelling, Throat Pain, Throat Swelling, Other Respiratory: negative: Cough, Dry, Shortness of Breath, Hemoptysis, SOB with Excertion, Pleuritic Pain, Sputum, Wheezing Cardiovascular: negative: chest pain, palpitations, orthopnea, paroxysmal nocturnal dyspnea, edema, light headedness, other Gastrointestinal: negative: Nausea, Vomiting, Abdominal Pain, Diarrhea, Constipation, Melena, Hematochezia, Other Genitourinary: negative: Dysuria, Frequency, Incontinence, Hematuria, Retention , Other Musculoskeletal: negative: Neck Pain, Shoulder Pain, Arm Pain, Back Pain, Hand Pain, Leg Pain, Foot Pain, Other - Medications/Allergies Allergies/Adverse Reactions: Allergies Allergy/AdvReac Type Severity Reaction Status Date / Time Iodine and Iodide Containing Allergy Verified 10/28/18 22:40 Produc Sulfa (Sulfonamide Allergy Verified 10/28/18 22:40 Antibiotics) diphenhydramine AdvReac Verified 10/28/18 22:40 [From Benadryl] Medications: Current Medications Acetaminophen (Tylenol) 500 mg PO Q6H PRN PRN Reason: Mild Pain (1-3) Artificial Tears (Tears Naturale) 2 drop EA EYE PRN PRN PRN Reason: Dry Eyes Bisacodyl (Dulcolax) 10 mg [place] DAILYPRN PRN PRN Reason: Constipation Cyanocobalamin (Vitamin B-12) 1,000 mcg PO DAILY [facility] Last Admin: 11/13/18 08:45 Dose: 1,000 mcg Diltiazem HCl (Cardizem Cd) 120 mg PO DAILY [facility] Last Admin: 11/13/18 08:46 Dose: 120 mg Diphenhydramine HCl (Benadryl) 50 mg IVP WILLCALL [facility] Docusate Sodium (Colace) 100 mg PO BID [facility] Last Admin: 11/13/18 08:46 Dose: 100 mg Famotidine (Pepcid) 20 mg SLOW IVP [facility] Ferrous Sulfate (Feosol) 325 mg PO DAILY [facility] Last Admin: 11/13/18 08:46 Dose: 325 mg Folic Acid (Folvite) 1 mg PO DAILY [facility] Last Admin: 11/13/18 08:46 Dose: 1 mg Guaifenesin (Robitussin Sf) 200 mg PO Q4H PRN PRN Reason: Cough Hydralazine HCl (Apresoline) 10 mg SLOW IVP Q4H PRN PRN Reason: SBP > 180 and HR < 70 Levothyroxine Sodium (Synthroid) 75 mcg PO 0600 [facility] Last Admin: 11/13/18 05:22 Dose: 75 mcg Loperamide HCl (Imodium) 2 mg PO PRN PRN PRN Reason: Diarrhea/Loose Stools Loratadine (Claritin) 10 mg PO DAILYPRN PRN PRN Reason: Sinus Symptoms Methylprednisolone Sodium Succinate (Solu-Medrol) 125 mg IVP [facility]CALL [facility] Mineral Oil/White Petrolatum (Eucerin Cream) 0 gm TOP BIDPRN PRN PRN Reason: Dry Skin Ondansetron HCl (Zofran Odt) 4 mg PO Q6H PRN PRN Reason: Nausea/Vomiting Ondansetron HCl (Zofran) 4 mg IVP Q6H PRN PRN Reason: Nausea/Vomiting Pantoprazole Sodium (Protonix) 40 mg PO DAILY [facility] Last Admin: 11/13/18 08:45 Dose: 40 mg Polyethylene Glycol (Miralax) 17 gm PO DAILY PRN PRN Reason: Constipation Senna/Docusate Sodium (Senokot S) 2 tab PO BIDPRN PRN PRN Reason: Constipation Sertraline HCl (Zoloft) 50 mg PO DAILY [facility] Last Admin: 11/13/18 08:45 Dose: 50 mg Sodium Chloride (Flush - Normal Saline) 10 ml IVF PRN PRN PRN Reason: Saline Flush Last Admin: 11/12/18 10:53 Dose: 10 ml Sodium Chloride ([place] Nasal [place] 0.65%) 0 ml EA NARE QIDPRN PRN PRN Reason: Nasal Congestion Throat Lozenges (Cepastat Lozenges) 1 baldev PO Q2H PRN PRN Reason: Sore Throat Zolpidem Tartrate (Ambien) 5 mg PO HSPRN PRN PRN Reason: Insomnia
--- NOTE | 2018-11-13 11:08 | DIS ---
DATE OF ADMISSION: 11/10/2018 DATE OF DISCHARGE: 11/13/2018 PRIMARY CARE PHYSICIAN: Reggie Cope MD DISCHARGE DISPOSITION: [facility] home. PRIMARY DISCHARGE DIAGNOSES: 1. Acute gastrointestinal bleed. 2. Acute blood loss anemia. 3. Deep venous thrombosis of the left lower extremity. 4. Status post IVC filter. 5. Healing gastric ulcer. SECONDARY DISCHARGE DIAGNOSES: Vitamin B12 deficiency, protein calorie malnutrition, hypothyroidism, hiatal hernia, anxiety and depression, gastric ulcer, and physical deconditioning. PRIMARY PROCEDURE/OPERATION: Upper endoscopy was performed by Dr. Silva and it showed a healing gastric ulcer. IVC filter was placed by Dr. Chapman. RADIOLOGICAL INVESTIGATION: Chest x-ray was normal. Ultrasound was showing DVT of left lower extremity. SIGNIFICANT LABORATORY DATA: WBC 4.1, hemoglobin 8.3, platelet 257. INR 1.1. Sodium 135, potassium 4.4, BUN 25, creatinine 0.85, calcium 9.3. LFT normal. Ferritin 91.60. Stool for guaiac positive. DISCHARGE MEDICATIONS: 1. Ferrous sulfate 325 mg p.o. daily. 2. Multivitamin one tablet p.o. daily. 3. Megace 400 mg b.i.d. 4. Protonix 40 mg b.i.d. 5. MiraLAX 17 g p.o. daily. 6. Zoloft 50 mg daily. 7. Tylenol 650 mg q.4 hourly p.r.n. 8. Vitamin B12 of 1000 mcg p.o. daily and 1000 mcg IM every month. 9. Cardizem CD 120 mg daily. 10. Colace 100 mg b.i.d. 11. Folic acid 1 mg daily. 12. Synthroid 75 mcg p.o. daily. CONTRAINDICATION: None. CODE STATUS: DNR. INPATIENT FAMILY PROTECTION SPECIALIST: Dr. Chapman was consulted for IVC filter. Dr. Silva was consulted for GI bleed. TEST RESULTS PENDING ON DISCHARGE: None. ALLERGY: Iodine. DISCHARGE PLAN: Posthospital, the patient will follow up with primary manager treasury. HOSPITAL COURSE: An 83-year-old female, who was admitted by Dr. Rico, please see his H and P for further details. This patient was having lower extremity swelling and pain on the left side and she was also feeling more weak, fatigued, and tired. She was having symptomatic anemia. On admission, her hemoglobin was 5.2. She was given total 2 units of blood transfusion and after that, her H and H remained stable. This patient underwent upper endoscopy by Dr. Silva and the patient was found with a healing gastric ulcer, which was diagnosed recently. The patient's H and H remained stable and she did not require any procedure in colonoscopy. Press Department Manager recommended capsule endoscopy because the patient does not have any obvious source of bleeding and that can be done as an outpatient basis upon followup visit. This patient was also diagnosed with extensive left lower extremity DVT and because of recurrent anemia and GI bleed, the patient was not a candidate for any chronic anticoagulation, that is why we consulted Dr. Chapman and he did IVC filter. The patient was observed while in hospital closely. Her H and H remained stable. The patient's vitals remained stable. The patient is tolerating p.o. well. The patient is from [facility] and she will go back [facility]. The patient is seen and examined at bedside today. All review of systems reviewed with her and negative. Her physical examination is unremarkable. Paperwork for discharge done and discharge medication reconciliation done. Total time spent on discharge day 31 minutes. Job ID: [id number]
[2018-11-14] MEDS: Levothyroxine Sodium 75 MCG TAB PO SCH (05:35)
[2018-11-14] MEDS: Ferrous Sulfate 325 MG TAB PO SCH (09:15)
[2018-11-14] MEDS: Docusate 100 MG CAP PO SCH (09:16)
[2018-11-14] MEDS: Cyanocobalamin (Vitamin B-12) 1,000 MCG TAB PO SCH (09:16)
[2018-11-14] MEDS: Folic Acid 1 MG TAB PO SCH (09:16)
[2018-11-14 10:41] LABS: Hemoglobin 8.2 g/dL (12.0-16.0)
[2018-11-14 11:37] VITALS: BP 101/61; TEMP 97.8
== END 2018-11-14 14:39 | DRG 357 ==
LOC: ERS 17:01 → T4-B 19:15
PROVIDERS: ADMIT Hospitalist; ATTEND Hospitalist
PROC: 0DJ08ZZ Inspection of Upper Intestinal Tract, Via Natural or Artificial Opening Endoscopic (ICD-10-PCS; principal; 2018-11-10)
PROC: 06H03DZ Insertion of Intraluminal Device into Inferior Vena Cava, Percutaneous Approach (ICD-10-PCS; 2018-11-10)
PROC: 30233N1 Transfusion of Nonautologous Red Blood Cells into Peripheral Vein, Percutaneous Approach (ICD-10-PCS; 2018-11-10)
DX: K92.2 Gastrointestinal hemorrhage, unspecified (principal); D62 Acute posthemorrhagic anemia; I82.402 Acute embolism and thrombosis of unspecified deep veins of left lower extremity; E44.0 Moderate protein-calorie malnutrition; Z68.1 Body mass index [BMI] 19.9 or less, adult; K25.9 Gastric ulcer, unspecified as acute or chronic, without hemorrhage or perforation; F41.9 Anxiety disorder, unspecified; F32.9 Major depressive disorder, single episode, unspecified; K44.9 Diaphragmatic hernia without obstruction or gangrene; E03.9 Hypothyroidism, unspecified; E53.8 Deficiency of other specified B group vitamins; I10 Essential (primary) hypertension; F03.90 Unspecified dementia, unspecified severity, without behavioral disturbance, psychotic disturbance, mood disturbance, and anxiety; I48.91 Unspecified atrial fibrillation; R63.0 Anorexia
CPT/HCPCS: 36415; 36430; 37191; 71045; 76942; 80048; 80053; 82274; 82728; 83540; 83550; 85014; 85018; 85025; 85610; 85730; 86850; 86900; 86901; 90471; 90670; 93005; 96365; C1769; C9113; G0009; J1200; J1644; J1756; J2001; J2250; J2704; J2916; J2930; J3010; J7050; P9016; Q9967; S0028

== ENCOUNTER 2018-12-28 13:08 | Outpatient (CLI) | payer MEDICARE ==
--- NOTE | 2018-12-28 13:35 | CT ---
EXAM: CT head without contrast INDICATIONS: Mental status change. Cognitive decline. COMPARISON: 09/13/2018 FINDINGS: Moderate cortical atrophy. Mild ventriculomegaly, slightly disproportionate to the degree o f atrophy but stable from prior exam. Moderately severe chronic ischemic white matter change, stable. No acute mass, infarct, or hemorrhage. IMPRESSION: Chronic changes as described above are stable from prior exam. No acute process.
== END 2018-12-28 13:09 | disposition home or self-care (01) ==
LOC: CT 13:08
PROVIDERS: ATTEND Neurological Surgery
DX: R41.81 Age-related cognitive decline (principal); G31.9 Degenerative disease of nervous system, unspecified; G93.89 Other specified disorders of brain; I67.82 Cerebral ischemia
CPT/HCPCS: 70450

== ENCOUNTER 2018-12-28 13:40 | Observation (INO) | payer MEDICARE ==
--- NOTE | 2018-12-28 15:47 | ULT ---
EXAM: Bilateral lower extremity venous Doppler HISTORY: bilateral lower extremity edema and pain FINDINGS: Grayscale, color-flow, Doppler evaluation, spectral analysis of the bilateral lower extremities venou s structures is performed with 2-D imaging. The bilateral common femoral, superficial femoral, popliteal, posterior tibial, proximal greater saphenous and profunda femoral veins are imaged. There is increased luminal echogenicity, decreased lumen compressibility, and absence of flow seen wi thin the lower extremity deep venous structures extending from the posterior tibial veins to the common femoral veins bilaterally. Mild subcutaneous edema is seen at the level of the calves bilaterally. IMPRESSION: 1. Extensive bilateral lower extremity deep vein thrombus. Above findings were reported to EDUARDA Morales in the emergency department by Nickie, the chief radiologic technologist, at the time of the examination. 2. Bilateral lower extremity edema.
--- NOTE | 2018-12-28 16:47 | RAD ---
EXAM: Single view of the chest HISTORY: Shortness of breath and chest pain COMPARISON: 11/10/2018 FINDINGS: Single view of the chest shows a normal sized cardiomediastinal silhouette. Increased inte rstitial markings are stable. There is no evidence of consolidation, mass, or pleural effusion. Degenerative changes are seen in the spine. Surgical clips project over the left chest wall. IMPRESSION: No evidence of acute cardiopulmonary disease
[2018-12-28 17:14] LABS: #Eosinphils 0.1 thou/uL (0.0-0.7); #Monocytes 0.6 thou/uL (0.11-0.59); #Neutrophils 2.5 thou/uL (1.40-6.50); %Eosinophils 2.2 % (0.0-10.0); %Monocytes 14.6 % (0.0-10.0); %Neutrophils 59.2 % (42.0-75.0); Hemoglobin 9.6 g/dL (12.0-16.0); Mean Corpuscular HGB CONC 29.7 g/dL (32.0-36.0); Mean Corpuscular Hemoglobin 26.9 pg (27.0-31.0); Mean Corpuscular Volume 90.8 fL (78.0-98.0); Mean Platelet Volume 7.1 fL (7.4-10.4); Platelet Count 348 thou/uL (130-400); Red Blood Cell (RBC) Count 3.56 mill/uL (4.20-5.40); White Blood Cell (WBC) Count 4.3 thou/uL (4.8-10.8)
[2018-12-28 17:18] LABS: INR-International Normal Ratio 1.1; PTT 24.8 SEC (22.9-36.1); Prothrombin Time 14.1 SEC (12.0-14.7)
[2018-12-28 17:33] LABS: ALT (SGPT) 24 U/L (8-55); AST (SGOT) 23 U/L (5-34); Albumin 3.9 g/dL (3.4-4.8); Alkaline Phosphatase 91 U/L (40-150); Anion Gap 15 mmol/L (10-20); BUN (Urea Nitrogen) 23 mg/dL (9.8-20.1); Bilirubin, Total 0.2 mg/dL (0.2-1.2); Calc. Creatinine Clearance 0 mL/min (70-130); Calcium 10.4 mg/dL (7.8-10.44); Carbon Dioxide 22 mmol/L (23-31); Chloride 108 mmol/L (98-107); Estimated GFR-MDRD 57; Globulin 3.7 g/dL (2.4-3.5); Glucose 94 mg/dL (83-110); Potassium 4.8 mmol/L (3.5-5.1); Protein, Total 7.6 g/dL (6.0-8.3); Sodium 140 mmol/L (136-145)
[2018-12-28 17:38] LABS: Bilirubin Negative (Negative); Blood, Urine Small (Negative); Clarity CLOUDY (Clear); Glucose, Urine (Dipstick) Negative (Negative); Leukocyte Large (Negative); Nitrite Positive (Negative); Protein, Urine (Dipstick) Negative (Neg-Trace); Specific Gravity, Urine 1.017 (1.002-1.036)
[2018-12-28 17:39] LABS: Bacteria/HPF 4+ HPF (None Seen); Squamous Epithelial 0-3 HPF (0-3)
[2018-12-28 17:46] LABS: Pathc Cast-AUWi Flag 3.53 (0-2.49)
[2018-12-28 17:48] LABS: Hyaline Casts/LPF 0-3 HYALINE CAST LPF (0-3 Hyaline); Manual Microscopic Reviewed? No Path Casts Seen
[2018-12-28] MEDS ORDERED: Apixaban 5 MG TAB PO SCH (19:30)
[2018-12-28] MEDS ORDERED: Nitrofurantoin Monohyd/M-Cryst 100 MG CAP PO SCH (19:30)
[2018-12-28 21:40] VITALS: BMI 21.3
[2018-12-28] MEDS: Sodium Chloride 0.9% 1,000 ML IV SCH (22:15)
[2018-12-29] MEDS: Sodium Chloride 0.9% 1,000 ML IV SCH ×3 (06:11→17:36)
[2018-12-29] MEDS ORDERED: Nitrofurantoin Monohyd/M-Cryst 100 MG CAP PO SCH (09:00)
[2018-12-29] MEDS ORDERED: Docusate 100 MG CAP PO SCH (09:00)
[2018-12-29] MEDS ORDERED: Apixaban 5 MG TAB PO SCH (09:00)
[2018-12-29 11:40] LABS: Hemoglobin 8.3 g/dL (12.0-16.0); Platelet Count 293 thou/uL (130-400)
--- NOTE | 2018-12-29 13:44 | HP ---
CHIEF COMPLAINT: Bilateral DVTs. HISTORY OF PRESENT ILLNESS: The patient is an 83-year-old long-term patient, who has had swelling in her lower extremities for the past [address] Cope was contacted about this and when she was sent to have a CT of her head, which did return negative, it was an opportunity to get an ultrasound of her lower extremities. She was sent to the emergency room for such. She had, had no pain, no active bleeding, but she has a history of DVTs in the past. A CT of her head was done for increasing altered mental status, but the patient also has a known history of dementia. In the ER, the deep venous thrombosis was noted and since she has had a colonoscopy recently, which was negative. The family wanted aggressive treatment for her DVT despite a history of bleeding and wanted anticoagulation to be started as well as a thrombectomy if she was in acceptable surgical risk. PAST MEDICAL HISTORY: Significant as mentioned before previous GI bleed and DVTs, hypertension, anemia, hypothyroidism, and CVA - nonambulatory sense. PAST SURGICAL HISTORY: Her prior surgeries include lumpectomy of her left breast, rectocele repair, pelvic mesh, and back surgery. PSYCHIATRIC HISTORY: Psychiatry has been significant for depression. SOCIAL HISTORY: She now resides as a in a long-term. No drugs, alcohol, or illicit drugs are used. FAMILY HISTORY: Noncontributory. ALLERGIES: SHE IS ALLERGIC TO PENICILLIN, IODINE, AND SULFA. MEDICATIONS: At the time of admission include; 1. Cardizem 120 daily. 2. Colace b.i.d. 3. Folic acid daily. 4. Megace, stimulate her appetite. 5. Protonix 40 mg a day. 6. Synthroid 75 mg a day. 7. Zoloft 50 mg a day. REVIEW OF SYSTEMS: CONSTITUTIONAL: At the time of admission, she denies any fever, chills, headaches. HEENT: No drainage from ear, nose, or throat with sores or pain. CHEST: Denies shortness of breath or cough. CARDIOVASCULAR: Denies chest pain or palpitations. GASTROINTESTINAL: Denies nausea, vomiting, or diarrhea. GENITOURINARY: Denies dysuria or blood in urine or stool. MUSCULOSKELETAL: Has been weak and bedridden since the fall of 2018. SKIN: No new rashes or lesions. NEUROLOGIC: Increasing altered mental status as reason for CT of the head. PHYSICAL EXAMINATION: VITAL SIGNS: At the time of admission, blood pressure 133/67, pulse 91, respirations 14, and O2 saturation 97% on room air. GENERAL: This is an elderly, cachectic female, alert and responsive. HEENT: Normocephalic, atraumatic. Pupils are equal, round, and reactive to light with diminished reactivity and arcus senilis bilaterally. NECK: Mobile. No bruits. CHEST: Clear to auscultation. BREASTS: Deferred. HEART: Regular rate and rhythm without murmur. ABDOMEN: Soft without organomegaly and nontender. GENITOURINARY: Deferred. EXTREMITIES: With muscular wasting in upper and lower extremities. Diminished range of motion, but no clubbing, cyanosis, or edema. There is swelling in bilateral extremities, mainly the right is greater than the left with limited range of motion ever since her CVA. NEUROLOGIC: She is oriented to person and place. Speech is clear. Denies pain. Unable to test gait and cerebellar function. Sensory exam is grossly intact. Cranial nerves appear normal. SKIN: No acute rashes or lesions at this time. Poor turgor generally. DIAGNOSTIC DATA: The lab work from admission, CT of the head showed moderate cortical atrophy with mild ventriculomegaly, stable from prior exam. Severe chronic ischemic white matter changes are noted. Chest exam unremarkable. Lower extremities show extensive bilateral lower extremity deep venous thrombosis. WBCs 4.3, hemoglobin 9.6, and hematocrit 32.3 with platelets at 348. Sodium 140, potassium 4.0, chloride 108, CO2 of 22, BUN 23, creatinine 0.93, and glucose 94. Liver functions unremarkable. UA shows positive nitrites with large WBCs and too numerous to count. PT is 14.1, APTT is 24.8 with an INR of 1.1. ASSESSMENT: 1. Bilateral lower extremity deep venous thrombosis. 2. Urinary tract infection. 3. Advancing dementia with cortical atrophy per CT. 4. History of cerebrovascular accident. 5. History of gastrointestinal bleed. PLAN: The patient wishes to restart anticoagulation despite history of bleeding and desires to have surgical consultation concerning if thrombectomy would benefit the patient (I do not personally feel that she is a surgical candidate). Serial re-evaluation of the patient will begin antibiotics for her UTI. Job ID: [id number]
[2018-12-29 15:57] VITALS: BP 122/58; TEMP 99.1
[2018-12-30] MEDS ORDERED: Levothyroxine Sodium 75 MCG TAB PO SCH (06:00)
== END 2018-12-29 18:40 ==
LOC: ERS 13:40 → 2NO 20:41
PROVIDERS: ADMIT Specialist; ATTEND Specialist
DX: I82.443 Acute embolism and thrombosis of tibial vein, bilateral (principal); I82.413 Acute embolism and thrombosis of femoral vein, bilateral; I10 Essential (primary) hypertension; E03.9 Hypothyroidism, unspecified; F32.9 Major depressive disorder, single episode, unspecified; F03.90 Unspecified dementia, unspecified severity, without behavioral disturbance, psychotic disturbance, mood disturbance, and anxiety; N39.0 Urinary tract infection, site not specified; Z86.73 Personal history of transient ischemic attack (TIA), and cerebral infarction without residual deficits; Z88.0 Allergy status to penicillin; Z88.2 Allergy status to sulfonamides; Z91.041 Radiographic dye allergy status; Z79.899 Other long term (current) drug therapy
CPT/HCPCS: 51701; 70450; 71045; 80053; 82565; 84443; 84484; 85014; 85018; 85025; 85049; 85610; 85730; 86850; 86900; 86901; 87077; 87086; 87186; 93005; 93970; 94760; 96360; 96361; 99285; G0378 ×2; 36415; 81003; 81015; A4353

== ENCOUNTER 2019-03-09 09:03 | Outpatient (CLI) | payer MEDICARE ==
--- NOTE | 2019-03-09 10:53 | MRI ---
MRI BRAIN NONCONTRAST: DATE: 03/09/19 HISTORY: 83-year-old female with altered mental status and bilateral lower extremity weakness. COMPARISON: Prior brain CTs of 12/28/18 and 08/15/18. No prior brain MRIs. FINDINGS: There is moderate dilation of the lateral and third ventricles, and mild to moderate dilation of the fourth ventricle. This is probably due to central brain atrophy. There is a smaller possibility that this could represent normal pressure hydrocephalus, but clinical correlation is recommended (Is there gait apraxia, dementia, and/or urinary incontinence?). There is no restricted diffusion, midline mark ft or any other mass effect, recent intraaxial hemorrhage, or extraaxial fluid collection. There are extensive, confluent T2-hyperintensities throughout the cerebral white matter consistent with moderat e-severe chronic ischemic white matter changes due to microvascular atherosclerosis. There is diffuse brain parenchymal volume loss. There has been no significant interval change. IMPRESSION: 1. Involutional changes and moderate-severe chronic ischemic white matter changes. 2. Ventriculomegaly. See above comments. 3. No interval change compared to prior CTs of the brain dating back to 2018. jn[] POS: CET
--- NOTE | 2019-03-09 12:23 | MRI ---
MRI LUMBAR SPINE WITH AND WITHOUT CONTRAST: DATE: 03/09/19 HISTORY: 83-year-old female with bilateral lower extremity weakness. COMPARISON: 05/31/18. TECHNIQUE: Multiple sequences obtained in axial and sagittal planes, pre and post IV injection of gadolinium-bas ed contrast agent: MultiHance. FINDINGS: For the purposes of this report, it will be assumed that there are 5 lumbar-type vertebrae. The vert ebral body heights are maintained. There is no abnormal intradural-subarachnoid enhancement, including absence of abnormal enhancement o f cauda equina nerve roots. No abnormal enhancement, mass, or abscess in the perivertebral spaces. In cidental finding of slightly greater than 1 cm round lesion in the mid pole parenchyma of the lateral aspect of right kidney, too small to definitively characterize. It probably does not enhance and is probably a cyst, but there is a possibility of small primary renal neoplasm. No major interval change . Cauda equina is minimally/mildly clumped from L2 through L3-4. 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 The findings by individual levels are as follows: T12-L1: Normal. L1-2: Conus medullaris terminates at this level. Normal. L2-3: End plate irregularity. Moderate disc space narrowing. Degenerative retrolisthesis of L2 on L3 as previously noted. The previously demonstrated right lateral disc herniation with effacement of ri ght lateral aspect of spinal canal, plus severe right neural foraminal stenosis, has improved. There are mild T2 hyperintense marrow edema of the right side of the end plates, similar to or slightly les s than on the prior MRI. Currently, there is no significant central spinal canal stenosis and no left neural foraminal stenosis. There is enhancement in the right neural foramen, which could represent p ostsurgical scar. There is also new enhancement in region of the right lamina, which may represent po stsurgical scar tissue of hemilaminotomy. L3-4: Disc space maintained. Diffuse disc bulge again noted. No significant central spinal canal jd nosis. Moderate bilateral neural foraminal stenosis. Bilateral small facet joint effusions. Mild bila teral facet DJD. No major interval change. L4-5: Bilateral facet joint effusions, right greater than left. Moderate facet DJD on the right and mild to moderate on the left. Mild to moderate bilateral neural foraminal stenosis. No central stenos is. Disc space maintained. Mild disc bulge. Minimal Grade I anterolisthesis of L4 on L5. No central s tenosis. No interval change. L5-S1: No central stenosis or neural foraminal stenosis. Disc space maintained. Focal central disc h erniation indents the ventral aspect of the thecal sac. It contacts but does not significantly displa ce the left S1 nerve root. Mild to moderate facet DJD. No interval change. IMPRESSION: 1. Status post right hemilaminotomy at L2-3 since the prior MRI, with resection of most of the previ ously demonstrated right lateral and far lateral disc herniation, and interval improvement in the pre viously high grade right neural foraminal stenosis. Some residual right neural foraminal stenosis rem ains. 2. Interval improvement in the right-sided Modic Type I end plate degenerative changes, but greater degree of T2 hyperintensity in the right side of disc space, probably representing postsurgical schaefer es. 3. No evidence of cauda equina syndrome. No high grade central spinal canal stenosis at any level. 4. Facet osteoarthrosis at lower levels. 5. Indeterminate T2-hyperintense, slightly greater than 1 cm, right renal lesion, either stable or m inimally larger than on 05/31/18. Continued follow-up is recommended with CT urogram of abdomen and p sona with and without contrast. SUSU R POS: CET
== END 2019-03-09 09:04 | disposition home or self-care (01) ==
LOC: MRI 09:03
PROVIDERS: ATTEND Neurological Surgery
DX: R41.82 Altered mental status, unspecified (principal); R29.898 Other symptoms and signs involving the musculoskeletal system; M47.816 Spondylosis without myelopathy or radiculopathy, lumbar region; N28.9 Disorder of kidney and ureter, unspecified; Z98.890 Other specified postprocedural states
CPT/HCPCS: 70551; 72158; 82565

== ENCOUNTER 2019-03-31 08:46 | Day surgery (SDC) | payer MEDICARE ==
[2019-03-30 13:19] VITALS: BMI 21.2
--- NOTE | 2019-03-31 12:17 | RAD ---
EXAM: XR Lumbar Punct Only W/Fluoro PROVIDED CLINICAL HISTORY: Patient with hydrocephalus and altered mental status. Evaluate for possible normal pressure hydroceph alus. High volume lumbar puncture was requested with request for aspiration of 30 mL of cerebrospinal fluid. COMPARISON: None TECHNIQUE: The procedure including the risks and complications were explained to the patient's family, and [facility] consent was obtained. Patient was placed on the fluoroscopy table in the prone position. An area overlying the L2-3 interspace was marked, and the area was meticulously prepped and draped in [facility] sterile fashion. The skin and subcutaneous tissues were infiltrated with buffered 1% lidocaine for local anesthesia. A 20-gauge spinal needle was advanced utilizing fluoroscopic guidance at the L2-3 level. The inner stylette was removed with a return of clear cerebral spinal fluid. Opening pressure was performed wit h opening pressure of 13 cm of water. Approximately 29 mL of clear cerebral spinal fluid was removed. Closing pressure of approximately 9 cm of water was obtained. The inner stylette was replaced, and the needle was removed. A dry sterile dressing was placed at pun cture site. The patient tolerated the procedure well and without immediate complication. IMPRESSION: Technically successful lumbar puncture.
[2019-03-31 13:17] VITALS: BP 141/71; TEMP 98.2
== END 2019-03-31 12:48 | disposition home or self-care (01) ==
LOC: RAD 08:46
PROVIDERS: ATTEND Neurological Surgery
DX: G91.9 Hydrocephalus, unspecified (principal); I10 Essential (primary) hypertension; E03.9 Hypothyroidism, unspecified; E78.5 Hyperlipidemia, unspecified; F03.90 Unspecified dementia, unspecified severity, without behavioral disturbance, psychotic disturbance, mood disturbance, and anxiety; F32.9 Major depressive disorder, single episode, unspecified; K21.9 Gastro-esophageal reflux disease without esophagitis; Z79.01 Long term (current) use of anticoagulants; Z86.73 Personal history of transient ischemic attack (TIA), and cerebral infarction without residual deficits; Z88.2 Allergy status to sulfonamides; Z88.5 Allergy status to narcotic agent; Z88.8 Allergy status to other drugs, medicaments and biological substances; Z91.041 Radiographic dye allergy status
CPT/HCPCS: 62270

== ENCOUNTER 2019-06-16 08:33 | Day surgery (SDC) | payer MEDICARE ==
[2019-06-15 14:08] VITALS: BMI 32.3
[2019-06-16 10:10] VITALS: BP 158/81; TEMP 99.2
--- NOTE | 2019-06-16 11:16 | RAD ---
LUMBAR PUNCTURE WITH FLUOROSCOPIC GUIDANCE: HISTORY: Normal pressure hydrocephalus. COMPARISON: 03/31/2019. FINDINGS: The initial conveyor system dispatcher lumbar spine radiograph demonstrates 5 lumbar-type vertebrae. Lumbar spine vertebra l body height is maintained. No fracture. There is straightening of normal lumbar lordosis. Incidental IVC filter is noted. Successful lumbar puncture with fluoroscopic guidance. Spinal needle was placed at the L3-L4 level. T otal of 28 mL of clear CSF was collected. No immediate or postprocedure complications. TECHNIQUE: Consent obtained to perform a fluoroscopic guided lumbar puncture. Patient's back was evaluated. The L3-L4 was deemed appropriate. Skin was prepped and draped in sterile fashion. 1% lidocaine, buffered with sodium bicarbonate was used for local anesthesia. Under fluoroscopic guidance, a 22-gau ge spinal needle was advanced into the CSF space. There is flow of clear CSF to the hub of the needle. Via a 3 cc syringe and gentle aspiration, a total of 28 mL of clear CSF was collected. The pa tient tolerated the procedure well. No immediate or postprocedural complications. IMPRESSION: Successful lumbar puncture with fluoroscopic guidance. Transcribed Date/Time: 06/16/2019 11:36 AM
== END 2019-06-16 12:00 | disposition home or self-care (01) ==
LOC: RAD 08:33
PROVIDERS: ATTEND Specialist
PROC: 009U3ZX Drainage of Spinal Canal, Percutaneous Approach, Diagnostic (ICD-10-PCS; principal; 2019-06-16)
PROC: B01B1ZZ Fluoroscopy of Spinal Cord using Low Osmolar Contrast (ICD-10-PCS; 2019-06-16)
DX: G91.2 (Idiopathic) normal pressure hydrocephalus (principal); I10 Essential (primary) hypertension; F32.9 Major depressive disorder, single episode, unspecified; E03.9 Hypothyroidism, unspecified; Z79.01 Long term (current) use of anticoagulants; Z79.899 Other long term (current) drug therapy; Z88.2 Allergy status to sulfonamides; Z88.8 Allergy status to other drugs, medicaments and biological substances; Z91.041 Radiographic dye allergy status
CPT/HCPCS: 62270

== ENCOUNTER 2020-11-12 09:52 | Inpatient (IN) | payer MEDICARE, OTHER ==
[2020-11-12 12:11] LABS: INR-International Normal Ratio 1.1; PTT 24.5 sec (22.9-36.1); Prothrombin Time 14.5 sec (12.0-14.7)
[2020-11-12 12:13] LABS: #Eosinphils 0.1 thou/uL (0.0-0.7); #Lymphocytes 2.1 thou/uL (1.20-3.40); #Monocytes 1.3 thou/uL (0.11-0.59); #Neutrophils 8.1 thou/uL (1.40-6.50); %Basophils 0.3 % (0.0-1.0); %Eosinophils 0.8 % (0.0-10.0); %Lymphocytes 17.7 % (21.0-51.0); %Neutrophils 70.1 % (42.0-75.0); Hemoglobin 14.2 g/dL (12.0-16.0); Mean Corpuscular HGB CONC 33.2 g/dL (32.0-36.0); Mean Corpuscular Hemoglobin 31.7 pg (27.0-31.0); Mean Corpuscular Volume 95.6 fL (78.0-98.0); Mean Platelet Volume 7.5 fL (7.4-10.4); Platelet Count 325 thou/uL (130-400); Red Blood Cell (RBC) Count 4.47 mill/uL (4.20-5.40); White Blood Cell (WBC) Count 11.6 thou/uL (4.8-10.8)
[2020-11-12 12:27] LABS: ALT (SGPT) 20 U/L (8-55); AST (SGOT) 17 U/L (5-34); Alkaline Phosphatase 102 U/L (40-110); Anion Gap 15 mmol/L (10-20); BUN (Urea Nitrogen) 29 mg/dL (9.8-20.1); Bilirubin, Total 0.4 mg/dL (0.2-1.2); Calc. Creatinine Clearance 0 mL/min (70-130); Calcium 10.1 mg/dL (7.8-10.44); Carbon Dioxide 19 mmol/L (23-31); Chloride 109 mmol/L (98-107); Globulin 4.4 g/dL (2.4-3.5); Glucose 120 mg/dL (83-110); Potassium 4.2 mmol/L (3.5-5.1); Protein, Total 8.4 g/dL (5.8-8.1); Sodium 139 mmol/L (136-145)
[2020-11-12] MEDS ORDERED: Dextrose 5% in Water 1,000 ML IV PRN (13:12)
[2020-11-12] MEDS ORDERED: Dextrose 50% Abboject 50 ML SYRINGE SLOW IVP PRN (13:12)
[2020-11-12] MEDS ORDERED: hydrALAZINE 20 MG/ML VIAL SLOW IVP PRN (13:12)
[2020-11-12] MEDS ORDERED: Ondansetron ODT 4 MG TAB PO PRN (13:12)
[2020-11-12] MEDS ORDERED: traMADol HCl 50 MG TAB PO PRN (13:12)
[2020-11-12] MEDS ORDERED: Cyclobenzaprine 10 MG TAB PO PRN (13:12)
[2020-11-12] MEDS ORDERED: Ondansetron PF 4 MG/2 ML Vial IVP PRN (13:12)
[2020-11-12] MEDS ORDERED: Acetaminophen 325 MG TAB ONE (13:21)
[2020-11-12] MEDS ORDERED: Ibuprofen 200 MG TAB ONE (13:21)
[2020-11-12] MEDS: Ibuprofen 200 MG TAB PO SCH ×2 (17:48→21:12)
[2020-11-12] MEDS: Acetaminophen 325 MG TAB PO SCH (18:26)
[2020-11-12] MEDS: Sodium Chloride 0.9% 1,000 ML IV SCH (18:28)
[2020-11-12] MEDS ORDERED: Famotidine 20 MG TAB PO SCH (21:00)
[2020-11-12] MEDS: Morphine 2 MG/ML VIAL SLOW IVP PRN (21:14)
[2020-11-12 21:16] LABS: SARS-CoV-2 PCR by NAA Not Detected (NotDetected)
[2020-11-13] MEDS: Acetaminophen 325 MG TAB PO SCH ×5 (00:06→23:53)
[2020-11-13] MEDS: Sodium Chloride 0.9% 1,000 ML IV SCH ×2 (02:30→10:09)
[2020-11-13 05:22] LABS: #Eosinphils 0.1 thou/uL (0.0-0.7); #Lymphocytes 1.4 thou/uL (1.20-3.40); #Monocytes 1.1 thou/uL (0.11-0.59); #Neutrophils 5.6 thou/uL (1.40-6.50); %Basophils 0.2 % (0.0-1.0); %Eosinophils 1.3 % (0.0-10.0); %Lymphocytes 16.7 % (21.0-51.0); %Monocytes 13.3 % (0.0-10.0); %Neutrophils 68.4 % (42.0-75.0); Hemoglobin 11.4 g/dL (12.0-16.0); Mean Corpuscular HGB CONC 32.3 g/dL (32.0-36.0); Mean Corpuscular Hemoglobin 31.2 pg (27.0-31.0); Mean Corpuscular Volume 96.4 fL (78.0-98.0); Mean Platelet Volume 7.3 fL (7.4-10.4); Platelet Count 258 thou/uL (130-400); RBC Distribution Width 14.8 % (11.5-14.5); Red Blood Cell (RBC) Count 3.65 mill/uL (4.20-5.40); White Blood Cell (WBC) Count 8.1 thou/uL (4.8-10.8)
[2020-11-13] MEDS: Ibuprofen 200 MG TAB PO SCH ×3 (05:22→22:24)
[2020-11-13 05:45] LABS: Anion Gap 9 mmol/L (10-20); BUN (Urea Nitrogen) 25 mg/dL (9.8-20.1); Calc. Creatinine Clearance 44 mL/min (70-130); Calcium 9.2 mg/dL (7.8-10.44); Carbon Dioxide 23 mmol/L (23-31); Chloride 111 mmol/L (98-107); Glucose 103 mg/dL (83-110); Potassium 4.5 mmol/L (3.5-5.1); Sodium 138 mmol/L (136-145)
[2020-11-13] MEDS ORDERED: CEFAZOLIN 2 GM in Premix Bag 1 BAG IVPB SCH (08:15)
[2020-11-13] MEDS ORDERED: Fentanyl 100 MCG/2 ML VIAL ONE ×3 (11:45→12:56)
[2020-11-13] MEDS ORDERED: Dexamethasone 4 mg/ml Vial ONE (12:13)
[2020-11-13] MEDS ORDERED: Bupivacaine HCl 0.5%/Epinephrine 1:200,000/PF 30 ml Vial ONE (13:42)
[2020-11-13] MEDS ORDERED: PROPOFOL 200 MG/20 ML VIAL ONE (13:42)
[2020-11-13] MEDS ORDERED: PHENYLEPHRINE-NS 100 MCG/ML 10 ML SYRINGE ONE (13:42)
[2020-11-13] MEDS ORDERED: Ketorolac Tromethamine 30 MG/ML VIAL ONE (13:42)
[2020-11-13] MEDS ORDERED: Dexamethasone 20 MG/5 ML VIAL ONE (13:42)
[2020-11-13] MEDS ORDERED: Rocuronium Bromide 10 MG/ML (10ML VIAL) ONE (13:42)
[2020-11-13] MEDS ORDERED: Ondansetron PF 4 MG/2 ML Vial ONE (15:43)
[2020-11-13] MEDS ORDERED: Promethazine HCl 25 MG/ML VIAL ONE (15:53)
[2020-11-13] MEDS: traMADol HCl 50 MG TAB PO PRN (20:20)
[2020-11-13] MEDS: Famotidine 20 MG TAB PO SCH (20:20)
[2020-11-13] MEDS: Morphine 2 MG/ML VIAL SLOW IVP PRN (20:20)
[2020-11-13] MEDS: CEFAZOLIN 2 GM in Premix Bag 1 BAG IVPB SCH (20:21)
[2020-11-14] MEDS: Sodium Chloride 0.9% 1,000 ML IV SCH ×2 (02:45→11:01)
[2020-11-14] MEDS: CEFAZOLIN 2 GM in Premix Bag 1 BAG IVPB SCH ×2 (04:02→10:53)
[2020-11-14 05:05] LABS: #Basophils 0.1 thou/uL (0.0-0.2); #Lymphocytes 0.8 thou/uL (1.20-3.40); #Monocytes 0.7 thou/uL (0.11-0.59); %Basophils 0.9 % (0.0-1.0); %Eosinophils 0.3 % (0.0-10.0); %Monocytes 9.6 % (0.0-10.0); %Neutrophils 79.3 % (42.0-75.0); Hemoglobin 9.3 g/dL (12.0-16.0); Mean Corpuscular HGB CONC 32.6 g/dL (32.0-36.0); Mean Corpuscular Hemoglobin 31.4 pg (27.0-31.0); Mean Corpuscular Volume 96.2 fL (78.0-98.0); Mean Platelet Volume 7.3 fL (7.4-10.4); Platelet Count 237 thou/uL (130-400); RBC Distribution Width 14.7 % (11.5-14.5); Red Blood Cell (RBC) Count 2.96 mill/uL (4.20-5.40); White Blood Cell (WBC) Count 7.6 thou/uL (4.8-10.8)
[2020-11-14] MEDS: Acetaminophen 325 MG TAB PO SCH ×4 (06:03→23:08)
[2020-11-14] MEDS: Ibuprofen 200 MG TAB PO SCH ×3 (06:03→23:07)
[2020-11-14] MEDS: Mirtazapine 15 MG TAB PO SCH (10:49)
[2020-11-14] MEDS: Aspirin 81 mg Enteric Coated Tablet PO SCH ×2 (10:49→20:08)
[2020-11-14] MEDS: Donepezil HCl 5 MG TAB PO SCH (10:50)
[2020-11-14] MEDS: Megestrol Acetate 800 MG/20 ML UDCUP PO SCH (20:08)
[2020-11-14] MEDS: Famotidine 20 MG TAB PO SCH (20:08)
[2020-11-14] MEDS: traMADol HCl 50 MG TAB PO PRN (20:14)
[2020-11-15 05:20] LABS: #Eosinphils 0.1 thou/uL (0.0-0.7); #Lymphocytes 1.3 thou/uL (1.20-3.40); #Monocytes 0.8 thou/uL (0.11-0.59); #Neutrophils 3.8 thou/uL (1.40-6.50); %Basophils 0.5 % (0.0-1.0); %Eosinophils 1.4 % (0.0-10.0); %Lymphocytes 21.8 % (21.0-51.0); %Monocytes 12.8 % (0.0-10.0); %Neutrophils 63.5 % (42.0-75.0); Hemoglobin 9.6 g/dL (12.0-16.0); Mean Corpuscular HGB CONC 33.2 g/dL (32.0-36.0); Mean Corpuscular Hemoglobin 32.3 pg (27.0-31.0); Mean Corpuscular Volume 97.2 fL (78.0-98.0); Mean Platelet Volume 7.5 fL (7.4-10.4); Platelet Count 240 thou/uL (130-400); RBC Distribution Width 14.8 % (11.5-14.5); Red Blood Cell (RBC) Count 2.98 mill/uL (4.20-5.40); White Blood Cell (WBC) Count 5.9 thou/uL (4.8-10.8)
[2020-11-15] MEDS: Acetaminophen 325 MG TAB PO SCH ×3 (05:49→18:31)
[2020-11-15] MEDS: Ibuprofen 200 MG TAB PO SCH ×2 (05:50→13:05)
[2020-11-15] MEDS ORDERED: Levothyroxine Sodium 100 MCG TAB PO SCH (06:00)
[2020-11-15] MEDS: Aspirin 81 mg Enteric Coated Tablet PO SCH (09:11)
[2020-11-15] MEDS: Mirtazapine 15 MG TAB PO SCH (09:12)
[2020-11-15] MEDS: Donepezil HCl 5 MG TAB PO SCH (09:13)
[2020-11-15] MEDS: Megestrol Acetate 800 MG/20 ML UDCUP PO SCH (09:13)
[2020-11-15 16:15] VITALS: BP 127/68; TEMP 98.2
[2020-11-15] MEDS ORDERED: Ferrous Sulfate 325 MG TAB PO SCH (17:00)
[2020-11-15] MEDS ORDERED: Ascorbic Acid 500 mg Chewable Tablet PO SCH (21:00)
== END 2020-11-15 18:45 | DRG 481 ==
LOC: ERS 09:52 → ERHOLD 13:12 → SURG A 16:59
PROVIDERS: ADMIT Surgery; ATTEND Surgery
PROC: 0QSC04Z Reposition Left Lower Femur with Internal Fixation Device, Open Approach (ICD-10-PCS; principal; 2020-11-13)
DX: S72.452A Displaced supracondylar fracture without intracondylar extension of lower end of left femur, initial encounter for closed fracture (principal); D62 Acute posthemorrhagic anemia; I10 Essential (primary) hypertension; K21.9 Gastro-esophageal reflux disease without esophagitis; E03.9 Hypothyroidism, unspecified; W06.XXXA Fall from bed, initial encounter; F32.9 Major depressive disorder, single episode, unspecified; F03.90 Unspecified dementia, unspecified severity, without behavioral disturbance, psychotic disturbance, mood disturbance, and anxiety; Z20.822 Contact with and (suspected) exposure to COVID-19; Y92.129 Unspecified place in nursing home as the place of occurrence of the external cause; Z88.2 Allergy status to sulfonamides; Z88.8 Allergy status to other drugs, medicaments and biological substances; Z91.041 Radiographic dye allergy status; Z90.710 Acquired absence of both cervix and uterus
CPT/HCPCS: 36415; 70450; 71045; 76000; 80048; 80053; 83735; 84100; 85025; 85610; 85730; 86850; 86900; 86901; 87635; 93005; C1713; G0390; J0690; J1100; J1885; J2270; J2405; J2550; J2704; J3010; U0003; U0005

== ENCOUNTER 2021-07-15 15:50 | Emergency (ER) | payer MEDICARE, MEDICAID ==
[2021-07-15] MEDS ORDERED: Enoxaparin Sodium 80 MG/0.8 ML SYRINGE ONE (17:42)
== END 2021-07-15 18:18 | disposition home or self-care (01) ==
LOC: ERS 15:50
DX: I82.402 Acute embolism and thrombosis of unspecified deep veins of left lower extremity (principal); I10 Essential (primary) hypertension; D64.9 Anemia, unspecified; E03.9 Hypothyroidism, unspecified; J45.909 Unspecified asthma, uncomplicated; K21.9 Gastro-esophageal reflux disease without esophagitis; F03.90 Unspecified dementia, unspecified severity, without behavioral disturbance, psychotic disturbance, mood disturbance, and anxiety
CPT/HCPCS: J1650

== ENCOUNTER → 2021-07-15 | Day surgery (SDC) | payer MEDICARE, MEDICAID ==
[2021-06-16 14:55] VITALS: BMI 26.5
[~2021-07-15] MED LIST changes: +Clindamycin/D5W 600 mg/50 ml Premix Bag ONE; -ISOVUE-370 76%-LOCM 1 ML ONE; -Iopamidol 370 76% 50 ML VIAL FS ONE
[2021-07-15 11:05] LABS: SARS-CoV-2 NAA Rapid Test Not Detected (NotDetected)
[2021-07-15 11:16] LABS: Squamous Epithelial 0-3 HPF (0-3)
[2021-07-15 11:27] LABS: Bacteria/HPF 1+ HPF (None Seen); WBC/HPF 21-50 HPF (0-3)
[2021-07-15 12:15] LABS: Band 14 % (5-11); Eosinophils 3 % (0-10); Hemoglobin 12.3 g/dL (12.0-16.0); Lymphocytes 32 % (21-51); MDiff Complete? YES; Mean Corpuscular HGB CONC 31.4 g/dL (32.0-36.0); Mean Corpuscular Hemoglobin 31.3 pg (27.0-31.0); Mean Corpuscular Volume 99.7 fL (78.0-98.0); Mean Platelet Volume 7.5 fL (7.4-10.4); Monocytes 10 % (0-10); Neutrophil 40 % (42-75); Platelet Count 308 thou/uL (130-400); RBC Distribution Width 14.8 % (11.5-14.5); RBC Morphology Normal; Reactive Lymphocytes 1 % (0-10); Red Blood Cell (RBC) Count 3.95 mill/uL (4.20-5.40); White Blood Cell (WBC) Count 5.9 thou/uL (4.8-10.8)
== END ==
LOC: SDC 09:41
PROVIDERS: ATTEND Orthopaedic Surgery Hand Surgery
DX: Q68.1 Congenital deformity of finger(s) and hand (principal); I82.412 Acute embolism and thrombosis of left femoral vein; M25.552 Pain in left hip; M25.572 Pain in left ankle and joints of left foot; M79.89 Other specified soft tissue disorders; Z53.8 Procedure and treatment not carried out for other reasons; Z79.899 Other long term (current) drug therapy; Z88.2 Allergy status to sulfonamides; Z88.8 Allergy status to other drugs, medicaments and biological substances; Z91.041 Radiographic dye allergy status; Z20.822 Contact with and (suspected) exposure to COVID-19
CPT/HCPCS: 73502; 73552; 73590; 73610; 73630; 81015; 85025; 93005; 93971; 96372; 99284; U0002; 36415; 93010; J1650; J3490

== ENCOUNTER 2021-10-07 16:54 | Emergency (ER) | payer MEDICARE | END 2021-10-07 18:50 | disposition home or self-care (01) | LOC: ERS 16:54 | DX: S83.92XA Sprain of unspecified site of left knee, initial encounter (principal); W18.30XA Fall on same level, unspecified, initial encounter; I10 Essential (primary) hypertension; D64.9 Anemia, unspecified; E03.9 Hypothyroidism, unspecified; K21.9 Gastro-esophageal reflux disease without esophagitis; Z85.3 Personal history of malignant neoplasm of breast ==

== ENCOUNTER 2022-01-10 22:36 | Inpatient (IN) | payer MEDICARE, OTHER ==
[2022-01-10] MEDS ORDERED: Acetaminophen 500 MG TAB ONE (23:05)
[2022-01-10 23:16] LABS: Hemoglobin 13.5 g/dL (12.0-16.0); Mean Corpuscular HGB CONC 32.7 g/dL (32.0-36.0); Mean Corpuscular Hemoglobin 32.4 pg (27.0-31.0); Mean Platelet Volume 6.9 fL (7.4-10.4); Platelet Count 239 thou/uL (130-400); RBC Distribution Width 13.5 % (11.5-14.5); Red Blood Cell (RBC) Count 4.16 mill/uL (4.20-5.40); White Blood Cell (WBC) Count 14.1 thou/uL (4.8-10.8)
[2022-01-10] MEDS ORDERED: Acetaminophen 650 MG Suppository ONE (23:30)
[2022-01-10 23:37] LABS: ALT (SGPT) 271 U/L (8-55); AST (SGOT) 424 U/L (5-34); Albumin 3.7 g/dL (3.4-4.8); Alkaline Phosphatase 311 U/L (40-110); Anion Gap 18 mmol/L (10-20); BUN (Urea Nitrogen) 18 mg/dL (9.8-20.1); Bilirubin, Total 2.8 mg/dL (0.2-1.2); Calc. Creatinine Clearance 0 mL/min (70-130); Calcium 9.1 mg/dL (7.8-10.44); Carbon Dioxide 19 mmol/L (23-31); Chloride 106 mmol/L (98-107); Globulin 3.6 g/dL (2.4-3.5); Glucose 187 mg/dL (83-110); Potassium 3.8 mmol/L (3.5-5.1); Protein, Total 7.3 g/dL (5.8-8.1); Sodium 139 mmol/L (136-145)
[2022-01-10 23:39] LABS: Band 43 % (5-11); Lymphocytes 3 % (21-51); MDiff Complete? YES; Macrocytosis SLIGHT = 6-15 cells (100X) (0-5/hpf); Monocytes 4 % (0-10); Neutrophil 50 % (42-75); Platelet Morphology Comment Appears Adequate; Reflex for Review?? YES
[2022-01-10] MEDS ORDERED: Cefepime 2 GM VIAL ONE (23:41)
[2022-01-10] MEDS ORDERED: Vancomycin 1 GM/200 ML BAG ONE (23:41)
[2022-01-10 23:54] LABS: Bilirubin Moderate (Negative); Blood, Urine Large (Negative); Glucose, Urine (Dipstick) Negative (Negative); Ketone, Urine Trace mg/dL (Negative); Leukocyte Large (Negative); Nitrite Positive (Negative); Protein, Urine (Dipstick) > or equal to 300 mg/dL (Neg-Trace)
[2022-01-10 23:56] LABS: Clarity Turbid (Clear)
[2022-01-11 00:02] LABS: RBC/HPF 21-50 HPF (0-3); WBC/HPF Greater Than 50 HPF (0-3)
[2022-01-11 00:03] LABS: Bacteria/HPF 4+ HPF (None Seen); Squamous Epithelial 0-3 HPF (0-3)
[2022-01-11] MEDS ORDERED: Dextrose 5 % And 0.9 % NaCl 1,000 ML IV SCH (00:45)
[2022-01-11 02:18] LABS: Critical Call Chem-Lactate 2NO.AB1; Lactic Acid 6.2 mmol/L (0.5-2.2)
[2022-01-11 02:34] VITALS: BMI 27.2
[2022-01-11 07:54] LABS: Hemoglobin 11.5 g/dL (12.0-16.0); Mean Corpuscular HGB CONC 31.4 g/dL (32.0-36.0); Mean Corpuscular Hemoglobin 31.5 pg (27.0-31.0); RBC Distribution Width 13.7 % (11.5-14.5); Red Blood Cell (RBC) Count 3.65 mill/uL (4.20-5.40)
[2022-01-11 08:16] LABS: Anion Gap 12 mmol/L (10-20); BUN (Urea Nitrogen) 21 mg/dL (9.8-20.1); Calc. Creatinine Clearance 31 mL/min (70-130); Calcium 8.5 mg/dL (7.8-10.44); Carbon Dioxide 20 mmol/L (23-31); Chloride 110 mmol/L (98-107); Glucose 167 mg/dL (83-110); Potassium 4.3 mmol/L (3.5-5.1); Sodium 138 mmol/L (136-145)
[2022-01-11 08:59] LABS: Band 31 % (5-11); Lymphocytes 5 % (21-51); MDiff Complete? YES; Mean Platelet Volume 7.2 fL (7.4-10.4); Metamyelocyte 1 % (0-0); Monocytes 4 % (0-10); Neutrophil 59 % (42-75); Platelet Count 225 thou/uL (130-400); Platelet Morphology Comment Appears Adequate; White Blood Cell (WBC) Count 21.6 thou/uL (4.8-10.8)
[2022-01-11] MEDS ORDERED: Meropenem 1 GM in Sodium Chloride 0.9% 100 ML IVPB SCH (15:00)
[2022-01-11] MEDS ORDERED: Acetaminophen 325 MG TAB PO PRN (15:22)
[2022-01-11] MEDS ORDERED: Lactated Ringer's 500 ML IV SCH (15:30)
[2022-01-11 16:05] LABS: SARS-CoV-2 PCR by NAA Not Detected (NotDetected)
[2022-01-11] MEDS: Lactated Ringer's 1,000 ML IV SCH ×2 (16:42→23:06)
[2022-01-11] MEDS: Gentamicin Sulfate 120 MG in Premix Bag 1 BAG IVPB SCH (17:35)
[2022-01-11] MEDS: Docusate 100 MG CAP PO SCH (20:43)
[2022-01-11] MEDS: Mirtazapine 15 MG TAB PO SCH (20:43)
[2022-01-11] MEDS: Donepezil HCl 5 MG TAB PO SCH (20:43)
[2022-01-11] MEDS: Apixaban 5 MG TAB PO SCH (20:43)
[2022-01-11] MEDS: Meropenem 500 MG in Sodium Chloride 0.9% 100 ML IVPB SCH (23:05)
[2022-01-12 04:29] LABS: #Eosinphils 0.1 thou/uL (0.0-0.7); #Monocytes 0.7 thou/uL (0.11-0.59); #Neutrophils 8.4 thou/uL (1.40-6.50); %Basophils 0.1 % (0.0-1.0); %Eosinophils 0.8 % (0.0-10.0); %Monocytes 6.4 % (0.0-10.0); %Neutrophils 82.7 % (42.0-75.0); Hemoglobin 11.4 g/dL (12.0-16.0); Mean Corpuscular HGB CONC 33.4 g/dL (32.0-36.0); Mean Corpuscular Hemoglobin 33.8 pg (27.0-31.0); Platelet Count 194 thou/uL (130-400); RBC Distribution Width 13.7 % (11.5-14.5); Red Blood Cell (RBC) Count 3.37 mill/uL (4.20-5.40); White Blood Cell (WBC) Count 10.2 thou/uL (4.8-10.8)
[2022-01-12 04:46] LABS: Anion Gap 11 mmol/L (10-20); BUN (Urea Nitrogen) 18 mg/dL (9.8-20.1); Calc. Creatinine Clearance 43 mL/min (70-130); Calcium 8.4 mg/dL (7.8-10.44); Carbon Dioxide 23 mmol/L (23-31); Cardiac Risk 6.2 (Less than 4.5); Chloride 111 mmol/L (98-107); Cholesterol 149 mg/dl (< 200 Desired); Glucose 87 mg/dL (83-110); HDL Cholesterol 24 mg/dL (>60 Neg Risk); LDL Cholesterol, Calculated 102 mg/dL; Potassium 3.7 mmol/L (3.5-5.1); Sodium 141 mmol/L (136-145); Triglycerides 116 mg/dL (Less than 150)
[2022-01-12] MEDS ORDERED: Levothyroxine Sodium 75 MCG TAB PO SCH (06:00)
[2022-01-12] MEDS: Docusate 100 MG CAP PO SCH ×2 (08:34→20:18)
[2022-01-12] MEDS: Polyethylene Glycol 3350 17 GM Packet PO SCH (08:34)
[2022-01-12] MEDS: Diltiazem HCl SR 60 mg Capsule PO SCH (08:34)
[2022-01-12] MEDS: Apixaban 5 MG TAB PO SCH ×2 (08:34→20:18)
[2022-01-12] MEDS: Lactated Ringer's 1,000 ML IV SCH ×3 (08:35→22:36)
[2022-01-12] MEDS: Meropenem 500 MG in Sodium Chloride 0.9% 100 ML IVPB SCH ×2 (11:20→22:37)
[2022-01-12] MEDS: Gentamicin Sulfate 120 MG in Premix Bag 1 BAG IVPB SCH (15:21)
[2022-01-12] MEDS: Mirtazapine 15 MG TAB PO SCH (20:18)
[2022-01-12] MEDS: Donepezil HCl 5 MG TAB PO SCH (20:18)
[2022-01-13] MEDS: Levothyroxine Sodium 88 MCG TAB PO SCH (05:01)
[2022-01-13] MEDS: Lactated Ringer's 1,000 ML IV SCH ×2 (08:53→18:32)
[2022-01-13] MEDS: Docusate 100 MG CAP PO SCH ×2 (10:21→20:54)
[2022-01-13] MEDS: Apixaban 5 MG TAB PO SCH ×2 (10:21→20:53)
[2022-01-13] MEDS: Diltiazem HCl SR 60 mg Capsule PO SCH (10:21)
[2022-01-13] MEDS: Polyethylene Glycol 3350 17 GM Packet PO SCH (10:22)
[2022-01-13] MEDS: Meropenem 500 MG in Sodium Chloride 0.9% 100 ML IVPB SCH (10:36)
[2022-01-13] MEDS: Gentamicin Sulfate 120 MG in Premix Bag 1 BAG IVPB SCH (17:14)
[2022-01-13] MEDS: Mirtazapine 15 MG TAB PO SCH (20:53)
[2022-01-13] MEDS: Donepezil HCl 5 MG TAB PO SCH (20:54)
[2022-01-13] MEDS: Meropenem 1 GM in Sodium Chloride 0.9% 100 ML IVPB SCH (23:15)
[2022-01-14 04:14] LABS: #Eosinphils 0.1 thou/uL (0.0-0.7); #Lymphocytes 0.7 thou/uL (1.20-3.40); #Monocytes 0.5 thou/uL (0.11-0.59); #Neutrophils 2.5 thou/uL (1.40-6.50); %Basophils 0.6 % (0.0-1.0); %Monocytes 12.1 % (0.0-10.0); %Neutrophils 65.3 % (42.0-75.0); Hemoglobin 9.4 g/dL (12.0-16.0); Mean Corpuscular Hemoglobin 32.6 pg (27.0-31.0); Mean Corpuscular Volume 98.5 fL (78.0-98.0); Mean Platelet Volume 7.5 fL (7.4-10.4); Platelet Count 189 thou/uL (130-400); RBC Distribution Width 13.7 % (11.5-14.5); Red Blood Cell (RBC) Count 2.88 mill/uL (4.20-5.40); White Blood Cell (WBC) Count 3.8 thou/uL (4.8-10.8)
[2022-01-14 04:33] LABS: Anion Gap 15 mmol/L (10-20); BUN (Urea Nitrogen) 8 mg/dL (9.8-20.1); Calc. Creatinine Clearance 71 mL/min (70-130); Calcium 7.7 mg/dL (7.8-10.44); Carbon Dioxide 20 mmol/L (23-31); Chloride 107 mmol/L (98-107); Glucose 71 mg/dL (83-110); Potassium 3.6 mmol/L (3.5-5.1); Sodium 138 mmol/L (136-145)
[2022-01-14] MEDS: Levothyroxine Sodium 88 MCG TAB PO SCH (05:13)
[2022-01-14] MEDS: Lactated Ringer's 1,000 ML IV SCH ×2 (05:13→13:29)
[2022-01-14] MEDS: Polyethylene Glycol 3350 17 GM Packet PO SCH (10:00)
[2022-01-14] MEDS: Diltiazem HCl SR 60 mg Capsule PO SCH (10:00)
[2022-01-14] MEDS: Apixaban 5 MG TAB PO SCH ×3 (10:02→21:31)
[2022-01-14] MEDS: Docusate 100 MG CAP PO SCH ×2 (10:02→21:31)
[2022-01-14] MEDS: Meropenem 1 GM in Sodium Chloride 0.9% 100 ML IVPB SCH (11:30)
[2022-01-14] MEDS: Gentamicin Sulfate 120 MG in Premix Bag 1 BAG IVPB SCH (17:25)
[2022-01-14] MEDS: Mirtazapine 15 MG TAB PO SCH (21:31)
[2022-01-14] MEDS: Donepezil HCl 5 MG TAB PO SCH (21:31)
[2022-01-14] MEDS ORDERED: predniSONE 50 MG TAB PO SCH (23:59)
[2022-01-15] MEDS: Meropenem 1 GM in Sodium Chloride 0.9% 100 ML IVPB SCH ×3 (00:17→23:57)
[2022-01-15 05:08] LABS: Anion Gap 11 mmol/L (10-20); BUN (Urea Nitrogen) 8 mg/dL (9.8-20.1); Calc. Creatinine Clearance 52 mL/min (70-130); Calcium 9.1 mg/dL (7.8-10.44); Carbon Dioxide 29 mmol/L (23-31); Chloride 104 mmol/L (98-107); Glucose 101 mg/dL (83-110); Potassium 3.3 mmol/L (3.5-5.1); Sodium 141 mmol/L (136-145)
[2022-01-15] MEDS: Lactated Ringer's 1,000 ML IV SCH ×2 (05:32→16:31)
[2022-01-15] MEDS: Levothyroxine Sodium 88 MCG TAB PO SCH (05:32)
[2022-01-15] MEDS ORDERED: predniSONE 50 MG TAB PO SCH ×2 (06:00→12:00)
[2022-01-15 08:13] LABS: Band 4 % (5-11); Hemoglobin 11.6 g/dL (12.0-16.0); Lymphocytes 19 % (21-51); MDiff Complete? YES; Macrocytosis SLIGHT = 6-15 cells (100X) (0-5/hpf); Mean Corpuscular HGB CONC 32.3 g/dL (32.0-36.0); Mean Corpuscular Hemoglobin 32.6 pg (27.0-31.0); Mean Platelet Volume 7.1 fL (7.4-10.4); Neutrophil 76 % (42-75); Platelet Count 209 thou/uL (130-400); Platelet Morphology Comment Appears Adequate; RBC Distribution Width 13.4 % (11.5-14.5); Red Blood Cell (RBC) Count 3.55 mill/uL (4.20-5.40); White Blood Cell (WBC) Count 4.2 thou/uL (4.8-10.8)
[2022-01-15 09:29] LABS: Anion Gap 11 mmol/L (10-20); BUN (Urea Nitrogen) 9 mg/dL (9.8-20.1); Calc. Creatinine Clearance 52 mL/min (70-130); Calcium 8.9 mg/dL (7.8-10.44); Carbon Dioxide 29 mmol/L (23-31); Chloride 104 mmol/L (98-107); Glucose 134 mg/dL (83-110); Potassium 3.8 mmol/L (3.5-5.1); Sodium 140 mmol/L (136-145)
[2022-01-15] MEDS: Diltiazem HCl SR 60 mg Capsule PO SCH (09:58)
[2022-01-15] MEDS: Apixaban 5 MG TAB PO SCH ×2 (09:58→21:35)
[2022-01-15] MEDS: Potassium Chloride 20 MEQ TAB PO SCH (09:59)
[2022-01-15] MEDS: Docusate 100 MG CAP PO SCH ×2 (09:59→21:35)
[2022-01-15] MEDS: Polyethylene Glycol 3350 17 GM Packet PO SCH (09:59)
[2022-01-15 11:00] LABS: Band 2 % (5-11); Hemoglobin 12.2 g/dL (12.0-16.0); Lymphocytes 15 % (21-51); MDiff Complete? YES; Macrocytosis SLIGHT = 6-15 cells (100X) (0-5/hpf); Mean Corpuscular HGB CONC 32.1 g/dL (32.0-36.0); Mean Corpuscular Hemoglobin 32.5 pg (27.0-31.0); Mean Platelet Volume 7.4 fL (7.4-10.4); Neutrophil 83 % (42-75); Platelet Count 205 thou/uL (130-400); Platelet Morphology Comment Appears Adequate; RBC Distribution Width 13.4 % (11.5-14.5); Red Blood Cell (RBC) Count 3.76 mill/uL (4.20-5.40)
[2022-01-15] MEDS ORDERED: diphenhydrAMINE 50 MG/ML VIAL ONE (13:21)
[2022-01-15] MEDS ORDERED: diphenhydrAMINE 50 MG/ML VIAL IVP SCH (13:30)
[2022-01-15] MEDS: Gentamicin Sulfate 120 MG in Premix Bag 1 BAG IVPB SCH (16:31)
[2022-01-15] MEDS: Donepezil HCl 5 MG TAB PO SCH (21:35)
[2022-01-15] MEDS: Mirtazapine 15 MG TAB PO SCH (21:35)
[2022-01-16] MEDS: Levothyroxine Sodium 88 MCG TAB PO SCH (05:34)
[2022-01-16] MEDS: Lactated Ringer's 1,000 ML IV SCH (05:36)
[2022-01-16] MEDS: Potassium Chloride 20 MEQ TAB PO SCH (08:53)
[2022-01-16] MEDS: Docusate 100 MG CAP PO SCH (08:53)
[2022-01-16] MEDS: Diltiazem HCl SR 60 mg Capsule PO SCH (08:53)
[2022-01-16] MEDS: Polyethylene Glycol 3350 17 GM Packet PO SCH (08:54)
[2022-01-16] MEDS: Apixaban 5 MG TAB PO SCH (08:54)
[2022-01-16] MEDS: Meropenem 1 GM in Sodium Chloride 0.9% 100 ML IVPB SCH (10:36)
[2022-01-16 12:39] VITALS: TEMP 96.9
[2022-01-16 12:57] VITALS: BP 127/61
== END 2022-01-16 12:56 | DRG 871 ==
LOC: ERS 22:36 → 2NO 01-11 00:40
PROVIDERS: ADMIT Specialist; ATTEND Specialist
PROC: 3E03329 Introduction of Other Anti-infective into Peripheral Vein, Percutaneous Approach (ICD-10-PCS; principal; 2022-01-11)
PROC: 02HV33Z Insertion of Infusion Device into Superior Vena Cava, Percutaneous Approach (ICD-10-PCS; 2022-01-15)
PROC: B548ZZA Ultrasonography of Superior Vena Cava, Guidance (ICD-10-PCS; 2022-01-15)
DX: A41.51 Sepsis due to Escherichia coli [E. coli] (principal); R65.21 Severe sepsis with septic shock; G93.41 Metabolic encephalopathy; N39.0 Urinary tract infection, site not specified; E46 Unspecified protein-calorie malnutrition; I50.9 Heart failure, unspecified; D64.9 Anemia, unspecified; E03.9 Hypothyroidism, unspecified; I11.0 Hypertensive heart disease with heart failure; F03.90 Unspecified dementia, unspecified severity, without behavioral disturbance, psychotic disturbance, mood disturbance, and anxiety; R13.12 Dysphagia, oropharyngeal phase; Z79.899 Other long term (current) drug therapy; Z79.890 Hormone replacement therapy; Z87.440 Personal history of urinary (tract) infections; Z90.710 Acquired absence of both cervix and uterus; Z98.890 Other specified postprocedural states; Z88.8 Allergy status to other drugs, medicaments and biological substances; Z88.2 Allergy status to sulfonamides; Z91.041 Radiographic dye allergy status; Z79.01 Long term (current) use of anticoagulants; Z68.27 Body mass index [BMI] 27.0-27.9, adult
CPT/HCPCS: 36415; 36569; 51701; 71045; 80048; 80053; 80061; 80170; 81003; 81015; 83036; 83605; 84443; 85025; 85060; 87040; 87077; 87086; 87149; 87186; 93005; 96365; 96367; C1751; J0692; J1200; J1580; J2185; J3370; J3490; J7042; J7120; J7512; U0003; U0005

== ENCOUNTER 2022-10-18 22:21 | Emergency (ER) | payer MEDICARE, OTHER ==
[2022-10-18] MEDS ORDERED: Acetaminophen 500 MG TAB ONE (23:49)
[2022-10-19] MEDS ORDERED: Ketorolac Tromethamine 30 MG/ML VIAL ONE (00:51)
== END 2022-10-19 02:36 ==
LOC: ERS 22:21
DX: S80.01XA Contusion of right knee, initial encounter (principal); E03.9 Hypothyroidism, unspecified; I10 Essential (primary) hypertension; K21.9 Gastro-esophageal reflux disease without esophagitis; Z86.718 Personal history of other venous thrombosis and embolism; W06.XXXA Fall from bed, initial encounter
CPT/HCPCS: 96372; J1885

== ENCOUNTER 2023-08-01 13:37 | Inpatient (IN) | payer MEDICARE, MEDICAID ==
[2023-08-01 14:35] LABS: Bacteria/HPF 4+ HPF (None Seen); Bilirubin Negative (Negative); Blood, Urine 2+ (Negative); CAUTI Indications for Culture Alt mental st,lethar; Clarity Extra Turbid (Clear); Glucose, Urine (Dipstick) Normal (Negative); Ketone, Urine Negative (Negative); Leukocyte 500 Leu/uL (Negative); Nitrite Negative (Negative); Protein, Urine (Dipstick) 200 mg/dL (Neg-Trace); RBC/HPF 21-50 HPF (0-3); Specific Gravity, Urine 1.019 (1.002-1.036); Squamous Epithelial None Seen HPF (0-3); WBC/HPF Greater than 50 HPF (0-3)
[2023-08-01 14:45] LABS: Hematocrit 41.6 % (36.0-47.0); Hemoglobin 13.7 g/dL (12.0-16.0); Manual Diff?? YES; Mean Corpuscular HGB CONC 32.9 g/dL (32.0-36.0); Mean Corpuscular Volume 97.2 fl (78.0-98.0); Mean Platelet Volume 10.1 fL (7.4-10.4); Platelet Count 182 10x3/uL (130-400); RBC Distribution Width 14.6 % (11.5-14.5); Red Blood Cell (RBC) Count 4.28 mill/uL (4.20-5.40); White Blood Cell (WBC) Count 32.1 10x3/uL (4.8-10.8)
[2023-08-01 14:49] LABS: Delete Auto Diff?? YES
[2023-08-01 14:51] LABS: Urine Culture Reflex Yes Yes
[2023-08-01] MEDS ORDERED: Vancomycin 1 GM/200 ML (FROZEN) BAG ONE (15:00)
[2023-08-01] MEDS ORDERED: cefTRIAXone (ROCEPHIN) 2 GM VIAL ONE (15:00)
[2023-08-01] MEDS ORDERED: Sodium Chloride 0.9% 100 ML ONE (15:00)
[2023-08-01 15:04] LABS: SARS-CoV-2 NAA Rapid Test Not Detected (NotDetected)
[2023-08-01 15:15] LABS: Troponin I 0.154 ng/mL (< 0.028)
[2023-08-01 15:16] LABS: Band 31 % (5-11); Burr Cells SLIGHT = 2-5 cells HPF (0-1); CellaVision Operator ID LAB.KB; Lymphocytes 2 % (21-51); Monocytes 4 % (0-10); Neutrophil 63 % (42-75); Ovalocytes SLIGHT = 2-5 cells HPF (0-1); Platelet Adequacy Comment Platelets Normal; Polychromasia SLIGHT = 2-3 cells HPF (0-2); Total Cell Count 100
[2023-08-01 15:17] LABS: ALT (SGPT) 24 U/L (8-55); AST (SGOT) 25 U/L (5-34); Albumin 3.4 g/dL (3.4-4.8); Alkaline Phosphatase 83 U/L (40-110); Anion Gap 17 mmol/L (10-20); BUN (Urea Nitrogen) 47 mg/dL (9.8-20.1); Bilirubin, Total 0.6 mg/dL (0.2-1.2); Calc. Creatinine Clearance 0 mL/min (70-130); Calcium 9.3 mg/dL (7.8-10.44); Carbon Dioxide 20 mmol/L (23-31); Chloride 105 mmol/L (98-107); Estimated GFR 20; Globulin 3.9 g/dL (2.4-3.5); Glucose 135 mg/dL (83-110); Lipase 7 U/L (8-78); Potassium 4.4 mmol/L (3.5-5.1); Protein, Total 7.3 g/dL (5.8-8.1); Sodium 138 mmol/L (136-145)
[2023-08-01] MEDS ORDERED: Ondansetron PF 4 MG/2 ML Vial IVP PRN (17:00)
[2023-08-01] MEDS ORDERED: Ondansetron ODT 4 MG TAB SL PRN (17:00)
[2023-08-01] MEDS ORDERED: Acetaminophen 325 MG TAB PO PRN (17:00)
[2023-08-01 17:38] VITALS: BMI 20.7
[2023-08-01] MEDS ORDERED: Cefepime 2 GM in Sodium Chloride 0.9% 100 ML IVPB SCH (18:00)
[2023-08-01 18:06] LABS: Lactic Acid 4.4 mmol/L (0.5-2.2); Troponin I 0.096 ng/mL (< 0.028)
[2023-08-01] MEDS: Sodium Chloride 0.9% 1,000 ML IV SCH (19:23)
[2023-08-01] MEDS: Cefepime 1 GM in Sodium Chloride 0.9% 100 ML IVPB SCH (19:24)
[2023-08-01 20:53] LABS: Troponin I 0.044 ng/mL (< 0.028)
[2023-08-01] MEDS: Heparin 5,000 UNITS/ML VIAL SC SCH (22:50)
[2023-08-02] MEDS: Sodium Chloride 0.9% 1,000 ML IV SCH (03:25)
[2023-08-02 06:42] LABS: Manual Diff?? YES; Mean Corpuscular HGB CONC 32.8 g/dL (32.0-36.0); Mean Corpuscular Hemoglobin 31.9 pg (27.0-31.0); Mean Corpuscular Volume 97.3 fl (78.0-98.0); Mean Platelet Volume 10.2 fL (7.4-10.4); Platelet Count 134 10x3/uL (130-400); RBC Distribution Width 14.8 % (11.5-14.5); Red Blood Cell (RBC) Count 3.35 mill/uL (4.20-5.40); White Blood Cell (WBC) Count 19.1 10x3/uL (4.8-10.8)
[2023-08-02 06:49] LABS: Delete Auto Diff?? YES; Hematocrit 32.6 % (36.0-47.0); Hemoglobin 10.7 g/dL (12.0-16.0)
[2023-08-02 07:29] LABS: Chloride 113 mmol/L (98-107); Potassium 3.4 mmol/L (3.5-5.1); Sodium 140 mmol/L (136-145)
[2023-08-02 07:30] LABS: Calcium 8.1 mg/dL (7.8-10.44); Glucose 83 mg/dL (83-110)
[2023-08-02 07:31] LABS: Anion Gap 12 mmol/L (10-20); Carbon Dioxide 18 mmol/L (23-31)
[2023-08-02 07:33] LABS: Calc. Creatinine Clearance 25 mL/min (70-130); Estimated GFR 39
[2023-08-02 07:34] LABS: BUN (Urea Nitrogen) 39 mg/dL (9.8-20.1)
[2023-08-02 07:36] LABS: Band 19 % (5-11); CellaVision Operator ID lab.dlt; Eosinophils 1 % (0-10); Lymphocytes 2 % (21-51); Metamyelocyte 1 % (0-0); Monocytes 2 % (0-10); Neutrophil 77 % (42-75); Platelet Adequacy Comment Platelets Normal; Total Cell Count 199
[2023-08-02] MEDS ORDERED: Sodium Chloride 0.9% 500 ML IV SCH (08:15)
[2023-08-02] MEDS ORDERED: Lactated Ringer's 500 ML IV SCH (08:15)
[2023-08-02] MEDS ORDERED: Potassium Bicarbonate/Cit Ac 20 MEQ TAB PO SCH (08:15)
[2023-08-02] MEDS: Lactated Ringer's 1,000 ML IV SCH ×2 (08:27→18:07)
[2023-08-02] MEDS: Heparin 5,000 UNITS/ML VIAL SC SCH (08:27)
[2023-08-02] MEDS: Sertraline 25 MG TAB PO SCH (11:06)
[2023-08-02] MEDS: Cefepime 1 GM in Sodium Chloride 0.9% 100 ML IVPB SCH (18:06)
[2023-08-02] MEDS ORDERED: Dextrose 50% Abboject 50 ML SYRINGE SLOW IVP PRN (21:59)
[2023-08-02] MEDS ORDERED: Glucagon 1 MG/ML KIT IM PRN (21:59)
[2023-08-02] MEDS ORDERED: Dextrose 5% in Water 1,000 ML IV PRN (21:59)
[2023-08-02] MEDS ORDERED: Dextrose 5%-Lactated Ringers 1,000 ML IV SCH (22:00)
[2023-08-02] MEDS: Mirtazapine 15 MG TAB PO SCH (23:06)
[2023-08-02] MEDS: Donepezil HCl 5 MG TAB PO SCH (23:07)
[2023-08-03 04:27] LABS: #Basophils 0.1 thou/uL (0.0-0.2); #Monocytes 0.7 thou/uL (0.11-0.59); #Neutrophils 11.9 thou/uL (1.40-6.50); %Basophils 0.4 % (0.0-1.0); %Eosinophils 0.1 % (0.0-10.0); %Lymphocytes 6.3 % (21.0-51.0); %Monocytes 4.8 % (0.0-10.0); %Neutrophils 84.3 % (42.0-75.0); Hematocrit 32.4 % (36.0-47.0); Hemoglobin 10.5 g/dL (12.0-16.0); Mean Corpuscular HGB CONC 32.4 g/dL (32.0-36.0); Mean Corpuscular Hemoglobin 31.8 pg (27.0-31.0); Mean Corpuscular Volume 98.2 fl (78.0-98.0); Mean Platelet Volume 10.8 fL (7.4-10.4); Platelet Count 129 10x3/uL (130-400); White Blood Cell (WBC) Count 14.1 10x3/uL (4.8-10.8)
[2023-08-03 04:37] LABS: ALT (SGPT) 18 U/L (8-55); AST (SGOT) 18 U/L (5-34); Albumin 2.4 g/dL (3.4-4.8); Alkaline Phosphatase 68 U/L (40-110); Anion Gap 12 mmol/L (10-20); BUN (Urea Nitrogen) 31 mg/dL (9.8-20.1); Bilirubin, Total 0.7 mg/dL (0.2-1.2); Calc. Creatinine Clearance 36 mL/min (70-130); Calcium 8.3 mg/dL (7.8-10.44); Carbon Dioxide 20 mmol/L (23-31); Chloride 111 mmol/L (98-107); Estimated GFR 61; Globulin 3.2 g/dL (2.4-3.5); Glucose 94 mg/dL (83-110); Magnesium 1.7 mg/dL (1.6-2.6); Potassium 3.6 mmol/L (3.5-5.1); Protein, Total 5.6 g/dL (5.8-8.1); Sodium 139 mmol/L (136-145)
[2023-08-03] MEDS: Levothyroxine Sodium 112 MCG TAB PO SCH (05:34)
[2023-08-03] MEDS: Sertraline 25 MG TAB PO SCH (07:21)
[2023-08-03] MEDS: Dextrose 5%-Lactated Ringers 1,000 ML IV SCH ×2 (09:07→23:00)
[2023-08-03] MEDS: Cefepime 1 GM in Sodium Chloride 0.9% 100 ML IVPB SCH (18:11)
[2023-08-03] MEDS: Mirtazapine 15 MG TAB PO SCH ×2 (21:59→22:20)
[2023-08-03] MEDS: Donepezil HCl 5 MG TAB PO SCH ×2 (21:59→22:21)
[2023-08-04] MEDS: Donepezil HCl 5 MG TAB PO SCH ×2 (00:15→19:57)
[2023-08-04] MEDS: Mirtazapine 15 MG TAB PO SCH ×2 (00:15→19:57)
[2023-08-04 05:10] LABS: #Basophils 0.1 thou/uL (0.0-0.2); #Eosinphils 0.1 thou/uL (0.0-0.7); #Monocytes 1.2 thou/uL (0.11-0.59); #Neutrophils 7.4 thou/uL (1.40-6.50); %Basophils 0.6 % (0.0-1.0); %Eosinophils 0.8 % (0.0-10.0); %Lymphocytes 11.5 % (21.0-51.0); %Monocytes 11.7 % (0.0-10.0); %Neutrophils 71.1 % (42.0-75.0); Hematocrit 33.5 % (36.0-47.0); Hemoglobin 10.6 g/dL (12.0-16.0); Mean Corpuscular HGB CONC 31.6 g/dL (32.0-36.0); Mean Corpuscular Hemoglobin 32.2 pg (27.0-31.0); Mean Corpuscular Volume 101.8 fl (78.0-98.0); Mean Platelet Volume 10.6 fL (7.4-10.4); Platelet Count 137 10x3/uL (130-400); Red Blood Cell (RBC) Count 3.29 mill/uL (4.20-5.40); White Blood Cell (WBC) Count 10.4 10x3/uL (4.8-10.8)
[2023-08-04 07:39] LABS: Anion Gap 10 mmol/L (10-20); BUN (Urea Nitrogen) 21 mg/dL (9.8-20.1); Calc. Creatinine Clearance 43 mL/min (70-130); Calcium 8.2 mg/dL (7.8-10.44); Carbon Dioxide 19 mmol/L (23-31); Chloride 111 mmol/L (98-107); Estimated GFR 75; Glucose 98 mg/dL (83-110); Magnesium 1.6 mg/dL (1.6-2.6); Potassium 3.5 mmol/L (3.5-5.1); Sodium 136 mmol/L (136-145)
[2023-08-04] MEDS: Levothyroxine Sodium 112 MCG TAB PO SCH (07:41)
[2023-08-04] MEDS: Cefepime 1 GM in Sodium Chloride 0.9% 100 ML IVPB SCH ×2 (07:41→17:07)
[2023-08-04] MEDS ORDERED: Magnesium 2 GM/50 ML(in water) 2 GM in Premix 1 BAG IVPB SCH (08:45)
[2023-08-04] MEDS: Potassium Bicarbonate/Cit Ac 20 MEQ TAB PO SCH ×2 (09:31→13:26)
[2023-08-04] MEDS: Sertraline 25 MG TAB PO SCH (09:31)
[2023-08-04] MEDS: Dextrose 5%-Lactated Ringers 1,000 ML IV SCH (11:30)
[2023-08-04] MEDS ORDERED: Potassium Chloride 20 MEQ in Premix 1 BAG IVPB SCH (12:30)
[2023-08-05] MEDS: Melatonin 3 MG TAB PO PRN (00:21)
[2023-08-05] MEDS: Dextrose 5%-Lactated Ringers 1,000 ML IV SCH (00:22)
[2023-08-05] MEDS: HYDROcodone/Acetaminophen 5/325 mg Tablet PO PRN ×2 (00:29→20:11)
[2023-08-05 04:39] LABS: Hematocrit 30.1 % (36.0-47.0); Hemoglobin 9.8 g/dL (12.0-16.0); Manual Diff?? YES; Mean Corpuscular HGB CONC 32.6 g/dL (32.0-36.0); Mean Corpuscular Hemoglobin 31.8 pg (27.0-31.0); Mean Corpuscular Volume 97.7 fl (78.0-98.0); Mean Platelet Volume 10.8 fL (7.4-10.4); Platelet Count 141 10x3/uL (130-400); RBC Distribution Width 14.7 % (11.5-14.5); Red Blood Cell (RBC) Count 3.08 mill/uL (4.20-5.40); White Blood Cell (WBC) Count 7.2 10x3/uL (4.8-10.8)
[2023-08-05 04:56] LABS: Phosphorus 1.9 mg/dL (2.3-4.7)
[2023-08-05 05:01] LABS: Delete Auto Diff?? YES
[2023-08-05 05:02] LABS: Anion Gap 9 mmol/L (10-20); BUN (Urea Nitrogen) 17 mg/dL (9.8-20.1); Calc. Creatinine Clearance 43 mL/min (70-130); Calcium 7.9 mg/dL (7.8-10.44); Carbon Dioxide 22 mmol/L (23-31); Chloride 109 mmol/L (98-107); Estimated GFR 77; Glucose 149 mg/dL (83-110); Magnesium 1.9 mg/dL (1.6-2.6); Potassium 3.1 mmol/L (3.5-5.1); Sodium 137 mmol/L (136-145)
[2023-08-05] MEDS: Cefepime 1 GM in Sodium Chloride 0.9% 100 ML IVPB SCH ×2 (05:45→17:28)
[2023-08-05] MEDS: Levothyroxine Sodium 112 MCG TAB PO SCH (05:46)
[2023-08-05 06:55] LABS: Band 11 % (5-11); Eosinophils 2 % (0-10); Lymphocytes 10 % (21-51); Monocytes 9 % (0-10); Neutrophil 68 % (42-75)
[2023-08-05] MEDS ORDERED: Electrolyte Replacement Protocol 1 EACH FS SCH (07:30)
[2023-08-05] MEDS ORDERED: Electrolyte Replacement Protocol FS PRN (07:45)
[2023-08-05] MEDS ORDERED: Magnesium 2 GM/50 ML(in water) 2 GM in Premix 1 BAG IVPB SCH (08:00)
[2023-08-05] MEDS ORDERED: PHOS-NAK 1 PKT PACK PO SCH (08:00)
[2023-08-05] MEDS: Potassium Chloride 20 MEQ in Premix 1 BAG IVPB SCH ×2 (08:36→10:56)
[2023-08-05] MEDS ORDERED: Carbamide Peroxide 6.5% Otic Drops 15 ml Bottle EA EAR SCH (11:00)
[2023-08-05] MEDS ORDERED: Megestrol Acetate 400 MG/10 ML UDCUP PO SCH (11:30)
[2023-08-05] MEDS: PHOS-NAK 1 PKT PACK PO SCH ×2 (11:44→17:28)
[2023-08-05] MEDS: Sertraline 25 MG TAB PO SCH (11:45)
[2023-08-05 17:06] LABS: Potassium 4.3 mmol/L (3.5-5.1)
[2023-08-05] MEDS: Donepezil HCl 5 MG TAB PO SCH (20:12)
[2023-08-05] MEDS: Mirtazapine 15 MG TAB PO SCH (20:12)
[2023-08-05] MEDS: Carbamide Peroxide 6.5% Otic Drops 15 ml Bottle EA EAR SCH (20:13)
[2023-08-06] MEDS: Cefepime 1 GM in Sodium Chloride 0.9% 100 ML IVPB SCH ×2 (06:26→16:46)
[2023-08-06] MEDS: Levothyroxine Sodium 112 MCG TAB PO SCH (06:29)
[2023-08-06] MEDS: HYDROcodone/Acetaminophen 5/325 mg Tablet PO PRN ×2 (06:29→18:30)
[2023-08-06 06:36] LABS: Hematocrit 29.9 % (36.0-47.0); Hemoglobin 9.7 g/dL (12.0-16.0); Manual Diff?? YES; Mean Corpuscular HGB CONC 32.4 g/dL (32.0-36.0); Mean Corpuscular Hemoglobin 32.1 pg (27.0-31.0); Mean Platelet Volume 10.4 fL (7.4-10.4); Platelet Count 181 10x3/uL (130-400); RBC Distribution Width 14.7 % (11.5-14.5); Red Blood Cell (RBC) Count 3.02 mill/uL (4.20-5.40); White Blood Cell (WBC) Count 7.1 10x3/uL (4.8-10.8)
[2023-08-06 06:47] LABS: Delete Auto Diff?? YES
[2023-08-06 07:07] LABS: Chloride 108 mmol/L (98-107); Potassium 3.8 mmol/L (3.5-5.1); Sodium 138 mmol/L (136-145)
[2023-08-06 07:08] LABS: Calcium 7.9 mg/dL (7.8-10.44); Glucose 84 mg/dL (83-110)
[2023-08-06 07:10] LABS: Anion Gap 9 mmol/L (10-20); Carbon Dioxide 25 mmol/L (23-31)
[2023-08-06 07:12] LABS: BUN (Urea Nitrogen) 15 mg/dL (9.8-20.1); Calc. Creatinine Clearance 43 mL/min (70-130); Estimated GFR 77
[2023-08-06 07:14] LABS: Magnesium 1.9 mg/dL (1.6-2.6)
[2023-08-06 07:39] LABS: Phosphorus 2.7 mg/dL (2.3-4.7)
[2023-08-06] MEDS ORDERED: Magnesium 2 GM/50 ML(in water) 2 GM in Premix 1 BAG IVPB SCH (08:00)
[2023-08-06 08:34] LABS: Anisocytosis SLIGHT = 6-15 cells HPF (0-5); Band 13 % (5-11); CellaVision Operator ID LAB.GE; Lymphocytes 6 % (21-51); Monocytes 10 % (0-10); Neutrophil 68 % (42-75); Platelet Adequacy Comment Platelets Normal; Polychromasia SLIGHT = 2-3 cells HPF (0-2); Reactive Lymphocytes 3 % (0-10); Total Cell Count 100
[2023-08-06] MEDS ORDERED: Megestrol Acetate 400 MG/10 ML UDCUP PO SCH (09:00)
[2023-08-06] MEDS: Megestrol Acetate 800 MG/20 ML UDCUP PO SCH (09:24)
[2023-08-06] MEDS: Sertraline 25 MG TAB PO SCH (09:24)
[2023-08-06] MEDS: Carbamide Peroxide 6.5% Otic Drops 15 ml Bottle EA EAR SCH ×2 (09:24→20:57)
[2023-08-06] MEDS: PHOS-NAK 1 PKT PACK PO SCH ×2 (09:24→16:45)
[2023-08-06] MEDS ORDERED: Ondansetron PF 4 MG/2 ML Vial IVP PRN (19:44)
[2023-08-06] MEDS ORDERED: Ondansetron ODT 4 MG TAB PO PRN (19:44)
[2023-08-06] MEDS: Melatonin 3 MG TAB PO PRN (20:55)
[2023-08-06] MEDS: Donepezil HCl 5 MG TAB PO SCH (20:55)
[2023-08-06] MEDS: Mirtazapine 15 MG TAB PO SCH (20:55)
[2023-08-07] MEDS: Cefepime 1 GM in Sodium Chloride 0.9% 100 ML IVPB SCH ×2 (05:18→17:19)
[2023-08-07] MEDS: Levothyroxine Sodium 112 MCG TAB PO SCH (05:19)
[2023-08-07 05:31] LABS: Hematocrit 30.9 % (36.0-47.0); Hemoglobin 9.8 g/dL (12.0-16.0); Manual Diff?? YES; Mean Corpuscular HGB CONC 31.7 g/dL (32.0-36.0); Mean Corpuscular Hemoglobin 31.6 pg (27.0-31.0); Mean Corpuscular Volume 99.7 fl (78.0-98.0); Mean Platelet Volume 10.5 fL (7.4-10.4); Platelet Count 209 10x3/uL (130-400); RBC Distribution Width 14.8 % (11.5-14.5); White Blood Cell (WBC) Count 6.7 10x3/uL (4.8-10.8)
[2023-08-07 05:35] LABS: Delete Auto Diff?? YES
[2023-08-07 05:55] LABS: Band 17 % (5-11); CellaVision Operator ID LAB.CLH1; Elliptocytes SLIGHT = 2-5 cells HPF (0-1); Eosinophils 2 % (0-10); Hypochromia SLIGHT = 6-15 cells HPF (0-5); Large Platelets 4.9 % (0-5); Lymphocytes 13 % (21-51); Monocytes 10 % (0-10); Neutrophil 59 % (42-75); Platelet Adequacy Comment Platelets Normal; Polychromasia SLIGHT = 2-3 cells HPF (0-2); Total Cell Count 103
[2023-08-07 05:58] LABS: Anion Gap 11 mmol/L (10-20); BUN (Urea Nitrogen) 13 mg/dL (9.8-20.1); Calc. Creatinine Clearance 43 mL/min (70-130); Calcium 7.9 mg/dL (7.8-10.44); Carbon Dioxide 25 mmol/L (23-31); Chloride 106 mmol/L (98-107); Estimated GFR 77; Glucose 74 mg/dL (83-110); Magnesium 3.5 mg/dL (1.6-2.6); Sodium 138 mmol/L (136-145)
[2023-08-07] MEDS ORDERED: Electrolyte Replacement Protocol FS PRN (07:00)
[2023-08-07] MEDS: Carbamide Peroxide 6.5% Otic Drops 15 ml Bottle EA EAR SCH ×2 (08:18→21:50)
[2023-08-07] MEDS: PHOS-NAK 1 PKT PACK PO SCH ×2 (08:18→17:19)
[2023-08-07] MEDS: Sertraline 25 MG TAB PO SCH (08:19)
[2023-08-07] MEDS: Megestrol Acetate 800 MG/20 ML UDCUP PO SCH (08:19)
[2023-08-07] MEDS ORDERED: Mineral Oil ENEMA PR SCH (11:45)
[2023-08-07] MEDS: Bisacodyl 10 MG SUPP PR SCH ×2 (12:59→21:50)
[2023-08-07] MEDS: Dextrose 5 % And 0.9 % NaCl 1,000 ML IV SCH (13:10)
[2023-08-07] MEDS: Donepezil HCl 5 MG TAB PO SCH (21:49)
[2023-08-07] MEDS: Melatonin 3 MG TAB PO PRN (21:49)
[2023-08-07] MEDS: Mirtazapine 15 MG TAB PO SCH (21:49)
[2023-08-08] MEDS: Acetaminophen 325 MG TAB PO PRN ×2 (02:33→13:13)
[2023-08-08] MEDS: Bisacodyl 10 MG SUPP PR SCH ×3 (03:27→17:08)
[2023-08-08] MEDS: Levothyroxine Sodium 112 MCG TAB PO SCH (05:16)
[2023-08-08] MEDS: Cefepime 1 GM in Sodium Chloride 0.9% 100 ML IVPB SCH ×2 (05:16→18:01)
[2023-08-08 09:37] LABS: Magnesium 1.8 mg/dL (1.6-2.6)
[2023-08-08] MEDS: Dextrose 5 % And 0.9 % NaCl 1,000 ML IV SCH (09:59)
[2023-08-08] MEDS: PHOS-NAK 1 PKT PACK PO SCH ×2 (09:59→17:08)
[2023-08-08] MEDS: Megestrol Acetate 800 MG/20 ML UDCUP PO SCH (09:59)
[2023-08-08] MEDS: Carbamide Peroxide 6.5% Otic Drops 15 ml Bottle EA EAR SCH ×2 (09:59→20:41)
[2023-08-08] MEDS: Sertraline 25 MG TAB PO SCH (10:00)
[2023-08-08] MEDS ORDERED: Magnesium 2 GM/50 ML(in water) 2 GM in Premix 1 BAG IVPB SCH (11:45)
[2023-08-08] MEDS ORDERED: Morphine 4 MG/ML VIAL SLOW IVP PRN (13:32)
[2023-08-08] MEDS: Donepezil HCl 5 MG TAB PO SCH (20:41)
[2023-08-08] MEDS: Mirtazapine 15 MG TAB PO SCH (20:41)
[2023-08-08] MEDS: Melatonin 3 MG TAB PO PRN (20:42)
[2023-08-09] MEDS: Cefepime 1 GM in Sodium Chloride 0.9% 100 ML IVPB SCH (05:11)
[2023-08-09] MEDS: Levothyroxine Sodium 112 MCG TAB PO SCH (05:12)
[2023-08-09 05:23] VITALS: TEMP 97.3
[2023-08-09 07:35] LABS: Hematocrit 30.6 % (36.0-47.0); Hemoglobin 9.8 g/dL (12.0-16.0); Manual Diff?? YES; Mean Corpuscular Hemoglobin 31.5 pg (27.0-31.0); Mean Corpuscular Volume 98.4 fl (78.0-98.0); Mean Platelet Volume 9.8 fL (7.4-10.4); Platelet Count 280 10x3/uL (130-400); RBC Distribution Width 14.9 % (11.5-14.5); Red Blood Cell (RBC) Count 3.11 mill/uL (4.20-5.40); White Blood Cell (WBC) Count 8.1 10x3/uL (4.8-10.8)
[2023-08-09 07:51] LABS: Delete Auto Diff?? YES
[2023-08-09 07:57] LABS: Anion Gap 8 mmol/L (10-20); BUN (Urea Nitrogen) 10 mg/dL (9.8-20.1); Calc. Creatinine Clearance 44 mL/min (70-130); Calcium 7.2 mg/dL (7.8-10.44); Carbon Dioxide 25 mmol/L (23-31); Chloride 110 mmol/L (98-107); Estimated GFR 80; Glucose 96 mg/dL (83-110); Magnesium 1.9 mg/dL (1.6-2.6); Potassium 3.4 mmol/L (3.5-5.1); Sodium 140 mmol/L (136-145)
[2023-08-09 08:02] LABS: Phosphorus 2.9 mg/dL (2.3-4.7)
[2023-08-09 08:30] VITALS: BP 112/52
[2023-08-09 08:32] LABS: Band 2 % (5-11); CellaVision Operator ID LAB.NR; Eosinophils 1 % (0-10); Lymphocytes 8 % (21-51); Monocytes 5 % (0-10); Neutrophil 82 % (42-75); Platelet Adequacy Comment Platelets Normal; RBC Morphology Within Normal Limits; Reactive Lymphocytes 2 % (0-10); Total Cell Count 100
[2023-08-09] MEDS: Megestrol Acetate 800 MG/20 ML UDCUP PO SCH (08:59)
[2023-08-09] MEDS: Sertraline 25 MG TAB PO SCH (08:59)
[2023-08-09] MEDS: PHOS-NAK 1 PKT PACK PO SCH (08:59)
[2023-08-09] MEDS: HYDROcodone/Acetaminophen 5/325 mg Tablet PO PRN (12:44)
== END 2023-08-09 14:00 | disposition hospice, home (50) | DRG 871 ==
LOC: ERS 13:37 → 2NO 16:05 → T4-B 08-07 12:37
PROVIDERS: ADMIT Hospitalist; ATTEND Family Medicine
PROC: 0T9B70Z Drainage of Bladder with Drainage Device, Via Natural or Artificial Opening (ICD-10-PCS; principal; 2023-08-01)
PROC: 3E03329 Introduction of Other Anti-infective into Peripheral Vein, Percutaneous Approach (ICD-10-PCS; 2023-08-01)
DX: A41.9 Sepsis, unspecified organism (principal); G93.41 Metabolic encephalopathy; N39.0 Urinary tract infection, site not specified; Z66 Do not resuscitate; Z51.5 Encounter for palliative care; E44.0 Moderate protein-calorie malnutrition; N17.9 Acute kidney failure, unspecified; E87.20 Acidosis, unspecified; E86.0 Dehydration; Z88.8 Allergy status to other drugs, medicaments and biological substances; Z91.041 Radiographic dye allergy status; Z88.2 Allergy status to sulfonamides; I11.0 Hypertensive heart disease with heart failure; I50.9 Heart failure, unspecified; D64.9 Anemia, unspecified; E03.9 Hypothyroidism, unspecified; F03.90 Unspecified dementia, unspecified severity, without behavioral disturbance, psychotic disturbance, mood disturbance, and anxiety; K21.9 Gastro-esophageal reflux disease without esophagitis; Z90.710 Acquired absence of both cervix and uterus; F32.A Depression, unspecified; Z79.899 Other long term (current) drug therapy; Z79.01 Long term (current) use of anticoagulants; Z86.73 Personal history of transient ischemic attack (TIA), and cerebral infarction without residual deficits; Z11.52 Encounter for screening for COVID-19; H61.20 Impacted cerumen, unspecified ear; R62.7 Adult failure to thrive; Z68.20 Body mass index [BMI] 20.0-20.9, adult; M17.11 Unilateral primary osteoarthritis, right knee
CPT/HCPCS: 36415; 36416; 71045; 74176; 80048; 80053; 81001; 82728; 83605; 83690; 83735; 83880; 84100; 84484; 85025; 87040; 87077; 87086; 87149; 87186; 93005; 93306; 96360; 96365; J0692; J0696; J1644; J2270; J2405; J3370-JW; J3475; J3480; J3490; J7042; J7050; J7120

== ENCOUNTER 2023-12-23 10:00 | Observation (INO) | payer MEDICARE, MEDICAID ==
[2023-12-22 10:41] VITALS: BMI 19.0
[2023-12-23] MEDS ORDERED: Acetaminophen 325 MG (10.15 ML) UDCUP ONE (11:16)
[2023-12-23 11:57] LABS: #Basophils 0.03 10x3/uL (0.0-0.2); %Basophils 0.8 % (0.0-1.0); %Eosinophils 1.5 % (0.0-10.0); %Lymphocytes 42.3 % (21.0-51.0); %Monocytes 12.4 % (0.0-10.0); %Neutrophils 40.7 % (42.0-75.0); Hematocrit 32.2 % (36.0-47.0); Hemoglobin 10.6 g/dL (12.0-16.0); Mean Corpuscular HGB CONC 32.9 g/dL (32.0-36.0); Mean Corpuscular Volume 100.3 fL (78.0-98.0); Mean Platelet Volume 9.1 fL (7.4-10.4); Platelet Count 200 10x3/uL (130-400); RBC Distribution Width 15.2 % (11.5-14.5); Red Blood Cell (RBC) Count 3.21 mill/uL (4.20-5.40)
[2023-12-23 12:44] LABS: Anion Gap 14 mmol/L (10-20); BUN (Urea Nitrogen) 17 mg/dL (9.8-20.1); Calc. Creatinine Clearance 29 mL/min (70-130); Calcium 9.6 mg/dL (7.8-10.44); Carbon Dioxide 26 mmol/L (23-31); Chloride 105 mmol/L (98-107); Estimated GFR 52; Glucose 88 mg/dL (83-110); Potassium 3.1 mmol/L (3.5-5.1); Sodium 142 mmol/L (136-145)
[2023-12-23] MEDS ORDERED: Ketorolac Tromethamine 30 MG (1 mL) VIAL ONE (12:47)
[2023-12-23] MEDS ORDERED: EPINEPHrine 1 MG/ML VIAL ONE (13:00)
[2023-12-23] MEDS ORDERED: Bupivacaine 0.25% HCL 30 ML VIAL ONE (13:00)
[2023-12-23] MEDS ORDERED: fentaNYL PF 100 MCG/2 ML SYRINGE ONE (13:01)
[2023-12-23] MEDS ORDERED: PROPOFOL 20 ML ONE (13:01)
[2023-12-23] MEDS ORDERED: PHENYLEPHRINE-NS 100 MCG/ML 10 ML SYRINGE ONE (13:34)
[2023-12-23] MEDS ORDERED: CEFAZOLIN 1 GM VIAL ONE (14:05)
[2023-12-23] MEDS ORDERED: Dexamethasone 20 MG/5 ML VIAL ONE (14:05)
[2023-12-23] MEDS ORDERED: Lidocaine 1% PF 5 ML VIAL ONE (14:05)
[2023-12-23] MEDS ORDERED: Ondansetron PF 4 MG/2 ML Vial ONE (14:05)
[2023-12-23] MEDS ORDERED: Calcium Carbonate 500 MG ChewTAB PO PRN (14:56)
[2023-12-23] MEDS ORDERED: Acetaminophen 500 MG TAB PO PRN (14:56)
[2023-12-23] MEDS ORDERED: Ondansetron ODT 4 MG TAB PO PRN (14:56)
[2023-12-23] MEDS ORDERED: Glucagon 1 MG/ML KIT IM PRN (15:52)
[2023-12-23] MEDS ORDERED: Dextrose 5% in Water 1,000 ML IV PRN (15:52)
[2023-12-23] MEDS ORDERED: Ondansetron PF 4 MG/2 ML Vial IVP PRN (15:52)
[2023-12-23] MEDS ORDERED: Dextrose 50% Abboject 50 ML SYRINGE SLOW IVP PRN (15:52)
[2023-12-23] MEDS ORDERED: Promethazine HCl 25 MG/ML VIAL IM PRN (15:52)
[2023-12-23] MEDS ORDERED: Morphine 2 MG/ML VIAL SLOW IVP PRN (15:52)
[2023-12-23] MEDS ORDERED: Ipratropium/Albuterol 3 ML NEB NEB PRN (15:52)
[2023-12-23] MEDS ORDERED: Acetaminophen 325 MG TAB PO PRN (15:52)
[2023-12-23] MEDS ORDERED: hydrALAZINE 20 MG/ML VIAL SLOW IVP PRN (15:52)
[2023-12-23] MEDS: D5 1/2 NS w/20 mEq KCL 1,000 ML IV SCH (19:50)
[2023-12-23] MEDS: Famotidine 20 MG TAB PO SCH (21:11)
[2023-12-23] MEDS: Artificial Tear Sol 15 ML BOT EA EYE SCH (21:48)
[2023-12-24 05:02] LABS: #Basophils Less than 0.03 10x3/uL (0.0-0.2); #Eosinphils Less than 0.03 10x3/uL (0.0-0.7); %Basophils 0.4 % (0.0-1.0); %Lymphocytes 20.4 % (21.0-51.0); %Monocytes 11.7 % (0.0-10.0); Hematocrit 27.8 % (36.0-47.0); Hemoglobin 9.3 g/dL (12.0-16.0); Mean Corpuscular HGB CONC 33.5 g/dL (32.0-36.0); Mean Corpuscular Hemoglobin 33.5 pg (27.0-31.0); Mean Platelet Volume 9.4 fL (7.4-10.4); Platelet Count 175 10x3/uL (130-400); RBC Distribution Width 15.1 % (11.5-14.5); Red Blood Cell (RBC) Count 2.78 mill/uL (4.20-5.40)
[2023-12-24 05:26] LABS: Anion Gap 15 mmol/L (10-20); BUN (Urea Nitrogen) 15 mg/dL (9.8-20.1); Calc. Creatinine Clearance 31 mL/min (70-130); Calcium 8.8 mg/dL (7.8-10.44); Carbon Dioxide 21 mmol/L (23-31); Chloride 104 mmol/L (98-107); Estimated GFR 57; Glucose 161 mg/dL (83-110); Potassium 3.7 mmol/L (3.5-5.1); Sodium 136 mmol/L (136-145)
[2023-12-24 08:05] VITALS: BMI 19.0
[2023-12-24] MEDS: Sertraline 25 MG TAB PO SCH (09:01)
[2023-12-24] MEDS: Senokot S 8.6-50 MG TAB PO SCH (09:01)
[2023-12-24 15:22] VITALS: BP 152/68; TEMP 97.8
== END 2023-12-24 16:45 ==
LOC: SDC 10:00 → SJJU 16:34
PROVIDERS: ADMIT Specialist; ATTEND Specialist
PROC: 0HTU0ZZ Resection of Left Breast, Open Approach (ICD-10-PCS; principal; 2023-12-23)
PROC: 0HRU07Z Replacement of Left Breast with Autologous Tissue Substitute, Open Approach (ICD-10-PCS; 2023-12-23)
DX: C50.912 Malignant neoplasm of unspecified site of left female breast (principal); F03.B0 Unspecified dementia, moderate, without behavioral disturbance, psychotic disturbance, mood disturbance, and anxiety; K80.20 Calculus of gallbladder without cholecystitis without obstruction; I10 Essential (primary) hypertension; E03.9 Hypothyroidism, unspecified; Z79.899 Other long term (current) drug therapy; Z79.82 Long term (current) use of aspirin; Z79.890 Hormone replacement therapy; Z90.710 Acquired absence of both cervix and uterus; Z90.89 Acquired absence of other organs; Z88.8 Allergy status to other drugs, medicaments and biological substances; Z88.2 Allergy status to sulfonamides; Z91.041 Radiographic dye allergy status; Z88.5 Allergy status to narcotic agent
CPT/HCPCS: 14001; 19303; 71045; 80048 ×2; 85025 ×2; 93005; J0171; 36415; 88307; 93010; J0665; J0690; J1100; J1885; J2405; J2704; J3480